=== PATIENT | female | born 1945 | race Caucasian/White ===

== ENCOUNTER 2020-06-17 12:46 | Outpatient (REF) | payer MEDICARE, SELFPAY ==
[2020-06-17 14:19] LABS: MANUAL DIFF FLAG NO
[2020-06-17 14:28] LABS: Basophils Absolute Auto 0.1 X10*3/uL (0.0-0.2); Basophils Percent Auto 0.8 % (0-2); Eosinophils Absolute Auto 0.3 X10*3/uL (0.0-0.4); Eosinophils Percent Auto 4.2 % (0-4); Hematocrit 43.7 % (37-47); Hemoglobin 13.4 g/dl (12.0-16.0); Imm Gran Abs Auto 0.02 X10*3/uL (0.00-0.03); Imm Gran Pct Auto 0.3 % (0.0-0.4); Lymphocytes Percent Auto 27.9 % (20-40); Mean Corpuscular HGB Conc 30.7 g/dl (31.0-35.0); Mean Corpuscular Hemoglobin 26.3 pg (27.0-33.0); Mean Corpuscular Volume 85.7 fL (80-98); Mean Platelet Volume 10.8 fL (9.4-12.3); Monocytes Absolute Auto 0.6 X10*3/uL (0.1-1.2); Monocytes Percent Auto 8.5 % (2-11); Neutrophils Absolute Auto 4.3 X10*3/uL (2.0-8.3); Neutrophils Percent Auto 58.3 % (45-73); Platelet Count 299 X10*3/uL (160-400); Red Cell Distribution Width 14.4 % (11.0-16.0); White Blood Count 7.3 X10*3/uL (4.8-10.8)
[2020-06-17 15:27] LABS: Anion Gap 13 (12-20); Blood Urea Nitrogen 19 mg/dL (9-16); Calcium 9.1 mg/dL (8.4-10.2); Carbon Dioxide 27 mmol/L (22-29); Chloride 103 mmol/L (96-108); Cholesterol 250 mg/dL; Estimated Glomerular Filt Rate > 60; Glucose Fasting 83 mg/dL (60-99); HDL Cholesterol 47 mg/dL; LDL Cholesterol Calculated 179 mg/dl; Potassium 4.5 mmol/l (3.3-5.1); Sodium 138 mmol/L (135-145); Triglycerides 124 mg/dL
== END 2020-06-17 12:47 | disposition home or self-care (01) ==
LOC: HO.LAB 12:46
PROVIDERS: PCP Nurse Practitioner Family; Visit Provider Nurse Practitioner Family
DX: R10.84 Generalized abdominal pain (principal); E78.00 Pure hypercholesterolemia, unspecified
CPT/HCPCS: 36415; 80048; 80061; 85025

== ENCOUNTER 2020-06-22 13:33 | Outpatient (REF) | payer MEDICARE, SELFPAY | END 2020-06-22 13:34 | disposition home or self-care (01) | LOC: HO.LAB 13:33 | PROVIDERS: Visit Provider Nurse Practitioner Family | DX: K92.1 Melena (principal) | CPT/HCPCS: 87045; 87046 ==

== ENCOUNTER 2022-06-03 14:21 | Inpatient (IN) | payer MEDICARE, OTHER, SELFPAY ==
--- NOTE | 2022-06-03 | ECG_ITS ---
Test Reason : SYNCOPE Blood Pressure : / mmHG Vent. Rate : 072 BPM Atrial Rate : 072 BPM P-R Int : 150 ms QRS Dur : 072 ms QT Int : 392 ms P-R-T Axes : 079 047 089 degrees QTc Int : 429 ms Normal sinus rhythm Normal ECG When compared with ECG of 12-DEC-2018 09:46, No significant change was found Referred By: Generic ED Physician Electronically Signed By:PARTHA BRAVO
--- NOTE | ~2022-06-03 | CT_ITS ---
PROCEDURE: CT-GUIDED LUNG BIOPSY CLINICAL INFORMATION: Rectal cancer. Multiple lung nodules. COMPARISON: Previous chest CT 06/04/2022. TECHNIQUE: Procedure and risks and benefits including bleeding, infection and pneumothorax were discussed with the patient and informed consent was obtained. The patient was positioned in the right decubitus position. Limited axial images through the lower lobes were performed. The right posterior lateral chest was prepped and draped in the usual sterile fashion. The skin and soft tissues were anesthetized with 1% lidocaine plain. Using CT guidance and a coaxial system, access to the right lower lobe nodule was obtained. Three 20-gauge core biopsies were obtained. Blood in the coaxial 19-gauge needle was also sent for cytology. Postprocedure imaging demonstrated no pneumothorax. The patient received Versed 1 mg and fentanyl 50 mcg intravenously during the procedure. Sedation time was 25 minutes. Conscious sedation was provided by a registered nurse under my direct supervision. TOTAL SEDATION TIME: 25 minutes PATIENT DOSE: 151 mGy-cm FINDINGS: There is evidence of emphysema. There are bilateral pulmonary nodules. Largest spiculated 1.5 cm right lower lobe nodule was targeted for biopsy. Postprocedure images demonstrate no pneumothorax. CT/CT guided FNA IMPRESSION: CT-guided right lung biopsy.
--- NOTE | ~2022-06-03 | US_ITS ---
EXAMINATION: US ABDOMEN LIMITED CLINICAL INFORMATION: Rectal cancer. Question metastatic disease to the liver.. COMPARISON: Previous CT of the abdomen and pelvis from yesterday TECHNIQUE: Real-time imaging of the liver. FINDINGS: The liver is normal in echotexture. There are multiple liver cysts. The largest measures 2.4 x 1 1.8 x 2.3 cm high in the dome of the right lobe of the liver. There is a 1.3 x 1.2 x 0.9 cm solid echogenic lesion high in the right lobe under the diaphragm. There is question of a second echogenic lesion in the central right lobe liver near the hepatic venous confluence measuring 7 mm. No other solid liver lesion is seen. There is no intrahepatic biliary duct dilatation. US/US abdomen limited IMPRESSION: Multiple liver cysts. 1.3 x 1.2 x 0.9 cm solid echogenic lesion high in the dome of the right lobe of the liver is under the right hemidiaphragm and question second smaller 7 mm echogenic lesion in the central right lobe of the liver near the hepatic venous confluence. These would be difficult locations for ultrasound-guided liver biopsy.
--- NOTE | ~2022-06-03 | XR_ITS ---
EXAMINATION: XR CHEST CLINICAL INFORMATION: Post right lung biopsy COMPARISON: Previous chest x-ray December [address] from earlier this month TECHNIQUE: Frontal view of the chest was obtained. FINDINGS: The cardiac and mediastinal contours are normal. Pulmonary nodules seen by CT are not well-visualized by chest x-ray. Small 7 mm left upper lobe nodule projecting over the left posterior fourth rib is seen. Other pulmonary nodules not appreciated. There is no pleural effusion. There is no pneumothorax post right lung biopsy. There are degenerative changes of the spine. XR/XR chest 1V IMPRESSION: No pneumothorax post right lung biopsy.
--- NOTE | ~2022-06-03 | CT_ITS ---
PROCEDURE: CT-GUIDED LUNG BIOPSY CLINICAL INFORMATION: Rectal cancer. Multiple lung nodules. COMPARISON: Previous chest CT 06/04/2022. TECHNIQUE: Procedure and risks and benefits including bleeding, infection and pneumothorax were discussed with the patient and informed consent was obtained. The patient was positioned in the right decubitus position. Limited axial images through the lower lobes were performed. The right posterior lateral chest was prepped and draped in the usual sterile fashion. The skin and soft tissues were anesthetized with 1% lidocaine plain. Using CT guidance and a coaxial system, access to the right lower lobe nodule was obtained. Three 20-gauge core biopsies were obtained. Blood in the coaxial 19-gauge needle was also sent for cytology. Postprocedure imaging demonstrated no pneumothorax. The patient received Versed 1 mg and fentanyl 50 mcg intravenously during the procedure. Sedation time was 25 minutes. Conscious sedation was provided by a registered nurse under my direct supervision. TOTAL SEDATION TIME: 25 minutes PATIENT DOSE: 151 mGy-cm FINDINGS: There is evidence of emphysema. There are bilateral pulmonary nodules. Largest spiculated 1.5 cm right lower lobe nodule was targeted for biopsy. Postprocedure images demonstrate no pneumothorax. CT/CT biopsy lung RT IMPRESSION: CT-guided right lung biopsy.
--- NOTE | ~2022-06-03 | CT_ITS ---
EXAMINATION: CT CHEST WITH CONTRAST CLINICAL INFORMATION: Pain. COMPARISON: Abdominal CT from today. Chest radiograph 12/12/2018. TECHNIQUE: Multidetector volumetric CT imaging of the chest was obtained after the administration of 50 mL of Omnipaque 350 intravenous contrast without immediate adverse reactions. Axial MIP volume rendering provided. Sagittal and coronal reformatted images were obtained. This CT examination was performed using dose optimization techniques as appropriate, variously including the following: *Automated exposure control *Adjustment of mA and/or kV according to patient size (this includes techniques or standardized protocols for targeted exams where dose is matched to indication/reason for exam; i.e. extremities or head) *Use of iterative reconstruction technique DLP: 227 mGy-cm FINDINGS: LUNGS: The central airways are patent. There is moderate centrilobular emphysema. No dense consolidation. No pneumothorax. There are multiple pulmonary nodules identified. Select nodules are characterized below: 1. Spiculated nodule of the right lower lobe measuring 1.7 cm on series 5 image 237. 2. Left upper lobe 0.7 cm nodule on series 5 image 84. 3. Subpleural anterior left upper lobe 0.7 cm nodule on series 5 image 194. 4. Left lower lobe 0.7 cm nodule on series 5 image 323. 5. Anterior right upper lobe 1 x 0.5 cm nodule on series 5 image 156. Additional smaller nodules are present. MEDIASTINUM: Normal heart size. No pericardial effusion. No mediastinal lymphadenopathy. CORONARY ARTERY CALCIFICATION: None visualized on this study. PLEURA: There is no pleural effusion. No pleural mass or thickening. AXILLA: No lymphadenopathy. UPPER ABDOMEN: Multiple hypoattenuating liver lesions again noted. OSSEOUS STRUCTURES: No acute or suspicious osseous abnormality. Mild degenerative changes of the spine. CT/CT chest w IV con IMPRESSION: Numerous bilateral pulmonary nodules are identified. No nonspecific, this could represent metastatic disease. There is moderate emphysema. Continued workup as clinically indicated in this setting. Fleischner guidelines were followed.
--- NOTE | ~2022-06-03 | CT_ITS ---
EXAMINATION: CT ABDOMEN AND PELVIS WITH CONTRAST CLINICAL INFORMATION: Abdominal pain. Weight loss. Rectal mass. COMPARISON: None TECHNIQUE: Multidetector volumetric images were obtained from the superior aspect of the liver through the pubic symphysis following administration 85 mL of Omnipaque 350 intravenous contrast. Sagittal and coronal reformatted images were obtained on the technologist's workstation. Oral contrast: No This CT examination was performed using dose optimization techniques as appropriate, variously including the following: *Automated exposure control *Adjustment of mA and/or kV according to patient size (this includes techniques or standardized protocols for targeted exams where dose is matched to indication/reason for exam; i.e. extremities or head) *Use of iterative reconstruction technique DLP: 351 mGy-cm FINDINGS: LUNG BASES: Moderate emphysema. Partially visualized right lower lobe 1.6 cm nodule. There is a calcification associated. There is a left lower lobe 0.7 cm nodule on series 4 image 71. Right middle lobe 0.4 cm nodule on image 75. There is also a right middle lobe 0.6 cm nodule on image 6. Normal heart size. LIVER, GALLBLADDER, AND BILIARY TREE: The liver is normal in size, shape, and attenuation. There is no biliary ductal dilatation. There are multiple hypoattenuating lesions in the liver. Some of these are too small to characterize. The larger lesions are cysts. There is a somewhat more heterogeneous structure which is ill-defined measuring 1.4 cm in segment 7 of the liver as seen on series 4 image 112.. The gallbladder is likely absent. PANCREAS: Unremarkable. SPLEEN: Unremarkable. ADRENAL GLANDS: Unremarkable. KIDNEYS AND URETERS: The kidneys are normal in size, shape, and attenuation. No hydronephrosis, hydroureter, or calculi seen. No perinephric stranding. Left lower pole simple renal cyst. No follow-up imaging recommended. BLADDER: Unremarkable. GASTROINTESTINAL TRACT: The stomach is unremarkable. Normal caliber small bowel. No obstruction. There is colonic diverticulosis without diverticulitis. As described in the clinical history, there is irregular wall thickening of the rectum with asymmetric prominence on the right. There are lymph nodes in the perirectal fat which are somewhat prominent. For instance there is a left perirectal node which measures 0.7 x 0.6 cm on series 3 image 78. ABDOMINAL WALL: No significant hernia is appreciated. LYMPH NODES: Mildly prominent lymph nodes in the perirectal fat as mentioned above. No additional lymphadenopathy. VASCULAR: Normal caliber aorta with mild atherosclerotic calcifications. PELVIC VISCERA: The uterus and adnexa are unremarkable. OSSEOUS STRUCTURES: No acute or suspicious osseous abnormality. Mild degenerative changes throughout the spine. Degenerative changes at both hips. CT/CT abdomen pelvis w IV con IMPRESSION: 1. Irregular rectal wall thickening. Neoplasm must be considered. Mildly prominent perirectal lymph nodes are present, concerning for neoplasm. 2. Moderate emphysema. Pulmonary nodules are seen at the lung bases. Given the clinical situation, metastatic disease is a concern. 3. Multiple hypoattenuating liver lesions are present. Many of these are too small to characterize, with the largest of these consistent with simple cysts. There is a more indeterminate lesion in the right lobe measuring 1.4 cm. MRI can be obtained to further evaluate. Fleischner guidelines were followed.
[2022-06-03 16:51] VITALS: BP 132/80; PULSE 102; RESP 18; TEMP 36.6; O2SAT 98; BMI 21.2
[2022-06-03 17:18] LABS: MANUAL DIFF FLAG NO
[2022-06-03 17:23] LABS: Basophils Absolute Auto 0.1 X10*3/uL (0.0-0.2); Basophils Percent Auto 0.6 % (0-2); Eosinophils Absolute Auto 0.2 X10*3/uL (0.0-0.4); Eosinophils Percent Auto 1.6 % (0-4); Hematocrit 40.6 % (37.0-47.0); Hemoglobin 12.5 g/dl (12.0-16.0); Imm Gran Abs Auto 0.03 X10*3/uL (0.00-0.03); Imm Gran Pct Auto 0.3 % (0.0-0.4); Lymphocytes Absolute Auto 1.4 X10*3/uL (1.2-4.9); Lymphocytes Percent Auto 14.3 % (20-40); Mean Corpuscular HGB Conc 30.8 g/dl (31.0-35.0); Mean Corpuscular Hemoglobin 26.3 pg (27.0-33.0); Mean Corpuscular Volume 85.5 fL (80.0-98.0); Mean Platelet Volume 9.8 fL (9.4-12.3); Monocytes Absolute Auto 0.9 X10*3/uL (0.1-1.2); Monocytes Percent Auto 8.6 % (2-11); Neutrophils Absolute Auto 7.5 x10*3/uL (2.0-8.3); Neutrophils Percent Auto 74.6 % (45-73); Platelet Count 510 X10*3/uL (160-400); Red Blood Count 4.75 X10*6/uL (4.20-5.50); Red Cell Distribution Width 15.1 % (11.0-16.0)
[2022-06-03 17:49] LABS: Alanine Aminotransferase 16 U/L (0-31); Albumin Level 4.4 g/dL (3.5-5.0); Alkaline Phosphatase 71 U/L (39-117); Anion Gap 17 (12-20); Aspartate Amino Transferase 23 U/L (5-31); Bilirubin Total < 0.2 mg/dL (0.0-1.0); Blood Urea Nitrogen 23 mg/dL (9-16); Calcium 9.8 mg/dL (8.4-10.2); Carbon Dioxide 19 mmol/L (22-29); Chloride 106 mmol/L (96-108); Creatinine Clr Calc Pharmacy 41.7; Estimated Glomerular Filt Rate 60; Glucose Random 96 mg/dL (60-115); Potassium 4.4 mmol/L (3.3-5.1); Sodium 138 mmol/L (135-145); Total Protein 7.3 g/dL (6.5-8.0)
[2022-06-03 17:51] LABS: Troponin-I High Sensitivity < 3.5 ng/L (<3.5-17.0)
[2022-06-03 18:50] LABS: B Type Natriuretic Peptide 81 pg/mL (<100)
[2022-06-03 22:29] LABS: Appearance Urine Cloudy; Color Urine Yellow; Glucose Urine UA Negative (Negative); Leukocyte Esterase Urine Moderate (2+) (Negative); Nitrite Urine Negative (Negative); Specific Gravity - Urine >= 1.030 (1.005-1.025); UMIC TRIGGER UACC YES; Urine Blood Negative (Negative); Urine Ketones Trace mg/dL (Negative); Urine Protein 30 (1+) mg/dL (Neg-Trace)
[2022-06-03 23:11] LABS: Bacteria Urine 4+ (None Seen); Calcium Oxalate Crystals Urine Present; UACC Culture Trigger YES; WBC Urine >50 /HPF (0-5)
--- NOTE | 2022-06-04 02:42 | ED_ITS ---
HPI - General Adult General Chief complaint: General Medical Stated complaint: Dizziness/Abd pain Time Seen by Provider: 06/03/22 18:06 Source: patient Mode of arrival: ambulatory History of Present Illness HPI narrative: 77-year-old female who states that she is had 7 months of abdominal discomfort with bleeding from her bottom when she lived in [place] but she did not have medical insurance so was unable to follow-up with a physician. patient states that she is having significant pain in her abdomen as well as stating that her butt hurts . She has never had a colonoscopy before and reports a 40-50 lb weight loss that is unintentional. She denies any fever chills. Related Data Previous Rx's Medication Instructions Recorded pantoprazole 20 mg tablet,delayed 20 mg PO DAILY #90 tabs 07/08/20 release Allergies Allergy/AdvReac Type Severity Reaction Status Date / Time codeine [CODEINE] Allergy Unknown UNKNOWN Verified 06/03/22 16:51 Review of Systems Review of Systems: Pertinent positives and negatives as stated HPI 10 point review of systems is otherwise negative. PMF Past Medical History Source: nursing notes reviewed Medical History Bloody stools Heart murmur Surgical History Gallbladder calculus Family History Family History Father No problems noted. Mother No problems noted. Social History Social History Advance Directives: No Advance Directives Information Provided: Yes Physical Exam ED Vital Signs: Vital Signs - 24 hr 06/03/22 16:51 06/04/22 03:38 Temperature 97.8 F Pulse Rate 102 H 69 Respiratory Rate 18 18 Blood Pressure 132/80 151/61 H Pulse Oximetry 98 98 Oxygen Delivery Method Room Air Room Air BMI result Body Mass Index 21.2 VITAL SIGNS: Reviewed. GENERAL: Cachectic, frail, in moderate distress. HEAD: Normocephalic/atraumatic EYES: PERRLA, EOMI EARS: Ext canals without abnormality NOSE: Nares patent bilateral OROPHARYNX: no oral lesions noted, posterior pharynx clear NECK: Supple, no adenopathy LUNGS: Normal breath sounds. No adventitious sounds or accessory muscle use. SpO2<98> CARDIOVASCULAR: Regular rate and rhythm without noted murmurs ABDOMEN: Soft, non-tender, non-distended with bowel sounds. ARPIT: Obvious mass at the 3 o'clock position on inserting 1 finger there are masses along the entire a no rectal path with palpated masses up to an approximate 4 cm, mucous see blood-tinged finger tip and patient in significant discomfort MUSCULOSKELETAL: No tenderness, deformities, or effusions noted on gross inspection. EXTREMITIES: No cyanosis, clubbing or edema. SKIN: Inspection of the skin reveals no rashes NEUROLOGIC: Alert and oriented x 4. Strength and sensation to light touch were grossly intact x 4. Course Course Course Narrative: 0315: 77-year-old female with history and clinical presentation suspicious for cancer although on review of all investigations findings consistent with a UTI. Signed out to Dr Johnson. Medical Decision Making Lab Data Result diagrams: 06/03/22 17:13 06/03/22 17:13 Labs: Lab Results 06/03/22 06/03/22 06/03/22 Range/Units 17:13 17:13 17:13 WBC 10.0 (4.8-10.8) X10*3/uL RBC 4.75 (4.20-5.50) X10*6/uL Hgb 12.5 (12.0-16.0) g/dl Hct 40.6 (37.0-47.0) % MCV 85.5 (80.0-98.0) fL MCH 26.3 L (27.0-33.0) pg MCHC 30.8 L (31.0-35.0) g/dl RDW 15.1 (11.0-16.0) % Plt Count 510 H (160-400) X10*3/uL MPV 9.8 (9.4-12.3) fL Immature Gran % (Auto) 0.3 (0.0-0.4) % Neut % (Auto) 74.6 H (45-73) % Lymph % (Auto) 14.3 L (20-40) % [place] % (Auto) 8.6 (2-11) % Eos % (Auto) 1.6 (0-4) % Baso % (Auto) 0.6 (0-2) % Lymph # (Auto) 1.4 (1.2-4.9) X10*3/uL [place] # (Auto) 0.9 (0.1-1.2) X10*3/uL Eos # (Auto) 0.2 (0.0-0.4) X10*3/uL Baso # (Auto) 0.1 (0.0-0.2) X10*3/uL Abs Immat Gran (auto) 0.03 (0.00-0.03) X10*3/uL Absolute Neuts (auto) 7.5 (2.0-8.3) x10*3/uL Absolute Nucleated RBC 0.000 (0.0-0.012) X10*3/uL Nucleated RBC % (auto) 0.0 (0.0-0.2) /100WBC Sodium 138 (135-145) mmol/L Potassium 4.4 (3.3-5.1) mmol/L Chloride 106 (96-108) mmol/L Carbon Dioxide 19 L (22-29) mmol/L Anion Gap 17 (12-20) BUN 23 H (9-16) mg/dL Creatinine 0.92 (0.5-1.4) mg/dL Estim Creat Clear Calc 41.7 Estimated GFR 60 Random Glucose 96 (60-115) mg/dL Lactic Acid (0.5-2.0) mmol/L Calcium 9.8 D (8.4-10.2) mg/dL Total Bilirubin < 0.2 (0.0-1.0) mg/dL AST 23 (5-31) U/L ALT 16 (0-31) U/L Alkaline Phosphatase 71 (39-117) U/L Troponin I High Sens < 3.5 (<3.5-17.0) ng/L B-Natriuretic Peptide (<100) pg/mL Total Protein 7.3 (6.5-8.0) g/dL Albumin 4.4 (3.5-5.0) g/dL Urine Color Urine Appearance Urine pH (5.0-9.0) Ur Specific [place] (1.005-1.025) Urine Protein (Neg-Trace) mg/dL Urine Glucose (UA) (Negative) mg/dL Urine Ketones (Negative) mg/dL Urine Blood (Negative) Urine Nitrite (Negative) Ur Leukocyte Esterase (Negative) Urine RBC (0-2) /HPF Urine WBC (0-5) /HPF Ur Squamous Epith Cells (0-2) /HPF Calcium Oxalate Crystal Urine Bacteria (None Seen) Hyaline Casts (0-2) /LPF Stool Occult Blood (NEGATIVE) 06/03/22 06/03/22 06/04/22 Range/Units 17:13 22:23 03:00 WBC (4.8-10.8) X10*3/uL RBC (4.20-5.50) X10*6/uL Hgb (12.0-16.0) g/dl Hct (37.0-47.0) % MCV (80.0-98.0) fL MCH (27.0-33.0) pg MCHC (31.0-35.0) g/dl RDW (11.0-16.0) % Plt Count (160-400) X10*3/uL MPV (9.4-12.3) fL Immature Gran % (Auto) (0.0-0.4) % Neut % (Auto) (45-73) % Lymph % (Auto) (20-40) % [place] % (Auto) (2-11) % Eos % (Auto) (0-4) % Baso % (Auto) (0-2) % Lymph # (Auto) (1.2-4.9) X10*3/uL [place] # (Auto) (0.1-1.2) X10*3/uL Eos # (Auto) (0.0-0.4) X10*3/uL Baso # (Auto) (0.0-0.2) X10*3/uL Abs Immat Gran (auto) (0.00-0.03) X10*3/uL Absolute Neuts (auto) (2.0-8.3) x10*3/uL Absolute Nucleated RBC (0.0-0.012) X10*3/uL Nucleated RBC % (auto) (0.0-0.2) /100WBC Sodium (135-145) mmol/L Potassium (3.3-5.1) mmol/L Chloride (96-108) mmol/L Carbon Dioxide (22-29) mmol/L Anion Gap (12-20) BUN (9-16) mg/dL Creatinine (0.5-1.4) mg/dL Estim Creat Clear Calc Estimated GFR Random Glucose (60-115) mg/dL Lactic Acid (0.5-2.0) mmol/L Calcium (8.4-10.2) mg/dL Total Bilirubin (0.0-1.0) mg/dL AST (5-31) U/L ALT (0-31) U/L Alkaline Phosphatase (39-117) U/L Troponin I High Sens (<3.5-17.0) ng/L B-Natriuretic Peptide 81 (<100) pg/mL Total Protein (6.5-8.0) g/dL Albumin (3.5-5.0) g/dL Urine Color Yellow Urine Appearance Cloudy Urine pH 5.0 (5.0-9.0) Ur Specific [place] >= 1.030 H (1.005-1.025) Urine Protein 30 (1+) H (Neg-Trace) mg/dL Urine Glucose (UA) Negative (Negative) mg/dL Urine Ketones Trace (Negative) mg/dL Urine Blood Negative (Negative) Urine Nitrite Negative (Negative) Ur Leukocyte Esterase Moderate (2+) H (Negative) Urine RBC 3-5 H (0-2) /HPF Urine WBC >50 H (0-5) /HPF Ur Squamous Epith Cells 11-20 (0-2) /HPF Calcium Oxalate Crystal Present Urine Bacteria 4+ (None Seen) Hyaline Casts 3-5 (0-2) /LPF Stool Occult Blood POSITIVE (NEGATIVE) 06/04/22 Range/Units 03:56 WBC (4.8-10.8) X10*3/uL RBC (4.20-5.50) X10*6/uL Hgb (12.0-16.0) g/dl Hct (37.0-47.0) % MCV (80.0-98.0) fL MCH (27.0-33.0) pg MCHC (31.0-35.0) g/dl RDW (11.0-16.0) % Plt Count (160-400) X10*3/uL MPV (9.4-12.3) fL Immature Gran % (Auto) (0.0-0.4) % Neut % (Auto) (45-73) % Lymph % (Auto) (20-40) % [place] % (Auto) (2-11) % Eos % (Auto) (0-4) % Baso % (Auto) (0-2) % Lymph # (Auto) (1.2-4.9) X10*3/uL [place] # (Auto) (0.1-1.2) X10*3/uL Eos # (Auto) (0.0-0.4) X10*3/uL Baso # (Auto) (0.0-0.2) X10*3/uL Abs Immat Gran (auto) (0.00-0.03) X10*3/uL Absolute Neuts (auto) (2.0-8.3) x10*3/uL Absolute Nucleated RBC (0.0-0.012) X10*3/uL Nucleated RBC % (auto) (0.0-0.2) /100WBC Sodium (135-145) mmol/L Potassium (3.3-5.1) mmol/L Chloride (96-108) mmol/L Carbon Dioxide (22-29) mmol/L Anion Gap (12-20) BUN (9-16) mg/dL Creatinine (0.5-1.4) mg/dL Estim Creat Clear Calc Estimated GFR Random Glucose (60-115) mg/dL Lactic Acid 0.7 (0.5-2.0) mmol/L Calcium (8.4-10.2) mg/dL Total Bilirubin (0.0-1.0) mg/dL AST (5-31) U/L ALT (0-31) U/L Alkaline Phosphatase (39-117) U/L Troponin I High Sens (<3.5-17.0) ng/L B-Natriuretic Peptide (<100) pg/mL Total Protein (6.5-8.0) g/dL Albumin (3.5-5.0) g/dL Urine Color Urine Appearance Urine pH (5.0-9.0) Ur Specific [place] (1.005-1.025) Urine Protein (Neg-Trace) mg/dL Urine Glucose (UA) (Negative) mg/dL Urine Ketones (Negative) mg/dL Urine Blood (Negative) Urine Nitrite (Negative) Ur Leukocyte Esterase (Negative) Urine RBC (0-2) /HPF Urine WBC (0-5) /HPF Ur Squamous Epith Cells (0-2) /HPF Calcium Oxalate Crystal Urine Bacteria (None Seen) Hyaline Casts (0-2) /LPF Stool Occult Blood (NEGATIVE) Discharge Plan Discharge Clinical Impression: Abdominal pain, Bloody stools, Rectal pain, Rectal mass Patient Disposition: Still a Patient Prescriptions: No Action pantoprazole 20 mg tablet,delayed release (DR/EC) 20 mg PO DAILY Qty: 90 0RF
[2022-06-04 03:04] LABS: OBS Int Ctl Valid YES; OBS1 POSITIVE (NEGATIVE)
[2022-06-04] MEDS: 0.9 % Sodium Chloride 1,000 ML 999 ML IV (03:19)
--- NOTE | 2022-06-04 03:20 | PC.NURSE ---
pt a&o, no sob or chest pain. pt medicated per Mar.
[2022-06-04 03:38] VITALS: BP 151/61; PULSE 69; RESP 18; O2SAT 98
[2022-06-04] MEDS: fentaNYL citrate/PF 100 MCG/2 ML VIAL 25 MCG IVPUSH (03:42)
[2022-06-04 04:13] LABS: Lactic Acid 0.7 mmol/L (0.5-2.0)
[2022-06-04] MEDS: iohexoL 350 MG/ML 100 ML INFUS..BTL 85 ML IV (04:22)
[2022-06-04] MEDS: cefTRIAXone sodium 1 GM in 0.9 % Sodium Chloride 50 ML IV (04:24)
[2022-06-04] MEDS: iohexoL 350 MG/ML 100 ML INFUS..BTL 50 ML IV (05:14)
[2022-06-04 05:59] LABS: COVID-19 Test Negative (Negative); IDNOW Serial# 16C4AD1C
[2022-06-04 06:17] VITALS: BP 164/76; PULSE 68; RESP 18; TEMP 36.7; O2SAT 97
[2022-06-04 08:48] VITALS: BP 138/66; PULSE 65; RESP 16; O2SAT 99
[2022-06-04] MEDS: Morphine Sulfate 4 MG/ML CARTRIDGE IVPUSH (08:51)
--- NOTE | 2022-06-04 09:07 | PHA.MEDREC ---
Pharmacy Consult ? Medication Reconciliation Pharmacy has completed the medication reconciliation. Patient stated she takes nothing at home except tylenol. She admits taking up to 24 tablets a day.
--- NOTE | 2022-06-04 10:56 | P.HPHOSP_ITS ---
History of Present Illness Date of Service: 06/04/22 Chief Complaint: Rectal bleeding, weakness A 77 years old lady with no significant PMH who presents to the hospital complaining of weakness, weight loss and rectal bleeding for the last 6 months or so. She reported that he did not have insurance while she was living at [place] as she could not see any physicians. She went for colonoscopy but she was unable to go ahead with the procedure as she fills so much pain upon rectal exam. She denies having any pain, fever, chills, nausea or vomiting but reports change in bowel habit with more diarrhea recently. Reports losing 40-50 lb over the last 6 months. In the emergency urine was thought to be infected. CT scan of the abdomen with was concerning for rectal mass with surrounding lymph nodes. CT chest showed pulmonary nodules concerning for metastasis. Liver lesions were also noted. Admitted for further evaluation and treatment. Review of Systems 2 Review of Systems: No fever, chills but has generalized weakness and weight loss No chest pain, palpitation No shortness of breath or coughing Reporting abdominal pain after morphine, no nausea or vomiting No urinary symptoms No any rash or wounds Rectal bleeding PMFSH Medical History Bloody stools Heart murmur Family History Father No problems noted. Mother No problems noted. Surgical History Gallbladder calculus Social History Alcohol intake: never Patient Tobacco Use Status: Current everyday Tobacco user Use of substances other than those prescribed or required for medical reasons: No Advance Directives: No Advance Directives Information Provided: Yes Meds Allergies Allergy/AdvReac Type Severity Reaction Status Date / Time codeine [CODEINE] Allergy Unknown UNKNOWN Verified 06/03/22 16:51 Active Medications: Current Medications Pharmacy Consult (Consult Rx Perform Med Rec) 1 each MISCELLANE ONCE PRN PRN Reason: Consult order Home Medications Medication Instructions Recorded Confirmed Last Taken Type acetaminophen 325 mg tablet 650 mg PO QID PRN Pain 06/04/22 06/04/22 Unknown History (Tylenol) Physical Exam Vital Signs and Narrative: Vital Signs: Last Vital Signs Temp 98.1 F 06/04/22 06:17 Pulse 65 06/04/22 08:48 Resp 16 06/04/22 08:48 BP 138/66 06/04/22 08:48 Pulse Ox 99 06/04/22 08:48 O2 Del Method 06/04/22 08:48 BMI result Body Mass Index 21.2 Const: Other: Constitutional : Alert, interactive, not in distress Neck : Normal inspection, Supple Cardiovascular : RRR, no JVP, no lower extremity edema Respiratory : fair bilateral air entry, no crackles, wheezes or rhonchi Gastrointestinal: soft, lax, Normal bowel sounds, mild epigastric pain Skin : Warm, Dry Neurological : Alert & oriented x3, No focal deficit , CN 2-12 within normal Results Labs CBC and Chem 7: 06/03/22 17:13 06/03/22 17:13 Labs: Laboratory Results - last 24 hr 06/03/22 06/03/22 06/03/22 17:13 17:13 17:13 MCV 85.5 MCH 26.3 L MCHC 30.8 L RDW 15.1 Plt Count 510 H MPV 9.8 Immature Gran % (Auto) 0.3 Neut % (Auto) 74.6 H Lymph % (Auto) 14.3 L [place] % (Auto) 8.6 Eos % (Auto) 1.6 Baso % (Auto) 0.6 Lymph # (Auto) 1.4 [place] # (Auto) 0.9 Eos # (Auto) 0.2 Baso # (Auto) 0.1 Abs Immat Gran (auto) 0.03 Absolute Neuts (auto) 7.5 Absolute Nucleated RBC 0.000 Nucleated RBC % (auto) 0.0 Anion Gap 17 Estim Creat Clear Calc 41.7 Estimated GFR 60 Random Glucose 96 Lactic Acid Calcium 9.8 D Total Bilirubin < 0.2 AST 23 ALT 16 Alkaline Phosphatase 71 B-Natriuretic Peptide 81 Total Protein 7.3 Albumin 4.4 Urine Color Urine Appearance Urine pH Ur Specific [place] Urine Protein Urine Glucose (UA) Urine Ketones Urine Blood Urine Nitrite Ur Leukocyte Esterase Urine RBC Urine WBC Ur Squamous Epith Cells Calcium Oxalate Crystal Urine Bacteria Hyaline Casts Stool Occult Blood COVID-19 (YASMINE) COVID-19 Clin Com 06/03/22 06/04/22 06/04/22 22:23 03:00 03:56 MCV MCH MCHC RDW Plt Count MPV Immature Gran % (Auto) Neut % (Auto) Lymph % (Auto) [place] % (Auto) Eos % (Auto) Baso % (Auto) Lymph # (Auto) [place] # (Auto) Eos # (Auto) Baso # (Auto) Abs Immat Gran (auto) Absolute Neuts (auto) Absolute Nucleated RBC Nucleated RBC % (auto) Anion Gap Estim Creat Clear Calc Estimated GFR Random Glucose Lactic Acid 0.7 Calcium Total Bilirubin AST ALT Alkaline Phosphatase B-Natriuretic Peptide Total Protein Albumin Urine Color Yellow Urine Appearance Cloudy Urine pH 5.0 Ur Specific [place] >= 1.030 H Urine Protein 30 (1+) H Urine Glucose (UA) Negative Urine Ketones Trace Urine Blood Negative Urine Nitrite Negative Ur Leukocyte Esterase Moderate (2+) H Urine RBC 3-5 H Urine WBC >50 H Ur Squamous Epith Cells 11-20 Calcium Oxalate Crystal Present Urine Bacteria 4+ Hyaline Casts 3-5 Stool Occult Blood POSITIVE COVID-19 (YASMINE) COVID-Lanyrd 06/04/22 05:37 MCV MCH MCHC RDW Plt Count MPV Immature Gran % (Auto) Neut % (Auto) Lymph % (Auto) [place] % (Auto) Eos % (Auto) Baso % (Auto) Lymph # (Auto) [place] # (Auto) Eos # (Auto) Baso # (Auto) Abs Immat Gran (auto) Absolute Neuts (auto) Absolute Nucleated RBC Nucleated RBC % (auto) Anion Gap Estim Creat Clear Calc Estimated GFR Random Glucose Lactic Acid Calcium Total Bilirubin AST ALT Alkaline Phosphatase B-Natriuretic Peptide Total Protein Albumin Urine Color Urine Appearance Urine pH Ur Specific [place] Urine Protein Urine Glucose (UA) Urine Ketones Urine Blood Urine Nitrite Ur Leukocyte Esterase Urine RBC Urine WBC Ur Squamous Epith Cells Calcium Oxalate Crystal Urine Bacteria Hyaline Casts Stool Occult Blood COVID-19 (YASMINE) Negative COVID-Lanyrd See Note Imaging Radiologist's Impressions: Impressions Abdomen/Pelvis CT 06/04/22 04:20 IMPRESSION: 1. Irregular rectal wall thickening. Neoplasm must be considered. Mildly prominent perirectal lymph nodes are present, concerning for neoplasm. 2. Moderate emphysema. Pulmonary nodules are seen at the lung bases. Given the clinical situation, metastatic disease is a concern. 3. Multiple hypoattenuating liver lesions are present. Many of these are too small to characterize, with the largest of these consistent with simple cysts. There is a more indeterminate lesion in the right lobe measuring 1.4 cm. MRI can be obtained to further evaluate. Fleischner guidelines were followed. Chest CT 06/04/22 05:15 IMPRESSION: Numerous bilateral pulmonary nodules are identified. No nonspecific, this could represent metastatic disease. There is moderate emphysema. Continued workup as clinically indicated in this setting. Fleischner guidelines were followed. Assessment and Plan (1) Bloody stools: Status: Acute (2) Lung nodule, multiple: Status: Acute (3) Rectal mass: Status: Acute (4) UTI (urinary tract infection): Status: Acute Plan A 77 years old lady with no significant PMH who presents to the hospital complaining of weakness, weight loss and rectal bleeding for the last 6 months or so. Rectal bleeding secondary to rectal mass CT scan concerning for possible rectal cancer No drop in blood level, hemoglobin stable around 12 Get GI evaluation for possible biopsies Get Oncology evaluation Weight loss Likely secondary to underlying malignancy To give supplement UTI Treat with IV ceftriaxone pending final urine cultures Pulmonary nodules Likely related to underlying metastatic malignancy 1.7 spiculated nodule in right lower lobe the largest among others DVT PPX SCDs The patient will need 2. Overnight hospital stay for evaluation of acute rectal bleeding and rectal mass, treatment of UTI with IV antibiotics to prevent possible decompensation to sepsis. Quality Stroke Does the patient have a stroke diagnosis?: No VTE Prior VTE?: No VTE Risk Level:: Medical - moderate - high VTE Device Contraindication: N/A - Device Ordered VTE Drug Contraindication: Treatment Not Indicated
--- NOTE | 2022-06-04 10:58 | PM.HEMONCCN ---
Subjective - Subjective Chief complaint: Consult for: Rectal mass. Patient: new to practice Consult date: 06/04/22 Requesting Physician: Jermaine Coe. Primary Care Provider: None Physician Medical Summary: DIAGNOSIS: RECTAL MASS. HPI - Consult Narrative Reason for consult: Consult for: Rectal mass. Narrative: Iveth Mora is a pleasant 77 year old lady, who presented to the ED. This is a pleasant 77 year old lady who presents with a 7 months of abdominal discomfort with bleeding from her rectum. This started when she lived in [place] but she did not have medical insurance so was unable to follow-up with a physician. She states that she is having significant pain in her abdomen as well as stating that she has pain in the rectal area. She has never had a colonoscopy before and reports a 40-50 lb weight loss that is unintentional. She denies any fever chills. CT scan of the abdomen revealed: 1. Irregular rectal wall thickening. Neoplasm must be considered. Mildly prominent perirectal lymph nodes are present, concerning for neoplasm. 2. Moderate emphysema. Pulmonary nodules are seen at the lung bases. Given the clinical situation, metastatic disease is a concern. 3. Multiple hypoattenuating liver lesions are present. Many of these are too small to characterize, with the largest of these consistent with simple cysts. There is a more indeterminate lesion in the right lobe measuring 1.4 cm. MRI can be obtained to further evaluate.? CT chest revealed: Numerous bilateral pulmonary nodules are identified. No nonspecific, this could represent metastatic disease. There is moderate emphysema. Continued workup as clinically indicated in this setting. ? Review of Systems Review of Systems: No fever, chills but has generalized weakness and weight loss No chest pain, palpitation No shortness of breath or coughing Reporting abdominal pain after morphine, no nausea or vomiting No urinary symptoms No any rash or wounds Rectal bleeding PMFSH Medical History: Bloody stools Heart murmur Family History: No known history of cancer. Father No problems noted. Mother No problems noted. 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 She had 7 children, 6 living. She smoked a pack a day since the age of 15. Alcohol intake: never Patient Tobacco Use Status: Current everyday Tobacco user Use of substances other than those prescribed or required for medical reasons: No Advance Directives: No Advance Directives Information Provided: Yes Review of Systems - Constitutional Reports system reviewed and no additional complaints, except as documented, Reports fatigue, Reports lack of energy, Reports malaise, Reports poor appetite, Reports weakness, Reports weight loss - Eyes Reports system reviewed and no additional complaints, except as documented - ENT Reports system reviewed and no additional complaints, except as documented - Cardiovascular Reports system reviewed and no additional complaints, except as documented - Respiratory Reports no additional respiratory complaints - Gastrointestinal Reports system reviewed and no additional complaints, except as documented - Genitourinary Reports no additional female genitourinary complaints - Musculoskeletal Reports system reviewed and no additional complaints, except as documented - Integumentary/Breasts Skin/Breast: Reports no additional skin complaints - Neurologic Reports system reviewed and no additional complaints, except as documented - Psychiatric Reports system reviewed and no additional complaints, except as documented - Endocrine Reports no additional endocrine complaints - Hematologic/Lymphatic Reports system reviewed and no additional complaints, except as documented - Allergic/Immunologic Reports system reviewed and no additional complaints, except as documented Oncology Screenings - ECOG Performance Status ECOG Performance Status: 1 [facility] Medical History: Medical History (Last Reviewed 06/15/22 @ 02:33 by Mehrdad Wild MD) Bloody stools Heart murmur Family History: Family History (Last Reviewed 06/15/22 @ 02:33 by Mehrdad Wild MD) Father No problems noted. Mother No problems noted. Surgical History: Surgical History (Last Reviewed 06/15/22 @ 02:33 by Mehrdad Wild MD) Gallbladder calculus Social History: Social History (Last Reviewed 06/15/22 @ 02:33 by Mehrdad Wild MD) Living Situation History: Household Members: None Housing: House Do you presently have visiting nurse or other home services: No Tobacco History: Patient Tobacco Use Status: Former Tobacco user Tobacco use type: Cigarette Smoke Quit Date: Advance Directives: Advance Directives: No Advance Directives Information Provided: Advance Directives Information Provided comment: declined Occupation Assessmet: service: No Current occupational status: retired Home Medications and Allergies Current Medications: Current Medications Acetaminophen (Acetaminophen 325 Mg Tablet) 650 mg PO Q6H PRN PRN Reason: Pain, Mild (Pain Scale 1-3) Famotidine (Famotidine/Pf 20 Mg/2 Ml Vial) 20 mg IVPUSH ONCE ONE Stop: 06/04/22 10:39 Ceftriaxone Sodium 1 gm/ (Sodium Chloride) 50 mls @ 100 mls/hr IV Q24H [facility] Ondansetron HCl (Ondansetron Hcl 4 Mg/2 Ml Vial) 4 mg IVPUSH Q8H PRN PRN Reason: Nausea and Vomiting Pharmacy Consult (Consult Rx Perform Med Rec) 1 each MISCELLANE ONCE PRN PRN Reason: Consult order Sodium Chloride (0.9 % Sodium Chloride Flush 3 Ml Syringe) 3 ml IVFLUSH QSHIFT [facility] Home Medications Medication Instructions Recorded Confirmed Type acetaminophen 325 mg tablet 650 mg PO QID PRN Pain 06/04/22 06/04/22 History (Tylenol) Allergies Allergy/AdvReac Type Severity Reaction Status Date / Time codeine [CODEINE] Allergy Unknown UNKNOWN Verified 06/07/22 10:16 morphine AdvReac Abdominal Verified 06/07/22 10:16 Pain Physical Exam Vital signs: Vital Signs Temp 98.1 F 06/04/22 06:17 Pulse 65 06/04/22 08:48 Resp 16 06/04/22 08:48 BP 138/66 06/04/22 08:48 Pulse Ox 99 06/04/22 08:48 O2 Del Method 06/04/22 08:48 Intake & Output 06/03/22 06/04/22 06/04/22 18:59 06:59 18:59 Intake Total 1050 / 1050 Balance 1050 / 1050 Intake: Intake, IV Amount 1050 / 1050 0.9 % Sodium Chloride 1,000 ml 1000 / 1000 @ 999 mls/hr IV .Q1H1M [facility] Rx#: [id number] cefTRIAXone sodium 1 gm In 0.9 50 / 50 % Sodium Chloride 50 ml @ 100 mls/hr IV ONCE ONE Rx#: [id number] Other: Weight 52.6 kg Weight 52.6 kg - Routine HEENT Exam Head: Present: normal inspection, normocephalic Eye: Present: normal appearance ENT: Present: mucous membranes moist - Routine Neck Exam Present: supple - Routine Respiratory Exam Present: CTAB - Routine Cardiovascular Exam Cardiovascular: Present: RRR, S1, S2 - Routine Abdominal Exam Present: soft, nontender - Routine Extremities Exam Present: nontender - Routine Skin Exam Present: intact, normal turgor - Routine Neurological Exam Present: alert, oriented X3, vision grossly intact Hem/Onc Consult Result - Labs CBC & Chem 7: 06/09/22 05:24 06/09/22 05:24 Labs: Short CBC 06/03/22 Range/Units 17:13 WBC 10.0 (4.8-10.8) X10*3/uL Hgb 12.5 (12.0-16.0) g/dl Hct 40.6 (37.0-47.0) % Plt Count 510 H (160-400) X10*3/uL BMP 06/03/22 17:13 Sodium 138 Potassium 4.4 Chloride 106 Carbon Dioxide 19 L BUN 23 H Creatinine 0.92 Calcium 9.8 D Liver Function 06/03/22 Range/Units 17:13 Total Bilirubin < 0.2 (0.0-1.0) mg/dL AST 23 (5-31) U/L ALT 16 (0-31) U/L Alkaline Phosphatase 71 (39-117) U/L Albumin 4.4 (3.5-5.0) g/dL Urine 06/03/22 Range/Units 22:23 Urine Color Yellow Urine Appearance Cloudy Urine pH 5.0 (5.0-9.0) Ur Specific [place] >= 1.030 H (1.005-1.025) Urine Protein 30 (1+) H (Neg-Trace) mg/dL Urine Glucose (UA) Negative (Negative) mg/dL Assessment and Plan Patient Active problem list reviewed?: Yes (1) Rectal mass Status: Acute Assessment and plan: This is a pleasant 77 year old lady who presents with a 7 months of abdominal discomfort with bleeding from her rectum. This started when she lived in [place] but she did not have medical insurance so was unable to follow-up with a physician. She states that she is having significant pain in her abdomen as well as stating that she has pain in the rectal area. She has never had a colonoscopy before and reports a 40-50 lb weight loss that is unintentional. CT scan of the abdomen revealed: 1. Irregular rectal wall thickening. Neoplasm must be considered. Mildly prominent perirectal lymph nodes are present, concerning for neoplasm. 2. Moderate emphysema. Pulmonary nodules are seen at the lung bases. Given the clinical situation, metastatic disease is a concern. 3. Multiple hypoattenuating liver lesions are present. Many of these are too small to characterize, with the largest of these consistent with simple cysts. There is a more indeterminate lesion in the right lobe measuring 1.4 cm. MRI can be obtained to further evaluate.? CT chest revealed: Numerous bilateral pulmonary nodules are identified. No nonspecific, this could represent metastatic disease. There is moderate emphysema. Continued workup as clinically indicated in this setting. PLAN: I discussed with IR to see if 1 of the liver lesions are accessible for a biopsy. The liver lesion is high up. I was advised to proceed with ultrasound of the abdomen, to see if something would be feasible for biopsy. If not then, the right lower lobe lung lesion can be targeted. She will also have a GI evaluation. Will make further plans based upon the exact histology. Will get baseline CEA level.: 14 Thank you, Addendum: Rectal biopsy: High-grade dysplasia worrisome for adenocarcinoma. 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 PLAN: Will proceed with a PET scan as an outpatient. She will likely be a candidate for combined modality therapy with radiation plus chemotherapy, with capecitabine. - Time Spent With Patient Time Spent with Patient (in minutes): 30
[2022-06-04] MEDS: Famotidine/PF 20 MG/2 ML VIAL IVPUSH (11:22)
[2022-06-04 15:07] VITALS: BP 143/61; PULSE 73; RESP 18; O2SAT 98
[2022-06-04] MEDS: HYDROmorphone HCl 0.5 MG/0.5 ML SYRINGE 0.25 MG IVPUSH ×2 (15:08→21:17)
[2022-06-04] MEDS: 0.9 % Sodium Chloride Flush 3 ML SYRINGE IVFLUSH ×2 (15:09→21:17)
[2022-06-04] MEDS: ondansetron HCL 4 MG/2 ML VIAL IVPUSH (15:13)
--- NOTE | 2022-06-04 17:38 | P.EN_ITS ---
Event Note Date of Service: 06/04/22 Event Note: GI Consult-Full note dictated Imp: 77 yo female with progressive symptoms of diarrhea, rectal bleeding, rectal pain, urgency, and weight loss. She has never had a colonoscopy. Her w/u here has included a CT scan c/w a possible rectal neoplasm with possible metastatic disease to her liver and lungs. Her labs reveal anemia and an elevated CEA level. She has been seen by Dr. Balderas. Diff dx: Possible primary rectal neoplasm with possible associated metastatic d isease; Inflammatory bowel disease Rec: Colonoscopy for further evaluation. She has eaten today so I will order the prep for Saturday and schedule the colonoscopy for Saturday, 06/06, with me or Dr. Vazquez. Full consent has been obtained for this, including risks of bleeding and perforation. Continue to follow Hgb and other labs as needed. D/W patient in detail and she is comfortable with this plan. Thanks
[2022-06-04 21:11] VITALS: BP 146/75; PULSE 74; RESP 18; TEMP 36.8; O2SAT 94
--- NOTE | 2022-06-04 21:56 | MHC.SHP ---
Pre-Procedural Eval Section A Date of Service: 06/06/22 The patient is an INPATIENT: Yes The History & Physical has been completed within 30 days and I have reviewed it.: Yes Section B Chief Complaint: Weakness Rectal Bleeding Allergies: Allergies Allergy/AdvReac Type Severity Reaction Status Date / Time codeine [CODEINE] Allergy Unknown UNKNOWN Verified 06/03/22 16:51 Plan I have reviewed the history and physical and performed a pertinent physical examination on my patient. No changes have occurred unless specified.
--- NOTE | 2022-06-04 22:18 | MHC.CM.PN ---
CM met with admitted patient with bed assignment pending. Pt does not have insurance. Pt is unsure if she has Medicare A, but knows she doesn't have part B. Has not had health insurance in quite a while. Registration checked the Medicare site. Pt does not have Medicare. Pt tells CM that she applied on line for a special [employer] insurance, but doesn't know if she has it. Registration did not verify [employer] pending either. Referral sent to Financial services with request for them to investigate possible pending MH and to meet with patient with regards to finances. Pt has possible diagnosis of rectal CA with mets to lung and liver. Will have colonoscopy on Saturday and will have biopsy to confirm diagnosis. Pt lives alone. Has 5 children, but does not think they can help her. Pt has No DME/services. Pt is NOT vaccinated against Covid 19. Pt tells CM she has not had Covid. Pt does not have a PCP, because she has been unable to secure health insurance. When CM asked pt why she didn't at least have Medicare part A, pt did not have an answer. States she cannot afford Part B. Pt declines to complete HCP at this time. Pt given financial services contact information and aware that a referral has been placed with Financial services. D/C plan is home with outpatient services, pending health insurance. Daughter will transport home. CM to follow for d/c needs.
[2022-06-05] VITALS: BP 124/62; PULSE 73; RESP 18; TEMP 36.1; O2SAT 96
[2022-06-05] MEDS: HYDROmorphone HCl 0.5 MG/0.5 ML SYRINGE 0.25 MG IVPUSH ×5 (01:04→20:59)
--- NOTE | 2022-06-05 03:38 | CONS_ITS ---
DATE OF SERVICE: 06/04/2022 REASON FOR CONSULTATION: Rectal bleeding, diarrhea, weight loss, and abnormal CT scan of rectum. HISTORY OF PRESENT ILLNESS: This has been obtained from the patient and the medical record. The patient is a 77-year-old female, who describes progressive problems over the past 6-12 months of issues with diarrhea, rectal bleeding, anorexia, and weight loss. She has never had a colonoscopy. She was unable to seek medical attention earlier due to an apparent lapse in her insurance. In any event, due to these persistent symptoms, she came to the ER for evaluation. 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 The patient describes frequent episodes of loose stools at home, which are sometimes brown but many times mixed with blood. She does have nausea, but denies vomiting. She has been anorectic and describes having lost about 50 pounds. She denies any specific abdominal pain. She denies any fevers. She denies any known family history of GI malignancy nor inflammatory bowel disease. She does take occasional NSAIDs, but not on a regular basis. However, she has been using some increased amounts recently due to rectal pain in association with her other symptoms. She denies any vomiting. She denies any dysphagia. She denies any melena, although does report that the stools and rectal bleeding are somewhat dark at times. However, she does take iron a few times a week. She denies any recent antibiotic use, nor ill contacts. MEDICATIONS: At home, acetaminophen, occasional NSAID. PAST MEDICAL HISTORY: Cholecystectomy, tubal ligation, broken left leg. She describes being told of early COPD. She denies history of DC, diabetes, nor stroke. She describes a distant history of pneumonia. 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 She is single. She lives by herself. She does smoke. She does not use any significant amounts of alcohol. FAMILY HISTORY: Noncontributory. REVIEW OF SYSTEMS: CONSTITUTIONAL: She does have multiple symptoms including anorexia, nausea, and weight loss. CARDIAC: No chest pain. PULMONARY: No cough. No hemoptysis. GI: As above. PHYSICAL EXAMINATION: GENERAL: The patient is a pleasant, alert, comfortable-appearing female. SKIN: Warm and dry. Anicteric sclerae. Moist mucous membranes. NECK: Supple. CHEST: Clear. CARDIAC: Normal S1, S2. ABDOMEN: Soft, nondistended, nontender without palpable mass. EXTREMITIES: Without edema. LABORATORY DATA: She did have a CT scan of the abdomen describing some suspicious irregular rectal wall thickening consistent with possible neoplasm. There are some associated perirectal lymph nodes concerning for neoplastic changes as well. She was found to have some pulmonary nodules and multiple liver lesions, both of which are suspicious for possible metastatic disease. White blood cell count 10.0, hemoglobin 12.5, MCV 86, platelets 510,000. Normal electrolytes. BUN 22, creatinine 0.9. Normal liver profile. Albumin 4.4. CEA 14.0. Stool is heme positive. 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 A less, likely possibility would be that of inflammatory bowel disease. At this point, she appears stable, but I would recommend a colonoscopy while she is here in the hospital for further evaluation. Since she has been eating today, the procedure will be done on Saturday such that she can do the bowel prep tomorrow. She may be having a biopsy of 1 of the liver lesions tomorrow as well. The procedure will be done by either me or Dr. Vazquez with monitored anesthesia care. Full consent obtained from her for this, including risks of bleeding and perforation. She will continue to have monitoring of her hemoglobin. This has all been discussed in detail with the patient and she is comfortable with the plan. MD JACINDA Baker/ARTHUR / [id number] MTDD
[2022-06-05 04:00] VITALS: BP 108/56; PULSE 66; RESP 18; TEMP 36.1; O2SAT 95
[2022-06-05] MEDS: cefTRIAXone sodium 1 GM in 0.9 % Sodium Chloride 50 ML IV (04:36)
[2022-06-05] MEDS: ondansetron HCL 4 MG/2 ML VIAL IVPUSH (05:59)
[2022-06-05 06:21] LABS: Hematocrit 32.2 % (37.0-47.0); Mean Corpuscular HGB Conc 31.1 g/dl (31.0-35.0); Mean Corpuscular Hemoglobin 26.7 pg (27.0-33.0); Mean Corpuscular Volume 85.9 fL (80.0-98.0); Mean Platelet Volume 10.1 fL (9.4-12.3); Platelet Count 396 X10*3/uL (160-400); Red Blood Count 3.75 X10*6/uL (4.20-5.50); Red Cell Distribution Width 15.2 % (11.0-16.0); White Blood Count 6.6 X10*3/uL (4.8-10.8)
[2022-06-05 06:23] LABS: INTERNATIONAL NORM RATIO 1.1 (0.9-1.1); Prothrombin Time 12.6 SEC (10.0-13.1)
[2022-06-05 06:39] LABS: Anion Gap 13 (12-20); Blood Urea Nitrogen 15 mg/dL (9-16); Calcium 8.9 mg/dL (8.4-10.2); Carbon Dioxide 26 mmol/L (22-29); Chloride 105 mmol/L (96-108); Creatinine Clr Calc Pharmacy 69.9; Estimated Glomerular Filt Rate > 60; Glucose Random 96 mg/dL (60-115); Potassium 4.3 mmol/L (3.3-5.1); Sodium 140 mmol/L (135-145)
[2022-06-05 08:00] VITALS: BP 130/68; PULSE 56; RESP 14; TEMP 36.7; O2SAT 96
[2022-06-05] MEDS: 0.9 % Sodium Chloride Flush 3 ML SYRINGE IVFLUSH ×3 (09:13→21:01)
[2022-06-05 11:35] VITALS: BP 142/67; PULSE 69; RESP 16; TEMP 36.4; O2SAT 98
[2022-06-05 11:52] VITALS: BMI 21.2
--- NOTE | 2022-06-05 11:57 | MHC.CLN ---
RE: CONSULT PT IS MODERATELY MALNOURISHED PT WITH MILDLY DEPLETED SUBCUTANEOUS FAT AND MUSCLE MASS, 20% NONSIGNIFCANT WT LOSS X 2 YEARS FROM PREVIOUS WT HX AND PT REPORTS 40-50# WT LOSS X 6 MONTHS WITH CHRONIC POOR PO INTAKE. DIET RX: C/L-APPROPRIATE RECOMMEND ADDING ENSURE CLEAR TID TO INCREASE KCALS AND ADVANCE TO ENSURE PLUS HIGH PROTEIN WHEN DIET ADVANCES ENSURE CLEAR TID TO PROVIDE 720KCALS, 24G PROTEIN MONITOR PO INTAKE CLOSELY SEE ALSO FULL CLINICAL NUTRITION ASSESSMENT
[2022-06-05] MEDS: HYDROmorphone HCl 0.5 MG/0.5 ML SYRINGE IVPUSH (12:07)
--- NOTE | 2022-06-05 12:07 | HO.PM.IMPN ---
Subjective Subjective Date of Service: 06/05/22 Interval History: Seen and evaluated this morning Concerned and distressed about the findings suggestive of cancer Denies any bleeding overnight but reports rectal pain No other overnight events Review of Systems No fever, chills but has generalized weakness and weight loss No chest pain, palpitation No shortness of breath or coughing Reporting abdominal pain after morphine, no nausea or vomiting No urinary symptoms No any rash or wounds Rectal bleeding Physical Exam Vital Signs: Vital Signs: Last Vital Signs Temp 97.6 F 06/05/22 11:35 Pulse 69 06/05/22 11:35 Resp 16 06/05/22 11:35 BP 142/67 H 06/05/22 11:35 Pulse Ox 98 06/05/22 11:35 O2 Del Method 06/05/22 11:35 BMI result Body Mass Index 21.2 Const: Other: Constitutional : Alert, interactive, mildly anxious Neck : Normal inspection, Supple Cardiovascular : RRR, no JVP, no lower extremity edema Respiratory : fair bilateral air entry, no crackles, wheezes or rhonchi Gastrointestinal: soft, lax, Normal bowel sounds, mild epigastric pain Skin : Warm, Dry Neurological : Alert & oriented x3, No focal deficit Objective Data Active Medications Acetaminophen (Acetaminophen 325 Mg Tablet) 650 mg PO Q6H PRN PRN Reason: Pain, Mild (Pain Scale 1-3) Hydromorphone HCl (Hydromorphone Hcl 0.5 Mg/0.5 Ml Syringe) 0.25 mg IVPUSH Q4H PRN; Protocol PRN Reason: Pain, Severe (Pain Scale 7-10) Last Admin: 06/05/22 10:28 Dose: 0.25 mg Documented By: AILYN Ceftriaxone Sodium 1 gm/ (Sodium Chloride) 50 mls @ 100 mls/hr IV Q24H SHAHRZAD Last Infusion: 06/05/22 05:08 Dose: 0 mls/hr Documented By: HOWARD Ondansetron HCl (Ondansetron Hcl 4 Mg/2 Ml Vial) 4 mg IVPUSH Q8H PRN PRN Reason: Nausea and Vomiting Last Admin: 06/05/22 05:59 Dose: 4 mg Documented By: HOWARD Pharmacy Consult (Consult Rx Perform Med Rec) 1 each MISCELLANE ONCE PRN PRN Reason: Consult order Polyethylene Glycol/Electrolytes (Peg 3350/Na Sulf,Bicarb,Cl/Kcl 4,000 Ml Soln.Recon) 4,000 ml PO ONCE@1600 ONE Stop: 06/05/22 16:01 Sodium Chloride (0.9 % Sodium Chloride Flush 3 Ml Syringe) 3 ml IVFLUSH QSHIFT SHAHRZAD Last Admin: 06/05/22 09:13 Dose: 3 ml Documented By: AILYN Labs CBC & Chem 7: 06/05/22 05:26 06/05/22 05:26 Labs: Laboratory Results - last 24 hr 06/03/22 06/05/22 06/05/22 17:13 05:26 05:26 MCV 85.9 MCH 26.7 L MCHC 31.1 RDW 15.2 Plt Count 396 MPV 10.1 Absolute Nucleated RBC 0.000 Nucleated RBC % (auto) 0.0 PT INR Anion Gap 13 Estim Creat Clear Calc 69.9 Estimated GFR > 60 Random Glucose 96 Calcium 8.9 D Carcinoembryonic Ag 14.00 06/05/22 05:26 MCV MCH MCHC RDW Plt Count MPV Absolute Nucleated RBC Nucleated RBC % (auto) PT 12.6 INR 1.1 Anion Gap Estim Creat Clear Calc Estimated GFR Random Glucose Calcium Carcinoembryonic Ag Microbiology Microbiology Results: Microbiology 06/03/22 00:00 Urine Culture - Preliminary Urine clean catch - Urine rolle top Culture in progress. 06/04/22 03:56 Blood Culture - Preliminary Blood - Venous No growth after 24 hours. 06/04/22 03:56 Blood Culture - Preliminary Blood - Venous No growth after 24 hours. Assessment and Plan (1) UTI (urinary tract infection): Status: Acute (2) Rectal mass: Status: Acute (3) Moderate malnutrition: Status: Acute Plan A 77 years old lady with no significant PMH who presents to the hospital complaining of weakness, weight loss and rectal bleeding for the last 6 months or so. Rectal bleeding secondary to rectal mass CT scan concerning for possible rectal cancer No drop in blood level, hemoglobin stable around 12 Oncology input appreciated, to get liver or lung biopsy Discussed with IR, to do lung biopsy on morning GI input appreciated, to do colonoscopy Keep NPO post midnight Colonoscopy preparation overnight Acute blood loss anemia Hemoglobin dropped to 10 from baseline above 12 No active bleeding at this point continue to monitor, consider transfusion if drops below 8 Weight loss, moderate malnutrition Likely secondary to underlying malignancy Wire Coater following Ensure t.i.d. UTI Treat with IV ceftriaxone pending final urine cultures Pulmonary nodules Likely related to underlying metastatic malignancy Largest is 1.7 spiculated nodule in right lower lobe DVT PPX SCDs The patient will need Overnight hospital stay for evaluation of acute rectal bleeding and rectal mass, treatment of UTI with IV antibiotics to prevent possible decompensation to sepsis. Quality Stroke Does the patient have a stroke diagnosis?: No VTE Prior VTE?: No VTE Risk Level:: Medical - moderate - high VTE Device Contraindication: N/A - Device Ordered VTE Drug Contraindication: Treatment Not Indicated
--- NOTE | 2022-06-05 12:54 | HO.ANESPROP2 ---
HPI - Anesthesia Eval Consult details Narrative: 77yo F for Colonoscopy PMFSH Active Problems Active Problems: All Active Problems (Updated 06/05/22 @ 12:10 by Santi Espinosa MD) Moderate malnutrition (Acute) UTI (urinary tract infection) (Acute) Rectal pain (Acute) Rectal mass (Acute) Lung nodule, multiple (Acute) Constipation (Acute) Bloody stools (Acute) Abdominal pain (Acute) Past Medical History Medical History Bloody stools Heart murmur Family History Family History Father No problems noted. Mother No problems noted. Surgical History Surgical History Gallbladder calculus Social History Social History Household Members: None Housing: House Do you presently have visiting nurse or other home services: No Alcohol intake: never Patient Tobacco Use Status: Current everyday Tobacco user Tobacco use type: Cigarette Cigarettes Per Day: 6 service: No Current occupational status: retired [employer] Allergies Allergy/AdvReac Type Severity Reaction Status Date / Time codeine [CODEINE] Allergy Unknown UNKNOWN Verified 06/03/22 16:51 Active Medications: Current Medications Acetaminophen (Acetaminophen 325 Mg Tablet) 650 mg PO Q6H PRN PRN Reason: Pain, Mild (Pain Scale 1-3) Hydromorphone HCl (Hydromorphone Hcl 0.5 Mg/0.5 Ml Syringe) 0.25 mg IVPUSH Q4H PRN; Protocol PRN Reason: Pain, Severe (Pain Scale 7-10) Last Admin: 06/05/22 10:28 Dose: 0.25 mg Ceftriaxone Sodium 1 gm/ (Sodium Chloride) 50 mls @ 100 mls/hr IV Q24H SHAHRZAD Last Infusion: 06/05/22 05:08 Dose: Infused Ondansetron HCl (Ondansetron Hcl 4 Mg/2 Ml Vial) 4 mg IVPUSH Q8H PRN PRN Reason: Nausea and Vomiting Last Admin: 06/05/22 05:59 Dose: 4 mg Pharmacy Consult (Consult Rx Perform Med Rec) 1 each MISCELLANE ONCE PRN PRN Reason: Consult order Polyethylene Glycol/Electrolytes (Peg 3350/Na Sulf,Bicarb,Cl/Kcl 4,000 Ml Soln.Recon) 4,000 ml PO ONCE@1600 ONE Stop: 06/05/22 16:01 Sodium Chloride (0.9 % Sodium Chloride Flush 3 Ml Syringe) 3 ml IVFLUSH QSHIFT [facility] Last Admin: 06/05/22 09:13 Dose: 3 ml Home Medications Medication Instructions Recorded Confirmed Last Taken Type acetaminophen 325 mg tablet 650 mg PO QID PRN Pain 06/04/22 06/04/22 Unknown History (Tylenol) Exam Exam Date and Time: June 05, 2022 1254 Height,Weight and Vital Signs: Height 5 ft 2 in Weight 52.6 kg Last Vital Signs Temp 97.6 F 06/05/22 11:35 Pulse 69 06/05/22 11:35 Resp 16 06/05/22 11:35 BP 142/67 H 06/05/22 11:35 Pulse Ox 98 06/05/22 11:35 O2 Del Method 06/05/22 11:35 Pertinent Lab Results Pertinent Lab Results: Laboratory Tests 06/03/22 06/03/22 06/03/22 17:13 17:13 17:13 WBC 10.0 RBC 4.75 Hgb 12.5 Hct 40.6 MCV 85.5 MCH 26.3 L MCHC 30.8 L RDW 15.1 Plt Count 510 H MPV 9.8 Immature Gran % (Auto) 0.3 Neut % (Auto) 74.6 H Lymph % (Auto) 14.3 L Dickens % (Auto) 8.6 Eos % (Auto) 1.6 Baso % (Auto) 0.6 Lymph # (Auto) 1.4 Dickens # (Auto) 0.9 Eos # (Auto) 0.2 Baso # (Auto) 0.1 Abs Immat Gran (auto) 0.03 Absolute Neuts (auto) 7.5 Absolute Nucleated RBC 0.000 Nucleated RBC % (auto) 0.0 PT INR Sodium 138 Potassium 4.4 Chloride 106 Carbon Dioxide 19 L Anion Gap 17 BUN 23 H Creatinine 0.92 Estim Creat Clear Calc 41.7 Estimated GFR 60 Random Glucose 96 Lactic Acid Calcium 9.8 D Total Bilirubin < 0.2 AST 23 ALT 16 Alkaline Phosphatase 71 Troponin I High Sens < 3.5 B-Natriuretic Peptide Total Protein 7.3 Albumin 4.4 Carcinoembryonic Ag 14.00 Urine Color Urine Appearance Urine pH Ur Specific [place] Urine Protein Urine Glucose (UA) Urine Ketones Urine Blood Urine Nitrite Ur Leukocyte Esterase Urine RBC Urine WBC Ur Squamous Epith Cells Calcium Oxalate Crystal Urine Bacteria Hyaline Casts Stool Occult Blood COVID-19 (YASMINE) COVID-19 Clin Com 06/03/22 06/03/22 06/04/22 17:13 22:23 03:00 WBC RBC Hgb Hct MCV MCH MCHC RDW Plt Count MPV Immature Gran % (Auto) Neut % (Auto) Lymph % (Auto) Dickens % (Auto) Eos % (Auto) Baso % (Auto) Lymph # (Auto) Dickens # (Auto) Eos # (Auto) Baso # (Auto) Abs Immat Gran (auto) Absolute Neuts (auto) Absolute Nucleated RBC Nucleated RBC % (auto) PT INR Sodium Potassium Chloride Carbon Dioxide Anion Gap BUN Creatinine Estim Creat Clear Calc Estimated GFR Random Glucose Lactic Acid Calcium Total Bilirubin AST ALT Alkaline Phosphatase Troponin I High Sens B-Natriuretic Peptide 81 Total Protein Albumin Carcinoembryonic Ag Urine Color Yellow Urine Appearance Cloudy Urine pH 5.0 Ur Specific [place] >= 1.030 H Urine Protein 30 (1+) H Urine Glucose (UA) Negative Urine Ketones Trace Urine Blood Negative Urine Nitrite Negative Ur Leukocyte Esterase Moderate (2+) H Urine RBC 3-5 H Urine WBC >50 H Ur Squamous Epith Cells 11-20 Calcium Oxalate Crystal Present Urine Bacteria 4+ Hyaline Casts 3-5 Stool Occult Blood POSITIVE COVID-19 (YASMINE) COVID-19 Clin [facility] 06/04/22 06/04/22 06/05/22 03:56 05:37 05:26 WBC 6.6 RBC 3.75 L D Hgb 10.0 L Hct 32.2 L D MCV 85.9 MCH 26.7 L MCHC 31.1 RDW 15.2 Plt Count 396 MPV 10.1 Immature Gran % (Auto) Neut % (Auto) Lymph % (Auto) Dickens % (Auto) Eos % (Auto) Baso % (Auto) Lymph # (Auto) Dickens # (Auto) Eos # (Auto) Baso # (Auto) Abs Immat Gran (auto) Absolute Neuts (auto) Absolute Nucleated RBC 0.000 Nucleated RBC % (auto) 0.0 PT INR Sodium Potassium Chloride Carbon Dioxide Anion Gap BUN Creatinine Estim Creat Clear Calc Estimated GFR Random Glucose Lactic Acid 0.7 Calcium Total Bilirubin AST ALT Alkaline Phosphatase Troponin I High Sens B-Natriuretic Peptide Total Protein Albumin Carcinoembryonic Ag Urine Color Urine Appearance Urine pH Ur Specific [place] Urine Protein Urine Glucose (UA) Urine Ketones Urine Blood Urine Nitrite Ur Leukocyte Esterase Urine RBC Urine WBC Ur Squamous Epith Cells Calcium Oxalate Crystal Urine Bacteria Hyaline Casts Stool Occult Blood COVID-19 (YASMINE) Negative COVID-19 Clin Com See Note 06/05/22 06/05/22 05:26 05:26 WBC RBC Hgb Hct MCV MCH MCHC RDW Plt Count MPV Immature Gran % (Auto) Neut % (Auto) Lymph % (Auto) Dickens % (Auto) Eos % (Auto) Baso % (Auto) Lymph # (Auto) Dickens # (Auto) Eos # (Auto) Baso # (Auto) Abs Immat Gran (auto) Absolute Neuts (auto) Absolute Nucleated RBC Nucleated RBC % (auto) PT 12.6 INR 1.1 Sodium 140 Potassium 4.3 Chloride 105 Carbon Dioxide 26 Anion Gap 13 BUN 15 Creatinine 0.55 Estim Creat Clear Calc 69.9 Estimated GFR > 60 Random Glucose 96 Lactic Acid Calcium 8.9 D Total Bilirubin AST ALT Alkaline Phosphatase Troponin I High Sens B-Natriuretic Peptide Total Protein Albumin Carcinoembryonic Ag Urine Color Urine Appearance Urine pH Ur Specific [place] Urine Protein Urine Glucose (UA) Urine Ketones Urine Blood Urine Nitrite Ur Leukocyte Esterase Urine RBC Urine WBC Ur Squamous Epith Cells Calcium Oxalate Crystal Urine Bacteria Hyaline Casts Stool Occult Blood COVID-19 (YASMINE) COVID-19 Clin Com
--- NOTE | 2022-06-05 14:53 | MHC.CM.PN ---
PLAN IS FOR COLONOSCOPY TOMORROW AND BIOPSY BY SATURDAY [facility] FINANCIAL COUNSELORS ARE INVOLVED
[2022-06-05 15:03] VITALS: BP 130/62; PULSE 57; RESP 16; TEMP 36.6; O2SAT 100
[2022-06-05] MEDS: PEG 3350/Na Sulf,Bicarb,Cl/KCL 4,000 ML SOLN.RECON 4000 ML PO (15:21)
[2022-06-05 19:04] VITALS: BP 152/67; PULSE 64; RESP 17; TEMP 36.3; O2SAT 98
[2022-06-06] VITALS (13 sets, daily range): BP systolic 99–164; BP diastolic 40–86; PULSE 59–82; RESP 15–18; TEMP 35.8–36.9; O2SAT 94–98; BMI 21.9
[2022-06-06] MEDS: HYDROmorphone HCl 0.5 MG/0.5 ML SYRINGE 0.25 MG IVPUSH ×6 (00:55→22:34)
--- NOTE | 2022-06-06 02:42 | PC.NURSE ---
0.25mg dilaudid IV given early d/t pt complaint of 10/10 pain. MD given permission. 02:40
[2022-06-06] MEDS: cefTRIAXone sodium 1 GM in 0.9 % Sodium Chloride 50 ML IV (05:10)
[2022-06-06 07:01] LABS: MANUAL DIFF FLAG NO
[2022-06-06 07:16] LABS: Basophils Absolute Auto 0.1 X10*3/uL (0.0-0.2); Basophils Percent Auto 0.8 % (0-2); Eosinophils Absolute Auto 0.2 X10*3/uL (0.0-0.4); Eosinophils Percent Auto 3.6 % (0-4); Hemoglobin 9.7 g/dl (12.0-16.0); Imm Gran Abs Auto 0.02 X10*3/uL (0.00-0.03); Imm Gran Pct Auto 0.3 % (0.0-0.4); Lymphocytes Absolute Auto 1.6 X10*3/uL (1.2-4.9); Lymphocytes Percent Auto 24.3 % (20-40); Mean Corpuscular HGB Conc 31.3 g/dl (31.0-35.0); Mean Corpuscular Hemoglobin 26.9 pg (27.0-33.0); Mean Corpuscular Volume 86.1 fL (80.0-98.0); Mean Platelet Volume 10.2 fL (9.4-12.3); Monocytes Absolute Auto 0.6 X10*3/uL (0.1-1.2); Monocytes Percent Auto 8.8 % (2-11); Neutrophils Absolute Auto 4.1 x10*3/uL (2.0-8.3); Neutrophils Percent Auto 62.2 % (45-73); Platelet Count 373 X10*3/uL (160-400); White Blood Count 6.6 X10*3/uL (4.8-10.8)
[2022-06-06] MEDS: 0.9 % Sodium Chloride Flush 3 ML SYRINGE IVFLUSH ×3 (07:21→20:19)
[2022-06-06 08:04] LABS: Anion Gap 15 (12-20); Blood Urea Nitrogen 9 mg/dL (9-16); Calcium 8.7 mg/dL (8.4-10.2); Carbon Dioxide 28 mmol/L (22-29); Chloride 100 mmol/L (96-108); Creatinine Clr Calc Pharmacy 71.1; Estimated Glomerular Filt Rate > 60; Glucose Random 92 mg/dL (60-115); Potassium 4.2 mmol/L (3.3-5.1); Sodium 139 mmol/L (135-145)
--- NOTE | 2022-06-06 10:47 | MHC.CLN ---
F/U NPO FOR COLONOSCOPY PREP. HAD TAKEN CL 100% X 2. IF CL DIET RESUMES ADD ENSURE CLEAR TID TO INCREASE KCALS. ADVANCE TO ENSURE PLUS HIGH PROTEIN WHEN DIET ADVANCES. ENSURE CLEAR TID TO PROVIDE 720 KCALS, 24 G PROTEIN. ENSURE PLUS HIGH PROTEIN TID PROVIDES 1050 KCALS, 60 G PROTEIN. MONITOR DIET ADVANCEMENT AND PO INTAKE.
--- NOTE | 2022-06-06 11:29 | P.CONAN_ITS ---
[facility] Active Problems Active Problems: All Active Problems (Updated 06/05/22 @ 12:10 by Santi Espinosa MD) Moderate malnutrition (Acute) UTI (urinary tract infection) (Acute) Rectal pain (Acute) Rectal mass (Acute) Lung nodule, multiple (Acute) Constipation (Acute) Bloody stools (Acute) Abdominal pain (Acute) Past Medical History Medical History Bloody stools Heart murmur Family History Family History Father No problems noted. Mother No problems noted. 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 Plei Allergies Allergy/AdvReac Type Severity Reaction Status Date / Time codeine [CODEINE] Allergy Unknown UNKNOWN Verified 06/03/22 16:51 morphine Allergy Unknown Verified 06/06/22 11:56 Active Medications: Current Medications Acetaminophen (Acetaminophen 325 Mg Tablet) 650 mg PO Q6H PRN PRN Reason: Pain, Mild (Pain Scale 1-3) Hydromorphone HCl (Hydromorphone Hcl 0.5 Mg/0.5 Ml Syringe) 0.25 mg IVPUSH Q4H PRN; Protocol PRN Reason: Pain, Severe (Pain Scale 7-10) Last Admin: 06/06/22 07:47 Dose: 0.25 mg Ceftriaxone Sodium 1 gm/ (Sodium Chloride) 50 mls @ 100 mls/hr IV Q24H [id number] Last Infusion: 06/06/22 06:17 Dose: Infused Ondansetron HCl (Ondansetron Hcl 4 Mg/2 Ml Vial) 4 mg IVPUSH Q8H PRN PRN Reason: Nausea and Vomiting Last Admin: 06/05/22 05:59 Dose: 4 mg Pharmacy Consult (Consult Rx Perform Med Rec) 1 each MISCELLANE ONCE PRN PRN Reason: Consult order Sodium Chloride (0.9 % Sodium Chloride Flush 3 Ml Syringe) 3 ml IVFLUSH QSHIFT [facility] Last Admin: 06/06/22 07:21 Dose: 3 ml Home Medications Medication Instructions Recorded Confirmed Last Taken Type acetaminophen 325 mg tablet 650 mg PO QID PRN Pain 06/04/22 06/04/22 Unknown History (Tylenol) Exam Exam Date and Time: June 06, 2022 1129 Height,Weight and Vital Signs: Height 5 ft 2 in Weight 54.431 kg Last Vital Signs Temp 97.0 F 06/06/22 10:54 Pulse 64 06/06/22 10:54 Resp 16 06/06/22 10:54 BP 136/48 L 06/06/22 10:54 Pulse Ox 96 06/06/22 10:54 O2 Del Method 06/06/22 10:54 Pertinent Lab Results Pertinent Lab Results: Laboratory Tests 06/03/22 06/03/22 06/03/22 17:13 17:13 17:13 WBC 10.0 RBC 4.75 Hgb 12.5 Hct 40.6 MCV 85.5 MCH 26.3 L MCHC 30.8 L RDW 15.1 Plt Count 510 H MPV 9.8 Immature Gran % (Auto) 0.3 Neut % (Auto) 74.6 H Lymph % (Auto) 14.3 L [place] % (Auto) 8.6 Eos % (Auto) 1.6 Baso % (Auto) 0.6 Lymph # (Auto) 1.4 [place] # (Auto) 0.9 Eos # (Auto) 0.2 Baso # (Auto) 0.1 Abs Immat Gran (auto) 0.03 Absolute Neuts (auto) 7.5 Absolute Nucleated RBC 0.000 Nucleated RBC % (auto) 0.0 PT INR Sodium 138 Potassium 4.4 Chloride 106 Carbon Dioxide 19 L Anion Gap 17 BUN 23 H Creatinine 0.92 Estim Creat Clear Calc 41.7 Estimated GFR 60 Random Glucose 96 Fasting Glucose Lactic Acid Calcium 9.8 D Total Bilirubin < 0.2 AST 23 ALT 16 Alkaline Phosphatase 71 Troponin I High Sens < 3.5 B-Natriuretic Peptide Total Protein 7.3 Albumin 4.4 Carcinoembryonic Ag 14.00 Urine Color Urine Appearance Urine pH Ur Specific [place] Urine Protein Urine Glucose (UA) Urine Ketones Urine Blood Urine Nitrite Ur Leukocyte Esterase Urine RBC Urine WBC Ur Squamous Epith Cells Calcium Oxalate Crystal Urine Bacteria Hyaline Casts Stool Occult Blood COVID-19 (YASMINE) COVID-19 Clin Com 06/03/22 06/03/22 06/04/22 17:13 22:23 03:00 WBC RBC Hgb Hct MCV MCH MCHC RDW Plt Count MPV Immature Gran % (Auto) Neut % (Auto) Lymph % (Auto) [place] % (Auto) Eos % (Auto) Baso % (Auto) Lymph # (Auto) [place] # (Auto) Eos # (Auto) Baso # (Auto) Abs Immat Gran (auto) Absolute Neuts (auto) Absolute Nucleated RBC Nucleated RBC % (auto) PT INR Sodium Potassium Chloride Carbon Dioxide Anion Gap BUN Creatinine Estim Creat Clear Calc Estimated GFR Random Glucose Fasting Glucose Lactic Acid Calcium Total Bilirubin AST ALT Alkaline Phosphatase Troponin I High Sens B-Natriuretic Peptide 81 Total Protein Albumin Carcinoembryonic Ag Urine Color Yellow Urine Appearance Cloudy Urine pH 5.0 Ur Specific [place] >= 1.030 H Urine Protein 30 (1+) H Urine Glucose (UA) Negative Urine Ketones Trace Urine Blood Negative Urine Nitrite Negative Ur Leukocyte Esterase Moderate (2+) H Urine RBC 3-5 H Urine WBC >50 H Ur Squamous Epith Cells 11-20 Calcium Oxalate Crystal Present Urine Bacteria 4+ Hyaline Casts 3-5 Stool Occult Blood POSITIVE COVID-19 (AYSMINE) COVID-19 Clin Com 06/04/22 06/04/22 06/05/22 03:56 05:37 05:26 WBC 6.6 RBC 3.75 L D Hgb 10.0 L Hct 32.2 L D MCV 85.9 MCH 26.7 L MCHC 31.1 RDW 15.2 Plt Count 396 MPV 10.1 Immature Gran % (Auto) Neut % (Auto) Lymph % (Auto) [place] % (Auto) Eos % (Auto) Baso % (Auto) Lymph # (Auto) [place] # (Auto) Eos # (Auto) Baso # (Auto) Abs Immat Gran (auto) Absolute Neuts (auto) Absolute Nucleated RBC 0.000 Nucleated RBC % (auto) 0.0 PT INR Sodium Potassium Chloride Carbon Dioxide Anion Gap BUN Creatinine Estim Creat Clear Calc Estimated GFR Random Glucose Fasting Glucose Lactic Acid 0.7 Calcium Total Bilirubin AST ALT Alkaline Phosphatase Troponin I High Sens B-Natriuretic Peptide Total Protein Albumin Carcinoembryonic Ag Urine Color Urine Appearance Urine pH Ur Specific [place] Urine Protein Urine Glucose (UA) Urine Ketones Urine Blood Urine Nitrite Ur Leukocyte Esterase Urine RBC Urine WBC Ur Squamous Epith Cells Calcium Oxalate Crystal Urine Bacteria Hyaline Casts Stool Occult Blood COVID-19 (YASMINE) Negative COVID-19 Clin Com See Note 06/05/22 06/05/22 06/06/22 05:26 05:26 06:08 WBC 6.6 RBC 3.60 L Hgb 9.7 L Hct 31.0 L MCV 86.1 MCH 26.9 L MCHC 31.3 RDW 15.0 Plt Count 373 MPV 10.2 Immature Gran % (Auto) 0.3 Neut % (Auto) 62.2 Lymph % (Auto) 24.3 [place] % (Auto) 8.8 Eos % (Auto) 3.6 Baso % (Auto) 0.8 Lymph # (Auto) 1.6 [place] # (Auto) 0.6 Eos # (Auto) 0.2 Baso # (Auto) 0.1 Abs Immat Gran (auto) 0.02 Absolute Neuts (auto) 4.1 Absolute Nucleated RBC 0.000 Nucleated RBC % (auto) 0.0 PT 12.6 INR 1.1 Sodium 140 Potassium 4.3 Chloride 105 Carbon Dioxide 26 Anion Gap 13 BUN 15 Creatinine 0.55 Estim Creat Clear Calc 69.9 Estimated GFR > 60 Random Glucose 96 Fasting Glucose Lactic Acid Calcium 8.9 D Total Bilirubin AST ALT Alkaline Phosphatase Troponin I High Sens B-Natriuretic Peptide Total Protein Albumin Carcinoembryonic Ag Urine Color Urine Appearance Urine pH Ur Specific [place] Urine Protein Urine Glucose (UA) Urine Ketones Urine Blood Urine Nitrite Ur Leukocyte Esterase Urine RBC Urine WBC Ur Squamous Epith Cells Calcium Oxalate Crystal Urine Bacteria Hyaline Casts Stool Occult Blood COVID-19 (YASMINE) COVID-19 Clin Com 06/06/22 06/06/22 06/06/22 06:08 06:08 06:08 WBC Cancelled RBC Cancelled Hgb Cancelled Hct Cancelled MCV Cancelled MCH Cancelled MCHC Cancelled RDW Cancelled Plt Count Cancelled MPV Cancelled Immature Gran % (Auto) Neut % (Auto) Lymph % (Auto) [place] % (Auto) Eos % (Auto) Baso % (Auto) Lymph # (Auto) [place] # (Auto) Eos # (Auto) Baso # (Auto) Abs Immat Gran (auto) Absolute Neuts (auto) Absolute Nucleated RBC Cancelled Nucleated RBC % (auto) Cancelled PT INR Sodium Cancelled 139 Potassium Cancelled 4.2 Chloride Cancelled 100 Carbon Dioxide Cancelled 28 Anion Gap Cancelled 15 BUN Cancelled 9 Creatinine Cancelled 0.54 Estim Creat Clear Calc Cancelled 71.1 Estimated GFR Cancelled > 60 Random Glucose 92 Fasting Glucose Cancelled Lactic Acid Calcium Cancelled 8.7 Total Bilirubin AST ALT Alkaline Phosphatase Troponin I High Sens B-Natriuretic Peptide Total Protein Albumin Carcinoembryonic Ag Urine Color Urine Appearance Urine pH Ur Specific [place] Urine Protein Urine Glucose (UA) Urine Ketones Urine Blood Urine Nitrite Ur Leukocyte Esterase Urine RBC Urine WBC Ur Squamous Epith Cells Calcium Oxalate Crystal Urine Bacteria Hyaline Casts Stool Occult Blood COVID-19 (YASMINE) COVID-19 Clin Com Airway Mallampati Class: II Loose/Missing/Broken Teeth: Yes, Upper and Lower Heart: RRR Lungs: CTA Assessment and Plan Assessment Anesthesia Assessment: Anesthesia Plan Discussed and Chart Reviewed Final Anesthetic Review History of Problems with Anesthesia: No NPO: Yes ASA Class: III Final Preanesthetic Review: Meds/Allgs Chart Reviewed, Consent Obtained/Reviewed and Anes Risks/Benef Reviewed Patient Risk: Intermediate Procedure Risk: Low Anesthetic Plan Anesthetic Plan: MAC: Disposition: Standard PACU
--- NOTE | 2022-06-06 12:08 | P.PNIM_ITS ---
Subjective Subjective Date of Service: 06/06/22 Interval History: cc: rectal bleeding interval history: brbpr after prep Cardiovascular Cardiovascular: Reports no additional cardiovascular complaints Respiratory Respiratory: Reports no additional respiratory complaints Physical Exam Vital Signs: Vital Signs: Last Vital Signs Temp 97.0 F 06/06/22 10:54 Pulse 64 06/06/22 10:54 Resp 16 06/06/22 10:54 BP 136/48 L 06/06/22 10:54 Pulse Ox 96 06/06/22 10:54 O2 Del Method 06/06/22 10:54 BMI result Body Mass Index 21.9 General: AO X 3, no acute distress Resp: CTA bilateral, no accessory muscles used CVS: S1,S2,RRR GI: soft, non tender, non distended Neuro: motor grossly intact, alert Psych: appropriate affect, appropriate insight Objective Data Active Medications Acetaminophen (Acetaminophen 325 Mg Tablet) 650 mg PO Q6H PRN PRN Reason: Pain, Mild (Pain Scale 1-3) Hydromorphone HCl (Hydromorphone Hcl 0.5 Mg/0.5 Ml Syringe) 0.25 mg IVPUSH Q4H PRN; Protocol PRN Reason: Pain, Severe (Pain Scale 7-10) Last Admin: 06/06/22 07:47 Dose: 0.25 mg Documented By: JULY Ceftriaxone Sodium 1 gm/ (Sodium Chloride) 50 mls @ 100 mls/hr IV Q24H [facility] Last Infusion: 06/06/22 06:17 Dose: 0 mls/hr Documented By: CAROLINA Ondansetron HCl (Ondansetron Hcl 4 Mg/2 Ml Vial) 4 mg IVPUSH Q8H PRN PRN Reason: Nausea and Vomiting Last Admin: 06/05/22 05:59 Dose: 4 mg Documented By: HOWARD Pharmacy Consult (Consult Rx Perform Med Rec) 1 each MISCELLANE ONCE PRN PRN Reason: Consult order Sodium Chloride (0.9 % Sodium Chloride Flush 3 Ml Syringe) 3 ml IVFLUSH QSHIFT [facility] Last Admin: 06/06/22 07:21 Dose: 3 ml Documented By: TANGELA Labs CBC & Chem 7: 06/06/22 06:08 06/06/22 06:08 Labs: Laboratory Results - last 24 hr 06/06/22 06/06/22 06/06/22 06:08 06:08 06:08 MCV 86.1 Cancelled MCH 26.9 L Cancelled MCHC 31.3 Cancelled RDW 15.0 Cancelled Plt Count 373 Cancelled MPV 10.2 Cancelled Immature Gran % (Auto) 0.3 Neut % (Auto) 62.2 Lymph % (Auto) 24.3 [place] % (Auto) 8.8 Eos % (Auto) 3.6 Baso % (Auto) 0.8 Lymph # (Auto) 1.6 [place] # (Auto) 0.6 Eos # (Auto) 0.2 Baso # (Auto) 0.1 Abs Immat Gran (auto) 0.02 Absolute Neuts (auto) 4.1 Absolute Nucleated RBC 0.000 Cancelled Nucleated RBC % (auto) 0.0 Cancelled Anion Gap Cancelled Estim Creat Clear Calc Cancelled Estimated GFR Cancelled Random Glucose Fasting Glucose Cancelled Calcium Cancelled 06/06/22 06:08 MCV MCH MCHC RDW Plt Count MPV Immature Gran % (Auto) Neut % (Auto) Lymph % (Auto) [place] % (Auto) Eos % (Auto) Baso % (Auto) Lymph # (Auto) [place] # (Auto) Eos # (Auto) Baso # (Auto) Abs Immat Gran (auto) Absolute Neuts (auto) Absolute Nucleated RBC Nucleated RBC % (auto) Anion Gap 15 Estim Creat Clear Calc 71.1 Estimated GFR > 60 Random Glucose 92 Fasting Glucose Calcium 8.7 Microbiology Microbiology Results: Microbiology 06/03/22 00:00 Urine Culture - Final Urine clean catch - Urine rolle top 06/04/22 03:56 Blood Culture - Preliminary Blood - Venous No growth after 48 hours. 06/04/22 03:56 Blood Culture - Preliminary Blood - Venous No growth after 48 hours. Assessment and Plan (1) UTI (urinary tract infection): Status: Acute (2) Rectal mass: Status: Acute (3) Moderate malnutrition: Status: Acute Plan A 77 years old lady with no significant PMH who presents to the hospital complaining of weakness, weight loss and rectal bleeding for the last 6 months or so. Rectal bleeding secondary to rectal mass complicated by acute blood loss anemia CT scan concerning for possible rectal cancer hgb dropped from 12.5 to 9.7 Oncology input appreciated, to get lung biopsy on morning GI input appreciated, to do colonoscopy today Weight loss, moderate malnutrition Likely secondary to underlying malignancy Printing Shop Supervisor following Ensure t.i.d. UTI Treat with IV ceftriaxone pending final urine cultures Pulmonary nodules Likely related to underlying metastatic malignancy Largest is 1.7 spiculated nodule in right lower lobe DVT PPX SCDs reason for continued hospitalization: plan for colonoscopy and lung biopsy prior to dc Quality Stroke Does the patient have a stroke diagnosis?: No VTE Prior VTE?: No VTE Risk Level:: Medical - moderate - high VTE Device Contraindication: N/A - Device Ordered VTE Drug Contraindication: Treatment Not Indicated
--- NOTE | 2022-06-06 12:46 | PM.EVENT ---
Event Note Date of Service: 06/06/22 Event Note: Colonoscopy to the cecum with biopsies-Full note dictated Findings: 1. Palpable lesion at anorectal junction 2. Ulcerated friable lesion at anorectal junction-biopsies taken 3. < 10mm polyp in cecum and 60cm, not removed 4. Nonbleeding cecal AVM's 5. Sigmoid diverticulosis Imp: Probable anal cancer, s/p biopsies Rec: Check path, further w/u and treatment as per Oncology, advance diet as tolerated. Thanks
--- NOTE | 2022-06-06 12:50 | P.BOP_ITS ---
Brief Operative Note Date of Service: 06/06/22 Pre-op diagnosis: Rectal cancer Post-op diagnosis: other (Anorectal lesion c/w neoplasm) Procedure: Colonoscopy to the cecum with biopsies Surgeon: Daniel Montoya Anesthesia: MAC Was an Primary Special Educator used for this Procedure?: No Estimated blood loss (mL): 3.0 Pathology: other (A. Anorectal lesion) Condition: stable Disposition: PACU
[2022-06-06] MEDS: fentaNYL citrate/PF 100 MCG/2 ML VIAL 25 MCG IVPUSH ×2 (12:55→13:00)
[2022-06-06] MEDS: ondansetron HCL 4 MG/2 ML VIAL IVPUSH (13:23)
[2022-06-06] MEDS: Acetaminophen 325 MG TABLET 650 MG PO ×2 (16:59→21:42)
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
--- NOTE | 2022-06-06 22:37 | PM.EVENT ---
Event Note Date of Service: 06/06/22 Event Note: GI Follow up--Patient seen at 7:30PM Still having the rectal/Perianal pain. Having some full liquids. Scheduled for a biopsy of the liver tomorrow to rule out metastatic disease. I had a detailed discussion with her regarding the colonoscopy findings and my strong suspicion that this represents an anal neoplasm, or a very low rectal cancer. I advised her that at this point we will need to wait for the pathology results and then Dr. Balderas would review the possible treatment options with her. She understood. Her diet can be advance as tolerated. Thanks
[2022-06-06] MEDS: diphenhydrAMINE HCL 25 MG TABLET PO (23:46)
[2022-06-07] VITALS (9 sets, daily range): BP systolic 126–180; BP diastolic 59–82; PULSE 57–80; RESP 14–20; TEMP 36.3–37.1; O2SAT 93–98
[2022-06-07] MEDS: HYDROmorphone HCl 0.5 MG/0.5 ML SYRINGE 0.25 MG IVPUSH ×5 (02:28→21:33)
--- NOTE | 2022-06-07 02:43 | OP_ITS ---
SURGEON: Daniel Montoya MD INDICATIONS: The patient presents for evaluation of rectal bleeding and suspicion for rectal mass. Full consent has been obtained from her for this, including risks of bleeding and perforation. PREOPERATIVE DIAGNOSIS: POSTOPERATIVE DIAGNOSIS: Probable carcinoma involving the anal canal and very distal rectum. PROCEDURE PERFORMED: Colonoscopy to the cecum with biopsies. ESTIMATED BLOOD LOSS: COMPLICATIONS: ANESTHESIA: Monitored anesthesia care. ASSISTANTS: SPECIMENS: PREOPERATIVE DIAGNOSES: Rectal bleeding and suspicion of rectal mass. DESCRIPTION OF PROCEDURE: The patient was placed in the left lateral decubitus position. The digital rectal exam revealed a very firm nodular palpable lesion in the very distal most portion of the rectum. There also appeared to be some palpable submucosal nodularity in the anal area as well. The Olympus video pediatric colonoscope was entered into the rectum and advanced easily to the cecum. Once in the cecum, I did identify cecal pouch with appendiceal orifice. There appeared to be an approximately 10 mm polyp in the region of the appendiceal orifice, but this was not biopsied nor removed given the findings in the anorectal area. The scope was then slowly withdrawn assessing all mucosal surfaces carefully. For the most part, preparation was good, although there was some fair amount of liquid stool, which had to be suctioned and irrigated away as best as possible. I did visualize another approximately 10 mm polyp at approximately 60, cm but this also was not biopsied nor removed. There was a mild amount of sigmoid diverticulosis. I did not visualize any sign of colitis or angiodysplasia. In the rectum, the scope was retroflexed visualizing the distal rectum carefully. At the region of the dentate line was ulcerated polypoid tissue. The rectum above this area appeared normal. The abnormal tissue was really seen best in the forward viewing position with the scope in the anal canal. There was an area of discrete ulceration as well right in the anal canal. Everything in this area was quite friable. I did obtain biopsies from the abnormal appearing tissue. The scope was then withdrawn from the patient. She tolerated the procedure well and was returned to the recovery area in stable condition. IMPRESSION: Highly suspicious lesion in the anal canal raising the possibility of a primary anal carcinoma. The other possibility would be that of a very distal rectal carcinoma invading the anal canal. PLAN: The results of the biopsies will be checked. She has already been seen by Dr. Balderas and is scheduled for a biopsy of a possible liver metastasis tomorrow. Further treatment options will be made once the biopsy results are available. MD JACINDA Baker/ARTHUR / [id number] MTDD
[2022-06-07] MEDS: cefTRIAXone sodium 1 GM in 0.9 % Sodium Chloride 50 ML IV (04:34)
[2022-06-07] MEDS: Acetaminophen 325 MG TABLET 650 MG PO ×2 (04:34→19:54)
[2022-06-07 06:17] LABS: Hematocrit 28.2 % (37.0-47.0); Hemoglobin 8.9 g/dl (12.0-16.0); Mean Corpuscular HGB Conc 31.6 g/dl (31.0-35.0); Mean Corpuscular Hemoglobin 27.1 pg (27.0-33.0); Mean Corpuscular Volume 85.7 fL (80.0-98.0); Mean Platelet Volume 9.8 fL (9.4-12.3); Platelet Count 309 X10*3/uL (160-400); Red Blood Count 3.29 X10*6/uL (4.20-5.50); White Blood Count 6.2 X10*3/uL (4.8-10.8)
[2022-06-07 06:33] LABS: Anion Gap 13 (12-20); Blood Urea Nitrogen 7 mg/dL (9-16); Calcium 8.4 mg/dL (8.4-10.2); Carbon Dioxide 29 mmol/L (22-29); Chloride 101 mmol/L (96-108); Creatinine Clr Calc Pharmacy 66.2; Estimated Glomerular Filt Rate > 60; Glucose Fasting 115 mg/dL (60-99); Potassium 3.5 mmol/L (3.3-5.1); Sodium 139 mmol/L (135-145)
[2022-06-07] MEDS: 0.9 % Sodium Chloride Flush 3 ML SYRINGE IVFLUSH ×2 (07:15→16:26)
--- NOTE | 2022-06-07 10:25 | PC.NURSE ---
filter press tender, Juliet, assessed lung sounds. see her notation on paperwork
--- NOTE | 2022-06-07 10:42 | P.PNIM_ITS ---
Subjective Subjective Date of Service: 06/07/22 Interval History: cc: rectal bleeding interval history: rectal pain Cardiovascular Cardiovascular: Reports no additional cardiovascular complaints Respiratory Respiratory: Reports no additional respiratory complaints Physical Exam Vital Signs: Vital Signs: Last Vital Signs Temp 97.9 F 06/07/22 10:24 Pulse 57 06/07/22 10:24 Resp 18 06/07/22 10:24 BP 146/74 H 06/07/22 10:24 Pulse Ox 95 06/07/22 10:24 O2 Del Method 06/07/22 10:24 BMI result Body Mass Index 21.9 General: AO X 3, no acute distress Resp: CTA bilateral, no accessory muscles used CVS: S1,S2,RRR GI: soft, non tender, non distended Neuro: motor grossly intact, alert Psych: appropriate affect, appropriate insight Objective Data Active Medications Acetaminophen (Acetaminophen 325 Mg Tablet) 650 mg PO Q6H PRN PRN Reason: Pain, Mild (Pain Scale 1-3) Last Admin: 06/07/22 04:34 Dose: 650 mg Documented By: NICOLASA Hydromorphone HCl (Hydromorphone Hcl 0.5 Mg/0.5 Ml Syringe) 0.25 mg IVPUSH Q4H PRN; Protocol PRN Reason: Pain, Severe (Pain Scale 7-10) Last Admin: 06/07/22 06:21 Dose: 0.25 mg Documented By: NICOLASA Ceftriaxone Sodium 1 gm/ (Sodium Chloride) 50 mls @ 100 mls/hr IV Q24H [facility] Last Infusion: 06/07/22 05:11 Dose: 0 mls/hr Documented By: NICOLASA Ondansetron HCl (Ondansetron Hcl 4 Mg/2 Ml Vial) 4 mg IVPUSH Q8H PRN PRN Reason: Nausea and Vomiting Last Admin: 06/05/22 05:59 Dose: 4 mg Documented By: HOWARD Oxycodone HCl (Oxycodone Hcl Immed Release 5 Mg Tablet) 5 mg PO Q4H PRN PRN Reason: moderate pain Pharmacy Consult (Consult Rx Perform Med Rec) 1 each MISCELLANE ONCE PRN PRN Reason: Consult order Sodium Chloride (0.9 % Sodium Chloride Flush 3 Ml Syringe) [facility] Last Admin: 06/07/22 07:15 Dose: 3 ml Documented By: TANGELA Labs CBC & Chem 7: 06/07/22 06:03 06/07/22 06:03 Labs: Laboratory Results - last 24 hr 06/07/22 06/07/22 06:03 06:03 MCV 85.7 MCH 27.1 MCHC 31.6 RDW 15.0 Plt Count 309 MPV 9.8 Absolute Nucleated RBC 0.000 Nucleated RBC % (auto) 0.0 Anion Gap 13 Estim Creat Clear Calc 66.2 Estimated GFR > 60 Fasting Glucose 115 H Calcium 8.4 Microbiology Microbiology Results: Microbiology 06/03/22 00:00 Urine Culture - Final Urine clean catch - Urine rolle top Assessment and Plan (1) UTI (urinary tract infection): Status: Acute (2) Rectal mass: Status: Acute (3) Moderate malnutrition: Status: Acute Plan A 77 years old lady with no significant PMH who presents to the hospital complaining of weakness, weight loss and rectal bleeding for the last 6 months or so. Rectal bleeding secondary to anal/ distal rectal mass complicated by acute blood loss anemia CT scan concerning for possible rectal cancer hgb dropped from 12.5 to 8.9 Oncology input appreciated, to get lung biopsy today s/p colonscopy 06/06/22 with biopsy of anal lesion, path pending Weight loss, moderate malnutrition Likely secondary to underlying malignancy Environmental Services Worker following Ensure t.i.d. UTI Treat with IV ceftriaxone pending final urine cultures Pulmonary nodules Likely related to underlying metastatic malignancy Largest is 1.7 spiculated nodule in right lower lobe DVT PPX SCDs reason for continued hospitalization: plan for lung biopsy prior to dc Quality Stroke Does the patient have a stroke diagnosis?: No VTE Prior VTE?: No VTE Risk Level:: Medical - moderate - high VTE Device Contraindication: N/A - Device Ordered VTE Drug Contraindication: Treatment Not Indicated
--- NOTE | 2022-06-07 12:14 | HO.RADPN ---
RADIOLOGY Narrative Narrative: RLL lung biopsy using coaxial system. 3 20 core biopsies obtained. No pneumothorax.
[2022-06-08] MEDS: HYDROmorphone HCl 0.5 MG/0.5 ML SYRINGE 0.25 MG IVPUSH ×6 (01:39→22:17)
[2022-06-08 02:08] VITALS: BP 153/69; PULSE 69
[2022-06-08] MEDS: cefTRIAXone sodium 1 GM in 0.9 % Sodium Chloride 50 ML IV (05:20)
[2022-06-08 07:18] VITALS: BP 162/67; PULSE 55; RESP 16; TEMP 36.3; O2SAT 96
[2022-06-08] MEDS: Acetaminophen 325 MG TABLET 650 MG PO ×2 (07:26→20:40)
[2022-06-08] MEDS: 0.9 % Sodium Chloride Flush 3 ML SYRINGE IVFLUSH ×2 (07:29→22:18)
[2022-06-08 08:22] LABS: Hemoglobin 9.6 g/dl (12.0-16.0); Mean Corpuscular Volume 87.3 fL (80.0-98.0); Mean Platelet Volume 10.3 fL (9.4-12.3); Platelet Count 351 X10*3/uL (160-400); Red Blood Count 3.55 X10*6/uL (4.20-5.50); Red Cell Distribution Width 14.9 % (11.0-16.0)
[2022-06-08 08:44] LABS: Anion Gap 14 (12-20); Blood Urea Nitrogen 11 mg/dL (9-16); Calcium 8.9 mg/dL (8.4-10.2); Carbon Dioxide 31 mmol/L (22-29); Chloride 98 mmol/L (96-108); Creatinine Clr Calc Pharmacy 67.4; Estimated Glomerular Filt Rate > 60; Glucose Fasting 89 mg/dL (60-99); Sodium 139 mmol/L (135-145)
--- NOTE | 2022-06-08 09:54 | MHC.CLN ---
F/U DIET ADVANCED TO REGULAR 06/07. INTAKE ABOUT 50%. ADDING ENSURE TID TO PROVIDE ADDITIONAL 1050 KCALS, 60 G PROTEIN. FOLLOW FOR INTAKE, DIET TOLERANCE, BIOPSY RESULTS.
[2022-06-08 11:08] VITALS: BP 134/62; PULSE 60; RESP 16; TEMP 36.9; O2SAT 93
--- NOTE | 2022-06-08 12:14 | PM.HEMONCPN ---
Medical Summary - Medical Summary Date of Service: 06/08/22 Chief complaint: Follow-up for lower GI neoplasm. Medical Summary: DIAGNOSIS: RECTAL MASS. Interval History Interval history: Iveth Mora is a pleasant 77 year old lady, for follow-up today. She is holding her own. No chest pain, palpitation No shortness of breath or coughing Reporting abdominal pain after morphine, no nausea or vomiting No urinary symptoms No any rash or wounds No Rectal bleeding PRESENTING HISTORY: She had presented to the ED. This is a pleasant 77 year old lady who presents with a 7 months of abdominal discomfort with bleeding from her rectum. This started when she lived in [place] but she did not have medical insurance so was unable to follow-up with a physician. She states that she is having significant pain in her abdomen as well as stating that she has pain in the rectal area. She has never had a colonoscopy before and reports a 40-50 lb weight loss that is unintentional. She denies any fever chills. CT scan of the abdomen revealed: 1. Irregular rectal wall thickening. Neoplasm must be considered. Mildly prominent perirectal lymph nodes are present, concerning for neoplasm. 2. Moderate emphysema. Pulmonary nodules are seen at the lung bases. Given the clinical situation, metastatic disease is a concern. 3. Multiple hypoattenuating liver lesions are present. Many of these are too small to characterize, with the largest of these consistent with simple cysts. There is a more indeterminate lesion in the right lobe measuring 1.4 cm. MRI can be obtained to further evaluate.? CT chest revealed: Numerous bilateral pulmonary nodules are identified. No nonspecific, this could represent metastatic disease. There is moderate emphysema. Continued workup as clinically indicated in this setting. ? Review of Systems Review of Systems: No fever, chills but has generalized weakness and weight loss No chest pain, palpitation No shortness of breath or coughing Reporting abdominal pain after morphine, no nausea or vomiting No urinary symptoms No any rash or wounds Rectal bleeding PMFSH Medical History: Bloody stools Heart murmur Family History: No known history of cancer. Father No problems noted. Mother No problems noted. 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 She had 7 children, 6 living. She smoked a pack a day since the age of 15. Alcohol intake: never Patient Tobacco Use Status: Current everyday Tobacco user Use of substances other than those prescribed or required for medical reasons: No Advance Directives: No Advance Directives Information Provided: Yes Review of Systems - Constitutional Reports system reviewed and no additional complaints, except as documented, Reports anorexia, Reports fatigue, Reports lack of energy, Reports malaise, Reports poor appetite, Reports weakness, Reports weight loss - Eyes Reports system reviewed and no additional complaints, except as documented - ENT Reports system reviewed and no additional complaints, except as documented - Cardiovascular Reports system reviewed and no additional complaints, except as documented - Respiratory Reports no additional respiratory complaints - Gastrointestinal Reports system reviewed and no additional complaints, except as documented - Genitourinary Reports no additional female genitourinary complaints - Musculoskeletal Reports system reviewed and no additional complaints, except as documented - Integumentary/Breasts Skin/Breast: Reports no additional skin complaints - Neurologic Reports system reviewed and no additional complaints, except as documented, Reports weakness - Psychiatric Reports system reviewed and no additional complaints, except as documented - Endocrine Reports no additional endocrine complaints - Hematologic/Lymphatic Reports system reviewed and no additional complaints, except as documented - Allergic/Immunologic Reports system reviewed and no additional complaints, except as documented PMFSH Medical History: Medical History (Last Reviewed 06/07/22 @ 10:15 by Erika Gonzalez RN) Bloody stools Heart murmur Functional capacity: uses cane/walker Family History: Family History (Last Reviewed 06/06/22 @ 12:17 by Sylvie Marley MD) Father No problems noted. Mother No problems noted. Surgical History: Surgical History (Last Reviewed 06/07/22 @ 10:15 by Erika Gonzalez RN) Gallbladder calculus Social History: Social History (Last Reviewed 06/06/22 @ 12:17 by Sylvie Marley MD) Living Situation History: Household Members: None Housing: House Do you presently have visiting nurse or other home services: No Tobacco History: Patient Tobacco Use Status: Former Tobacco user Tobacco use type: Cigarette Smoke Quit Date: Occupation Assessmet: service: No Current occupational status: retired Oncology Screenings - ECOG Performance Status ECOG Performance Status: 1 Home Medications and Allergies Current Medications: Current Medications Acetaminophen (Acetaminophen 325 Mg Tablet) 650 mg PO Q6H PRN PRN Reason: Pain, Mild (Pain Scale 1-3) Last Admin: 06/08/22 07:26 Dose: 650 mg Hydromorphone HCl (Hydromorphone Hcl 0.5 Mg/0.5 Ml Syringe) 0.25 mg IVPUSH Q4H PRN; Protocol PRN Reason: Pain, Severe (Pain Scale 7-10) Last Admin: 06/08/22 10:08 Dose: 0.25 mg Ceftriaxone Sodium 1 gm/ (Sodium Chloride) 50 mls @ 100 mls/hr IV Q24H [facility] Last Infusion: 06/08/22 06:25 Dose: Infused Ondansetron HCl (Ondansetron Hcl 4 Mg/2 Ml Vial) 4 mg IVPUSH Q8H PRN PRN Reason: Nausea and Vomiting Last Admin: 06/05/22 05:59 Dose: 4 mg Oxycodone HCl (Oxycodone Hcl Immed Release 5 Mg Tablet) 5 mg PO Q4H PRN PRN Reason: moderate pain Pharmacy Consult (Consult Rx Perform Med Rec) 1 each MISCELLANE ONCE PRN PRN Reason: Consult order Sodium Chloride (0.9 % Sodium Chloride Flush 3 Ml Syringe) [facility] Last Admin: 06/08/22 07:29 Dose: 3 ml Home Medications Medication Instructions Recorded Confirmed Type acetaminophen 325 mg tablet 650 mg PO QID PRN Pain 06/04/22 06/04/22 History (Tylenol) Allergies Allergy/AdvReac Type Severity Reaction Status Date / Time codeine [CODEINE] Allergy Unknown UNKNOWN Verified 06/07/22 10:16 morphine AdvReac Abdominal Verified 06/07/22 10:16 Pain Exam Vital signs: Vital Signs Temp 98.4 F 06/08/22 11:08 Pulse 60 06/08/22 11:08 Resp 16 06/08/22 11:08 BP 134/62 06/08/22 11:08 Pulse Ox 93 06/08/22 11:08 O2 Del Method 06/08/22 11:08 Intake & Output 06/07/22 06/08/22 06/08/22 18:59 06:59 18:59 Intake Total 580 / 870 290 / 870 Balance 580 / 870 290 / 870 Intake: Intake, Oral Amount 580 / 820 240 / 820 Intake, IV Amount 50 / 50 cefTRIAXone sodium 1 gm In 0.9 50 / 50 % Sodium Chloride 50 ml @ 100 mls/hr IV Q24H [facility] Rx#: [id number] Other: IV Intake, Intraoperative 100 Amount Meal Refused No NPO No Breakfast % Eaten 50% Lunch % Eaten 50% Number of Unmeasured Voids 2 3 Urine Bedpan Bathroom Urine Color Yellow Yellow Weight 54.431 kg BMI result Body Mass Index 21.9 - Constitutional Present: no acute distress - Routine HEENT Exam Head: Present: normal inspection, normocephalic Eye: Present: normal appearance ENT: Present: mucous membranes moist - Routine Neck Exam Present: full ROM - Routine Respiratory Exam Present: CTAB - Routine Cardiovascular Exam Cardiovascular: Present: RRR, S1, S2 - Routine Abdominal Exam Present: soft, nontender - Routine Rectal Exam Patient deferred: digital exam - Routine Extremities Exam Present: nontender - Routine Back/Spine/Pelvis Exam Back/Spine: Present: full ROM - Routine Skin Exam Present: intact, normal turgor - Routine Neurological Exam Present: alert, oriented X3, vision grossly intact - Routine Psychiatric Exam Present: normal affect Data - Labs CBC & Chem 7: 06/09/22 05:24 06/09/22 05:24 Labs: 06/03/22 ECG 12 lead EKG Stat BMP [Basic Metabolic Panel Fasting] Routine Complete Blood Count no Diff AM 06/03/22 00:00 Urine Culture Routine 06/03/22 16:58 EKG Documentation DIRECTED 06/03/22 17:13 Add Laboratory Test Stat B Type Natriuretic Peptide Stat Carcinoembryonic Antigen Stat Complete Blood Count Auto Diff Stat Comprehensive Met. Panel Stat Troponin-I High Sensitivity Stat 06/03/22 22:23 UA ClnCatch+Micro w/rflx Cult Stat 06/04/22 02:40 CT abdomen pelvis w IV con Stat 06/04/22 02:45 0.9 % Sodium Chloride [Ns] 1,000 ml IV 999 mls/hr 06/04/22 03:00 Occult Blood, Stool x1 [OBSX1] Stat 06/04/22 03:21 fentaNYL citrate/PF [Sublimaze] 25 mcg IVPUSH ONCE ONE 06/04/22 03:29 cefTRIAXone sodium [Rocephin] 1 gm 0.9 % Sodium Chloride [Ns] 50 ml IV ONCE 06/04/22 03:36 cefTRIAXone sodium [Rocephin] 1 gm .ROUTE .STK-MED ONE 06/04/22 03:56 Lactic Acid Stat 06/04/22 04:21 iohexoL 350 MG/ML [Omnipaque 350 MG/ML] 85 ml IV ONCE ONE 06/04/22 04:43 CT chest w IV con Stat 06/04/22 05:14 iohexoL 350 MG/ML [Omnipaque 350 MG/ML] 50 ml IV ONCE ONE 06/04/22 05:37 COVID-19 ID NOW (Wick) Stat 06/04/22 07:36 Morphine Sulfate 4 mg IVPUSH ONCE ONE 06/04/22 10:38 Famotidine/PF [Pepcid/PF] 20 mg IVPUSH ONCE ONE 06/04/22 10:54 Regular Diet 06/04/22 14:59 Add Laboratory Test Routine 06/05/22 US abdomen limited Routine 06/05/22 00:01 Clear Liquid Diet 06/05/22 04:34 cefTRIAXone sodium [Rocephin] 1 gm .ROUTE .STK-MED ONE 06/05/22 05:26 Basic Metabolic Panel DAILY@0600 Complete Blood Count no Diff DAILY@0600 Prothrombin Time INR Routine 06/05/22 10:50 Clear Liquid Diet 06/05/22 11:38 HYDROmorphone HCl [Dilaudid] 0.5 mg IVPUSH ONCE ONE 06/05/22 16:00 PEG 3350/Na Sulf,Bicarb,Cl/KCL [Gavilyte-C Solution] 4,000 ml PO ONCE@1600 ONE 06/06/22 05:07 cefTRIAXone sodium [Rocephin] 1 gm .ROUTE .STK-MED ONE 06/06/22 06:08 Basic Metabolic Panel AM CBC W/AUTO DIFF [Complete Blood Count Auto Diff] Routine 06/06/22 11:47 propofoL [Diprivan] 200 mg IVPUSH .STK-MED ONE 06/06/22 12:43 Transfer Order Routine 06/06/22 12:52 fentaNYL citrate/PF [Sublimaze] 100 mcg .ROUTE .STK-MED ONE ondansetron HCL [Zofran] 4 mg .ROUTE .STK-MED ONE 06/06/22 13:00 fentaNYL citrate/PF [Sublimaze] 25 mcg IVPUSH Q5M ondansetron HCL [Zofran] 4 mg IVPUSH ONCE ONE 06/06/22 13:20 Full Liquid Diet 06/06/22 23:34 diphenhydrAMINE HCL [Benadryl] 25 mg PO ONCE ONE 06/07/22 CT biopsy lung RT Routine CT guided FNA Routine XR chest 1V Stat 06/07/22 00:01 NPO Diet 06/07/22 04:25 cefTRIAXone sodium [Rocephin] 1 gm .ROUTE .STK-MED ONE 06/07/22 10:22 Midazolam HCl/PF [Versed] 2 mg .ROUTE .STK-MED ONE Naloxone HCl [Narcan] 0.4 mg .ROUTE .STK-MED ONE fentaNYL citrate/PF [Sublimaze] 100 mcg .ROUTE .STK-MED ONE flumazeniL [Romazicon] 0.05 mg .ROUTE .STK-MED ONE 06/07/22 10:23 Lidocaine HCl 1 % MPF [Xylocaine 1 % MPF] 30 ml .ROUTE .STK-MED ONE 06/08/22 05:15 cefTRIAXone sodium [Rocephin] 1 gm .ROUTE .STK-MED ONE 06/08/22 07:30 BMP [Basic Metabolic Panel Fasting] Routine Complete Blood Count no Diff AM Laboratory Last Values WBC 7.0 X10*3/uL (4.8-10.8) 06/08/22 07:30 RBC 3.55 X10*6/uL (4.20-5.50) L 06/08/22 07:30 Hgb 9.6 g/dl (12.0-16.0) L 06/08/22 07:30 Hct 31.0 % (37.0-47.0) L 06/08/22 07:30 MCV 87.3 fL (80.0-98.0) 06/08/22 07:30 MCH 27.0 pg (27.0-33.0) 06/08/22 07:30 MCHC 31.0 g/dl (31.0-35.0) 06/08/22 07:30 RDW 14.9 % (11.0-16.0) 06/08/22 07:30 Plt Count 351 X10*3/uL (160-400) 06/08/22 07:30 MPV 10.3 fL (9.4-12.3) 06/08/22 07:30 Immature Gran % (Auto) 0.3 % (0.0-0.4) 06/06/22 06:08 Neut % (Auto) 62.2 % (45-73) 06/06/22 06:08 Lymph % (Auto) 24.3 % (20-40) 06/06/22 06:08 Alfalfa % (Auto) 8.8 % (2-11) 06/06/22 06:08 Eos % (Auto) 3.6 % (0-4) 06/06/22 06:08 Baso % (Auto) 0.8 % (0-2) 06/06/22 06:08 Lymph # (Auto) 1.6 X10*3/uL (1.2-4.9) 06/06/22 06:08 Alfalfa # (Auto) 0.6 X10*3/uL (0.1-1.2) 06/06/22 06:08 Eos # (Auto) 0.2 X10*3/uL (0.0-0.4) 06/06/22 06:08 Baso # (Auto) 0.1 X10*3/uL (0.0-0.2) 06/06/22 06:08 Abs Immat Gran (auto) 0.02 X10*3/uL (0.00-0.03) 06/06/22 06:08 Absolute Neuts (auto) 4.1 x10*3/uL (2.0-8.3) 06/06/22 06:08 Absolute Nucleated RBC 0.000 X10*3/uL (0.0-0.012) 06/08/22 07:30 Nucleated RBC % (auto) 0.0 /100WBC (0.0-0.2) 06/08/22 07:30 PT 12.6 SEC (10.0-13.1) 06/05/22 05:26 INR 1.1 (0.9-1.1) 06/05/22 05:26 Sodium 139 mmol/L (135-145) 06/08/22 07:30 Potassium 4.0 mmol/L (3.3-5.1) 06/08/22 07:30 Chloride 98 mmol/L (96-108) 06/08/22 07:30 Carbon Dioxide 31 mmol/L (22-29) H 06/08/22 07:30 Anion Gap 14 (12-20) 06/08/22 07:30 BUN 11 mg/dL (9-16) D 06/08/22 07:30 Creatinine 0.57 mg/dL (0.5-1.4) 06/08/22 07:30 Estim Creat Clear Calc 67.4 06/08/22 07:30 Estimated GFR > 60 06/08/22 07:30 Random Glucose 92 mg/dL (60-115) 06/06/22 06:08 Fasting Glucose 89 mg/dL (60-99) 06/08/22 07:30 Lactic Acid 0.7 mmol/L (0.5-2.0) 06/04/22 03:56 Calcium 8.9 mg/dL (8.4-10.2) 06/08/22 07:30 Total Bilirubin < 0.2 mg/dL (0.0-1.0) 06/03/22 17:13 AST 23 U/L (5-31) 06/03/22 17:13 ALT 16 U/L (0-31) 06/03/22 17:13 Alkaline Phosphatase 71 U/L (39-117) 06/03/22 17:13 Troponin I High Sens < 3.5 ng/L (<3.5-17.0) 06/03/22 17:13 B-Natriuretic Peptide 81 pg/mL (<100) 06/03/22 17:13 Total Protein 7.3 g/dL (6.5-8.0) 06/03/22 17:13 Albumin 4.4 g/dL (3.5-5.0) 06/03/22 17:13 Carcinoembryonic Ag 14.00 ng/mL 06/03/22 17:13 Urine Color Yellow 06/03/22 22:23 Urine Appearance Cloudy 06/03/22 22:23 Urine pH 5.0 (5.0-9.0) 06/03/22 22:23 Ur Specific [place] >= 1.030 (1.005-1.025) H 06/03/22 22:23 Urine Protein 30 (1+) mg/dL (Neg-Trace) H 06/03/22 22:23 Urine Glucose (UA) Negative mg/dL (Negative) 06/03/22 22:23 Urine Ketones Trace mg/dL (Negative) 06/03/22 22: Urine Blood Negative (Negative) 06/03/22 22:23 Urine Nitrite Negative (Negative) 06/03/22 22:23 Ur Leukocyte Esterase Moderate (2+) (Negative) H 06/03/22 22:23 Urine RBC 3-5 /HPF (0-2) H 06/03/22 22:23 Urine WBC >50 /HPF (0-5) H 06/03/22 22:23 Ur Squamous Epith Cells 11-20 /HPF (0-2) 06/03/22 22:23 Calcium Oxalate Crystal Present 06/03/22 22:23 Urine Bacteria 4+ (None Seen) 06/03/22 22:23 Hyaline Casts 3-5 /LPF (0-2) 06/03/22 22:23 Stool Occult Blood POSITIVE (NEGATIVE) 06/04/22 03:00 COVID-19 (YASMINE) Negative (Negative) 06/04/22 05:37 COVID-19 Clin Com See Note 06/04/22 05:37 - Imaging Radiologist's impression: ITS Impressions Abdomen/Pelvis CT 06/04/22 04:20 IMPRESSION: 1. Irregular rectal wall thickening. Neoplasm must be considered. Mildly prominent perirectal lymph nodes are present, concerning for neoplasm. 2. Moderate emphysema. Pulmonary nodules are seen at the lung bases. Given the clinical situation, metastatic disease is a concern. 3. Multiple hypoattenuating liver lesions are present. Many of these are too small to characterize, with the largest of these consistent with simple cysts. There is a more indeterminate lesion in the right lobe measuring 1.4 cm. MRI can be obtained to further evaluate. Fleischner guidelines were followed. Chest CT 06/04/22 05:15 IMPRESSION: Numerous bilateral pulmonary nodules are identified. No nonspecific, this could represent metastatic disease. There is moderate emphysema. Continued workup as clinically indicated in this setting. Fleischner guidelines were followed. Abdomen Ultrasound 06/05/22 09:35 IMPRESSION: Multiple liver cysts. 1.3 x 1.2 x 0.9 cm solid echogenic lesion high in the dome of the right lobe of the liver is under the right hemidiaphragm and question second smaller 7 mm echogenic lesion in the central right lobe of the liver near the hepatic venous confluence. These would be difficult locations for ultrasound-guided liver biopsy. Lung Biopsy CT 06/07/22 11:54 IMPRESSION: CT-guided right lung biopsy. Needle Aspiration CT 06/07/22 11:54 IMPRESSION: CT-guided right lung biopsy. Chest X-Ray 06/07/22 13:35 IMPRESSION: No pneumothorax post right lung biopsy. Assessment and Plan Patient Active problem list reviewed?: Yes (1) Rectal mass Status: Acute Assessment and plan: This is a pleasant 77 year old lady who presents with a 7 months of abdominal discomfort with bleeding from her rectum. This started when she lived in [place] but she did not have medical insurance so was unable to follow-up with a physician. She states that she is having significant pain in her abdomen as well as stating that she has pain in the rectal area. She has never had a colonoscopy before and reports a 40-50 lb weight loss that is unintentional. CT scan of the abdomen revealed: 1. Irregular rectal wall thickening. Neoplasm must be considered. Mildly prominent perirectal lymph nodes are present, concerning for neoplasm. 2. Moderate emphysema. Pulmonary nodules are seen at the lung bases. Given the clinical situation, metastatic disease is a concern. 3. Multiple hypoattenuating liver lesions are present. Many of these are too small to characterize, with the largest of these consistent with simple cysts. There is a more indeterminate lesion in the right lobe measuring 1.4 cm. MRI can be obtained to further evaluate.? CT chest revealed: Numerous bilateral pulmonary nodules are identified. No nonspecific, this could represent metastatic disease. There is moderate emphysema. Continued workup as clinically indicated in this setting. I discussed with IR to see if one of the liver lesions are accessible for a biopsy. The liver lesion was deemed in accessible. I was advised to proceed with ultrasound of the abdomen, to see if something would be feasible for biopsy. Baseline CEA level: 14. PLAN: She underwent biopsy of the right lower lobe lung lesion, yesterday. C/W adeno carcinoma favor rectal primary. She had a colonoscopy with biopsy of the mass on 06/06. At least high-grade dysplasia, favor adenocarcinoma of rectal origin Final pathology is still pending. Will make further plans based upon the exact histology. Most likely she will be a candidate for combined modality therapy with radiation plus chemotherapy. She is planning on going home today. Will schedule for outpatient PET scan for staging purposes. She will be referred for radiation therapy consultation. Thank you, - Time Spent With Patient Time Spent with Patient (in minutes): 30
--- NOTE | 2022-06-08 13:33 | P.PNIM_ITS ---
Subjective Subjective Date of Service: 06/08/22 Interval History: cc: rectal bleeding interval history: rectal pain Cardiovascular Cardiovascular: Reports no additional cardiovascular complaints Respiratory Respiratory: Reports no additional respiratory complaints Physical Exam Vital Signs: Vital Signs: Last Vital Signs Temp 98.4 F 06/08/22 11:08 Pulse 60 06/08/22 11:08 Resp 16 06/08/22 11:08 BP 134/62 06/08/22 11:08 Pulse Ox 93 06/08/22 11:08 O2 Del Method 06/08/22 11:08 BMI result Body Mass Index 21.9 General: AO X 3, no acute distress Resp: CTA bilateral, no accessory muscles used CVS: S1,S2,RRR GI: soft, non tender, non distended Neuro: motor grossly intact, alert Psych: appropriate affect, appropriate insight Objective Data Active Medications Acetaminophen (Acetaminophen 325 Mg Tablet) 650 mg PO Q6H PRN PRN Reason: Pain, Mild (Pain Scale 1-3) Last Admin: 06/08/22 07:26 Dose: 650 mg Documented By: KRISTAL Hydromorphone HCl (Hydromorphone Hcl 0.5 Mg/0.5 Ml Syringe) 0.25 mg IVPUSH Q4H PRN; Protocol PRN Reason: Pain, Severe (Pain Scale 7-10) Last Admin: 06/08/22 10:08 Dose: 0.25 mg Documented By: KRISTAL Ceftriaxone Sodium 1 gm/ (Sodium Chloride) 50 mls @ 100 mls/hr IV Q24H [facility] Last Infusion: 06/08/22 06:25 Dose: 0 mls/hr Documented By: TIKI Ondansetron HCl (Ondansetron Hcl 4 Mg/2 Ml Vial) 4 mg IVPUSH Q8H PRN PRN Reason: Nausea and Vomiting Last Admin: 06/05/22 05:59 Dose: 4 mg Documented By: HOWARD Oxycodone HCl (Oxycodone Hcl Immed Release 5 Mg Tablet) 5 mg PO Q4H PRN PRN Reason: moderate pain Pharmacy Consult (Consult Rx Perform Med Rec) 1 each MISCELLANE ONCE PRN PRN Reason: Consult order Sodium Chloride (0.9 % Sodium Chloride Flush 3 Ml Syringe) [facility] Last Admin: 06/08/22 07:29 Dose: 3 ml Documented By: KRISTAL Labs CBC & Chem 7: 06/08/22 07:30 06/08/22 07:30 Labs: Laboratory Results - last 24 hr 06/08/22 06/08/22 07:30 07:30 MCV 87.3 MCH 27.0 MCHC 31.0 RDW 14.9 Plt Count 351 MPV 10.3 Absolute Nucleated RBC 0.000 Nucleated RBC % (auto) 0.0 Anion Gap 14 Estim Creat Clear Calc 67.4 Estimated GFR > 60 Fasting Glucose 89 Calcium 8.9 Assessment and Plan (1) UTI (urinary tract infection): Status: Acute (2) Rectal mass: Status: Acute (3) Moderate malnutrition: Status: Acute Plan A 77 years old lady with no significant PMH who presents to the hospital complaining of weakness, weight loss and rectal bleeding for the last 6 months or so. Rectal bleeding secondary to anal/ distal rectal mass complicated by acute blood loss anemia CT scan concerning for possible rectal cancer hgb dropped from 12.5 to 8.9, now 9.6 Oncology input appreciated s/p colonscopy 06/06/22 with biopsy of anal/distal rectal lesion and lung biopsy 06/07/22, path pending Weight loss, moderate malnutrition Likely secondary to underlying malignancy Process Improvement Engineer following Ensure t.i.d. UTI Treat with IV ceftriaxone day 4/5 cultures negative Pulmonary nodules Likely related to underlying metastatic malignancy Largest is 1.7 spiculated nodule in right lower lobe DVT PPX SCDs reason for continued hospitalization: awaiting hgb stability, pain control Quality Stroke Does the patient have a stroke diagnosis?: No VTE Prior VTE?: No VTE Risk Level:: Medical - moderate - high VTE Device Contraindication: N/A - Device Ordered VTE Drug Contraindication: Treatment Not Indicated
--- NOTE | 2022-06-08 13:40 | MHC.CM.PN ---
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 SHE REPORTS SHE IS ALSO CONCERNED ABOUT CARING FOR HERSELF AT HOME SHE DID NOT HAVE A PCP ON ADMISSION AND ONLY HAD MEDICARE A. A Diligent Board Member Services APPLICATION HAS BEEN COMPLETED AND SHE IS AWARE SHE CAN HAVE [employer] SERVICES SET UP ONCE THAT IS ACTIVE PTS ONCOLOGIST ALSO CAME TO SEE PT AND INDICATED SHE DID NOT HAVE THE BIOPSY RESULTS YET BUT COULD SEE PT NEXT WEEK IN THE OFFICE. SHE ALSO REPORTED SHE WOULD WRITE THE ORDERS FOR VNA SERVICES UNTIL PT CAN BE ESTABLISHED WITH A PCP PT REPORTS SHE HOPES SHE CAN BE SET UP WITH [facility]
[2022-06-08 15:42] VITALS: BP 143/64; PULSE 71; RESP 18; TEMP 36.6; O2SAT 96
[2022-06-08 19:39] VITALS: BP 150/66; PULSE 69; RESP 17; TEMP 36.4; O2SAT 96
[2022-06-08] MEDS: oxyCODONE HCl Immed Release 5 MG TABLET PO (20:29)
[2022-06-08 23:49] VITALS: BP 135/60; PULSE 68; RESP 18; TEMP 36.3; O2SAT 96
[2022-06-09] MEDS: HYDROmorphone HCl 0.5 MG/0.5 ML SYRINGE 0.25 MG IVPUSH ×5 (02:18→20:05)
[2022-06-09 03:38] VITALS: BP 156/71; PULSE 68; RESP 18; TEMP 36.6; O2SAT 96
[2022-06-09] MEDS: cefTRIAXone sodium 1 GM in 0.9 % Sodium Chloride 50 ML IV (04:51)
[2022-06-09] MEDS: oxyCODONE HCl Immed Release 5 MG TABLET PO ×2 (04:59→18:32)
[2022-06-09 05:52] LABS: Hematocrit 29.2 % (37.0-47.0); Mean Corpuscular HGB Conc 30.8 g/dl (31.0-35.0); Mean Corpuscular Hemoglobin 26.7 pg (27.0-33.0); Mean Corpuscular Volume 86.6 fL (80.0-98.0); Mean Platelet Volume 10.2 fL (9.4-12.3); Platelet Count 322 X10*3/uL (160-400); Red Blood Count 3.37 X10*6/uL (4.20-5.50); Red Cell Distribution Width 14.8 % (11.0-16.0); White Blood Count 7.9 X10*3/uL (4.8-10.8)
[2022-06-09 06:09] LABS: Anion Gap 13 (12-20); Blood Urea Nitrogen 13 mg/dL (9-16); Calcium 8.6 mg/dL (8.4-10.2); Carbon Dioxide 32 mmol/L (22-29); Chloride 98 mmol/L (96-108); Creatinine Clr Calc Pharmacy 66.2; Estimated Glomerular Filt Rate > 60; Glucose Fasting 86 mg/dL (60-99); Potassium 4.1 mmol/L (3.3-5.1); Sodium 139 mmol/L (135-145)
[2022-06-09 07:49] VITALS: BP 147/77; PULSE 61; RESP 18; TEMP 36.2; O2SAT 96
--- NOTE | 2022-06-09 10:23 | P.DS_ITS ---
DS: Providers Provider Date of Service: 06/09/22 Date of admission: 06/04/22 10:52 Primary care physician: None Physician Consults: 06/04/22 10:38 Consult to Gastroenterology Routine Consulting Provider: Daniel Montoya Reason for consultation: rectal mass and bleeding Consult to Hematology / Oncology Routine Consulting Provider: Bunny Balderas Reason for consultation: rectal mass and bleeding DS: Diagnosis Discharge Diagnosis (1) UTI (urinary tract infection): Status: Acute (2) Rectal mass: Status: Acute (3) Moderate malnutrition: Status: Acute DS: Summary Hospital Course Hospital Course: from initial hpi: A 77 years old lady with no significant PMH who presents to the hospital complaining of weakness, weight loss and rectal bleeding for the last 6 months or so.? She reported that he did not have insurance while she was living at [place] as she could not see any physicians.? She went for colonoscopy but she was unable to go ahead with the procedure as she fills so much pain upon rectal exam.? She denies having any pain, fever, chills, nausea or vomiting but reports change in bowel habit with more diarrhea recently.? Reports losing 40-50 lb over the last 6 months. In the emergency urine was thought to be infected.? CT scan of the abdomen with was concerning for rectal mass with surrounding lymph nodes.? CT chest showed pulmonary nodules concerning for metastasis.? Liver lesions were also noted. Admitted for further evaluation and treatment. hospital course: Patient was admitted for rectal bleeding secondary to anal/distal rectal mass complicated by acute blood loss anemia. She had CT scan that was concerning for possible rectal cancer, hemoglobin dropped from 12.5 to a jefferson of 8.9, it is 9 at discharge. Patient did not require transfusion. She underwent colonoscopy which revealed a mass either anal or distal rectal in origin, biopsies were taken. She was also noted to have liver and lung nodules, the lung nodule was biopsied and came back as adenocarcinoma. Patient is seen by Oncology recommended outpatient follow-up for PET scan. Patient has no further active bleeding will be discharged home. Time Spent with Patient Time attestation: Total time spent providing and/or coordinating discharge services: Discharge coordination time: Greater than 30 minutes Quality: Safe Use of Opioids Does Pt have an Active Cancer Diagnosis on the Problem List?: Yes Opioid Measure Date for [facility] Report: 05/10/22 Opioid Measure Time for CMS Report: 10:23 Quality: Stroke Does the patient have a stroke diagnosis?: No Physical Exam Vital Signs: Vital Signs: Last Vital Signs Temp 97.2 F 06/09/22 07:49 Pulse 61 06/09/22 07:49 Resp 18 06/09/22 07:49 BP 147/77 H 06/09/22 07:49 Pulse Ox 96 06/09/22 07:49 O2 Del Method 06/09/22 07:49 BMI result Body Mass Index 21.9 General: AO X 3, no acute distress Resp: CTA bilateral, no accessory muscles used CVS: S1,S2,RRR GI: soft, non tender, non distended Neuro: motor grossly intact, alert Psych: appropriate affect, appropriate insight DS: Data Data Completed and Pending Completed studies during hospitalization [Text1]: Pending at discharge 06/07/22 11:26 Surgical Path [Surgical] [PTH] Routine Pending studies at discharge: Pending at discharge 06/06/22 12:36 Surgical [PTH] Routine 06/07/22 11:26 Cytology [PTH] Routine Labs on day of discharge: Laboratory Results - last 24 hr 06/09/22 06/09/22 05:24 05:24 WBC 7.9 RBC 3.37 L Hgb 9.0 L Hct 29.2 L MCV 86.6 MCH 26.7 L MCHC 30.8 L RDW 14.8 Plt Count 322 MPV 10.2 Absolute Nucleated RBC 0.000 Nucleated RBC % (auto) 0.0 Sodium 139 Potassium 4.1 Chloride 98 Carbon Dioxide 32 H Anion Gap 13 BUN 13 Creatinine 0.58 Estim Creat Clear Calc 66.2 Estimated GFR > 60 Fasting Glucose 86 Calcium 8.6 Discharge Plan Discharge Anticipated Discharge Date/Time: 06/09/22 10:19 Patient Disposition: Home Health Service Discharge Diagnosis: adenocarcinoma Referrals: [facility] [Outside] - 1 Week Bunny Balderas MD [Physician] - 1 Week Physician,None [Primary Care Provider] - 1 Week Discharge Medications: New oxycodone 5 mg Tablet 5 mg PO Q4H PRN (Reason: moderate pain) Qty: 20 0RF Rx Instructions: Partial Fill upon patient request. Continued acetaminophen [Tylenol] 325 mg Tablet 650 mg PO QID PRN (Reason: Pain) Discharge Orders: Discharge Order (Routine); Ordered 06/09/22 Ordered By: Rolando Coe Diet: Advance to usual diet Activity on Discharge: As tolerated Stand Alone Forms: Patient Portal Discharge page Care Plan Goals: work up cancer Health Concerns: cancer Plan of Treatment: follow up with oncology for PET scan Assessment: see above
--- NOTE | 2022-06-09 10:26 | P.F2F_ITS ---
Service Date Service Date: 06/09/22 Encounter Date of encounter: 06/09/22 Reasons for Services Signs and symptoms assessed: weakness Reason for custodial: medication management, medication treatment and teach disease management Homebound: Leaving the home is medically contraindicated at this time without the asist of a device and/or another person due th the listed conditions above and below. Reason homebound: unsteady gait / fall risk Certification: Based on the above findings, I certify that this patient is confined to the home and needs intermittent custodial care, physical therapy and/or speech therapy, or continues to need occupational therapy. The patient is under my care, and I have initiated the establishment of the plan of care. The patient will be followed by a physician who will periodically review the plan of care.
[2022-06-09 11:24] VITALS: BP 160/80; PULSE 55; RESP 17; TEMP 36.4; O2SAT 96
[2022-06-09] MEDS: 0.9 % Sodium Chloride Flush 3 ML SYRINGE IVFLUSH ×2 (11:50→20:06)
--- NOTE | 2022-06-09 12:37 | MHC.CM.PN ---
Addendum entered by Farrah Brown 06/09/22 16:12: PT HAS APPEALED HER DC REQUEST FOR DOCUMENTS RECEIVED FROM [employer] REFERENCE # [id number] DOCUMENTS UPLOADED VIA WEBSITE [email or web address] Original Note: CM MET WITH PT THIS MORNING TO DISCUSS DC PLAN PT REPORTS SHE DOES NOT FEEL READY TO DC WHEN ASKED WHY, SHE PROVIDES MULTIPLE REASONS INCLUDING: STILL BEING IN PAIN FEELING LIKE SHE HAS NOT HAD TIME TO PROCESS THE DIAGNOSIS FEELING LIKE SHE NEEDS TO FIND SOMEONE TO STAY WITH HER, ALTHOUGH SHE REPORTS SHE HAS NO ONE THAT COULD. AND NEEDING TO CALL SOMEONE TO TURN THE HEAT ON IN HER HOME. IMM AGAIN REVIEWED WITH PT WHO REPORTS SHE WILL APPEAL HER DISCHARGE CM HIGHLIGHTED THE [facility] NUMBER AND INVITED PT TO REACH OUT TO CM WITH QUESTIONS
[2022-06-09 15:40] VITALS: BP 162/72; PULSE 63; RESP 19; TEMP 36.2; O2SAT 95
--- NOTE | 2022-06-09 16:03 | MHC.CM.PN ---
CALL FROM IRA GONZALEZ OF [facility] [phone] LISA AWARE THAT PATIENT IS NOT YET DC AND WE WILL SEND UPDATES WHEN DC OCCURS
[2022-06-09 19:45] VITALS: BP 159/76; PULSE 70; RESP 18; TEMP 37.4; O2SAT 96
[2022-06-10] VITALS: BP 162/67; PULSE 67; RESP 18; TEMP 36.6; O2SAT 96
[2022-06-10] MEDS: HYDROmorphone HCl 0.5 MG/0.5 ML SYRINGE 0.25 MG IVPUSH ×4 (00:16→14:16)
[2022-06-10] MEDS: ondansetron HCL 4 MG/2 ML VIAL IVPUSH ×2 (00:21→11:46)
[2022-06-10 04:00] VITALS: BP 135/63; PULSE 70; RESP 18; TEMP 36.1; O2SAT 94
[2022-06-10] MEDS: cefTRIAXone sodium 1 GM in 0.9 % Sodium Chloride 50 ML IV (04:38)
--- NOTE | 2022-06-10 05:23 | PC.NURSE ---
pt complain for pain and crying, Dr. Liriano notify ordered extra dose 0.5mg of dilaudid given at05:20.
[2022-06-10] MEDS: HYDROmorphone HCl 0.5 MG/0.5 ML SYRINGE IVPUSH (05:30)
[2022-06-10 07:54] VITALS: BP 134/63; PULSE 65; RESP 18; TEMP 36.5; O2SAT 95
--- NOTE | 2022-06-10 08:37 | HO.PM.IMPN ---
Subjective Subjective Date of Service: 06/10/22 Interval History: cc: rectal bleeding interval history: rectal pain Cardiovascular Cardiovascular: Reports no additional cardiovascular complaints Respiratory Respiratory: Reports no additional respiratory complaints Physical Exam Vital Signs: Vital Signs: Last Vital Signs Temp 97.7 F 06/10/22 07:54 Pulse 65 06/10/22 07:54 Resp 18 06/10/22 07:54 BP 134/63 06/10/22 07:54 Pulse Ox 95 06/10/22 07:54 O2 Del Method 06/10/22 07:54 BMI result Body Mass Index 21.9 General: AO X 3, no acute distress Resp: CTA bilateral, no accessory muscles used CVS: S1,S2,RRR GI: soft, non tender, non distended Neuro: motor grossly intact, alert Psych: appropriate affect, appropriate insight Objective Data Active Medications Acetaminophen (Acetaminophen 325 Mg Tablet) 650 mg PO Q6H PRN PRN Reason: Pain, Mild (Pain Scale 1-3) Last Admin: 06/08/22 20:40 Dose: 650 mg Documented By: LUCIANO Hydromorphone HCl (Hydromorphone Hcl 0.5 Mg/0.5 Ml Syringe) 0.25 mg IVPUSH Q4H PRN; Protocol PRN Reason: Pain, Severe (Pain Scale 7-10) Last Admin: 06/10/22 08:33 Dose: 0.25 mg Documented By: SONALI Ceftriaxone Sodium 1 gm/ (Sodium Chloride) 50 mls @ 100 mls/hr IV Q24H SHAHRZAD Last Infusion: 06/10/22 05:14 Dose: 0 mls/hr Documented By: LUCIANO Ondansetron HCl (Ondansetron Hcl 4 Mg/2 Ml Vial) 4 mg IVPUSH Q8H PRN PRN Reason: Nausea and Vomiting Last Admin: 06/10/22 00:21 Dose: 4 mg Documented By: LUCIANO Oxycodone HCl (Oxycodone Hcl Immed Release 5 Mg Tablet) 5 mg PO Q4H PRN PRN Reason: moderate pain Last Admin: 06/09/22 18:32 Dose: 5 mg Documented By: VERONICA Pharmacy Consult (Consult Rx Perform Med Rec) 1 each MISCELLANE ONCE PRN PRN Reason: Consult order Sodium Chloride (0.9 % Sodium Chloride Flush 3 Ml Syringe) 3 ml IVFLUSH QSHIFT [facility] Last Admin: 06/10/22 08:27 Dose: Not Given Documented By: SONALI Non-Admin Reason: Patient Refused Labs CBC & Chem 7: 06/09/22 05:24 06/09/22 05:24 Microbiology Microbiology Results: Microbiology 06/04/22 03:56 Blood Culture - Final Blood - Venous No growth after 5 days. 06/04/22 03:56 Blood Culture - Final Blood - Venous No growth after 5 days. Assessment and Plan (1) UTI (urinary tract infection): Status: Acute (2) Rectal mass: Status: Acute (3) Moderate malnutrition: Status: Acute Plan A 77 years old lady with no significant PMH who presents to the hospital complaining of weakness, weight loss and rectal bleeding for the last 6 months or so. Rectal bleeding secondary to anal/ distal rectal mass complicated by acute blood loss anemia CT scan concerning for possible rectal cancer hgb now stable Oncology input appreciated s/p colonscopy 06/06/22 with biopsy of anal/distal rectal lesion and lung biopsy 06/07/22, prelim path - adenocarcinoma Weight loss, moderate malnutrition Likely secondary to underlying malignancy Resident Care Provider following Ensure t.i.d. UTI Treat with IV ceftriaxone day 5 cultures negative Pulmonary nodules Likely related to underlying metastatic malignancy Largest is 1.7 spiculated nodule in right lower lobe DVT PPX SCDs reason for continued hospitalization: appealing discharge Quality Stroke Does the patient have a stroke diagnosis?: No VTE Prior VTE?: No VTE Risk Level:: Medical - moderate - high VTE Device Contraindication: N/A - Device Ordered VTE Drug Contraindication: Treatment Not Indicated
[2022-06-10 11:25] VITALS: BP 170/83; PULSE 65; RESP 18; TEMP 36.4; O2SAT 97
[2022-06-10] MEDS: oxyCODONE HCl Immed Release 5 MG TABLET PO (11:52)
[2022-06-10] MEDS: 0.9 % Sodium Chloride Flush 3 ML SYRINGE IVFLUSH ×2 (14:18→22:06)
[2022-06-10 16:00] VITALS: BP 135/62; PULSE 58; RESP 16; TEMP 36.6; O2SAT 96
[2022-06-10] MEDS: oxyCODONE HCl Immed Release 5 MG TABLET 10 MG PO ×2 (18:07→22:05)
[2022-06-10 19:57] VITALS: BP 171/76; PULSE 67; RESP 16; TEMP 36.2; O2SAT 95
[2022-06-11] VITALS: BP 152/72; PULSE 60; RESP 16; TEMP 36.6; O2SAT 95
[2022-06-11] MEDS: oxyCODONE HCl Immed Release 5 MG TABLET 10 MG PO ×3 (02:14→10:15)
[2022-06-11 07:47] VITALS: BP 129/62; PULSE 56; RESP 15; TEMP 36.6; O2SAT 93
--- NOTE | 2022-06-11 08:43 | MHC.CM.PN ---
Patient has been medically cleared for dc to home today with services. A referral was made to [facility], who has been informed of today's dc. IMM addressed this morning at bedside with Patient and original has been given to her and a copy has been placed on the chart.
== END 2022-06-11 10:32 | disposition home health service (06) | DRG 374 ==
LOC: HO.ED 06-04 10:37 → HO.EDOVER 06-04 11:01 → HO.S3 06-04 21:34
PROVIDERS: Internal Medicine; Internal Medicine Medical Oncology; Radiology Diagnostic Radiology; Student in an Organized Health Care Education/Training Program; Admitting Provider Student in an Organized Health Care Education/Training Program; Emergency Provider Emergency Medicine; Visit Provider Internal Medicine
PROC: 0DJD8ZZ Inspection of Lower Intestinal Tract, Via Natural or Artificial Opening Endoscopic (ICD-10-PCS; CPT 45378; principal; 2022-06-06 11:30)
PROC: 0BBF3ZX Excision of Right Lower Lung Lobe, Percutaneous Approach, Diagnostic (ICD-10-PCS; principal; 2022-06-07 10:30)
DX: C20 Malignant neoplasm of rectum (principal); K55.21 Angiodysplasia of colon with hemorrhage; K57.31 Diverticulosis of large intestine without perforation or abscess with bleeding; C78.01 Secondary malignant neoplasm of right lung; C78.02 Secondary malignant neoplasm of left lung; N39.0 Urinary tract infection, site not specified; D62 Acute posthemorrhagic anemia; E44.0 Moderate protein-calorie malnutrition; C77.5 Secondary and unspecified malignant neoplasm of intrapelvic lymph nodes; R64 Cachexia; D12.0 Benign neoplasm of cecum; J43.9 Emphysema, unspecified; Z20.822 Contact with and (suspected) exposure to COVID-19; Z88.5 Allergy status to narcotic agent; I25.2 Old myocardial infarction; Z68.21 Body mass index [BMI] 21.0-21.9, adult
CPT/HCPCS: 10009; 32408; 36415; 71045; 71260; 74177; 76705; 80048; 80053; 81001; 81210; 81275; 81276; 81311; 81403; 82272; 82378; 83605; 83880; 84484; 85025; 85027; 85610; 87040; 87086; 87635; 88173; 88305; 88341; 88342; 93005; 96361; 96374; 96375; 99152; 99153; 99213; 99285; J0696; J1170; J2270; J2405; J3010; Q0163; Q9967

== ENCOUNTER 2022-06-14 11:40 | Emergency (ER) | payer MEDICARE, OTHER, SELFPAY ==
[2022-06-14 11:54] VITALS: BP 118/81; PULSE 79; RESP 20; TEMP 37.2; O2SAT 100; BMI 21.0
[2022-06-14 12:11] LABS: MANUAL DIFF FLAG NO
[2022-06-14 12:13] LABS: Basophils Absolute Auto 0.1 X10*3/uL (0.0-0.2); Basophils Percent Auto 0.6 % (0-2); Eosinophils Absolute Auto 0.4 X10*3/uL (0.0-0.4); Eosinophils Percent Auto 3.9 % (0-4); Hematocrit 35.5 % (37.0-47.0); Hemoglobin 11.1 g/dl (12.0-16.0); Imm Gran Abs Auto 0.02 X10*3/uL (0.00-0.03); Imm Gran Pct Auto 0.2 % (0.0-0.4); Lymphocytes Absolute Auto 1.6 X10*3/uL (1.2-4.9); Lymphocytes Percent Auto 15.7 % (20-40); Mean Corpuscular HGB Conc 31.3 g/dl (31.0-35.0); Mean Corpuscular Hemoglobin 26.6 pg (27.0-33.0); Mean Corpuscular Volume 85.1 fL (80.0-98.0); Mean Platelet Volume 9.7 fL (9.4-12.3); Monocytes Percent Auto 10.4 % (2-11); Neutrophils Absolute Auto 6.9 x10*3/uL (2.0-8.3); Neutrophils Percent Auto 69.2 % (45-73); Platelet Count 418 X10*3/uL (160-400); Red Blood Count 4.17 X10*6/uL (4.20-5.50); White Blood Count 9.9 X10*3/uL (4.8-10.8)
[2022-06-14 12:30] LABS: Alanine Aminotransferase 15 U/L (0-31); Albumin Level 4.2 g/dL (3.5-5.0); Alkaline Phosphatase 69 U/L (39-117); Anion Gap 17 (12-20); Aspartate Amino Transferase 18 U/L (5-31); Bilirubin Direct 0.2 mg/dL (0.0-0.5); Bilirubin Total 0.5 mg/dL (0.0-1.0); Blood Urea Nitrogen 21 mg/dL (9-16); Calcium 9.2 mg/dL (8.4-10.2); Carbon Dioxide 24 mmol/L (22-29); Chloride 101 mmol/L (96-108); Creatinine Clr Calc Pharmacy 51.9; Estimated Glomerular Filt Rate > 60; Glucose Random 104 mg/dL (60-115); Lipase 16 U/L (8-78); Potassium 4.2 mmol/L (3.3-5.1); Sodium 138 mmol/L (135-145); Total Protein 6.9 g/dL (6.5-8.0)
[2022-06-14 12:32] LABS: COVID-19 Test Negative (Negative); IDNOW Serial# 16C4AD1C
[2022-06-14 12:33] LABS: Troponin-I High Sensitivity < 3.5 ng/L (<3.5-17.0)
[2022-06-14 21:34] VITALS: BP 151/78; PULSE 67; RESP 17; TEMP 36.3; O2SAT 96
[2022-06-14] MEDS: Acetaminophen 325 MG TABLET 975 MG PO (23:06)
--- NOTE | 2022-06-15 01:41 | ED.ABDPAIN ---
HPI - Abdominal Pain General Chief Complaint: Abdominal Pain Stated Complaint: Stomach Breast Pain Sent By Dr Balderas Time Seen by Provider: 06/15/22 01:36 Source: patient Mode of arrival: ambulatory Limitations: no limitations History of Present Illness HPI narrative: Patient since 5 years or with history of 7 months of abdominal discomfort bleeding from rectum with about 40 lb weight loss just diagnosed with metastatic adenocarcinoma of rectal has not started yet on chemo/radiation treatment seen by oncologist on 06/08 comes in with increased weakness patient had UTI on 06/03 but not been treated no fever , has some nausea and some diarrhea with blood mixed which is going on for last 6 months Related Data Home Medications Medication Instructions Recorded Confirmed acetaminophen 325 mg tablet 650 mg PO QID PRN Pain 06/04/22 06/04/22 (Tylenol) Previous Rx's Medication Instructions Recorded oxycodone 10 mg tablet 10 mg PO Q4H PRN pain (scale score 06/10/22 4-6) #30 tabs hydromorphone 2 mg tablet 1 mg PO Q6H PRN pain #20 tabs 06/15/22 (Dilaudid) Allergies Allergy/AdvReac Type Severity Reaction Status Date / Time codeine [CODEINE] Allergy Unknown UNKNOWN Verified 06/07/22 10:16 morphine AdvReac Abdominal Verified 06/07/22 10:16 Pain Review of Systems Review of Systems Yes all other systems are reviewed and are negative [facility] Past Medical History Medical History Bloody stools Heart murmur Surgical History Gallbladder calculus Family History Family History Father No problems noted. Mother No problems noted. Social History Social History Household Members: None Housing: House Do you presently have visiting nurse or other home services: No Alcohol intake: never Patient Tobacco Use Status: Former Tobacco user Quit Date: Tobacco use type: Cigarette Advance Directives: No service: No Current occupational status: retired Physical Exam ED Vital Signs: Vital Signs - 24 hr 06/14/22 11:54 06/14/22 21:34 06/15/22 02:44 Temperature 98.9 F 97.3 F 97.5 F Pulse Rate 79 67 62 Respiratory Rate 20 17 18 Blood Pressure 118/81 151/78 H 142/54 H Pulse Oximetry 100 96 96 Oxygen Delivery Method Room Air Room Air Room Air BMI result Body Mass Index 21.0 Appearance: Alert. Oriented X3. No acute distress. Eyes: No pallor ENT: Pharynx normal. Oral Mucosa moist Neck: Normal inspection. Neck supple. CVS: Normal heart rate and rhythm. Pulses normal. Respiratory: No respiratory distress. Equal air entry bilateral, no wheezing/rales/rhonchi Abdomen: Soft and with tenderness lower abdomen no rebound or guarding. Bowel sounds are present, no mass palpable, no CVA tenderness Skin: Skin warm and dry. Normal skin color. Normal skin turgor. Slight erythematous rash on the chest Extremities: No lower extremity edema. No calf tenderness Neuro: Oriented X 3. No motor deficit. MDM - Abdominal Pain Lab Data Result diagrams: 06/14/22 12:04 06/14/22 12:04 Labs: Lab Results 06/14/22 06/14/22 06/14/22 Range/Units 12:04 12:04 12:04 WBC 9.9 (4.8-10.8) X10*3/uL RBC 4.17 L D (4.20-5.50) X10*6/uL Hgb 11.1 L D (12.0-16.0) g/dl Hct 35.5 L D (37.0-47.0) % MCV 85.1 (80.0-98.0) fL MCH 26.6 L (27.0-33.0) pg MCHC 31.3 (31.0-35.0) g/dl RDW 15.0 (11.0-16.0) % Plt Count 418 H D (160-400) X10*3/uL MPV 9.7 (9.4-12.3) fL Immature Gran % (Auto) 0.2 (0.0-0.4) % Neut % (Auto) 69.2 (45-73) % Lymph % (Auto) 15.7 L (20-40) % Duchesne % (Auto) 10.4 (2-11) % Eos % (Auto) 3.9 (0-4) % Baso % (Auto) 0.6 (0-2) % Lymph # (Auto) 1.6 (1.2-4.9) X10*3/uL Duchesne # (Auto) 1.0 (0.1-1.2) X10*3/uL Eos # (Auto) 0.4 (0.0-0.4) X10*3/uL Baso # (Auto) 0.1 (0.0-0.2) X10*3/uL Abs Immat Gran (auto) 0.02 (0.00-0.03) X10*3/uL Absolute Neuts (auto) 6.9 (2.0-8.3) x10*3/uL Absolute Nucleated RBC 0.000 (0.0-0.012) X10*3/uL Nucleated RBC % (auto) 0.0 (0.0-0.2) /100WBC Sodium 138 (135-145) mmol/L Potassium 4.2 (3.3-5.1) mmol/L Chloride 101 (96-108) mmol/L Carbon Dioxide 24 (22-29) mmol/L Anion Gap 17 (12-20) BUN 21 H D (9-16) mg/dL Creatinine 0.74 (0.5-1.4) mg/dL Estim Creat Clear Calc 51.9 Estimated GFR > 60 Random Glucose 104 (60-115) mg/dL Calcium 9.2 D (8.4-10.2) mg/dL Total Bilirubin 0.5 (0.0-1.0) mg/dL Direct Bilirubin 0.2 (0.0-0.5) mg/dL AST 18 (5-31) U/L ALT 15 (0-31) U/L Alkaline Phosphatase 69 (39-117) U/L Troponin I High Sens (<3.5-17.0) ng/L Total Protein 6.9 (6.5-8.0) g/dL Albumin 4.2 (3.5-5.0) g/dL Lipase 16 (8-78) U/L COVID-19 (YASMINE) Negative (Negative) COVID-19 Clin Com See Note Blood Type Antibody Screen 06/14/22 06/14/22 Range/Units 12:04 12:04 WBC (4.8-10.8) X10*3/uL RBC (4.20-5.50) X10*6/uL Hgb (12.0-16.0) g/dl Hct (37.0-47.0) % MCV (80.0-98.0) fL MCH (27.0-33.0) pg MCHC (31.0-35.0) g/dl RDW (11.0-16.0) % Plt Count (160-400) X10*3/uL MPV (9.4-12.3) fL Immature Gran % (Auto) (0.0-0.4) % Neut % (Auto) (45-73) % Lymph % (Auto) (20-40) % Duchesne % (Auto) (2-11) % Eos % (Auto) (0-4) % Baso % (Auto) (0-2) % Lymph # (Auto) (1.2-4.9) X10*3/uL Duchesne # (Auto) (0.1-1.2) X10*3/uL Eos # (Auto) (0.0-0.4) X10*3/uL Baso # (Auto) (0.0-0.2) X10*3/uL Abs Immat Gran (auto) (0.00-0.03) X10*3/uL Absolute Neuts (auto) (2.0-8.3) x10*3/uL Absolute Nucleated RBC (0.0-0.012) X10*3/uL Nucleated RBC % (auto) (0.0-0.2) /100WBC Sodium (135-145) mmol/L Potassium (3.3-5.1) mmol/L Chloride (96-108) mmol/L Carbon Dioxide (22-29) mmol/L Anion Gap (12-20) BUN (9-16) mg/dL Creatinine (0.5-1.4) mg/dL Estim Creat Clear Calc Estimated GFR Random Glucose (60-115) mg/dL Calcium (8.4-10.2) mg/dL Total Bilirubin (0.0-1.0) mg/dL Direct Bilirubin (0.0-0.5) mg/dL AST (5-31) U/L ALT (0-31) U/L Alkaline Phosphatase (39-117) U/L Troponin I High Sens < 3.5 (<3.5-17.0) ng/L Total Protein (6.5-8.0) g/dL Albumin (3.5-5.0) g/dL Lipase (8-78) U/L COVID-19 (YASMINE) (Negative) COVID-19 Clin Com Blood Type AB Positive Antibody Screen NEGATIVE Discharge Plan Discharge Clinical Impression: Rectal cancer Patient Disposition: Home, Self-Care Instructions: Colorectal Cancer (DC) Additional Instructions: Follow-up Dr. Balderas as planned Pain medication as prescribed you may stop oxycodone if rash continues Prescriptions: New hydromorphone [Dilaudid] 2 mg tablet 1 mg PO Q6H PRN (Reason: pain) Qty: 20 0RF Rx Instructions: Partial Fill upon patient request. No Action acetaminophen [Tylenol] 325 mg Tablet 650 mg PO QID PRN (Reason: Pain) oxycodone 10 mg tablet 10 mg PO Q4H PRN (Reason: pain (scale score 4-6)) Qty: 30 0RF Rx Instructions: Partial Fill upon patient request. Interventions: ED Discharge Assessment Last Done: 06/15/22 03:31 Discharge Date/Time: 06/15/22 06:29
[2022-06-15 02:44] VITALS: BP 142/54; PULSE 62; RESP 18; TEMP 36.4; O2SAT 96
[2022-06-15] MEDS: hydrOXYzine HCL 25 MG TABLET PO (02:50)
== END 2022-06-15 06:29 | disposition home or self-care (01) ==
PROVIDERS: Emergency Provider Internal Medicine
DX: C20 Malignant neoplasm of rectum (principal); R53.1 Weakness; Z87.891 Personal history of nicotine dependence; Z20.822 Contact with and (suspected) exposure to COVID-19
CPT/HCPCS: 36415; 80048; 80076; 83690; 84484; 85025; 86850; 86900; 86901; 87635; 99283

== ENCOUNTER → 2022-07-06 13:20 | Outpatient (BNV) | payer MEDICARE, MEDICAID, SELFPAY | PROVIDERS: Visit Provider Internal Medicine Medical Oncology | DX: C20 Malignant neoplasm of rectum (principal); C78.7 Secondary malignant neoplasm of liver and intrahepatic bile duct; C78.00 Secondary malignant neoplasm of unspecified lung | CPT/HCPCS: 99213; 99214 ==

== ENCOUNTER 2022-07-10 07:04 | Day surgery (SDC) | payer MEDICARE, OTHER, SELFPAY ==
--- NOTE | ~2022-07-10 | IR_ITS ---
PROCEDURE: IR INSERTION OF TUNNEL CATHETER CLINICAL INFORMATION: Rectal cancer. Chemotherapy. COMPARISON: None TECHNIQUE: Procedure and risks and benefits including bleeding, infection and pneumothorax were discussed with the patient and informed consent was obtained. All elements of maximal sterile barrier technique followed including use of cap, mask, sterile gown, sterile gloves, a sterile full body drape and hand hygiene. Also followed skin preparation with 2% chlorhexidine for cutaneous antisepsis, and sterile ultrasound preparation with sterile gel and probe cover when applicable. The right upper chest was prepped and draped in the usual sterile fashion. The skin and soft tissues were anesthetized with 1% lidocaine plain. A small incision was made. Using ultrasound guidance and a 5-English micropuncture system, right internal jugular vein access was obtained. Over an 018 wire, a 5-English dilator was positioned in the SVC. The skin and soft tissues of the right upper anterior chest were anesthetized with 1% lidocaine plain. Using blunt dissection, a subcutaneous pocket was created. A subcutaneous tunnel from the chest to the neck incision was anesthetized with 1% lidocaine plain. Using a tunneler, a single lumen 5.8 English catheter was tunneled from the chest to the neck incision. The catheter was attached to the port. The port and catheter were flushed. The port was positioned in the subcutaneous pocket and secured using two 2-0 nonabsorbable sutures. An 035 guidewire was advanced through the 5-English dilator into the IVC. The 5-English dilator was exchanged for a English peel-away sheath. Using bent wire technique, catheter length was estimated and the catheter was cut. Catheter length is 22 cm. The catheter was fed through the peel-away sheath. The neck incision was closed using a 4 oh absorbable subcuticular suture. The chest incision was closed using four 3-0 absorbable interrupted sutures followed by a running 4-0 absorbable subcuticular suture. The patient received Versed 1 mg and fentanyl 50 mcg intravenously during the procedure. Conscious sedation was provided by a registered nurse under my direct supervision. Total sedation time was 43 minutes. Fluoroscopy time 1.5 minutes. DAP 897 cGy per centimeter squared. Real-time ultrasound guidance was used to document vein patency and for needle entry. A formal ultrasound picture was recorded. FINDINGS: There is a right internal jugular port with tip projecting over the cavoatrial junction. IR/IR cvc insert tunnel w prt/site reliability engineer IMPRESSION: Right internal jugular 5.8-English single-lumen Deltec PAS port T2 powerpac Port-A-Cath placement.
[2022-07-10 07:17] VITALS: BMI 21.2
[2022-07-10 07:28] LABS: MANUAL DIFF FLAG NO
[2022-07-10 07:30] LABS: Basophils Absolute Auto 0.1 X10*3/uL (0.0-0.2); Basophils Percent Auto 0.5 % (0-2); Eosinophils Absolute Auto 0.6 X10*3/uL (0.0-0.4); Eosinophils Percent Auto 6.1 % (0-4); Hematocrit 37.1 % (37.0-47.0); Hemoglobin 11.3 g/dl (12.0-16.0); Imm Gran Abs Auto 0.04 X10*3/uL (0.00-0.03); Imm Gran Pct Auto 0.4 % (0.0-0.4); Lymphocytes Absolute Auto 2.1 X10*3/uL (1.2-4.9); Lymphocytes Percent Auto 22.4 % (20-40); Mean Corpuscular HGB Conc 30.5 g/dl (31.0-35.0); Mean Corpuscular Hemoglobin 25.9 pg (27.0-33.0); Mean Corpuscular Volume 84.9 fL (80.0-98.0); Mean Platelet Volume 9.6 fL (9.4-12.3); Monocytes Absolute Auto 0.8 X10*3/uL (0.1-1.2); Monocytes Percent Auto 8.7 % (2-11); Neutrophils Absolute Auto 5.9 x10*3/uL (2.0-8.3); Neutrophils Percent Auto 61.9 % (45-73); Platelet Count 398 X10*3/uL (160-400); Red Blood Count 4.37 X10*6/uL (4.20-5.50); Red Cell Distribution Width 14.1 % (11.0-16.0); White Blood Count 9.5 X10*3/uL (4.8-10.8)
[2022-07-10 07:39] LABS: INTERNATIONAL NORM RATIO 1.1 (0.9-1.1); Prothrombin Time 12.5 SEC (10.0-13.1)
[2022-07-10] MEDS: Lidocaine HCl 1 % 20 ML VIAL 8 ML SUBCUT (09:57)
--- NOTE | 2022-07-10 10:12 | HO.RADPN ---
RADIOLOGY Narrative Narrative: RIJ single lumen 5.8 fr Power PAC PASPort 2 portacath placed. Tip at cavoatrial junction.
[2022-07-10 10:20] VITALS: BP 128/72; PULSE 86; RESP 16; TEMP 36.5; O2SAT 99
[2022-07-10 10:36] VITALS: BP 148/66; PULSE 68; RESP 17; O2SAT 96
[2022-07-10 10:51] VITALS: BP 131/54; PULSE 74; RESP 14; O2SAT 96
[2022-07-10] MEDS: oxyCODONE HCl Immed Release 5 MG TABLET 10 MG PO (11:00)
[2022-07-10 11:06] VITALS: BP 106/54; PULSE 79; RESP 14; O2SAT 97
[2022-07-10 11:21] VITALS: BP 130/63; PULSE 86; RESP 16; TEMP 36.4; O2SAT 100
== END 2022-07-10 11:38 | disposition home or self-care (01) ==
PROVIDERS: Visit Provider Radiology Diagnostic Radiology
DX: C20 Malignant neoplasm of rectum (principal); Z88.0 Allergy status to penicillin; Z88.8 Allergy status to other drugs, medicaments and biological substances; Z87.891 Personal history of nicotine dependence
CPT/HCPCS: 36415; 36561; 85025; 85610; 85730; 99152; 99153; C1769; C1788; J0690; J1642; J2250; J3010

== ENCOUNTER 2022-07-17 08:06 | Outpatient (REF) | payer MEDICARE, OTHER, SELFPAY ==
--- NOTE | ~2022-07-17 | PE_ITS ---
EXAMINATION: Fluorine-18 FDG PET/CT Scan CLINICAL INDICATION: Initial treatment management. Rectal carcinoma, staging. PROCEDURE: 61 minutes following the intravenous administration of 16.2 mCi of fluorine 18 FDG, images from the base of the skull to the mid thighs were obtained using a combined PET/CT scanner with CT scan based attenuation correction. No oral contrast was administered. No intravenous contrast was administered. Transverse, coronal, sagittal, and volume reconstruction projections were obtained. The patient's blood glucose as determined by a finger stick, was 101 mg/dl immediately prior to injection. Total CT exam dose-length product 255.73 mGy-cm * These CT images were obtained using dose optimization techniques as appropriate, variously including the following: Automated exposure control * Adjustment of mA and/or kV according to patient size (this includes techniques or standardized protocols for targeted exams where dose is matched to indication/reason for exam; i.e. extremities or head) * Use of iterative reconstruction technique COMPARISON: No previous PET/CT scan is available for comparison. The diagnostic CT scan of the chest, abdomen, and pelvis, dated 06/04/2022, is available for comparison. FINDINGS: (Slice numbers described in this report are numbered superiorly to inferiorly with slice #1 in the head) NECK AND VISUALIZED HEAD: Described mixed PET neck normal THORAX: There is a spiculated FDG avid posterior right lower lobe pulmonary nodule showing SUVmax 5.9, slice 86/267. This measures 2.1 x 1.3 cm in largest transverse dimensions, and approximately 1.8 cm cephalocaudad. Spiculations from this extend to the posterior pleura. An additional mildly FDG avid medial right upper lobe pulmonary nodule shows SUVmax 2.8, slice 72/267 and measures 1.1 x 0.7 cm in largest transverse dimensions an approximately 1.1 cm cephalocaudad. There is an additional subcentimeter FDG avid anterior pleural-based nodule in the left upper lobe, SUVmax 1.8, slice 79/267 measuring 0.7 x 0.5 cm in largest transverse dimensions. Several additional small subcentimeter pulmonary nodules are present bilaterally, but all these are too small to be characterized on the FDG PET images. There are no additional foci of abnormal FDG activity in the chest. There is no mediastinal, supraclavicular, or axillary lymphadenopathy. A right-sided chest port with internal jugular catheter terminating in the superior vena cava is noted. There is no pleural or pericardial fluid, or pneumothorax. ABDOMEN AND PELVIS: There are 2 FDG avid foci in the liver. The most intense of these shows SUVmax 5.5, slice 108/267 in liver Couinaud segment 7. Although no abnormalities present on these nondiagnostic CT images at this site, a hypodense 1.0 cm lesion is present there on the 06/04/[address] scan performed with intravenous contrast. An additional subcentimeter FDG avid focus is present anteriorly in liver Couinaud segment 5, SUVmax 3.6, slice 131/267. No abnormalities present on these CT images or the 06/04/[address] No additional foci of abnormal FDG activity are present in the liver. Several hypodense cysts are present in the liver, the largest of these measuring 2.3 cm in largest dimension and showing fluid density. These fluid density foci are unchanged from the 06/04/[address] scan and are photopenic on the FDG PET images and likely represent simple cysts. The gallbladder is not visualized. The spleen, kidneys, adrenal glands and pancreas are unremarkable. There is intense abnormal FDG activity associated with circumferential wall thickening in the rectum, SUVmax 9.5, slice 204/267. Superior to this in the midline rectosigmoid colon there is a small focus of mild FDG activity that appears to be associated with some wall thickening showing SUVmax 3.3, slice 190/267. Bilateral FDG avid inguinal lymph nodes are present, the most intense showing SUVmax 7.2 and a right-sided node measuring 1.8 x 1.3 cm in largest transverse dimensions. There are no additional foci of abnormal FDG activity in the abdomen or pelvis. There is no additional retroperitoneal, mesenteric, pelvic or inguinal lymphadenopathy. The pelvic organs are otherwise unremarkable. MUSCULOSKELETAL: There is a small focus of mildly increased FDG activity in the coccyx, SUVmax 3.6, slice 198/267. No definite CT abnormality is present at this site. No additional FDG avid osseous foci are present. There are degenerative changes in the spine but no suspicious sclerotic or lytic lesions are visualized. VASCULAR: Vascular calcifications including some coronary calcifications are noted. PET/PET CT fusion skull to thigh IMPRESSION: 1. Intense abnormal FDG activity associated with rectal wall thickening is noted and is most consistent with a primary malignancy at this site. 2. Superior to the latter a second mildly FDG avid focus in the rectosigmoid sigmoid colon is probably associated with some wall thickening and may represent an additional malignant lesion at this site. 3. Multiple pulmonary nodules are visualized as described above and the largest of these are FDG avid, but many of the smaller nodules are too small to be characterized on the FDG PET images. All of these likely represent metastatic disease. 4. Two FDG avid liver metastases are visualized. 5. Mild FDG activity in the coccyx is nonspecific. While this may represent an osseous metastasis, a healing fracture could also be responsible for this. If clinically indicated, this may be better characterized with MRI, performed without and with intravenous contrast. 6. No additional abnormalities suspicious for other metastatic or malignant lesions are noted. 7. Vascular calcifications including coronary.
== END 2022-07-17 08:07 | disposition home or self-care (01) ==
LOC: HO.PET 08:06
PROVIDERS: Visit Provider Internal Medicine Medical Oncology
DX: Z13.89 Encounter for screening for other disorder (principal)

== ENCOUNTER 2022-08-12 11:33 | Inpatient (IN) | payer MEDICARE, OTHER, SELFPAY ==
[2022-08-12] VITALS (9 sets, daily range): BP systolic 127–168; BP diastolic 67–91; PULSE 62–85; RESP 13–20; TEMP 36.1–36.9; O2SAT 97–100; BMI 23.2
--- NOTE | ~2022-08-12 | XR_ITS ---
EXAMINATION: XR chest 1V CLINICAL INFORMATION: Reason for Exam port COMPARISON: Chest radiograph 06/07/2022 TECHNIQUE: One view of the chest FINDINGS: Clear lungs. No pneumothorax or pleural effusion. Normal cardiomediastinal silhouette. Right sided chest port catheter tip terminates in the distal superior vena cava. XR/XR chest 1V IMPRESSION: Right sided chest port catheter tip terminates in the distal superior vena cava. No pneumothorax.
--- NOTE | ~2022-08-12 | CT_ITS ---
EXAMINATION: CT ABDOMEN AND PELVIS WITH CONTRAST CLINICAL INFORMATION: Rectal cancer, worsening abdominal pain and constipation, question bowel obstruction COMPARISON: CT abdomen pelvis 06/04/2022 PET/CT 07/17/2022 TECHNIQUE: Multidetector volumetric images were obtained from the superior aspect of the liver through the pubic symphysis following administration 85 mL of Omnipaque 350 intravenous contrast. Sagittal and coronal reformatted images were obtained on the technologist's workstation. Oral contrast: No This CT examination was performed using dose optimization techniques as appropriate, variously including the following: *Automated exposure control *Adjustment of mA and/or kV according to patient size (this includes techniques or standardized protocols for targeted exams where dose is matched to indication/reason for exam; i.e. extremities or head) *Use of iterative reconstruction technique DLP: 602 mGy-cm FINDINGS: LUNG BASES: Centrilobular emphysema in the lung bases. Stable perifissural nodule along the minor fissure in the right middle lobe measuring 4 mm. Calcified granuloma in the right lung base. Mild bronchial wall thickening suggesting airways inflammation. A 6 mm solid left lower lobe pulmonary nodule unchanged from recent prior. ABDOMINAL AND PELVIC WALL: Small fat-containing umbilical hernia. LIVER AND BILIARY TREE: Scattered hepatic cysts and hepatic hypodensities too small to characterize similar to prior. In the region of previously seen focal uptake in hepatic segment 5 of the liver is a 2.6 cm hypoattenuating liver lesion, new from prior CT. A hypoattenuating liver lesion in hepatic segment 7, measuring 1.2 cm not convincingly changed from 06/04/2022. An additional subtle ill-defined hypoattenuating liver lesion in hepatic segment 8 measuring 1.1 cm without definite correlate on prior PET/CT appears slightly increased from prior CT abdomen pelvis 06/04/2022 where it measured 0.9 cm. GALLBLADDER: Status post cholecystectomy. PANCREAS: Unremarkable. SPLEEN: Unremarkable. ADRENAL GLANDS: Unremarkable. KIDNEYS AND URETERS: Bosniak 1 and Bosniak 2 left renal cysts, no imaging follow-up recommended. Trace right hydroureteronephrosis is new from prior. No obstructive ureterolithiasis visualized. Mild left urothelial enhancement. GASTROINTESTINAL TRACT: Small hiatal hernia. Rectal wall thickening appears slightly decreased in conspicuity from prior, and the extent of any local residual disease would be better assessed with MRI. Increased descending and sigmoid colonic wall thickening with a background of advanced diverticulosis and new peridiverticular inflammatory changes surrounding the descending colon, 3:47 suspicious for acute diverticulitis. No extraluminal air or organized fluid collections suggest abscess or perforation. No findings to suggest appendicitis. VASCULAR: Unremarkable. LYMPH NODES/PERITONEUM: Stable borderline enlarged bilateral inguinal nodes indeterminate in the setting of a background primary malignancy measuring up to 1 cm short axis in the left inguinal canal, previously 1 cm. Few small mesorectal nodes appear decreased from prior for example a 0.4 cm mesorectal node at 5:00 previously measured 0.6 cm 06/04/2022. FREE FLUID: New trace free fluid in the pelvis. BLADDER: Unremarkable. PELVIC VISCERA: Unremarkable. OSSEOUS STRUCTURES: Unremarkable. CT/CT abdomen pelvis w IV con IMPRESSION: Increased descending and sigmoid colonic wall thickening with a background of advanced diverticulosis and new peridiverticular inflammatory changes surrounding the descending colon suspicious for acute diverticulitis, however given prior PET/CT findings recommend correlation with colonoscopy when clinically appropriate to ensure any underlying neoplasm. New trace fluid in the pelvis. No extraluminal air or organized fluid collections suggest abscess or perforation. New trace right hydroureteronephrosis with mild left urothelial enhancement, recommend correlation with urinalysis and any symptoms of urinary tract infection. No obstructive ureterolithiasis. In the region of previously seen focal uptake in hepatic segment 5 of the liver on prior PET/CT is a 2.6 cm hypoattenuating liver lesion, new from prior CT abdomen pelvis. A hypoattenuating liver lesion in hepatic segment 7, measuring 1.2 cm not convincingly changed and a additional subtle ill-defined hypoattenuating liver lesion in hepatic segment 8 measuring 1.1 cm without definite correlate on prior PET/CT appears slightly increased from prior CT abdomen pelvis 06/04/2022. Stable borderline enlarged bilateral inguinal nodes, indeterminate in the setting of a background primary malignancy measuring up to 1 cm short axis. Few small mesorectal nodes appear decreased from prior, therefore may reflect metastases with posttreatment effect. Rectal wall thickening appears slightly decreased in conspicuity from prior, and the extent of any local residual disease would be better assessed with MRI. Solid pulmonary nodules measuring up to 6 mm are unchanged from 06/04/2022.
[2022-08-12 12:36] LABS: MANUAL DIFF FLAG NO
[2022-08-12 12:37] LABS: Basophils Percent Auto 0.2 % (0-2); Eosinophils Absolute Auto 0.2 X10*3/uL (0.0-0.4); Eosinophils Percent Auto 4.1 % (0-4); Hematocrit 30.5 % (37.0-47.0); Hemoglobin 9.8 g/dl (12.0-16.0); Imm Gran Abs Auto 0.03 X10*3/uL (0.00-0.03); Imm Gran Pct Auto 0.6 % (0.0-0.4); Lymphocytes Absolute Auto 0.9 X10*3/uL (1.2-4.9); Lymphocytes Percent Auto 16.6 % (20-40); Mean Corpuscular HGB Conc 32.1 g/dl (31.0-35.0); Mean Corpuscular Hemoglobin 26.1 pg (27.0-33.0); Mean Corpuscular Volume 81.3 fL (80.0-98.0); Mean Platelet Volume 10.2 fL (9.4-12.3); Monocytes Absolute Auto 0.2 X10*3/uL (0.1-1.2); Monocytes Percent Auto 3.2 % (2-11); Neutrophils Percent Auto 75.3 % (45-73); Platelet Count 283 X10*3/uL (160-400); Red Blood Count 3.75 X10*6/uL (4.20-5.50); Red Cell Distribution Width 13.8 % (11.0-16.0); White Blood Count 5.4 X10*3/uL (4.8-10.8)
[2022-08-12 12:42] LABS: INTERNATIONAL NORM RATIO 1.4 (0.9-1.1); Prothrombin Time 16.2 SEC (10.0-13.1)
[2022-08-12 12:54] LABS: Alanine Aminotransferase 10 U/L (0-31); Albumin Level 3.3 g/dL (3.5-5.0); Alkaline Phosphatase 51 U/L (39-117); Anion Gap 4 (12-20); Aspartate Amino Transferase 12 U/L (5-31); Bilirubin Total 0.2 mg/dL (0.0-1.0); Blood Urea Nitrogen 14 mg/dL (9-16); Calcium 7.8 mg/dL (8.4-10.2); Carbon Dioxide 28 mmol/L (22-29); Chloride 100 mmol/L (96-108); Estimated Glomerular Filt Rate > 60; Glucose Random 92 mg/dL (60-115); Lipase 12 U/L (8-78); Magnesium 1.9 mg/dL (1.6-2.6); Potassium 3.9 mmol/L (3.3-5.1); Sodium 128 mmol/L (135-145); Total Protein 5.3 g/dL (6.5-8.0)
[2022-08-12] MEDS: HYDROmorphone HCl 0.5 MG/0.5 ML SYRINGE IVPUSH ×3 (13:18→22:08)
[2022-08-12] MEDS: 0.9 % Sodium Chloride 1,000 ML 999 ML IVCONT (14:13)
--- NOTE | 2022-08-12 14:17 | ED_ITS ---
HPI - Abdominal Pain General Chief Complaint: Abdominal Pain Stated Complaint: Abd pain Time Seen by Provider: 08/12/22 11:57 Source: patient and family (Mother at bedside) Mode of arrival: ambulatory Limitations: no limitations History of Present Illness HPI narrative: 77yoF c PMHx of heart murmur and Stage IV Rectal Cancer currently being followed by Dr. Balderas the oncologist who is s/p 3rd cycle chemotherapy FOLFOX PLUS BEVACIZUMAB that was Started on 07/23/22 who is presenting to the ER with her daughter at bedside with complaints of worsening rectal pain with associated left lower quadrant abdominal pain. She reports that she has been having chronic diarrhea although she has small ronnie of bowels intermittently. She is currently on oxycodone 10 mg p.o. q.6 hours and OxyContin 20 mg p.o. q.12 hours and she is taking as prescribed and no symptomatic relief. Therefore she came here for further evaluation treatment. She denies any fevers, chills, dizziness, headaches, neck pain/stiffness, trou ble swallowing or breathing, cough, sore throat, nasal congestion/rhinorrhea, chest pain or shortness of breath, palpitations, paresthesias, dyspnea on exertion, orthopnea, back pain, flank pain, dysuria, hematuria, abnormal vaginal discharge, black or bloody stools, rashes, lower extremity edema or calf tenderness, recent travel or sick contacts or any other symptoms complaints or concerns at this time. MD elicited complaint: abdominal pain Pertinent past history: other (Stage IV Rectal Cancer on Chemo therapy since 07/23/22) Onset (ago): day(s) (For the past few days worse today) Pain Consistency: constant Location: LLQ Severity: moderate Quality: aching Radiation: none Migration to: no migration Exacerbating factors: nothing Relieving factors: nothing Associated symptoms: diarrhea Treatments prior to arrival: other (Prescribed medications see above) Related Data Home Medications Medication Instructions Recorded Confirmed acetaminophen 325 mg tablet 650 mg PO QID PRN Pain 06/04/22 08/06/22 (Tylenol) Previous Rx's Medication Instructions Recorded oxycodone 20 mg tablet,crush 20 mg PO Q12H #60 tabs 07/16/22 resistant,extended release 12 hr (OxyContin) dexamethasone 4 mg tablet 4 mg PO BID #60 tabs 07/23/22 ondansetron HCl 8 mg tablet 8 mg PO Q8H PRN Nausea And 07/26/22 Vomiting #60 tabs oxycodone 10 mg tablet 10 mg PO Q6H PRN Breakthrough 07/30/22 Pain, Moderate #50 tabs Magic Mouthwash 10 ml PO QID #240 mL 08/06/22 Diphen/Lido/Antacid 1:1:1 240 mL suspension omeprazole magnesium 20 mg 20 mg PO DAILY #30 tabs 08/06/22 tablet,delayed release (Prilosec OTC) Allergies Allergy/AdvReac Type Severity Reaction Status Date / Time codeine [CODEINE] Allergy Unknown UNKNOWN Verified 07/23/22 09:15 morphine AdvReac Abdominal Verified 07/23/22 09:15 Pain Review of Systems Review of Systems Constitutional : No Fever, No Chills, No Night Sweats, + Fatigue, + Malaise Cardiovascular : No Chest Pain, No SOB Respiratory : No Cough, No Sputum, No Wheezing, No Dyspnea Gastrointestinal : No Nausea, No Vomiting, + constipation, + Diarrhea, + abdominal Pain, No Hematochezia, No Melena Genitourinary : No irregular bleeding, No Dysuria, No Urinary Frequency, No Hematuria,No Urinary Incontinence, No Urgency, No Flank Pain Musculoskeletal : No joint pain, No Myalgias, No Joint Swelling Skin : No Skin Lesions, No rash Neuro : + General Weakness, No Focal Weakness, No Numbness, No Paresthesias, No Loss of Consciousness, No Dizziness, No Headache Heme/Lymph: No Lymphadenopathy Endocrine : No Temperature Intolerance Yes all other systems are reviewed and are negative PMFSH Past Medical History Attestation statement: The following information was validated with the patient. Source: old records reviewed, obtained from family and nursing notes reviewed Medical History Bloody stools Heart murmur Surgical History Gallbladder calculus Family History Family History Father No problems noted. Mother No problems noted. Other No family history of cancer Social History Social History Household Members: None Housing: House Are you a primary neonatal intensive care nurse to a significant other at home: No Do you presently have visiting nurse or other home services: Yes Alcohol intake: never Patient Tobacco Use Status: Former Tobacco user Quit Date: Tobacco use type: Cigarette Advance Directives: No Advance Directives Information Provided: No service: No Current occupational status: retired Physical Exam ED Vital Signs: Vital Signs - 24 hr 08/12/22 11:42 08/12/22 13:16 08/12/22 13:18 Temperature 97.8 F Pulse Rate 85 74 Respiratory Rate 20 15 15 Blood Pressure 141/67 H 149/73 H Pulse Oximetry 98 100 Oxygen Delivery Method Room Air Room Air Oxygen Flow Rate 08/12/22 15:12 08/12/22 15:18 Temperature Pulse Rate 74 Respiratory Rate 16 14 Blood Pressure 168/91 H Pulse Oximetry 100 Oxygen Delivery Method Nasal Cannula Oxygen Flow Rate 2 BMI result Body Mass Index 23.2 Vital signs have been reviewed blood pressure 141/67. Pulse normal. Respiration normal. Temperature normal. Oxygen saturation normal on room air. Appearance: Alert. Oriented X3. No acute distress. Head: Normal external exam. Normocephalic. Eyes: PERRLA. EOMI. Conjunctiva and sclera normal. Eyelids normal. ENT: Pharynx normal. Uvula midline. Moist mucous membranes. No trismus noted. No drooling noted. No muffled voice noted. Neck: Normal inspection. Neck supple. FROM. No adenopathy. No meningeal signs. CVS: Normal heart rate and rhythm. Heart sound normal. No murmurs noted. Pulses normal throughout. Respiratory: No respiratory distress. Painless inspiration. Breath sounds normal. No wheezes/rales/rhonchi noted. Chest nontender. No accessory muscle usage noted or decreased air movement noted. Abdomen: Soft and moderate tenderness palpation to suprapubic/left lower quadrant abdomen with guarding. Nondistended. No rigidity. Bowel sounds normal in all 4 quadrants. No distention noted. No organomegaly noted. No visible injury noted. No rebound tenderness. Negative Rovsing sign. Negative obturator's sign. Negative psoas sign. Negative Arizmendi sign. Rectal: I did not perform your exam although when I just visualize the patient's rectum she is noted to have normal brown colored watery diarrhea. Back: No CVA tenderness. Full range of motion noted. Skin: Skin warm and dry. Normal skin color. Normal skin turgor. No rashes/lesions/lacerations noted. Extremities: Extremities exhibit normal range of motion. Extremities nontender. Neuro: Oriented X 3. No motor deficit. No sensory deficit. Reflexes normal. Normal steady gait. CN's II-XII intact bilaterally? Course Course Course Narrative: 12:20pm - 77yoF c PMHx Stage IV Rectal Cancer currently being followed by Dr. Balderas the oncologist who is s/p 3rd cycle chemotherapy FOLFOX PLUS BEVACIZUMAB that was Started on 07/23/22 who is presenting to the ER with her daughter at bedside with complaints of worsening rectal pain with associated left lower quadrant abdominal pain. She reports that she has been having chronic diarrhea although she has small ronnie of bowels intermittently. She is currently on oxycodone 10 mg p.o. q.6 hours and OxyContin 20 mg p.o. q.12 hours and she is taking as prescribed and no symptomatic relief. Therefore she came here for further evaluation treatment. Patient is very tender in the left lower quadrant with guarding. She is also noted to have watery brown color diarrhea common from her rectum. In pain otherwise no other acute distress noted. Plan: I also discussed this case with her oncologist Dr. Balderas she is agreeable with this plan. - Will obtain labs, chest x-ray, CT scan abdomen pelvis with IV contrast. Provide a L of IV fluids with 4 mg of Zofran and Dilaudid along with case management consult and re-evaluate. Reevaluation(s) Reevaluation #1: Labs obtained reviewed - patient mild anemia with an H&H of 9.8/30.5 which is slightly lower when compared to prior. - sodium 128 patient with hyponatremia this is new. - anion gap 4. - calcium 7.8. - total protein 5.3. - albumin 3.3. Otherwise all other labs are within normal limits. Chest x-ray revealed right-sided chest port catheter tip terminates in the distal superior vena cava no pneumothorax or any other acute processes. Plan: - At this time case management is speaking to the daughter and patient at bedside. - Patient reported that she is still having too much pain therefore ordered more Dilaudid and patient will be brought to CT scan after her pain is more controlled. - will also provide 2 g of calcium gluconate due to patient's low calcium and Will re-evaluate. Time: 14:29 Reevaluation #2: - CT scan abdomen pelvis with IV contrast revealed possible diverticulitis therefore at this time she will be admitted for pain cont rol/diverticulitis/hyponatremia and low calcium. Sepsis is not suspected. - patient will be started on IV antibiotics. Patient with daughter at bedside understand agree this plan. Case management also involved. Time: 17:17 Medications Administered Discontinued Medications Generic Name Dose Route Start Last Admin Trade Name Freq PRN Reason Stop Dose Admin Hydromorphone HCl 0.5 mg 08/12/22 12:13 08/12/22 13:18 Hydromorphone Hcl 0.5 Mg/0.5 Ml Syringe IVPUSH 08/12/22 12:14 0.5 mg ONCE ONE Administration Protocol Hydromorphone HCl 0.5 mg 08/12/22 14:26 08/12/22 15:14 Hydromorphone Hcl 0.5 Mg/0.5 Ml Syringe IVPUSH 08/12/22 14:27 Not Given ONCE ONE Protocol Hydromorphone HCl 1.5 mg 08/12/22 14:55 08/12/22 15:12 Hydromorphone Hcl 2 Mg/Ml Vial IVPUSH 08/12/22 14:56 1.5 mg ONCE ONE Administration Protocol Sodium Chloride 1,000 mls @ 999 mls/hr 08/12/22 14:15 08/12/22 14:13 Ns IVCONT 08/12/22 15:15 999 mls/hr .Q1H1M SHAHRZAD Administration Calcium Gluconate 2 gm in 100 mls @ 50 mls/hr 08/12/22 14:32 08/12/22 15:19 Calcium Gluconate IV 08/12/22 16:31 50 mls/hr ONCE ONE Administration Iohexol 85 ml 08/12/22 15:37 08/12/22 15:37 Iohexol 350 Mg/Ml 100 Ml Infus..Btl IV 08/12/22 15:38 85 ml ONCE ONE Administration Ondansetron HCl 4 mg 08/12/22 14:26 08/12/22 15:12 Ondansetron Hcl 4 Mg/2 Ml Vial IVPUSH 08/12/22 14:27 4 mg ONCE ONE Administration MDM - Abdominal Pain Medical Records Attestation: I reviewed the patient's medical records. Lab Data Attestation: I reviewed the patient's lab results. Result diagrams: 08/12/22 12:00 08/12/22 12:00 Labs: Lab Results 08/12/22 08/12/22 08/12/22 Range/Units 12:00 12:00 12:00 WBC 5.4 (4.8-10.8) X10*3/uL RBC 3.75 L (4.20-5.50) X10*6/uL Hgb 9.8 L (12.0-16.0) g/dl Hct 30.5 L (37.0-47.0) % MCV 81.3 (80.0-98.0) fL MCH 26.1 L (27.0-33.0) pg MCHC 32.1 (31.0-35.0) g/dl RDW 13.8 (11.0-16.0) % Plt Count 283 (160-400) X10*3/uL MPV 10.2 (9.4-12.3) fL Immature Gran % (Auto) 0.6 H (0.0-0.4) % Neut % (Auto) 75.3 H (45-73) % Lymph % (Auto) 16.6 L (20-40) % [place] % (Auto) 3.2 (2-11) % Eos % (Auto) 4.1 H (0-4) % Baso % (Auto) 0.2 (0-2) % Lymph # (Auto) 0.9 L (1.2-4.9) X10*3/uL [place] # (Auto) 0.2 (0.1-1.2) X10*3/uL Eos # (Auto) 0.2 (0.0-0.4) X10*3/uL Baso # (Auto) 0.0 (0.0-0.2) X10*3/uL Abs Immat Gran (auto) 0.03 (0.00-0.03) X10*3/uL Absolute Neuts (auto) 4.0 (2.0-8.3) x10*3/uL Absolute Nucleated RBC 0.000 (0.0-0.012) X10*3/uL Nucleated RBC % (auto) 0.0 (0.0-0.2) /100WBC PT 16.2 H (10.0-13.1) SEC INR 1.4 H (0.9-1.1) Sodium 128 L (135-145) mmol/L Potassium 3.9 (3.3-5.1) mmol/L Chloride 100 (96-108) mmol/L Carbon Dioxide 28 (22-29) mmol/L Anion Gap 4 L (12-20) BUN 14 (9-16) mg/dL Creatinine 0.64 (0.5-1.4) mg/dL Estim Creat Clear Calc 60.0 Estimated GFR > 60 Random Glucose 92 (60-115) mg/dL Calcium 7.8 L D (8.4-10.2) mg/dL Magnesium 1.9 (1.6-2.6) mg/dL Total Bilirubin 0.2 (0.0-1.0) mg/dL AST 12 (5-31) U/L ALT 10 (0-31) U/L Alkaline Phosphatase 51 (39-117) U/L Total Protein 5.3 L (6.5-8.0) g/dL Albumin 3.3 L (3.5-5.0) g/dL Lipase 12 (8-78) U/L Imaging Data Chest x-ray: Attestation: I personally reviewed and interpreted this imaging study as follows: Radiologist's impression: FINDINGS: Clear lungs. No pneumothorax or pleural effusion. Normal cardiomediastinal silhouette. Right sided chest port catheter tip terminates in the distal superior vena cava. XR/XR chest 1V IMPRESSION: Right sided chest port catheter tip terminates in the distal superior vena cava. No pneumothorax. CT scan abdomen pelvis with IV contrast: Attestation: I personally reviewed and interpreted this imaging study as follows: Radiologist's impression: FINDINGS: LUNG BASES: Centrilobular emphysema in the lung bases. Stable perifissural nodule along the minor fissure in the right middle lobe measuring 4 mm. Calcified granuloma in the right lung base. Mild bronchial wall thickening suggesting airways inflammation. A 6 mm solid left lower lobe pulmonary nodule unchanged from recent prior.? ABDOMINAL AND PELVIC WALL:? Small fat-containing umbilical hernia.? LIVER AND BILIARY TREE: Scattered hepatic cysts and hepatic hypodensities too small to characterize similar to prior. In the region of previously seen focal uptake in hepatic segment 5 of the liver is a 2.6 cm? hypoattenuating liver lesion, new from prior CT. A hypoattenuating liver lesion in hepatic segment 7, measuring 1.2 cm not convincingly changed from 06/04/2022. An additional subtle ill-defined hypoattenuating liver lesion in hepatic segment 8 measuring 1.1 cm without definite correlate on prior PET/CT appears slightly increased from prior CT abdomen pelvis 06/04/2022 where it measured 0.9 cm.? GALLBLADDER: Status post cholecystectomy.? PANCREAS: Unremarkable.? SPLEEN: Unremarkable.? ADRENAL GLANDS: Unremarkable.? KIDNEYS AND URETERS: Bosniak 1 and Bosniak 2 left renal cysts, no imaging follow-up recommended. Trace right hydroureteronephrosis is new from prior. No obstructive ureterolithiasis visualized.? Mild left urothelial enhancement. GASTROINTESTINAL TRACT: Small hiatal hernia. Rectal wall thickening appears slightly decreased in conspicuity from prior, and the extent of any local residual disease would be better assessed with MRI. Increased descending and sigmoid colonic wall thickening with a background of advanced diverticulosis and new peridiverticular inflammatory changes surrounding the descending colon, 3:47 suspicious for acute diverticulitis. No extraluminal air or organized fluid collections suggest abscess or perforation.? No findings to suggest appendicitis. VASCULAR: Unremarkable. LYMPH NODES/PERITONEUM: Stable borderline enlarged bilateral inguinal nodes indeterminate in the setting of a background primary malignancy measuring up to 1 cm short axis in the left inguinal canal, previously 1 cm. Few small mesorectal nodes appear decreased from prior for example a 0.4 cm mesorectal node at 5:00 previously measured 0.6 cm 06/04/2022. FREE FLUID: New trace free fluid in the pelvis. BLADDER: Unremarkable.? PELVIC VISCERA: Unremarkable. OSSEOUS STRUCTURES: Unremarkable.? CT/CT abdomen pelvis w IV con IMPRESSION: ? Increased descending and sigmoid colonic wall thickening with a background of advanced diverticulosis and new peridiverticular inflammatory changes surrounding the descending colon suspicious for acute diverticulitis, however given prior PET/CT findings recommend correlation with colonoscopy when clinically appropriate to ensure any underlying neoplasm. New trace fluid in the pelvis. No extraluminal air or organized fluid collections suggest abscess or perforation. ? New trace right hydroureteronephrosis with mild left urothelial enhancement, recommend correlation with urinalysis and any symptoms of urinary tract infection. No obstructive ureterolithiasis. ? In the region of previously seen focal uptake in hepatic segment 5 of the liver on prior PET/CT is a 2.6 cm? hypoattenuating liver lesion, new from prior CT abdomen pelvis. A hypoattenuating liver lesion in hepatic segment 7, measuring 1.2 cm not convincingly changed and a additional subtle ill-defined hypoattenuating liver lesion in hepatic segment 8 measuring 1.1 cm without definite correlate on prior PET/CT appears slightly increased from prior CT abdomen pelvis 06/04/2022. ? Stable borderline enlarged bilateral inguinal nodes, indeterminate in the setting of a background primary malignancy measuring up to 1 cm short axis. Few small mesorectal nodes appear decreased from prior, therefore may reflect metastases with posttreatment effect. ? Rectal wall thickening appears slightly decreased in conspicuity from prior, and the extent of any local residual disease would be better assessed with MRI. ? Solid pulmonary nodules measuring up to 6 mm are unchanged from 06/04/2022. ECG Data Attestation: I personally reviewed and interpreted this ECG as follows: ECG interpretation date: 08/12/22 ECG interpretation time: 14:57 Interpretation: Normal sinus rhythm with sinus arrhythmia with ventricular rate of 66 with a normal AL interval normal QRS duration normal QT/QTC interval. No acute ischemic change are noted. Similar compared to prior EKG 06/03/2022. Critical Care Time Critical Care Time Critical Care Time: Yes Total Critical Care Time: 60 Attestation: I personally attest to this time spent taking care of the patient Discharge Plan Discharge Clinical Impression: Diverticulitis, Anemia, Acute hyponatremia, Pain, Hypocalcemia Patient Disposition: Admitted As Inpatient Prescriptions: No Action acetaminophen [Tylenol] 325 mg Tablet 650 mg PO QID PRN (Reason: Pain) oxycodone [OxyContin] 20 mg Tablet,Oral Only,Ext.Rel.12 Hr 20 mg PO Q12H Qty: 60 0RF Rx Instructions: Partial Fill upon patient request. dexamethasone 4 mg Tablet 4 mg PO BID Qty: 60 4RF Rx Instructions: Take 4 mg p.o. b.i.d. for 2 days start day 1 of chemotherapy, Q 2 weekly. ondansetron HCl 8 mg Tablet 8 mg PO Q8H PRN (Reason: Nausea And Vomiting) Qty: 60 4RF oxycodone 10 mg Tablet 10 mg PO Q6H PRN (Reason: Breakthrough Pain, Moderate) Qty: 50 0RF Rx Instructions: Partial Fill upon patient request. omeprazole magnesium [Prilosec OTC] 20 mg Tablet,Delayed Release (Dr/Ec) 20 mg PO DAILY Qty: 30 5RF Magic Mouthwash Diphen/Lido/Antacid 1:1:1 240 mL Suspension 10 ml PO QID Qty: 240 6RF Rx Instructions: Lidocaine Viscous 2 % 80mL; diphenhydramine 12.5 mg/5 mL 80mL; aluminum-mag hydrox-simeth [id number] 80mL
--- NOTE | 2022-08-12 14:34 | ECG_ITS ---
Test Reason : SOB Blood Pressure : / mmHG Vent. Rate : 066 BPM Atrial Rate : 066 BPM P-R Int : 158 ms QRS Dur : 078 ms QT Int : 422 ms P-R-T Axes : 047 015 032 degrees QTc Int : 442 ms Normal sinus rhythm with sinus arrhythmia Normal ECG When compared with ECG of 03-JUN-2022 17:03, No significant change was found Referred By: Palmira Noriega Electronically Signed By:PRASANNA GROVE MD
--- NOTE | 2022-08-12 14:55 | MHC.CM.ED ---
Received case management consult from Palmira JACOBSON. Patient came to the ER due to weakness and abd pain. Work up is pending. Patient's daughter feels patient needs more help at home. Patient was discharged from [facility] on 06/11/22 with Jasmina HICKEY. Per [facility], patient refused their services in the past. Met with patient and daughter, Cathi in regards to discharge planning. Patient lives alone, ambulates independently and receives chemo from [facility] oncology every 2 weeks. Patient states [facility] only came a couple of times and checked my blood pressure. Patient denies refusing [facility] services. Patient's main concern is sometimes not being able to get food because she is weak. She feels she needs more help at home. Patient has spoken to [facility]. Apparently they were supposed to call her on Tuesday 08/07 but patient was at chemo and never received a telephone call from them. Patient also states her pain is awful at times. She will take the medication but then gets constipated and has acid reflux. Patient states she has brought this up to Dr Balderas and Dr Balderas hasn't done anything. Patient has also asked Dr Balderas's office to help obtain a [employer]. Patient states she has asked the office to help her and they haven't done anything. Patient doesn't have a PCP. Dr Balderas has signed [facility] orders in the past. Patient denies having a HCP. Information provided. Patient not interested in completing one at this time. Patient has not received any Covid vaccines. Cathi is upset because she feels like her mother is falling through the healthcare cracks and isn't safe to go home. Family is local to patient but they all work. Patient agreeable to sign a release of information for so her daughter can speak with Dr Balderas. ALYSSA signed and registration has been asked to scan this into patient's medical record. Cathi feels patient can't safely be home by herself due to weakness and pain. Short term rehab was offered so medical complications can be monitored, pain can be monitored, oral intake could be monitored and physical therapy can help increase patient's strength. Cathi feels this is a great idea for a self discharge. Patient does not feel this will help her. Patient is c/o increased pain at this time and states I can't deal with all of this right now. I'm having pain. Abd cat scan ordered for patient. INDIRA Chavis aware and will order pain meds. Contact information for Dr Balderas's office and a list of short term rehab facilities in the area provided from [facility]. T/W also explained placement may be limited due to not being vaccinated against Covid. If work up is negative and patient is agreeable to [facility], physical therapy eval and Covid swab will need to be ordered. Continue to monitor for d/c needs.
[2022-08-12] MEDS: ondansetron HCL 4 MG/2 ML VIAL IVPUSH (15:12)
[2022-08-12] MEDS: HYDROmorphone HCl 2 MG/ML VIAL 1.5 MG IVPUSH (15:12)
[2022-08-12] MEDS: Calcium Gluconate/NaCl,Iso-Osm 2 GM/100 ML PLAST..BAG IV (15:19)
[2022-08-12] MEDS: iohexoL 350 MG/ML 100 ML INFUS..BTL 85 ML IV (15:37)
[2022-08-12 17:22] LABS: COVID-19 Test Negative (Negative); IDNOW Serial# 9DB6401D
--- NOTE | 2022-08-12 17:40 | PHA.MEDREC ---
Pharmacy Consult ? Medication Reconciliation Pharmacy has completed the medication reconciliation.
--- NOTE | 2022-08-12 17:47 | P.HPHOSP_ITS ---
History of Present Illness Date of Service: 08/12/22 Attending physician on admission: Emily Bell Chief Complaint: left lower quadrant abdominal pain 77-year-old female patient recently diagnosed to have metastatic stage IV rectal cancer received 2 cycles of chemotherapy with FOLFOX plus Bevacizumab started on 07/23, receive 2nd dose of chemotherapy on 08/06/2022 according to patient she has been having severe rectal and left lower quadrant abdominal pain, associated with alternating constipation, with diarrhea, moving small stools at time red color, at times soft brown , she described pain as constant, feels her rectum and lower bones are going to split open, she denies associated nausea, has been tolerating diet, lives alone current pain medication OxyContin and oxycodone is not controlling pain, also complaining of mouth sores using Magic mouthwash, requesting oxygen therapy since it is relaxer but denies shortness of breath, no cough, no fevers, no chills, complaining of headache, and dizziness, worse with activity workup in the emergency room reveal normal WBC, low sodium of 128, stable hemoglobin and hematocrit chest x-ray showed no acute infiltrate, CT abdomen and pelvis showed increased descending and sigmoid colonic wall thickening and new Pat[place] diverticular inflammatory changes surrounding descending colon suspicious for acute diverticulitis, although this abnormality was seen on PET scan and was concerning for additional malignant lesion at this site, new trace fluid in the pelvis, no abscess, no perforation, trace right hydroureteronephrosis with mild left urothelial enhancement, patient denies urinary frequency, no urgency, in the ER patient treated with IV fluids, IV Dilaudid and IV antibiotics 2 set of blood cultures ordered patient is now being admitted to [facility] with a diagnosis of intractable pain due to newly diagnosed metastatic stage IV rectal cancer. Review of Systems Review of Systems: General headache and dizziness, no fever chills. CVS no chest pain, no palpitation. Respiratory no cough no sob no urgency, no frequency Skin no itching Yes all other systems are reviewed and are negative PMFSH Medical History Bloody stools Heart murmur Family History Father No problems noted. Mother No problems noted. Other No family history of cancer Surgical History Gallbladder calculus Social History Household Members: None Housing: House Are you a primary care consultant to a significant other at home: No Do you presently have visiting nurse or other home services: Yes Alcohol intake: never Patient Tobacco Use Status: Former Tobacco user Quit Date: t Tobacco use type: Cigarette Advance Directives: No Advance Directives Information Provided: No service: No Current occupational status: retired Meds Allergies Allergy/AdvReac Type Severity Reaction Status Date / Time codeine [CODEINE] Allergy Unknown UNKNOWN Verified 07/23/22 09:15 morphine AdvReac Abdominal Verified 07/23/22 09:15 Pain Active Medications: Current Medications Acetaminophen (Acetaminophen 325 Mg Tablet) 650 mg PO Q6H PRN PRN Reason: Pain, Mild (Pain Scale 1-3) Levofloxacin (Levaquin) 750 mg in 150 mls @ 100 mls/hr IV ONCE ONE Stop: 08/12/22 18:44 Melatonin (Melatonin 3 Mg Tablet) 3 mg PO BEDTIME PRN PRN Reason: Insomnia Non-Formulary Medication (Magic Mouthwash Diphen/Lido/Antacid 1:1:1) 10 ml PO QID [facility] Omeprazole (Omeprazole 20 Mg Capsule.Dr) 20 mg PO DAILY [facility] Ondansetron HCl (Ondansetron Hcl 4 Mg/2 Ml Vial) 4 mg IVPUSH Q8H PRN PRN Reason: Nausea and Vomiting Oxycodone HCl (Oxycodone Hcl Er 10 Mg Tab.Er.12h) 20 mg PO Q12H [facility] Pharmacy Consult (Consult Rx Perform Med Rec) 1 each MISCELLANE ONCE PRN PRN Reason: Consult order Sodium Chloride (0.9 % Sodium Chloride Flush 3 Ml Syringe) 3 ml IVFLUSH QSHIFT [facility] Home Medications Medication Instructions Recorded Confirmed Last Taken Type acetaminophen 325 mg tablet 650 mg PO QID PRN Pain 06/04/22 08/12/22 Unknown History (Tylenol) dexamethasone 4 mg tablet 4 mg PO Q14D 08/12/22 08/12/22 Unknown History Physical Exam Vital Signs and Narrative: Vital Signs: Last Vital Signs Temp 97.8 F 08/12/22 11:42 Pulse 74 08/12/22 15:18 Resp 14 08/12/22 15:18 BP 168/91 H 08/12/22 15:18 Pulse Ox 100 08/12/22 15:18 O2 Del Method 08/12/22 15:18 O2 Flow Rate 2 08/12/22 15:18 BMI result Body Mass Index 23.2 Const: Other: General awake alert x3, no acute distress. HEENT pupils equal round reactive to light and accommodation extraocular movements intact oral mucosa moist oral lesions not seen patient wearing upper dentures Neck supple no JVD. CVS regular rate rhythm, Respiratory lungs clear to auscultation, no respiratory distress, no wheeze, no rhonchi. Gastrointestinal abdomen soft, left lower quadrant tenderness to palpation, no rebound no rigidity, bowel sounds audible Extremities no edema. Neuro nonfocal ,moving all 4 extremity speech clear. Skin no rash psych appropriate affect Results Labs CBC and Chem 7: 08/12/22 12:00 08/12/22 12:00 Labs: Laboratory Results - last 24 hr 08/12/22 08/12/22 08/12/22 12:00 12:00 12:00 MCV 81.3 MCH 26.1 L MCHC 32.1 RDW 13.8 Plt Count 283 MPV 10.2 Immature Gran % (Auto) 0.6 H Neut % (Auto) 75.3 H Lymph % (Auto) 16.6 L Motley % (Auto) 3.2 Eos % (Auto) 4.1 H Baso % (Auto) 0.2 Lymph # (Auto) 0.9 L Motley # (Auto) 0.2 Eos # (Auto) 0.2 Baso # (Auto) 0.0 Abs Immat Gran (auto) 0.03 Absolute Neuts (auto) 4.0 Absolute Nucleated RBC 0.000 Nucleated RBC % (auto) 0.0 PT 16.2 H INR 1.4 H Anion Gap 4 L Estim Creat Clear Calc 60.0 Estimated GFR > 60 Random Glucose 92 Calcium 7.8 L D Magnesium 1.9 Total Bilirubin 0.2 AST 12 ALT 10 Alkaline Phosphatase 51 Total Protein 5.3 L Albumin 3.3 L Lipase 12 COVID-19 (YASMINE) COVID-19 Clin Com 08/12/22 17:05 MCV MCH MCHC RDW Plt Count MPV Immature Gran % (Auto) Neut % (Auto) Lymph % (Auto) Motley % (Auto) Eos % (Auto) Baso % (Auto) Lymph # (Auto) Motley # (Auto) Eos # (Auto) Baso # (Auto) Abs Immat Gran (auto) Absolute Neuts (auto) Absolute Nucleated RBC Nucleated RBC % (auto) PT INR Anion Gap Estim Creat Clear Calc Estimated GFR Random Glucose Calcium Magnesium Total Bilirubin AST ALT Alkaline Phosphatase Total Protein Albumin Lipase COVID-19 (YASMINE) Negative COVID-19 Clin Com See Note Imaging Radiologist's Impressions: Impressions Chest X-Ray 08/12/22 12:47 IMPRESSION: Right sided chest port catheter tip terminates in the distal superior vena cava. No pneumothorax. Abdomen/Pelvis CT 08/12/22 15:44 IMPRESSION: Increased descending and sigmoid colonic wall thickening with a background of advanced diverticulosis and new peridiverticular inflammatory changes surrounding the descending colon suspicious for acute diverticulitis, however given prior PET/CT findings recommend correlation with colonoscopy when clinically appropriate to ensure any underlying neoplasm. New trace fluid in the pelvis. No extraluminal air or organized fluid collections suggest abscess or perforation. New trace right hydroureteronephrosis with mild left urothelial enhancement, recommend correlation with urinalysis and any symptoms of urinary tract infection. No obstructive ureterolithiasis. In the region of previously seen focal uptake in hepatic segment 5 of the liver on prior PET/CT is a 2.6 cm hypoattenuating liver lesion, new from prior CT abdomen pelvis. A hypoattenuating liver lesion in hepatic segment 7, measuring 1.2 cm not convincingly changed and a additional subtle ill-defined hypoattenuating liver lesion in hepatic segment 8 measuring 1.1 cm without definite correlate on prior PET/CT appears slightly increased from prior CT abdomen pelvis 06/04/2022. Stable borderline enlarged bilateral inguinal nodes, indeterminate in the setting of a background primary malignancy measuring up to 1 cm short axis. Few small mesorectal nodes appear decreased from prior, therefore may reflect metastases with posttreatment effect. Rectal wall thickening appears slightly decreased in conspicuity from prior, and the extent of any local residual disease would be better assessed with MRI. Solid pulmonary nodules measuring up to 6 mm are unchanged from 06/04/2022. Assessment and Plan (1) Rectal carcinoma: Status: Acute (2) Acute hyponatremia: Status: Acute (3) Moderate malnutrition: Status: Acute (4) Rectal pain: Status: Acute Plan 77-year-old female patient recently diagnosed to have metastatic stage IV rectal cancer undergoing chemotherapy presented to [facility] due to intractable rectal pain associated with intermittent bloody stools, mouth sores headache and dizziness now being admitted for pain control. intractable rectal and left lower quadrant abdominal pain due to rectal cancer findings on CT abdomen and pelvis suggestive of diverticulitis was seen on PET scan likely representing cancer patient afebrile, normal WBC count, will hold off on antibiotics, received 1 dose of IV Levaquin in ED, follow blood cultures acute hyponatremia likely due to pain. obtain urine and serum osmolality, urinary sodium and uric acid. received 1 L of normal saline in the ED follow BMP, appears euvolemic mouth sores continue Magic mouthwash as per patient has sores on hard palate but currently has upper dentures normocytic acute on chronic anemia due to acute blood loss from rectal mass hematocrit above transfusion threshold follow CBC moderate malnutrition likely due to poor by mouth intake, underlying malignancy, will place on Ensure t.i.d. Rectal ca with pulmonary and liver mets f/u with Dr Balderas Code status full code DVT prophylaxis with compression boots hold heparin due to bloody stool in my clinical opinion patient needs 2 night inpatient stay due to intractable rectal pain not relieved with home pain medications need IV analgesics and further workup and treatment for hyponatremia Quality Stroke Does the patient have a stroke diagnosis?: No VTE Prior VTE?: No VTE Risk Level:: Medical - moderate - high VTE Device Contraindication: N/A - Device Ordered VTE Drug Contraindication: Treatment Not Indicated
--- NOTE | 2022-08-12 17:53 | PC.NURSE ---
Antibiotic started late due to blood cultures needing to be drawn
--- NOTE | 2022-08-12 18:06 | PC.NURSE ---
Addendum entered by Phoenix Chaudhary 08/12/22 18:16: Dr. Bell instructed to give the 0.5 mg dilaudid that is ordered. Original Note: Patient states she does not want her home oxycodone because it does not work . Dr. Bell notified.
[2022-08-12 18:20] LABS: Lactic Acid 0.5 mmol/L (0.5-2.0)
[2022-08-12] MEDS: levoFLOXacin/D5W 750 MG/150 ML PIGGYBACK 100 MG IV (18:22)
[2022-08-12 18:39] LABS: Osmolality, Serum 277 mosm/kg (281-305); Uric Acid 2.2 mg/dL (2.4-5.7)
--- NOTE | 2022-08-12 19:40 | PC.NURSE ---
patient alert, oriented x4. able to make needs known. reports having 8/10 pain., provider made aware.
--- NOTE | 2022-08-12 19:51 | PC.NURSE ---
nurse to nurse report called to S3
--- NOTE | 2022-08-12 21:18 | PC.NURSE ---
Addendum entered by Madie Song RN 08/12/22 22:17: message sent to to increase Dilaudid dose. Original Note: Patient requesting Dilaudid to be increased to q 3 hrs,Dr. Aldana notified
[2022-08-12] MEDS: HYDROmorphone HCl 1 MG/ML SYRINGE IVPUSH (23:05)
[2022-08-12] MEDS: 0.9 % Sodium Chloride Flush 3 ML SYRINGE IVFLUSH (23:49)
[2022-08-13] VITALS (9 sets, daily range): BP systolic 127–144; BP diastolic 62–72; PULSE 64–81; RESP 14–18; TEMP 36.3–37.4; O2SAT 82–98; BMI 23.2
[2022-08-13] MEDS: HYDROmorphone HCl 1 MG/ML SYRINGE IVPUSH ×6 (02:02→22:08)
[2022-08-13] MEDS: Omeprazole 20 MG CAPSULE.DR PO (06:05)
[2022-08-13 06:43] LABS: Hematocrit 30.9 % (37.0-47.0); Hemoglobin 9.7 g/dl (12.0-16.0); Mean Corpuscular HGB Conc 31.4 g/dl (31.0-35.0); Mean Corpuscular Hemoglobin 25.5 pg (27.0-33.0); Mean Corpuscular Volume 81.3 fL (80.0-98.0); Mean Platelet Volume 10.1 fL (9.4-12.3); Platelet Count 261 X10*3/uL (160-400); Red Cell Distribution Width 13.6 % (11.0-16.0); White Blood Count 6.1 X10*3/uL (4.8-10.8)
[2022-08-13 07:27] LABS: Anion Gap 12 (12-20); Blood Urea Nitrogen 11 mg/dL (9-16); Calcium 7.8 mg/dL (8.4-10.2); Carbon Dioxide 22 mmol/L (22-29); Chloride 101 mmol/L (96-108); Creatinine Clr Calc Pharmacy 78.5; Estimated Glomerular Filt Rate > 60; Glucose Random 75 mg/dL (60-115); Potassium 4.3 mmol/L (3.3-5.1); Sodium 131 mmol/L (135-145)
[2022-08-13] MEDS: 0.9 % Sodium Chloride Flush 3 ML SYRINGE IVFLUSH ×2 (08:07→16:35)
[2022-08-13] MEDS: Acetaminophen 325 MG TABLET 650 MG PO (08:14)
--- NOTE | 2022-08-13 10:38 | P.CNHO_ITS ---
Subjective - Subjective Chief complaint: Consult for: Rectal carcinoma. Admitted for abdominal pain. Patient: known to practice within the last 3 years Consult date: 08/13/22 Requesting Physician: Ray. Primary Care Provider: Unknown Physician Medical Summary: DIAGNOSIS: RECTAL CARCINOMA. ON CHEMOTHERAPY. HPI - Consult Narrative Reason for consult: Consult for: Increasing pain. Rectal carcinoma. Narrative: Iveth Mora is a pleasant 77 year old lady, who presented to the ED yesterday , with the complaints of left lower quadrant abdominal pain. She was recently diagnosed to have metastatic stage IV rectal cancer. She has received 2 cycles of chemotherapy with FOLFOX plus Bevacizumab, started on 07/23. Second dose of chemotherapy on 08/06/2022 She has been having severe rectal and left lower quadrant abdominal pain, associated with alternating constipation, with diarrhea. She described pain as constant, feels her rectum and lower bones are going to split open. She denies associated nausea, has been tolerating diet. Current pain medication OxyContin and oxycodone is not controlling pain, also complaining of mouth sores using Magic mouthwash, requesting oxygen therapy since it is relaxer but denies shortness of breath, no cough, no fevers, no chills, complaining of headache, and dizziness, worse with activity She is passing small stools, which is, at time red in color, at times soft brown. She denies urinary frequency, no urgency, Workup in the emergency room: Reveal normal WBC, low sodium of 128, stable hemoglobin and hematocrit chest x-ray showed no acute infiltrate. CT abdomen and pelvis showed increased descending and sigmoid colonic wall thickening and new [place] diverticular inflammatory changes surrounding descending colon suspicious for acute diverticulitis, although this abnormality was seen on PET scan and was concerning for additional malignant lesion at this site, new trace fluid in the pelvis, no abscess, no perforation, trace right hydroureteronephrosis with mild left urothelial enhancement. In the ER patient treated with IV fluids, IV Dilaudid and IV antibiotics 2 set of blood cultures ordered. Admitted with a diagnosis of intractable pain due to newly diagnosed metastatic stage IV rectal cancer. Review of Systems Review of Systems: General headache and dizziness, no fever chills. CVS no chest pain, no palpitation. Respiratory no cough no sob no urgency, no frequency Skin no itching Yes all other systems are reviewed and are negative PMFSH Medical History: Bloody stools Heart murmur Family History: Father No problems noted. Mother No problems noted. Other No family history of cancer Surgical History: Gallbladder calculus Social History: Household Members: None Housing: House [facility] Medical History: Medical History (Last Reviewed 08/12/22 @ 18:07 by Emily Bell MD) Bloody stools Heart murmur Family History: Family History (Last Reviewed 08/12/22 @ 18:07 by Emily Bell MD) Father No problems noted. Mother No problems noted. Other No family history of cancer Surgical History: Surgical History (Last Reviewed 08/12/22 @ 18:07 by Emily Bell MD) Gallbladder calculus Social History: Social History (Last Reviewed 08/12/22 @ 18:07 by Emily Bell MD) Living Situation History: Household Members: None Housing: House Are you a primary vision care associate to a significant other at home: No Do you presently have visiting nurse or other home services: No Tobacco History: Patient Tobacco Use Status: Former Tobacco user Tobacco use type: Cigarette Smoke Quit Date: 2 months ago Second Hand Smoke Exposure: No Occupation Assessmet: service: No Current occupational status: retired Home Medications and Allergies Current Medications: Current Medications Acetaminophen (Acetaminophen 325 Mg Tablet) 650 mg PO Q6H PRN PRN Reason: Pain, Mild (Pain Scale 1-3) Last Admin: 08/13/22 08:14 Dose: 650 mg Hydromorphone HCl (Hydromorphone Hcl 1 Mg/Ml Syringe) 1 mg IVPUSH Q4H PRN; Protocol PRN Reason: Pain, Severe (Pain Scale 7-10) Last Admin: 08/13/22 10:23 Dose: 1 mg Lidocaine/Diphenhydr/Alum/Mg/Simeth (Mag&Al/Sim/Diphenhyd/Lidocaine 10 Ml Oral.Susp) 10 ml PO QID PRN PRN Reason: MOUTH IRRITATION Melatonin (Melatonin 3 Mg Tablet) 3 mg PO BEDTIME PRN PRN Reason: Insomnia Omeprazole (Omeprazole 20 Mg Capsule.Dr) 20 mg PO DAILY@0630 [facility] Last Admin: 08/13/22 06:05 Dose: 20 mg Ondansetron HCl (Ondansetron Hcl 4 Mg/2 Ml Vial) 4 mg IVPUSH Q8H PRN PRN Reason: Nausea and Vomiting Oxycodone HCl (Oxycodone Hcl Er 10 Mg Tab.Er.12h) 20 mg PO Q12H [facility] Last Admin: 08/13/22 06:05 Dose: Not Given Pharmacy Consult (Consult Rx Perform Med Rec) 1 each MISCELLANE ONCE PRN PRN Reason: Consult order Sodium Chloride (0.9 % Sodium Chloride Flush 3 Ml Syringe) 3 ml IVFLUSH QSHIFT [facility] Last Admin: 08/13/22 08:07 Dose: 3 ml Home Medications Medication Instructions Recorded Confirmed Type acetaminophen 325 mg tablet 650 mg PO QID PRN Pain 06/04/22 08/12/22 History (Tylenol) dexamethasone 4 mg tablet 4 mg PO Q14D 08/12/22 08/12/22 History Allergies Allergy/AdvReac Type Severity Reaction Status Date / Time codeine [CODEINE] Allergy Unknown UNKNOWN Verified 07/23/22 09:15 morphine AdvReac Abdominal Verified 07/23/22 09:15 Pain Physical Exam Vital signs: Vital Signs Temp 99.4 F 08/13/22 08:00 Pulse 67 08/13/22 10:30 Resp 15 08/13/22 08:00 BP 131/64 08/13/22 10:30 Pulse Ox 96 08/13/22 08:00 O2 Del Method 08/13/22 08:00 O2 Flow Rate 2 08/12/22 20:56 Intake & Output 08/12/22 08/13/22 08/13/22 18:59 06:59 18:59 Intake Total 1100 / 1250 150 / 1250 Output Total 0 / 0 Balance 1100 / 1250 150 / 1250 Urine Output (Average ml/kg/hr) 0.00 Intake: Intake, IV Amount 1100 / 1250 150 / 1250 Calcium Gluconate/NaCl,Iso-Osm 100 / 100 2 gm In 100 ml @ 50 mls/hr IV ONCE ONE Rx#:[id number] levoFLOXacin/D5W 750 mg In 150 150 / 150 ml @ 100 mls/hr IV ONCE ONE Rx# :[id number] 0.9 % Sodium Chloride 1,000 ml 1000 / 1000 @ 999 mls/hr IVCONT .Q1H1M [facility] Rx#:[id number] Output: Output, Urine Amount 0 / 0 Other: Number of Incontinent Voids 1 Number of Unmeasured Voids 1 Number of Bowel Movements 1 Urine Bedside Commode Last Bowel Movement 08/12/22 Stool Incontinent Stool Amount Moderate Stool Color Brown Stool Consistency Semi Formed Weight 57.7 kg Weight 57.7 kg Hem/Onc Consult Result - Labs CBC & Chem 7: 08/13/22 06:30 08/14/22 06:08 Labs: Short CBC 08/12/22 08/13/22 Range/Units 12:00 06:30 WBC 5.4 6.1 (4.8-10.8) X10*3/uL Hgb 9.8 L 9.7 L (12.0-16.0) g/dl Hct 30.5 L 30.9 L (37.0-47.0) % Plt Count 283 261 (160-400) X10*3/uL BMP 08/12/22 08/13/22 12:00 06:30 Sodium 128 L 131 L Potassium 3.9 4.3 Chloride 100 101 Carbon Dioxide 28 22 BUN 14 11 Creatinine 0.64 0.49 L Calcium 7.8 L D 7.8 L Liver Function 08/12/22 Range/Units 12:00 Total Bilirubin 0.2 (0.0-1.0) mg/dL AST 12 (5-31) U/L ALT 10 (0-31) U/L Alkaline Phosphatase 51 (39-117) U/L Albumin 3.3 L (3.5-5.0) g/dL Assessment and Plan Patient Active problem list reviewed?: Yes (1) Rectal carcinoma Status: Acute Assessment and plan: This is a pleasant 77 year old lady who presents with a 7 months of abdominal discomfort with bleeding from her rectum. This started when she lived in [place] but she did not have medical insurance so was unable to follow-up with a physician. She states that she is having significant pain in her abdomen as well as stating that she has pain in the rectal area. She has never had a colonoscopy before and reports a 40-50 lb weight loss that is unintentional. CT scan of the abdomen revealed: 1. Irregular rectal wall thickening. Neoplasm must be considered. Mildly prominent perirectal lymph nodes are present, concerning for neoplasm. 2. Moderate emphysema. Pulmonary nodules are seen at the lung bases. Given the clinical situation, metastatic disease is a concern. 3. Multiple hypoattenuating liver lesions are present. Many of these are too small to characterize, with the largest of these consistent with simple cysts. There is a more indeterminate lesion in the right lobe measuring 1.4 cm. MRI can be obtained to further evaluate.? CT chest revealed: Numerous bilateral pulmonary nodules are identified. No nonspecific, this could represent metastatic disease. There is moderate emphysema. Continued workup as clinically indicated in this setting. I discussed with IR to see if one of the liver lesions are accessible for a biopsy. The liver lesion was deemed in accessible. I was advised to proceed with ultrasound of the abdomen, to see if something would be feasible for biopsy. Baseline CEA level: 14. She underwent biopsy of the right lower lobe lung lesion. C/W adeno carcinoma favor rectal primary. PET scan from 07/17: 1. Intense abnormal FDG activity associated with rectal wall thickening is noted and is most consistent with a primary malignancy at this site. 2. Superior to the latter a second mildly FDG avid focus in the rectosigmoid sigmoid colon is probably associated with some wall thickening and may represent an additional malignant lesion at this site. 3. Multiple pulmonary nodules are visualized as described above and the largest of these are FDG avid, but many of the smaller nodules are too small to be characterized on the FDG PET images. All of these likely represent metastatic disease. 4. Two FDG avid liver metastases are visualized. 5. Mild FDG activity in the coccyx is nonspecific. While this may represent an osseous metastasis, a healing fracture could also be responsible for this. If clinically indicated, this may be better characterized with MRI, performed without and with intravenous contrast. 6. No additional abnormalities suspicious for other metastatic or malignant lesions are noted. 7. Vascular calcifications including coronary. She had a colonoscopy with biopsy of the mass on 06/06. At least high-grade dysplasia, favor adenocarcinoma of rectal origin. Final molecular testing on the pathology: Could not be performed due to lack of enough tissue. Unfortunately there was not enough tumor in the lung biopsy nor rectal biopsy. We scheduled her for repeat rectal biopsy by Dr. Montoya however the patient declined. She did not want to proceed with MRI or other investigations. She just did not want to wait. She wanted to get started on definitive treatment right away. a Port-A-Cath was placed to facilitated the chemo on 07/10. Patient was started on treatment with modified FOLFOX 6 plus bevacizumab on 07/23. She had mouth sores. Magic mouthwash was prescribed. PLAN: She now presents with increasing abdominal pain related to the rectal cancer. Will increase the dose of OxyContin and oxycodone to help control the pain. She was recently started on systemic chemotherapy. She has had 2 cycles. Treatment will be continued. Hopefully she will exhibit a response in the near future. Thanks for the consult, CC: - Time Spent With Patient Time Spent with Patient (in minutes): 30
[2022-08-13 12:36] LABS: Appearance Urine Cloudy; Color Urine Yellow; Glucose Urine UA Negative (Negative); Leukocyte Esterase Urine Moderate (2+) (Negative); Nitrite Urine Negative (Negative); Specific Gravity - Urine 1.025 (1.005-1.025); UMIC TRIGGER UACC YES; Urine Blood Moderate (2+) (Negative); Urine Ketones 40 mg/dL (Negative); Urine Protein Trace mg/dL (Neg-Trace)
[2022-08-13 12:51] LABS: Bacteria Urine 3+ (None Seen); Hyaline Casts Urine 0-2 /LPF (0-2); UACC Culture Trigger YES; WBC Urine 21-50 /HPF (0-5)
--- NOTE | 2022-08-13 14:07 | PC.NURSE ---
patient is having multiple bouts of diarrhea, zinc ointment given for sore rectal area.
--- NOTE | 2022-08-13 14:29 | P.PNIM_ITS ---
Subjective Subjective Date of Service: 08/13/22 Interval History: Complaining of rectal pain refusing to take OxyContin and oxycodone since meds were not helping at home prefer to use Dilaudid IV, has used morphine in the past that hospice abdominal pain, denies nausea vomiting, no fevers no chills no other acute issues overnight. Review of Systems General headache and dizziness, no fever chills.? CVS no chest pain, no palpitation.? Respiratory no cough no sob urinary burning Skin no itching Physical Exam Vital Signs: Vital Signs: Last Vital Signs Temp 99.4 F 08/13/22 08:00 Pulse 74 08/13/22 14:06 Resp 15 08/13/22 08:00 BP 144/68 H 08/13/22 14:06 Pulse Ox 96 08/13/22 08:00 O2 Del Method 08/13/22 08:00 O2 Flow Rate 2 08/12/22 20:56 BMI result Body Mass Index 23.2 Const: Other: General? awake alert x3, no acute distress.? oral mucosa moist, oral lesions not?seen , upper dentures Neck? supple no JVD. CVS? regular rate rhythm, Respiratory lungs clear to auscultation, no respiratory distress, no wheeze, no rhonchi. Gastrointestinal abdomen soft,? left lower quadrant tenderness to palpation, no rebound, no rigidity, bowel sounds audible Extremities no edema. Neuro nonfocal , speech clear. Skin no rash psych appropriate affect Objective Data Active Medications Acetaminophen (Acetaminophen 325 Mg Tablet) 650 mg PO Q6H PRN PRN Reason: Pain, Mild (Pain Scale 1-3) Last Admin: 08/13/22 08:14 Dose: 650 mg Documented By: PORFIRIO Hydromorphone HCl (Hydromorphone Hcl 1 Mg/Ml Syringe) 1 mg IVPUSH Q4H PRN; Protocol PRN Reason: Pain, Severe (Pain Scale 7-10) Last Admin: 08/13/22 14:03 Dose: 1 mg Documented By: PORFIRIO Lidocaine/Diphenhydr/Alum/Mg/Simeth (Mag&Al/Sim/Diphenhyd/Lidocaine 10 Ml Oral.Susp) 10 ml PO QID PRN PRN Reason: MOUTH IRRITATION Melatonin (Melatonin 3 Mg Tablet) 3 mg PO BEDTIME PRN PRN Reason: Insomnia Omeprazole (Omeprazole 20 Mg Capsule.Dr) 20 mg PO DAILY@0630 [facility] Last Admin: 08/13/22 06:05 Dose: 20 mg Documented By: VIKASH Ondansetron HCl (Ondansetron Hcl 4 Mg/2 Ml Vial) 4 mg IVPUSH Q8H PRN PRN Reason: Nausea and Vomiting Pharmacy Consult (Consult Rx Perform Med Rec) 1 each MISCELLANE ONCE PRN PRN Reason: Consult order Sodium Chloride (0.9 % Sodium Chloride Flush 3 Ml Syringe) 3 ml IVFLUSH QSHIFT [facility] Last Admin: 08/13/22 08:07 Dose: 3 ml Documented By: PORFIRIO Labs CBC & Chem 7: 08/13/22 06:30 08/13/22 06:30 Labs: Laboratory Results - last 24 hr 08/12/22 08/12/22 08/12/22 12:00 12:00 17:05 MCV MCH MCHC RDW Plt Count MPV Absolute Nucleated RBC Nucleated RBC % (auto) Anion Gap Estim Creat Clear Calc Estimated GFR Random Glucose Osmolality 277 L Lactic Acid Uric Acid 2.2 L Calcium Urine Color Urine Appearance Urine pH Ur Specific [place] Urine Protein Urine Glucose (UA) Urine Ketones Urine Blood Urine Nitrite Ur Leukocyte Esterase Urine RBC Urine WBC Ur Squamous Epith Cells Urine Bacteria Hyaline Casts COVID-19 (YASMINE) Negative COVID-19 Clin Com See Note 08/12/22 08/13/22 08/13/22 18:01 06:30 06:30 MCV 81.3 MCH 25.5 L MCHC 31.4 RDW 13.6 Plt Count 261 MPV 10.1 Absolute Nucleated RBC 0.000 Nucleated RBC % (auto) 0.0 Anion Gap 12 Estim Creat Clear Calc 78.5 Estimated GFR > 60 Random Glucose 75 Osmolality Lactic Acid 0.5 Uric Acid Calcium 7.8 L Urine Color Urine Appearance Urine pH Ur Specific [place] Urine Protein Urine Glucose (UA) Urine Ketones Urine Blood Urine Nitrite Ur Leukocyte Esterase Urine RBC Urine WBC Ur Squamous Epith Cells Urine Bacteria Hyaline Casts COVID-19 (YASMINE) COVID-19 Clin Com 08/13/22 12:16 MCV MCH MCHC RDW Plt Count MPV Absolute Nucleated RBC Nucleated RBC % (auto) Anion Gap Estim Creat Clear Calc Estimated GFR Random Glucose Osmolality Lactic Acid Uric Acid Calcium Urine Color Yellow Urine Appearance Cloudy Urine pH 6.0 Ur Specific [place] 1.025 Urine Protein Trace Urine Glucose (UA) Negative Urine Ketones 40 Urine Blood Moderate (2+) H Urine Nitrite Negative Ur Leukocyte Esterase Moderate (2+) H Urine RBC 11-20 H Urine WBC 21-50 H Ur Squamous Epith Cells 6-10 Urine Bacteria 3+ Hyaline Casts 0-2 COVID-19 (YASMINE) COVID-19 Clin Com Microbiology Microbiology Results: Microbiology 08/12/22 18:01 Blood Culture - Preliminary Blood - Venous Prelim: GNR Gram Stain only Assessment and Plan (1) Rectal carcinoma: Status: Acute (2) Anemia: Status: Acute (3) Acute hyponatremia: Status: Acute (4) UTI (urinary tract infection): Status: Acute Plan 77-year-old female patient recently diagnosed to have metastatic stage IV rectal cancer? undergoing chemotherapy presented to [facility] due to intractable rectal pain associated with intermittent bloody stools, mouth sores headache and dizziness now being admitted for pain control. ?intractable rectal and left lower quadrant abdominal pain ?due to rectal cancer ?findings on CT abdomen and pelvis suggestive of diverticulitis similar lesion was seen on PET scan likely representing cancer, patient on IV ceftriaxone for UTI that will cover bowel infection. ?patient afebrile, normal WBC count, will hold off on antibiotics, received 1 dose of IV Levaquin in ED, follow blood cultures will DC oxycodone, OxyContin, place patient on by mouth Dilaudid and as needed IV Dilaudid question UTI patient has urinary burning UA positive for bacteria and pyuria , CT abdomen showed new right hydro uretero nephrosis will place on IV ceftriaxone day 1/5 follow final urine cultures ?acute hyponatremia likely due to pain. ?serum osmolality to 77 low, uric acid 2.2, urinary sodium and urine osmolality not checked ?received 1 L of normal saline in the ED repeat sodium improved to 131 from 128 ?mouth sores continue Magic mouthwash ?normocytic acute on chronic anemia due to acute blood loss from rectal mass ?hematocrit above transfusion threshold , repeat hematocrit stable 30.9 ?moderate malnutrition likely due to poor by mouth intake, underlying malignancy, on Ensure t.i.d. Rectal ca with pulmonary and liver mets f/u with Dr Balderas ?Code status full code ?DVT prophylaxis with compression boots hold heparin due to bloody stool disposition will follow pain is stable on oral Dilaudid and urine culture back will discharge patient home on by mouth antibiotics and Dilaudid ?in my clinical opinion patient needs continued inpatient stay due to intractable rectal pain not relieved with home pain medications need IV analgesics and uti Quality Stroke Does the patient have a stroke diagnosis?: No VTE Prior VTE?: No VTE Risk Level:: Medical - moderate - high VTE Device Contraindication: N/A - Device Ordered VTE Drug Contraindication: Treatment Not Indicated
[2022-08-13] MEDS: cefTRIAXone sodium 1 GM in 0.9 % Sodium Chloride 50 ML IV (15:30)
[2022-08-13] MEDS: ondansetron HCL 4 MG/2 ML VIAL IVPUSH (18:15)
[2022-08-14] MEDS: Acetaminophen 325 MG TABLET 650 MG PO ×2 (00:49→14:11)
[2022-08-14] MEDS: HYDROmorphone HCl 1 MG/ML SYRINGE IVPUSH ×5 (02:08→23:06)
[2022-08-14 03:51] VITALS: BP 100/56; PULSE 75; RESP 17; TEMP 36.3; O2SAT 97
[2022-08-14] MEDS: Omeprazole 20 MG CAPSULE.DR PO (06:06)
[2022-08-14 07:16] LABS: Anion Gap 11 (12-20); Blood Urea Nitrogen 14 mg/dL (9-16); Calcium 8.1 mg/dL (8.4-10.2); Carbon Dioxide 28 mmol/L (22-29); Chloride 101 mmol/L (96-108); Creatinine Clr Calc Pharmacy 55.7; Estimated Glomerular Filt Rate > 60; Glucose Random 92 mg/dL (60-115); Potassium 4.1 mmol/L (3.3-5.1); Sodium 136 mmol/L (135-145)
[2022-08-14 07:47] VITALS: BP 137/68; PULSE 61; RESP 16; TEMP 36.3; O2SAT 97
--- NOTE | 2022-08-14 09:27 | MHC.CM.PN ---
PATIENT ASKS TO COMPLETE A HCP. HCP UPLOADED INTO [facility] AND COPY PLACED IN CHART. PATIENT HAS ORIGINAL SHE GIVES PERMISSION FOR STAFF TO SPEAK WITH DAUGHTER; HOWEVER, HER REQUESTS FOR WHAT CAN BE SAID AND WHAT CANNOT BE SAID ARE NOT CLEAR TO THIS SINGING TEACHER; THEREFORE, THIS SINGING TEACHER WILL ASK THAT DAUGHTER SPEAK WITH PATIENT FOR ANY QUESTIONS.
[2022-08-14] MEDS: ondansetron HCL 4 MG/2 ML VIAL IVPUSH ×2 (10:17→20:57)
--- NOTE | 2022-08-14 11:23 | HO.PM.IMPN ---
Subjective Subjective Date of Service: 08/14/22 Interval History: still Complaining of rectal pain and doesn't feel redy to leave hospital Review of Systems General headache and dizziness, no fever chills.? CVS no chest pain, no palpitation.? Respiratory no cough no sob urinary burning Skin no itching Physical Exam Vital Signs: Vital Signs: Last Vital Signs Temp 97.3 F 08/14/22 07:47 Pulse 61 08/14/22 07:47 Resp 16 08/14/22 07:47 BP 137/68 08/14/22 07:47 Pulse Ox 97 08/14/22 07:47 O2 Del Method 08/14/22 07:47 O2 Flow Rate 2 08/12/22 20:56 BMI result Body Mass Index 23.2 Const: Other: General? awake alert x3, no acute distress.? oral mucosa moist, oral lesions not?seen , upper dentures Neck? supple no JVD. CVS? regular rate rhythm, Respiratory lungs clear to auscultation, no respiratory distress, no wheeze, no rhonchi. Gastrointestinal abdomen soft,? left lower quadrant tenderness to palpation, no rebound, no rigidity, bowel sounds audible Extremities no edema. Neuro nonfocal , speech clear. Skin no rash psych appropriate affect Objective Data Active Medications Acetaminophen (Acetaminophen 325 Mg Tablet) 650 mg PO Q6H PRN PRN Reason: Pain, Mild (Pain Scale 1-3) Last Admin: 08/14/22 00:49 Dose: 650 mg Documented By: NIKHIL Hydromorphone HCl (Hydromorphone Hcl 1 Mg/Ml Syringe) 1 mg IVPUSH Q4H PRN; Protocol PRN Reason: Pain, Severe (Pain Scale 7-10) Last Admin: 08/14/22 10:09 Dose: 1 mg Documented By: KRISTAL Hydromorphone HCl (Hydromorphone Hcl 2 Mg Tablet) 2 mg PO Q4H PRN PRN Reason: Pain, Severe (Pain Scale 7-10) Ceftriaxone Sodium 1 gm/ (Sodium Chloride) 50 mls @ 100 mls/hr IV Q24H [facility] Last Infusion: 08/13/22 17:57 Dose: 0 mls/hr Documented By: JEFF Lidocaine/Diphenhydr/Alum/Mg/Simeth (Mag&Al/Sim/Diphenhyd/Lidocaine 10 Ml Oral.Susp) 10 ml PO QID PRN PRN Reason: MOUTH IRRITATION Melatonin (Melatonin 3 Mg Tablet) 3 mg PO BEDTIME PRN PRN Reason: Insomnia Omeprazole (Omeprazole 20 Mg Capsule.Dr) 20 mg PO DAILY@0630 [facility] Last Admin: 08/14/22 06:06 Dose: 20 mg Documented By: NIKHIL Ondansetron HCl (Ondansetron Hcl 4 Mg/2 Ml Vial) 4 mg IVPUSH Q8H PRN PRN Reason: Nausea and Vomiting Last Admin: 08/14/22 10:17 Dose: 4 mg Documented By: KRISTAL Pharmacy Consult (Consult Rx Perform Med Rec) 1 each MISCELLANE ONCE PRN PRN Reason: Consult order Sodium Chloride (0.9 % Sodium Chloride Flush 3 Ml Syringe) 3 ml IVFLUSH QSHIFT [facility] Last Admin: 08/14/22 10:13 Dose: Not Given Documented By: KRISTAL Non-Admin Reason: Previously Administered Labs CBC & Chem 7: 08/13/22 06:30 08/14/22 06:08 Labs: Laboratory Results - last 24 hr 08/13/22 08/14/22 12:16 06:08 Anion Gap 11 L Estim Creat Clear Calc 55.7 Estimated GFR > 60 Random Glucose 92 Calcium 8.1 L Urine Color Yellow Urine Appearance Cloudy Urine pH 6.0 Ur Specific [place] 1.025 Urine Protein Trace Urine Glucose (UA) Negative Urine Ketones 40 Urine Blood Moderate (2+) H Urine Nitrite Negative Ur Leukocyte Esterase Moderate (2+) H Urine RBC 11-20 H Urine WBC 21-50 H Ur Squamous Epith Cells 6-10 Urine Bacteria 3+ Hyaline Casts 0-2 Microbiology Microbiology Results: Microbiology 08/13/22 00:00 Urine Culture - Preliminary Urine clean catch - Urine rolle top Culture too young to evaluate. 08/12/22 18:01 Blood Culture - Preliminary Blood - Venous No growth after 24 hours. 08/12/22 18:01 Blood Culture - Preliminary Blood - Venous Prelim: GNR Gram Stain only Assessment and Plan (1) Rectal carcinoma: Status: Acute (2) Anemia: Status: Acute (3) Acute hyponatremia: Status: Acute (4) UTI (urinary tract infection): Status: Acute Plan 77-year-old female patient recently diagnosed to have metastatic stage IV rectal cancer? undergoing chemotherapy presented to [facility] due to intractable rectal pain associated with intermittent bloody stools, mouth sores headache and dizziness now being admitted for pain control. ?intractable rectal and left lower quadrant abdominal pain ?due to rectal cancer ?findings on CT abdomen and pelvis suggestive of diverticulitis similar lesion was seen on PET scan likely representing cancer, patient on IV ceftriaxone for UTI that will cover bowel infection. ?patient afebrile, normal WBC count, will hold off on antibiotics, received 1 dose of IV Levaquin in ED, follow blood cultures will DC oxycodone, OxyContin, place patient on by mouth Dilaudid and as needed IV Dilaudid question UTI patient has urinary burning UA positive for bacteria and pyuria , CT abdomen showed new right hydro uretero nephrosis will place on IV ceftriaxone day 09/13 follow final urine cultures ?acute hyponatremia likely due to pain. ?serum osmolality to 77 low, uric acid 2.2, urinary sodium and urine osmolality not checked ?received 1 L of normal saline in the ED repeat sodium improved to 131 from 128 ?mouth sores continue Magic mouthwash ?normocytic acute on chronic anemia due to acute blood loss from rectal mass ?hematocrit above transfusion threshold , repeat hematocrit stable 30.9 ?moderate malnutrition likely due to poor by mouth intake, underlying malignancy, on Ensure t.i.d. Rectal ca with pulmonary and liver mets f/u with Dr Balderas ?Code status full code ?DVT prophylaxis with compression boots hold heparin due to bloody stool disposition will follow pain is stable on oral Dilaudid and urine culture back will discharge patient home on by mouth antibiotics and Dilaudid ?in my clinical opinion patient needs continued inpatient stay due to intractable rectal pain not relieved with home pain medications need IV analgesics and uti Quality Stroke Does the patient have a stroke diagnosis?: No VTE Prior VTE?: No VTE Risk Level:: Medical - moderate - high VTE Device Contraindication: N/A - Device Ordered VTE Drug Contraindication: Treatment Not Indicated
--- NOTE | 2022-08-14 11:43 | P.DS_ITS ---
DS: Providers Provider Date of Service: 08/16/22 Date of admission: 08/12/22 17:40 Primary care physician: Unknown Physician Consults: 08/13/22 09:53 Consult to Hematology / Oncology Routine Consulting Provider: Bunny Balderas Reason for consultation: rectal ca Has provider been notified: Yes DS: Diagnosis Discharge Diagnosis (1) Rectal carcinoma: Status: Acute (2) Anemia: Status: Acute (3) Acute hyponatremia: Status: Acute (4) UTI (urinary tract infection): Status: Acute DS: Summary Hospital Course Hospital Course: Chief Complaint: ? left lower quadrant abdominal pain ?77-year-old female patient recently diagnosed to have metastatic stage IV rectal cancer? received 2 cycles of chemotherapy with FOLFOX plus Bevacizumab started on 07/23, receive 2nd dose of chemotherapy on 08/06/2022 ?according to patient she has been having severe? rectal and left lower quadrant abdominal pain, associated with alternating constipation, with diarrhea, moving small stools at time red color, at times soft brown , she described? pain as constant, feels her rectum and lower bones are going to split open, she denies associated nausea, has been tolerating diet, lives alone? current pain medication OxyContin and oxycodone is not controlling pain, also complaining of mouth sores using Magic mouthwash, requesting oxygen therapy since it is relaxer but denies shortness of breath, no cough, no fevers, no chills, complaining of headache, and dizziness, worse with activity ?workup in the emergency room reveal normal WBC, low sodium of 128, stable hemoglobin and hematocrit chest x-ray showed no acute infiltrate, CT? abdomen and pelvis showed? increased descending and sigmoid colonic wall thickening and new [place] diverticular inflammatory changes surrounding descending colon suspicious for acute diverticulitis, although this abnormality was seen on PET scan and was concerning for additional malignant lesion at this site, new trace fluid in the pelvis, no abscess, no perforation, trace right hydroureteronephrosis with mild left urothelial enhancement, patient denies urinary frequency, no urgency, in the ER patient treated with IV fluids, IV Dilaudid and IV antibiotics 2 set of blood cultures ordered patient is now being admitted to [facility] [place] with a diagnosis of intractable pain due to newly diagnosed metastatic stage IV rectal cancer. Hospital course: intractable rectal and left lower quadrant abdominal pain due to rectal cancer ?findings on CT abdomen and pelvis suggestive of diverticulitis? similar lesion was seen on PET scan likely representing cancer, patient was on IV ceftriaxone for UTI that will cover bowel infection if that was the case. She was afebrile, normal WBC count, and cultures have been negative. She required IV dilaudid for pain and has been transition to oral oxycontin 20 bid (unchaged from homd dose) and oxycodone increase to 20 from 10. She has intermittent blood at rectum when constipated but seem self limitted. E. coli UTI, treated with Ceftriaxone and will change to Ceftin, she is was not septic Acute hyponatremia likely due to pain, resolved with hydration, fluid restrion, last sodium on 08/14 was 136 ?serum osmolality to 77 low, uric acid 2.2, urinary sodium? and urine osmolality not checked ?received 1 L of normal saline in the ED? repeat sodium improved to 131 from 128 ?mouth sores continue Magic mouthwash ?normocytic acute on chronic anemia due to acute blood loss from rectal mass ?hematocrit above transfusion threshold ?moderate protein calory malnutrition likely due to poor by mouth intake, underlying malignancy,? on Ensure t.i.d. Rectal cancer with pulmonary and liver mets f/u with Dr Balderas Constipation, bowel regimen (colace, mom, miralax) should avoid constiaption as much as possible Time Spent with Patient Time attestation: Total time spent providing and/or coordinating discharge services: Discharge coordination time: Greater than 30 minutes Quality: Safe Use of Opioids Does Pt have an Active Cancer Diagnosis on the Problem List?: Yes Opioid Measure Date for [facility] Report: 07/17/22 Opioid Measure Time for [facility] Report: 09:46 Quality: Stroke Does the patient have a stroke diagnosis?: No Physical Exam Vital Signs: Vital Signs: Last Vital Signs Temp 97.3 F 08/14/22 07:47 Pulse 61 08/14/22 07:47 Resp 16 08/14/22 07:47 BP 137/68 08/14/22 07:47 Pulse Ox 97 08/14/22 07:47 O2 Del Method 08/14/22 07:47 O2 Flow Rate 2 08/12/22 20:56 BMI result Body Mass Index 23.2 DS: Data Data Completed and Pending Completed studies during hospitalization [Text1]: Procedures Drainage of Right Lower Lung Lobe, Percutaneous Approach, Diagnostic (06/04/22) Excision of Anus, Via Natural or Artificial Opening Endoscopic, Diagnostic (06/04/22) Excision of Rectum, Via Natural or Artificial Opening Endoscopic, Diagnostic (06/04/22) Excision of Right Lower Lung Lobe, Percutaneous Approach, Diagnostic (06/04/22) Labs on day of discharge: Laboratory Results - last 24 hr 08/13/22 08/14/22 12:16 06:08 Sodium 136 Potassium 4.1 Chloride 101 Carbon Dioxide 28 Anion Gap 11 L BUN 14 Creatinine 0.69 Estim Creat Clear Calc 55.7 Estimated GFR > 60 Random Glucose 92 Calcium 8.1 L Urine Color Yellow Urine Appearance Cloudy Urine pH 6.0 Ur Specific [place] 1.025 Urine Protein Trace Urine Glucose (UA) Negative Urine Ketones 40 Urine Blood Moderate (2+) H Urine Nitrite Negative Ur Leukocyte Esterase Moderate (2+) H Urine RBC 11-20 H Urine WBC 21-50 H Ur Squamous Epith Cells 6-10 Urine Bacteria 3+ Hyaline Casts 0-2 Preliminary micro results at discharge 08/13/22 00:00 Urine Culture - Preliminary Urine clean catch - Urine rolle top Culture too young to evaluate. 08/12/22 18:01 Blood Culture - Preliminary Blood - Venous No growth after 24 hours. 08/12/22 18:01 Blood Culture - Preliminary Blood - Venous Prelim: GNR Gram Stain only Discharge Plan Discharge Anticipated Discharge Date/Time: 08/16/22 09:29 Patient Disposition: Home, Self-Care Discharge Diagnosis: Cancer pain syndrome, UTI Referrals: Physician,Unknown J [Primary Care Provider] - 1 Week Discharge Medications: New docusate sodium [Colace] 100 mg capsule 100 mg PO BID Qty: 60 0RF magnesium hydroxide [Milk of Magnesia] 400 mg/5 mL suspension 5 ml PO BEDTIME PRN (Reason: constipation) Qty: 355 0RF cefuroxime axetil 500 mg tablet 500 mg PO BID 5 Days Qty: 10 0RF polyethylene glycol 3350 [Miralax] 17 gram/dose powder 17 g PO DAILY Qty: 510 0RF Continued acetaminophen [Tylenol] 325 mg Tablet 650 mg PO QID PRN (Reason: Pain) oxycodone [OxyContin] 20 mg Tablet,Oral Only,Ext.Rel.12 Hr 20 mg PO Q12H Qty: 60 0RF Rx Instructions: Partial Fill upon patient request. ondansetron HCl 8 mg Tablet 8 mg PO Q8H PRN (Reason: Nausea And Vomiting) Qty: 60 4RF omeprazole magnesium [Prilosec OTC] 20 mg Tablet,Delayed Release (Dr/Ec) 20 mg PO DAILY Qty: 30 5RF Magic Mouthwash Diphen/Lido/Antacid 1:1:1 240 mL Suspension 10 ml PO QID Qty: 240 6RF Rx Instructions: Lidocaine Viscous 2 % 80mL; diphenhydramine 12.5 mg/5 mL 80mL; aluminum-mag hydrox-simeth [id number]-257wl-28dz/5mL 80mL dexamethasone 4 mg tablet 4 mg PO Q14D Rx Instructions: Take 4 mg p.o. b.i.d. for 2 days start day 1 of chemotherapy, Q 2 weekly. Changed oxycodone 10 mg Tablet 20 mg PO Q6H PRN (Reason: Breakthrough Pain, Moderate) Qty: 60 0RF Rx Instructions: Partial Fill upon patient request. Discharge Orders: Discharge Order (Routine); Ordered 08/16/22 Ordered By: Myles Jordan Diet: Advance to usual diet Activity on Discharge: As tolerated Stand Alone Forms: Patient Portal Discharge page Care Plan Goals: Pain control Health Concerns: rectal cancer associated cancer pain and occasional bleeding Plan of Treatment: Take oxycodone and oxycontine only as directed, and only to change dose if directed by your doctor or oncologist Follow up with Dr. Balderas for further treatment Assessment: as above
[2022-08-14] MEDS: HYDROmorphone HCl 2 MG TABLET PO (14:11)
[2022-08-14] MEDS: cefTRIAXone sodium 1 GM in 0.9 % Sodium Chloride 50 ML IV (14:13)
[2022-08-14 15:45] VITALS: BP 109/54; PULSE 70; RESP 18; TEMP 36.1; O2SAT 97
[2022-08-14] MEDS: 0.9 % Sodium Chloride Flush 3 ML SYRINGE IVFLUSH ×2 (17:10→21:13)
[2022-08-14 19:24] VITALS: BP 137/61; PULSE 66; RESP 16; TEMP 36.9; O2SAT 98
[2022-08-14] MEDS: fentaNYL 12 MCG PATCH.TD72 TRANSDERMA (20:39)
[2022-08-15] VITALS (7 sets, daily range): BP systolic 125–173; BP diastolic 57–82; PULSE 68–94; RESP 16–18; TEMP 36.1–36.8; O2SAT 96–99
[2022-08-15] MEDS: HYDROmorphone HCl 2 MG TABLET PO (02:39)
[2022-08-15] MEDS: Acetaminophen 325 MG TABLET 650 MG PO (03:46)
--- NOTE | 2022-08-15 05:51 | PC.NURSE ---
Pt self removed fentanyl patch at 2230, MD Aldana notified
[2022-08-15] MEDS: Omeprazole 20 MG CAPSULE.DR PO (05:53)
[2022-08-15] MEDS: HYDROmorphone HCl 1 MG/ML SYRINGE IVPUSH (05:54)
[2022-08-15] MEDS: oxyCODONE HCl Immed Release 15 MG TABLET PO (10:08)
[2022-08-15] MEDS: oxyCODONE HCl ER 10 MG TAB.ER.12H 20 MG PO ×2 (10:10→21:23)
[2022-08-15] MEDS: 0.9 % Sodium Chloride Flush 3 ML SYRINGE IVFLUSH ×3 (10:13→21:27)
[2022-08-15] MEDS: HYDROmorphone HCl 0.5 MG/0.5 ML SYRINGE IVPUSH (12:07)
--- NOTE | 2022-08-15 13:22 | MHC.CLN ---
F/U DIET=REGULAR. ENSURE TID PROVIDES ADDITIONAL 1050 KCALS, 60 G PROTEIN. INTAKE AT MEALS 50-100%. CONTINUE CURRENT DIET AND SUPPLEMENT.
[2022-08-15] MEDS: cefTRIAXone sodium 1 GM in 0.9 % Sodium Chloride 50 ML IV (14:08)
[2022-08-15] MEDS: oxyCODONE HCl Immed Release 5 MG TABLET 20 MG PO (16:15)
[2022-08-15] MEDS: ondansetron HCL 4 MG/2 ML VIAL IVPUSH (16:26)
[2022-08-16] MEDS: Acetaminophen 325 MG TABLET 650 MG PO ×2 (00:48→17:03)
[2022-08-16] MEDS: oxyCODONE HCl Immed Release 5 MG TABLET 20 MG PO ×6 (00:48→20:27)
[2022-08-16 00:52] VITALS: BP 140/69; PULSE 68
[2022-08-16] MEDS: ondansetron HCL 4 MG/2 ML VIAL IVPUSH ×3 (01:00→22:28)
[2022-08-16 04:00] VITALS: BP 120/56; PULSE 67; RESP 14; TEMP 36.3; O2SAT 96
--- NOTE | 2022-08-16 04:42 | PC.NURSE ---
small amount of bleeding from nose while crying and blowing into tissue. Patient is requesting stool softener as she is concerned that her rectal mass will bleed wtih hard stools. states she is constipated.
[2022-08-16] MEDS: HYDROmorphone HCl 2 MG TABLET PO ×2 (06:39→14:32)
[2022-08-16] MEDS: Omeprazole 20 MG CAPSULE.DR PO (06:39)
[2022-08-16 06:40] VITALS: BP 112/71; PULSE 69
--- NOTE | 2022-08-16 07:07 | PC.NURSE ---
patient still requesting stool softener. no order given.
[2022-08-16 07:23] VITALS: BP 116/55; PULSE 71; RESP 19; TEMP 36.1; O2SAT 96
[2022-08-16] MEDS: oxyCODONE HCl ER 10 MG TAB.ER.12H 20 MG PO ×2 (08:54→20:29)
[2022-08-16] MEDS: 0.9 % Sodium Chloride Flush 3 ML SYRINGE IVFLUSH ×2 (08:56→14:33)
--- NOTE | 2022-08-16 10:19 | MHC.CM.PN ---
Addendum entered by Elizabeth Larkin RN 08/16/22 11:15: PATIENT HAS [facility] PHONE NUMBER AND IS PLANNING TO APPEAL HER DC Original Note: THIS MANAGER MEDIA RELATIONS MET WITH PATIENT WHO DOES NOT WANT ANY VNA SERVICES STILL SHE ALSO STATES THAT SHE IS NOT READY TO DC HOME TODAY AND WANTS TO RETURN HOME TOMORROW. SHE STATES THAT SHE IS CONCERNED ABOUT HER NOSE BLEEDS AND IS FEELING CONSTIPATED AND WEAK. IMM 08/16 SIGNED AND COPY NOW IN CHART.
[2022-08-16] MEDS: polyethylene glycoL 3350 17 GM POWD.PACK PO (10:31)
--- NOTE | 2022-08-16 11:42 | HO.PM.IMPN ---
Subjective Subjective Date of Service: 08/17/22 Interval History: pain is better, c/o lynda blood per rectum that she usually gets when constiapated and small amount of blood from her nose when she blew her nose Review of Systems pain is better, blood per rectum not unsual Physical Exam Vital Signs: Vital Signs: Last Vital Signs Temp 97 F 08/16/22 07:23 Pulse 71 08/16/22 07:23 Resp 19 08/16/22 07:23 BP 116/55 L 08/16/22 07:23 Pulse Ox 96 08/16/22 07:23 O2 Del Method 08/16/22 07:23 O2 Flow Rate 2 08/12/22 20:56 BMI result Body Mass Index 23.2 Objective Data Active Medications Acetaminophen (Acetaminophen 325 Mg Tablet) 650 mg PO Q6H PRN PRN Reason: Pain, Mild (Pain Scale 1-3) Last Admin: 08/16/22 00:48 Dose: 650 mg Documented By: PORFIRIO Hydromorphone HCl (Hydromorphone Hcl 2 Mg Tablet) 2 mg PO Q4H PRN PRN Reason: Pain, Severe (Pain Scale 7-10) Last Admin: 08/16/22 06:39 Dose: 2 mg Documented By: PORFIRIO Ceftriaxone Sodium 1 gm/ (Sodium Chloride) 50 mls @ 100 mls/hr IV Q24H [facility] Last Infusion: 08/15/22 14:41 Dose: 100 mls/hr Documented By: JESSENIA Lidocaine/Diphenhydr/Alum/Mg/Simeth (Mag&Al/Sim/Diphenhyd/Lidocaine 10 Ml Oral.Susp) 10 ml PO QID PRN PRN Reason: MOUTH IRRITATION Melatonin (Melatonin 3 Mg Tablet) 3 mg PO BEDTIME PRN PRN Reason: Insomnia Omeprazole (Omeprazole 20 Mg Capsule.Dr) 20 mg PO DAILY@0630 [facility] Last Admin: 08/16/22 06:39 Dose: 20 mg Documented By: PORFIRIO Ondansetron HCl (Ondansetron Hcl 4 Mg/2 Ml Vial) 4 mg IVPUSH Q8H PRN PRN Reason: Nausea and Vomiting Last Admin: 08/16/22 10:31 Dose: 4 mg Documented By: MARCE Oxycodone HCl (Oxycodone Hcl Er 10 Mg Tab.Er.12h) 20 mg PO BID [facility] Last Admin: 08/16/22 08:54 Dose: 20 mg Documented By: MARCE Oxycodone HCl (Oxycodone Hcl Immed Release 5 Mg Tablet) 20 mg PO Q4H PRN PRN Reason: Pain, Severe (Pain Scale 7-10) Last Admin: 08/16/22 08:55 Dose: 20 mg Documented By: MARCE Pharmacy Consult (Consult Rx Perform Med Rec) 1 each MISCELLANE ONCE PRN PRN Reason: Consult order Polyethylene Glycol (Polyethylene Glycol 3350 17 Gm Powd.Pack) 17 gm PO DAILY PRN PRN Reason: Constipation Last Admin: 08/16/22 10:31 Dose: 17 gm Documented By: MARCE Sodium Chloride (0.9 % Sodium Chloride Flush 3 Ml Syringe) 3 ml IVFLUSH QSHIFT [facility] Last Admin: 08/16/22 08:56 Dose: 3 ml Documented By: MARCE Labs CBC & Chem 7: 08/16/22 11:58 08/14/22 06:08 Microbiology Microbiology Results: Microbiology 08/13/22 00:00 Urine Culture - Final Urine clean catch - Urine rolle top 08/12/22 18:01 Blood Culture - Final Blood - Venous Escherichia coli Assessment and Plan (1) Rectal carcinoma: Status: Acute (2) Anemia: Status: Acute (3) Acute hyponatremia: Status: Acute (4) UTI (urinary tract infection): Status: Acute Plan 77-year-old female patient recently diagnosed to have metastatic stage IV rectal cancer? undergoing chemotherapy presented to [facility] due to intractable rectal pain associated with intermittent bloody stools, mouth sores headache and dizziness now being admitted for pain control. intractable rectal and left lower quadrant abdominal pain due to rectal cancer ?findings on CT abdomen and pelvis suggestive of diverticulitis? similar lesion was seen on PET scan likely representing cancer, patient was on IV ceftriaxone for UTI that will cover bowel infection if that was the case. She was afebrile, normal WBC count, and cultures have been negative. She required IV dilaudid for pain and has been transition to oral oxycontin 20 bid (unchaged from homd dose) and oxycodone increase to 20 from 10. She has intermittent blood at rectum when constipated but seem self limitted. E. coli UTI, treated? with Ceftriaxone and will change to Ceftin, she is was not septic Acute hyponatremia likely due to pain, resolved with hydration, fluid restrion, last sodium on 08/14 was 136 ?serum osmolality to 77 low, uric acid 2.2, urinary sodium? and urine osmolality not checked ?received 1 L of normal saline in the ED? repeat sodium improved to 131 from 128 ?mouth sores continue Magic mouthwash ?normocytic acute on chronic anemia due to acute blood loss from rectal mass ?hematocrit above transfusion threshold ?moderate protein calory malnutrition likely due to poor by mouth intake, underlying malignancy,? on Ensure t.i.d. Rectal cancer with pulmonary and liver mets f/u with Dr Balderas she is apealing the discharge ?in my clinical opinion patient needs continued inpatient stay due to intractable rectal pain not relieved with home pain medications need IV analgesics and uti Quality Stroke Does the patient have a stroke diagnosis?: No VTE Prior VTE?: No VTE Risk Level:: Medical - moderate - high VTE Device Contraindication: N/A - Device Ordered VTE Drug Contraindication: Treatment Not Indicated
[2022-08-16 12:22] LABS: Hematocrit 28.9 % (37.0-47.0); Mean Corpuscular HGB Conc 31.1 g/dl (31.0-35.0); Mean Corpuscular Hemoglobin 25.8 pg (27.0-33.0); Mean Corpuscular Volume 82.8 fL (80.0-98.0); Mean Platelet Volume 9.2 fL (9.4-12.3); Platelet Count 244 X10*3/uL (160-400); Red Blood Count 3.49 X10*6/uL (4.20-5.50)
[2022-08-16] MEDS: cefTRIAXone sodium 1 GM in 0.9 % Sodium Chloride 50 ML IV (14:26)
[2022-08-16 15:47] VITALS: BP 153/67; PULSE 69; RESP 18; TEMP 36.6; O2SAT 97
[2022-08-16 19:43] VITALS: BP 142/65; PULSE 75; RESP 18; TEMP 36.6; O2SAT 94
[2022-08-17] MEDS: oxyCODONE HCl Immed Release 5 MG TABLET 20 MG PO ×4 (00:01→13:23)
[2022-08-17] MEDS: HYDROmorphone HCl 2 MG TABLET PO (03:03)
[2022-08-17 03:14] VITALS: BP 152/69; PULSE 67; RESP 14; TEMP 36.4; O2SAT 97
[2022-08-17] MEDS: Omeprazole 20 MG CAPSULE.DR PO (04:52)
[2022-08-17 07:04] VITALS: BP 150/81; PULSE 75; RESP 75; TEMP 36.1; O2SAT 93
[2022-08-17] MEDS: ondansetron HCL 4 MG/2 ML VIAL IVPUSH (08:38)
[2022-08-17] MEDS: 0.9 % Sodium Chloride Flush 3 ML SYRINGE IVFLUSH (08:38)
[2022-08-17] MEDS: oxyCODONE HCl ER 10 MG TAB.ER.12H 20 MG PO (08:38)
--- NOTE | 2022-08-17 11:41 | MHC.CM.PN ---
JOSE LEONG OF [facility] [employer] DEPT INTERVIEWED PATIENT TODAY JOSE FEELS PATIENT UNDERSTANDS THE RISKS AND BENEFITS ASSOCIATED WITH RETURNING HOME HE ASKS THAT HOSPITALIST PLACE A PSYCHIATRIC EVAL FOR COMPETENCY. IT WAS EXPLAINED THAT PATIENT'S COMPETENCY IS NOT IN QUESTION; THEREFORE NO EVAL IS PLACED. CASE DISCUSS WITH HOSPITALIST WHO AGREES THAT PATIENT DOES NOT LACK CAPACITY TO MAKE HER OWN MEDICAL DECISIONS. PATIENT ASKS THAT DAUGHTER NOT BE ABLE TO VISIT OR OBTAIN ANY INFORMATION SHE DOES NOT WANT DAUGHTER TO PROVIDE TRANSPORT HOME. SHE HAS ARRANGED TRANSPORT FOR HERSELF SHE DENIES NEED FOR ANY VNA SERVICES
--- NOTE | 2022-08-17 12:11 | MHC.CLN ---
F/U DIET=REGULAR. SUPPLEMENT DISCONTINUED PER PATIENT REQUEST. INTAKE AT MEALS 50-100%. CONTINUE CURRENT DIET AND SUPPLEMENT.
--- NOTE | 2022-08-17 14:01 | P.EN_ITS ---
Event Note Date of Service: 08/17/22 Event Note: pt seen and examined today, she is comfortable with pain level, she alert and oriented to self, place and time, and understanding circumstances of her being in the [facility], there is no question that she is capable of making medical or other decision for herself, there has discussion that protective services wanted her asssess for capacity and psych consult was entered earlier.. Patient has no shown any misjugement, she is not altered event with high amount of narcotics that she's taking. She's at this point not interested being evaluated by [facility], she has no homicial and suiciadal thought at this point
== END 2022-08-17 14:23 | disposition home or self-care (01) | DRG 690 ==
LOC: HO.ED 17:20 → HO.EDOVER 17:47 → HO.S3 19:26
PROVIDERS: Physician Assistant Medical; Admitting Provider Hospitalist; Emergency Provider Emergency Medicine; Visit Provider Internal Medicine
DX: N39.0 Urinary tract infection, site not specified (principal); C20 Malignant neoplasm of rectum; D62 Acute posthemorrhagic anemia; E87.1 Hypo-osmolality and hyponatremia; E44.0 Moderate protein-calorie malnutrition; C78.02 Secondary malignant neoplasm of left lung; C78.01 Secondary malignant neoplasm of right lung; C78.7 Secondary malignant neoplasm of liver and intrahepatic bile duct; C79.51 Secondary malignant neoplasm of bone; G89.3 Neoplasm related pain (acute) (chronic); J43.9 Emphysema, unspecified; B96.20 Unspecified Escherichia coli [E. coli] as the cause of diseases classified elsewhere; D63.0 Anemia in neoplastic disease; Z68.23 Body mass index [BMI] 23.0-23.9, adult; E83.51 Hypocalcemia; Z20.822 Contact with and (suspected) exposure to COVID-19; Z87.891 Personal history of nicotine dependence; Z88.5 Allergy status to narcotic agent; Z79.899 Other long term (current) drug therapy
CPT/HCPCS: 36415; 71045; 74177; 80048; 80053; 81001; 83605; 83690; 83735; 83930; 84550; 85025; 85027; 85610; 87040; 87077; 87086; 87186; 87205; 87635; 93005; 99285; J0610; J0696; J1170; J1642; J1956; J2405; Q9967

== ENCOUNTER → 2022-08-29 13:39 | Outpatient (BNVA) | payer MEDICARE, MEDICAID, SELFPAY | PROVIDERS: Visit Provider Surgery | DX: C20 Malignant neoplasm of rectum (principal); C78.7 Secondary malignant neoplasm of liver and intrahepatic bile duct; C78.01 Secondary malignant neoplasm of right lung; C78.02 Secondary malignant neoplasm of left lung; K62.89 Other specified diseases of anus and rectum; K64.9 Unspecified hemorrhoids | CPT/HCPCS: 99202 ==

== ENCOUNTER 2022-09-05 13:04 | Outpatient (REF) | payer MEDICARE, SELFPAY | END 2022-09-05 13:05 | disposition home or self-care (01) | LOC: HO.MRI 13:04 | PROVIDERS: Visit Provider Internal Medicine Medical Oncology | DX: Z13.89 Encounter for screening for other disorder (principal) ==

== ENCOUNTER 2022-11-26 09:32 | Outpatient (REF) | payer MEDICARE, OTHER, SELFPAY ==
--- NOTE | ~2022-11-26 | CT_ITS ---
EXAMINATION: CT CHEST WITH IV CONTRAST CT AND CT ABDOMEN AND PELVIS WITH IV CONTRAST CLINICAL INDICATION: Follow-up rectal cancer. COMPARISON: CT abdomen and pelvis 08/12/2022. PET/CT 07/17/2022. TECHNIQUE: 5 mm thin axial and reformatted 3 mm thin sagittal coronal images of chest, abdomen and pelvis were obtained with IV 85 mL Omnipaque 350. This CT examination was performed using dose optimization technique as appropriate, variously including the following: Automated exposure control Adjustment of MA and/or KV according to patient size(this includes techniques or standardized protocols for targeted exams where dose is matched to indication/reason for exam; extremities or head. Use of iterative reconstruction techniques. DLP: 282 mGy-cm FINDINGS: CHEST: LUNGS: There is centrilobular emphysema without acute pneumonic process. There is a round 1.3 x 1.2 cm nodule right lower lobe posterior segment image 31/4. There is a 2 mm calcified nodule right lower lobe axial image 42/4. No additional nodules seen. No focal atelectasis or ground-glass density. MEDIASTINUM: The thyroid lobes are symmetrical and normal. Central trachea and the bronchi are widely patent. Heart size and the great vessels are normal caliber. No abnormal size mediastinal or hilar lymph nodes seen. There is no pericardial effusion. No coronary artery calcifications. PLEURA: Unremarkable. AXILLA: There are small shotty lymph nodes. There is a right anterior chest wall port with its tip in the SVC. OSSEOUS STRUCTURES: No aggressive lytic or sclerotic process seen. There is mild ventral spondylosis. ABDOMEN AND PELVIS: LIVER, DUCTS AND GALLBLADDER: The liver is normal size with multiple hypodense lesions in the left hepatic lobe and centrally in the right upper lobe. They measure fluid density and are consistent with cysts. The largest cyst centrally in the right hepatic lobe measures 2 cm. There are smaller lesion in the left hepatic lobe. No intrahepatic ductal dilatation. There is diffuse attenuation of liver likely from fatty infiltration. SPLEEN: Unremarkable. PANCREAS: Unremarkable. ADRENAL GLANDS: Unremarkable. KIDNEYS AND URETERS: Both kidney nephrograms are normal size, shape and position. There is a 2.3 cm hypodensity left hepatic lobe consistent with a cyst. No radiopaque calculi or hydroureteronephrosis seen. LYMPHOVASCULAR STRUCTURES: The abdominal aorta is of normal caliber. There is mild atherosclerosis. No aneurysmal dilatation seen. No abnormal-sized retroperitoneal lymph nodes seen. GASTROINTESTINAL TRACT: There is scattered stool and gas seen throughout the colon without distention. There is mild thickening in the rectal region likely old surgical changes. It is unchanged since 08/12/2022. The small bowel loops are normal caliber. The stomach is distended with recently ingested food. Appendix is not seen. Abdominal wall is unremarkable. PELVIS: The urinary bladder is nondistended. No bladder wall thickening seen. The uterus is anteverted and appears unremarkable. There is no adnexal mass or free fluid. OSSEOUS STRUCTURES: There is mild L4-L5 and L5-S1 bilateral facet joint arthropathy. No aggressive lytic or sclerotic process seen. CT/CT abdomen pelvis w IV con IMPRESSION: 1. Right lower lobe 1.3 x 1.0 x 0.7 cm nodule is stable. No additional nodules seen. On recent PET study was FDG positive and measured 2.1 x 1.3 cm. 2. No abnormal mediastinal or axillary lymphadenopathy. 3. Hepatic cysts and left renal cyst are stable. 4. There is mild thickening in the rectal region likely old surgical changes. There is mild constipation. No obstruction seen. 5. No abnormal retroperitoneal or pelvic lymph nodes seen.
[2022-11-26] MEDS: iohexoL 350 MG/ML 100 ML INFUS..BTL IV (10:42)
== END 2022-11-26 09:33 | disposition home or self-care (01) ==
LOC: HO.CT 09:32
PROVIDERS: PCP Internal Medicine Medical Oncology; Visit Provider Internal Medicine Medical Oncology
DX: C20 Malignant neoplasm of rectum (principal)
CPT/HCPCS: 71260; 74177; Q9967

== ENCOUNTER 2023-03-04 14:54 | Outpatient (REF) | payer MEDICARE, SELFPAY | END 2023-03-04 14:55 | disposition home or self-care (01) | LOC: HO.CT 14:54 | PROVIDERS: Visit Provider Internal Medicine Medical Oncology | DX: Z13.89 Encounter for screening for other disorder (principal) ==

== ENCOUNTER 2023-04-02 16:20 | Outpatient (REF) | payer MEDICARE, MEDICAID, SELFPAY ==
--- NOTE | ~2023-04-02 | CT_ITS ---
EXAMINATION: CT CHEST, ABDOMEN AND PELVIS WITH CONTRAST CLINICAL INFORMATION: Restaging rectal cancer; follow-up right lower lobe nodule. COMPARISON: Prior CT examinations, most recently 11/26/2022; abdominal ultrasound dated 06/05/2022; PET/CT dated 07/17/2022. TECHNIQUE: Multidetector volumetric imaging was performed from the thoracic inlet through the pubic symphysis following administration of 85 mL Omnipaque 350 intravenous contrast. Sagittal and coronal reformatted images were obtained on the technologist workstation. This CT examination was performed using dose optimization techniques as appropriate, variously including the following: *Automated exposure control. *Adjustment of mA and/or kV according to patient size (this includes techniques or standardized protocols for targeted exams where dose is matched to indication/reason for exam, i.e., extremities or head). *Use of iterative reconstruction technique. DLP: 277 mGy FINDINGS: CHEST: LUNGS: Within the anterior segment of the right upper lobe (5:134), a stable 2 mm noncalcified nodule is seen. Centrally within the right middle lobe (5:235), a stable 5 mm noncalcified nodule is seen. Within the posterior basal segment of the right lower lobe (5:233), a 1.0 x 0.7 cm spiculated nodule is seen. This is diminished from dimensions of 1.3 x 1.2 cm on 11/26/2022. This contains a small eccentric calcification. At the medial right base (5:326), a small benign, calcified granuloma is seen. At the lateral left costophrenic angle (5:426), a small benign, calcified granuloma is seen. There are marked centrilobular prominent emphysematous changes. There is biapical pleural and parenchymal scarring. A minimal focus of atelectasis is seen within the superior segment of the right upper lobe medially. There is mild bibasilar atelectasis. No associated focal airway obstruction is seen. There is mild generalized small airway thickening. The central airways appear patent. MEDIASTINUM: The mediastinum is normal. Central vascular structures are unremarkable. No hilar or mediastinal lymphadenopathy. PERICARDIUM/PLEURA: There is no significant effusion. No pleural mass or thickening. CHEST WALL/AXILLA: No lymphadenopathy. A right internal jugular Port-A-Cath device is noted. ABDOMEN/PELVIS: LIVER, GALLBLADDER, BILIARY TREE: The liver is normal in size, shape, and attenuation. Multiple low-attenuation hepatic cysts are redemonstrated. These appear stable in sizes and number from prior. No new focal hepatic lesion or biliary ductal dilatation is present. The gallbladder is unremarkable with no evidence of radiopaque gallstones, gallbladder wall thickening, or pericholecystic inflammatory changes. PANCREAS: Unremarkable. SPLEEN: Unremarkable. ADRENAL GLANDS: Unremarkable. KIDNEYS AND URETERS: The kidneys are normal in size, shape, and attenuation. No hydronephrosis or hydroureter or calculi seen. Low-density bilateral renal cysts are redemonstrated, some too small for full characterization with CT. No perinephric stranding. BLADDER: Unremarkable. GASTROINTESTINAL TRACT: There is moderate diverticulosis, without acute diverticulitis. There is a large stool burden. No ivelisse bowel obstruction, free intraperitoneal air or abscess is seen. There is no focal bowel wall thickening. The vermiform appendix is not identified with certainty; however, there is no finding to suggest appendicitis. ABDOMINAL WALL: There is mild generalized anasarca. LYMPH NODES: Normal. VASCULAR: There is mild aortoiliac atherosclerotic calcification. No abdominal aortic aneurysm or dissection is seen. PELVIC VISCERA: The uterus and adnexa are unremarkable. OSSEOUS STRUCTURES: There is multi-level thoracolumbar degenerative disc disease and spondylosis. No acute or aggressive osseous abnormality is seen. CT/CT abdomen pelvis w IV con IMPRESSION: 1. Multiple bilateral pulmonary nodules are redemonstrated, including a dominant approximately 1.1 cm in maximal diameter right lower lobe nodule. This latter dominant nodule is mildly diminished in the interim, and remaining pulmonary nodules are relatively stable from prior. Recommend continued follow-up per Oncology protocol. 2. There are marked centrilobular emphysematous changes. 3. No thoracic lymphadenopathy or pleural effusion is seen. 4. Multiple low-attenuation hepatic and bilateral renal cysts remain stable. Again, some are too small for full characterization with CT. 5. There is moderate diverticulosis, without acute diverticulitis. There is a large stool burden, suggesting possible constipation. 6. No abdominopelvic lymphadenopathy or ascites is seen. 7. There is mild generalized anasarca. 8. There are multi-level degenerative changes of the spine. No aggressive osseous lesion is seen.
[2023-04-02] MEDS: iohexoL 350 MG/ML 100 ML INFUS..BTL IV (17:34)
== END 2023-04-02 16:21 | disposition home or self-care (01) ==
LOC: HO.CT 16:20
PROVIDERS: PCP Internal Medicine; Visit Provider Internal Medicine Medical Oncology
DX: C20 Malignant neoplasm of rectum (principal); R91.8 Other nonspecific abnormal finding of lung field
CPT/HCPCS: 71260; 74177; Q9967

== ENCOUNTER 2023-05-08 09:07 | Outpatient (AMB) | payer MEDICARE, MEDICAID, SELFPAY ==
[2023-05-08 09:14] VITALS: BP 136/84; BMI 19.3
--- NOTE | 2023-05-08 09:14 | MHC.PC.OV ---
Vital Signs 05/08/23 09:14 Height 5 ft 2 in Weight 105 lb 8 oz BMI 19.3 BP 136/84 Blood Pressure Location Lt brachial Position Sitting Intake Visit Reasons: New patient-Stage 4 cancer Intake Note: New patient, establishing care, stage 4 cancer Assessment Coordinator Required: No Accompanied by: Self / Same As Patient Allergies codeine [CODEINE] Allergy (Unknown, Verified 05/08/23 09:24) UNKNOWN cefuroxime Adverse Reaction (Intermediate, Verified 05/08/23 09:24) Abdominal Pain morphine Adverse Reaction (Verified 05/08/23 09:24) Abdominal Pain Medication List - Last Reconciled 05/08/23 by Marilee Garcia MD acetaminophen (Tylenol) 650 mg PO QID PRN bevacizumab 1.25 mg intravitreal Q2W lisinopril 5 mg PO DAILY menthol-zinc oxide 0.44-20.6 % (Calmoseptine) 1 appl topical QID PRN ondansetron HCl 8 mg PO Q8H oxycodone 20 mg PO Q6H PRN oxycodone ER (OxyContin) 20 mg PO Q12H polyethylene glycol 3350 (Miralax) 17 grams PO DAILY PRN Tobacco use date assessed: 05/08/23 Fall risk assessment: No Falls in past year Last assessed Fall Risk: 05/08/23 Dental Screening Dental Screen Date: 05/08/23 Did you have a dental visit in the last 12 months?: No Did you have a dental problem in the last 6 months where you did not have access to dental care?: No Was dental information given to patient?: Patient has dentist HPI HPI Comments History of Present Illness Details This is a 78-year-old female with hypertension, 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 On chemotherapy for her rectal carcinoma and tolerating it well. Constipation stable with medications. Nausea stable with an tensa drawn as needed. Blood pressure within goal with lisinopril. No chest pain or shortness of breath. Declines mammogram. Has minimal depression and declines counseling or any other treatment. [facility] Medical History (Updated 05/08/23 @ 10:21 by Marilee Garcia MD) Anal pain Bloody stools Diverticulitis Heart murmur Moderate malnutrition Rectal carcinoma Surgical History Gallbladder calculus History of surgery History of tubal ligation Family History Father No problems noted. Mother No problems noted. Other No family history of cancer Social History Household Members: None Housing: House Are you a primary pet care associate to a significant other at home: No Do you presently have visiting nurse or other home services: No Alcohol intake: never Patient Tobacco Use Status: Current everyday Tobacco user Tobacco use type: Cigarette Cigarettes Per Day: 8 e-Cigarette/Vaping Use: Never Used Second Hand Smoke Exposure: No service: No Current occupational status: retired Cognitive needs: No Hearing needs: No Vision needs: Yes Questionnaire PHQ-9 Over the last 2 weeks, how often have you been bothered by any of the following problems? 1. Little interest or pleasure in doing things: several days 2. Feeling down, depressed, or hopeless: several days 3. Trouble falling or staying asleep, or sleeping too much: several days 4. Feeling tired or having little energy: several days 5. Poor appetite or overeating: not at all 6. Feeling bad about yourself - or that you are a failure or have let yourself or your family down: not at all 7. Trouble concentrating on things, such as reading the newspaper or watching television: not at all 8. Moving or speaking so slowly that other people could have noticed. Or the opposite - being so fidgety or restless that you have been moving around a lot more than usual: not at all 9. Thoughts that you would be better off or of hurting yourself in some way: not at all Total score: 4 Depression Screening Interpretation: Positive Depression Screening Follow-up: Existing condition 13432 - PHQ-9 Billing: Yes Source: Developed by Drs. Daniel Faust, Peg Ramos, Audi Steen and colleagues, with an educational james from [email or web address]. Thrive Questionnaire Date Thrive assessed: 05/08/23 I am a: Patient What is your living situation today?: I have a steady place to live Within the past 12 months, did the food you bought not last and you didn't have the money to get more?: Never true Within the past 12 months, did you worry whether your food would run out before you got money to buy more?: Never true Do you have trouble paying for medicines?: No Do you have trouble getting transportation to medical appointments?: No Do you have trouble paying your heating and electricity bill?: No Do you have trouble taking care of your child, family member or friend?: No Do you have trouble with day-to-day activities such as bathing, preparing meals, shopping, managing finances, etc.?: No Are you currently unemployed and looking for a job?: No Are you interested in more education?: No Please select the resources that you would like help with: None Currently or been in a relationship where the following occur: no concerns reported AUDIT C Alcohol Use Questionnaire (AUDIT-C) 1. How often do you have a drink containing alcohol?: Never Total Score: 0 Score Reviewed/Action Taken: No KWAME-7 AMB Questionnaire KWAME-7 Date KWAME - 7 assessed: 05/08/23 Feeling nervous, anxious, or on edge: 0 = Not at all Not being able to stop or control worryin = Several days Worrying too much about different things: 3 = Nearly every day Trouble relaxin = Not at all Being so restless that it is hard to sit still: 0 = Not at all Becoming easily annoyed or irritable: 0 = Not at all Feeling afraid as if something awful might happen: 1 = Several days Total KWAME-7 score (0-4 normal; 5-9 mild; 10-14 moderate; 15-21 severe): 5 Source: Developed by Drs. Daniel Faust, Peg Ramos, Audi Steen and colleagues, with an educational james from [email or web address]. KWAME-7 Assessment Billing KWAME-7 Assessment Tool: KWMAE-7 Assessment 48158 Review of Systems Const All systems reviewed & are unremarkable except as noted in HPI and below Eyes Reports no additional complaints, Denies change in vision and Denies other visual disturbances Card Denies chest pain at rest, Denies chest pain with activity, Denies edema, Denies irregular heart rhythm, Denies claudication, Denies dyspnea, Denies dyspnea on exertion, Denies orthopnea, Denies paroxysmal nocturnal dyspnea and Denies slow heart rate Resp Denies cough, Denies dyspnea and Denies dyspnea on exertion GI Denies abdominal pain, Denies change in bowel habits, Denies excessive flatus, Denies nausea and Denies vomiting Denies urinary incontinence, Denies urinary hesitancy and Denies urinary urgency Musc Denies abnormal gait, Denies atrophy, Denies deformity and Denies limited range of motion Skin/Breast Denies bleeding lesions, Denies changing lesions and Denies rash Neuro Denies abnormal gait and Denies lack of coordination Physical exam (Primary Care) Vital Signs: Last Vital Signs BP 136/84 05/08/23 09:14 BMI result Body Mass Index 19.3 Tobacco/Smoking Status: Tobacco use Status Tobacco use date assessed 05/08/23 05/08/23 09:21 Patient Tobacco Use Status Current everyday Tobacco 05/08/23 09:21 Tobacco use type Cigarette 05/08/23 09:21 e-Cigarette/Vaping Use Never Used 05/08/23 09:21 PHQ-9: PHQ-9 Score PHQ-9: Total score 4 05/08/23 09:32 Depression Screening Interpretation: Positive Depression Screening Follow-up: Existing condition Thrive Assessment: Date of Thrive Assessment Date Thrive assessed 05/08/23 05/08/23 09:21 Currently or been in a relationship where the following occur: no concerns reported Const Orientation/consciousness: patient oriented x3 Eyes General: appearance normal, both eyes and all related structures Eyelids: Yes eyelids normal Conjunctivae: conjunctivae normal Neck Neck: Yes normal visual inspection and Yes supple Resp Effort & Inspection: normal respiratory effort Auscultation: clear to auscultation bilaterally Cardio Jugular venous distension: no JVD Rate: regular rate Rhythm: regular rhythm Heart sounds: S1 normal heart sound present and S2 normal heart sound present Skin General skin exam: no rashes or lesions noted Neuro General: patient oriented x3 and no focal motor deficits Extrem General: Yes full ROM Assessment and Plan Assessment & Plan (1) Rectal carcinoma: Code(s): C20 - Malignant neoplasm of rectum Plan: Continue chemotherapy. Follow-up with Hematology-Oncology. (2) Therapeutic opioid induced constipation: Code(s): K59.03 - Drug induced constipation; T40.2X5A - Adverse effect of other opioids, initial encounter Plan: Continue MiraLax as needed. (3) Essential hypertension: Code(s): I10 - Essential (primary) hypertension Plan: Continue lisinopril. Blood pressure goal is equal or less than 130/80. (4) Nausea: Code(s): R11.0 - Nausea Plan: Continue ondansetron as needed. Medications: Discontinued oxycodone ER Partial Fill upon patient request. 20 mg PO Q12H 60 tabs 0RF ondansetron HCl 8 mg PO Q8H 60 tabs 3RF oxycodone Partial Fill upon patient request. 20 mg PO Q6H PRN 60 tabs 0RF Breakthrough Pain, Moderate oxycodone ER Partial Fill upon patient request. 20 mg PO Q12H 60 tabs 0RF oxycodone Partial Fill upon patient request. 20 mg PO Q6H PRN 60 tabs 0RF Breakthrough Pain, Moderate ondansetron HCl 8 mg PO Q8H 60 tabs 3RF oxycodone ER Partial Fill upon patient request. 20 mg PO Q12H 60 tabs 0RF oxycodone ER Partial Fill upon patient request. 20 mg PO Q12H 60 tabs 0RF oxycodone ER Partial Fill upon patient request. 20 mg PO Q12H 60 tabs 0RF ondansetron HCl 8 mg PO Q8H 60 tabs 3RF oxycodone Partial Fill upon patient request. 20 mg PO Q6H PRN 60 tabs 0RF Breakthrough Pain, Moderate oxycodone Partial Fill upon patient request. 20 mg PO Q6H PRN 60 tabs 0RF Breakthrough Pain, Moderate ondansetron HCl 8 mg PO Q8H 60 tabs 3RF oxycodone Partial Fill upon patient request. 20 mg PO Q6H PRN 60 tabs 0RF Breakthrough Pain, Moderate oxycodone Partial Fill upon patient request. 20 mg PO Q6H PRN 60 tabs 0RF Breakthrough Pain, Moderate oxycodone ER Partial Fill upon patient request. 20 mg PO Q12H 60 tabs 0RF oxycodone Partial Fill upon patient request. 20 mg PO Q6H PRN 60 tabs 0RF Breakthrough Pain, Moderate ondansetron HCl 8 mg PO Q8H 60 tabs 3RF ondansetron HCl 8 mg PO Q8H 60 tabs 3RF oxycodone Partial Fill upon patient request. 20 mg PO Q6H PRN 60 tabs 0RF Breakthrough Pain, Moderate Coding Level of Care Code New Pt Level 4 (97623) Diagnoses Rectal carcinoma C20 Therapeutic opioid induced constipation K59.03; T40.2X5A Essential hypertension I10 Nausea R11.0 Additional Codes KWAME-7 Assessment Billing - KWAME-7 Assessment Tool: KWAME-7 Assessment 06926 ([id number]) Time Spent (min) 24
== END 2023-05-08 09:39 | disposition home or self-care (01) ==
PROVIDERS: PCP Internal Medicine; Visit Provider Internal Medicine
DX: C20 Malignant neoplasm of rectum (principal); K59.03 Drug induced constipation; T40.2X5A Adverse effect of other opioids, initial encounter; I10 Essential (primary) hypertension; R11.0 Nausea
CPT/HCPCS: 99204

== ENCOUNTER 2023-10-21 10:09 | Outpatient (REF) | payer MEDICARE, MEDICAID, SELFPAY ==
--- NOTE | ~2023-10-21 | CT_ITS ---
EXAMINATION: CT CHEST, ABDOMEN AND PELVIS WITH CONTRAST CLINICAL INFORMATION: History of rectal cancer with pulmonary metastases. Follow-up evaluation. COMPARISON: 04/02/2023 and 11/26/2022 TECHNIQUE: Multidetector volumetric imaging was performed from the thoracic inlet through the pubic symphysis following administration of 85 mL Omnipaque 350 intravenous contrast. Sagittal and coronal reformatted images were obtained on the technologist workstation. This CT examination was performed using dose optimization techniques as appropriate, variously including the following: *Automated exposure control. *Adjustment of mA and/or kV according to patient size (this includes techniques or standardized protocols for targeted exams where dose is matched to indication/reason for exam, i.e., extremities or head). *Use of iterative reconstruction technique. DLP: 95 mGy-cm. FINDINGS: Motion artifact technically degrades image quality. CHEST: LUNGS: Spiculated nodule posterior right lower lobe measures 1.0 x 1.7 cm on image 214 of series 6. This nodule previously measured 0.9 x 1.1 cm. New 5 mm nodule right lower lobe on image 222 series 6. Stable 4 mm right middle lobe nodule on image 32 of series 6. There is moderate centrilobular emphysema. Stable right apical scarring. Central airways are patent. MEDIASTINUM: Imaged thyroid gland is mildly heterogeneous. No bulky mediastinal or hilar lymphadenopathy. Great vessels are of normal caliber. Heart size is normal. No pericardial effusion. Scattered coronary artery calcifications. PLEURA: No pleural effusion. CHEST WALL/AXILLA: No axillary lymphadenopathy. Right chest wall Port-A-Cath with tip at the cavoatrial junction. ABDOMEN/PELVIS: LIVER, GALLBLADDER, BILIARY TREE: The liver is normal in size and contour. Multiple low-attenuation hepatic cysts are redemonstrated. These appear stable from prior. No new focal hepatic lesion or biliary ductal dilatation is present. The gallbladder is mostly contracted. PANCREAS: Unremarkable. SPLEEN: Unremarkable. ADRENAL GLANDS: Unremarkable. KIDNEYS AND URETERS: The kidneys are normal in size, shape, and attenuation. No hydronephrosis or hydroureter or calculi seen. Low-density bilateral renal cysts are redemonstrated, some too small for complete characterization with CT. No perinephric stranding. BLADDER: Underdistended. GASTROINTESTINAL TRACT: Stomach is underdistended. Small and large bowel loops are of normal caliber. There is copious stool throughout the colon. No small bowel obstruction. ABDOMINAL WALL: No significant hernia is present. LYMPH NODES: No bulky lymphadenopathy. VASCULAR: Normal caliber abdominal aorta. Atherosclerotic changes. PELVIC VISCERA: There is questionable abnormal soft tissue thickening within the perineum however the appearance is unchanged from the comparison studies. OSSEOUS STRUCTURES: No destructive bone lesion. CT/CT abdomen pelvis w IV con IMPRESSION: Interval increase in size of spiculated right lower lobe nodule measuring 1.0 x 1.7 cm with new adjacent 5 mm nodule. This most likely represents disease progression. PET/CT should be considered.
[2023-10-21] MEDS: iohexoL 350 MG/ML 100 ML INFUS..BTL 85 ML IV (10:50)
== END 2023-10-21 10:10 | disposition home or self-care (01) ==
LOC: HO.CT 10:09
PROVIDERS: Visit Provider Internal Medicine Medical Oncology
DX: C20 Malignant neoplasm of rectum (principal)
CPT/HCPCS: 71260; 74177; Q9967

== ENCOUNTER 2023-10-30 08:56 | Day surgery (SDC) | payer MEDICARE, OTHER, SELFPAY ==
[2023-10-30] VITALS (8 sets, daily range): BP systolic 129–154; BP diastolic 63–75; PULSE 59–65; RESP 16; TEMP 36.1; O2SAT 97–98
--- NOTE | ~2023-10-30 | XR_ITS ---
EXAMINATION: XR CHEST CLINICAL INFORMATION: Post right lung biopsy COMPARISON: Previous lung biopsy images from earlier the same day and chest x-ray August 2022 TECHNIQUE: Frontal view of the chest was obtained. FINDINGS: No pneumothorax post right lung biopsy. The cardiac and mediastinal contours are normal. There is a right jugular port with tip projecting over the SVC. The lungs are clear. Known right lower lobe lung nodule not well appreciated by chest x-ray. No pleural effusion. Degenerative changes of the spine. XR/XR chest 1V IMPRESSION: No pneumothorax post right lung biopsy.
--- NOTE | ~2023-10-30 | CT_ITS ---
Metastatic colorectal cancer. Enlarging right lower lobe lung nodule. PROCEDURES: 1. Limited preprocedure CT of the chest. Permanent images saved in PACS. 2. CT-guided core biopsy of right lower lobe lung nodule 3. Limited post procedure CT of the chest. Permanent images saved in PACS. CLINICIANS: Dino Gomez PA-C Preprocedural imaging reviewed with Dr. Alcantar MEDICATIONS: -Versed 1 mg, Fentanyl 50 mcg, and lidocaine 1% 10 mL SQ -Antibiotics: None -For additional details, please see nursing flowsheet. COMPLICATIONS: None ESTIMATED BLOOD LOSS: < 5 ml CONTRAST: None SPECIMENS: 20-gauge core x3 placed in formalin. MODERATE SEDATION TIME: 30 min PROCEDURE NOTE: The procedure, risks, benefits, and alternatives were carefully explained to the patient and written informed consent was obtained. The patient was placed in the left lateral decubitus position on the CT table. A timeout was performed. A limited CT of the chest was performed to localize the right lower lobe lung nodule and choose appropriate needle entry and trajectory. The patient was prepped and draped in usual sterile fashion. The skin and subcutaneous tissues were anesthetized with lidocaine. Under CT guidance, a 19-gauge biopsy trocar needle was to the lesion. A 20-gauge core biopsy device was inserted through the double wall needle, with the tip advanced into the lesion. Position was confirmed with CT evaluation. A total of 3 core biopsies were obtained. The specimens was placed in formalin. 10 mL of nonclotted blood was obtained from the patient and injected through the trocar needle, while slightly withdrawing the needle back to the parietal. The needle was then removed. A dry dressing was applied and secured with Tegaderm. A postprocedure limited CT of the chest did not demonstrate any significant hemorrhage or pneumothorax. The patient was stable after the procedure and was transferred to the post anesthesia care unit. The procedure was done under moderate sedation with a dedicated nurse for monitoring of vital signs. CT/CT biopsy lung RT Impression: CT-guided biopsy of right lower lobe lung nodule This procedure was performed by Dino Gomez PA-C and supervised by Dr. Alcantar.
--- NOTE | ~2023-10-30 | XR_ITS ---
EXAMINATION: XR CHEST CLINICAL INFORMATION: Status post right lung biopsy. COMPARISON: CT and chest x-ray of same day, October 21, 2023, as well as April 02, 2023. TECHNIQUE: AP portable view of the chest was obtained. FINDINGS: No postprocedure pneumothorax is identified. No acute parenchymal disease. No significant pleural effusion. Heart normal size. No evidence of pulmonary edema. Port catheter seen in place with tip at the cavoatrial junction. XR/XR chest 1V IMPRESSION: No acute parenchymal disease or pneumothorax appreciated.
--- NOTE | 2023-10-30 10:41 | PC.NURSE ---
Port on right upper chest accessed per MD order. No issues, patient tolerated well. Positive blood return with aspiration. Dressing applied, site clean dry and intact.
[2023-10-30] MEDS: oxyCODONE HCl Immed Release 5 MG TABLET 20 MG PO (12:08)
== END 2023-10-30 14:34 | disposition home or self-care (01) ==
LOC: HO.SSS 08:58
PROVIDERS: Radiology Vascular & Interventional Radiology; PCP Internal Medicine; Visit Provider Internal Medicine Medical Oncology
DX: C78.01 Secondary malignant neoplasm of right lung (principal); C20 Malignant neoplasm of rectum; R91.8 Other nonspecific abnormal finding of lung field; E46 Unspecified protein-calorie malnutrition; Z68.1 Body mass index [BMI] 19.9 or less, adult; Z79.899 Other long term (current) drug therapy; Z88.5 Allergy status to narcotic agent; Z88.8 Allergy status to other drugs, medicaments and biological substances; Z98.890 Other specified postprocedural states; F17.210 Nicotine dependence, cigarettes, uncomplicated
CPT/HCPCS: 32408; 71045; 88305; 99152; 99153; J1642; J2250; J2270; J2310; J3010

== ENCOUNTER → 2023-10-30 10:28 | Outpatient (BNV) | payer MEDICARE, MEDICAID, SELFPAY | PROVIDERS: PCP Internal Medicine; Visit Provider Physician Assistant Surgical | DX: R91.8 Other nonspecific abnormal finding of lung field (principal); C20 Malignant neoplasm of rectum | CPT/HCPCS: 32408 ==

== ENCOUNTER 2024-05-21 13:20 | Emergency (ER) | payer MEDICARE, OTHER, SELFPAY ==
[2024-05-21 13:41] VITALS: BP 137/64; PULSE 79; RESP 16; TEMP 36.4; O2SAT 97; BMI 17.4
--- NOTE | 2024-05-21 13:43 | ED.GENADULT ---
HPI - General Adult General Chief complaint: Abdominal Pain Stated complaint: Cancer PT needs to be admitted History of Present Illness HPI narrative: Patient left without completing of treatment by ED provider Related Data Home Medications ?Medication ?Instructions ?Recorded ?Confirmed acetaminophen 325 mg tablet 650 mg PO QID PRN Pain 06/04/22 03/10/24 (Tylenol) polyethylene glycol 3350 17 17 g PO DAILY PRN Constipation 09/17/22 03/10/24 gram/dose oral powder (Miralax) Previous Rx's ?Medication ?Instructions ?Recorded menthol 0.44 %-zinc oxide 20.6 % 1 appl topical QID PRN Itching #45 05/10/23 topical ointment (Calmoseptine) grams ondansetron 8 mg disintegrating 8 mg PO Q8H #60 tabs 06/07/23 tablet cane #1 ea 08/06/23 lisinopril 5 mg tablet 5 mg PO DAILY #30 tabs 09/30/23 dexamethasone 4 mg tablet 4 mg PO BID #60 tabs 11/21/23 minocycline 100 mg capsule 100 mg PO DAILY #30 caps 12/03/23 prochlorperazine maleate 10 mg 10 mg PO Q6H PRN Nausea And 12/17/23 tablet (Compazine) Vomiting #50 tabs sennosides 8.6 mg tablet (Senokot) 8.6 mg PO BID #60 tabs 01/15/24 polyethylene glycol 3350 17 gram 17 g PO DAILY #30 ea 04/21/24 oral powder packet (Miralax) oxycodone 20 mg tablet,crush 20 mg PO Q12H #60 tabs 04/28/24 resistant,extended release 12 hr (OxyContin) oxycodone 20 mg tablet 20 mg PO Q6H PRN Breakthrough 05/19/24 Pain, Severe #60 tabs Allergies Allergy/AdvReac Type Severity Reaction Status Date / Time codeine [CODEINE] Allergy Severe passed out Verified 05/21/24 13:46 morphine AdvReac Severe passed out Verified 05/21/24 13:46 cefuroxime AdvReac Intermediate Abdominal Verified 05/21/24 13:46 Pain PMFSH Past Medical History Medical History (Updated 05/22/24 @ 09:22 by INDIRA Post) Anal pain Diverticulitis Rectal carcinoma Moderate malnutrition Bloody stools Heart murmur Surgical History History of surgery History of tubal ligation Gallbladder calculus Family History Family History Father No problems noted. Mother No problems noted. Other No family history of cancer Social History Social History Household Members: None Housing: House Are you a primary healthcare project manager to a significant other at home: No Do you presently have visiting nurse or other home services: No Alcohol intake: never Comment: burning Patient Tobacco Use Status: Tobacco use Unknown Tobacco use type: Cigarette Cigarettes Per Day: 8 e-Cigarette/Vaping Use: Never Used Second Hand Smoke Exposure: No Advance Directives: Yes Advance Directives on File: Yes Advance Directives Date on File: 08/20/22 Do you have a plan to hurt others: No Plan service: No Current occupational status: retired Cognitive needs: No Hearing needs: No Vision needs: Yes Physical Exam ED Vital Signs: Vital Signs - 24 hr 05/21/24 13:41 Temperature 97.6 F Pulse Rate 79 Respiratory Rate 16 Blood Pressure 137/64 Pulse Oximetry 97 Oxygen Delivery Method Room Air BMI result Body Mass Index 17.4 Course Course Course Narrative: RME: Done by INDIRA Beal. 79 yold female with pmh of rectal carcinoma who has a new nodule on her kidney sent by her oncologist Dr. Balderas for admission for abdominal pain, fever and night sweats. Abdomen mild tenderness. Rest of physical exam benign. Labs SARs ordered. Medical Decision Making Lab Data 05/21/24 13:57 05/21/24 13:57 Labs: Lab Results 05/21/24 Range/Units 13:57 WBC 9.5 (4.8-10.8) X10*3/uL RBC 3.89 L (4.20-5.50) X10*6/uL Hgb 10.5 L (12.0-16.0) g/dl Hct 32.8 L (37.0-47.0) % MCV 84.3 (80.0-98.0) fL MCH 27.0 (27.0-33.0) pg MCHC 32.0 (31.0-35.0) g/dl RDW 17.2 H (11.0-16.0) % Plt Count 357 (160-400) X10*3/uL MPV 10.0 (9.4-12.3) fL Immature Gran % (Auto) 0.4 (0.0-0.4) % Neut % (Auto) 78.5 H (45-73) % Lymph % (Auto) 13.5 L (20-40) % [place] % (Auto) 6.2 (2-11) % Eos % (Auto) 1.0 (0-4) % Baso % (Auto) 0.4 (0-2) % Lymph # (Auto) 1.3 (1.2-4.9) X10*3/uL [place] # (Auto) 0.6 (0.1-1.2) X10*3/uL Eos # (Auto) 0.1 (0.0-0.4) X10*3/uL Baso # (Auto) 0.0 (0.0-0.2) X10*3/uL Abs Immat Gran (auto) 0.04 H (0.00-0.03) X10*3/uL Absolute Neuts (auto) 7.4 (2.0-8.3) x10*3/uL Absolute Nucleated RBC 0.000 (0.0-0.012) X10*3/uL Nucleated RBC % (auto) 0.0 (0.0-0.2) /100WBC PT 11.9 (11.1-13.3) SEC INR 1.0 (0.9-1.1) APTT 26.1 (26.0-36.8) SEC Sodium 140 (135-145) mmol/L Potassium 4.2 (3.3-5.1) mmol/L Chloride 107 (96-108) mmol/L Carbon Dioxide 26 (22-29) mmol/L Anion Gap 11 L (12-20) BUN 24 H (9-16) mg/dL Creatinine 0.68 (0.5-1.4) mg/dL Estim Creat Clear Calc 47.1 Estimated GFR > 60 Random Glucose 106 (60-115) mg/dL Lactic Acid 0.9 (0.5-2.0) mmol/L Calcium 9.0 (8.4-10.2) mg/dL Total Bilirubin 0.2 (0.0-1.0) mg/dL AST 20 (5-31) U/L ALT 16 (0-31) U/L Alkaline Phosphatase 66 (39-117) U/L Total Protein 6.6 (6.5-8.0) g/dL Albumin 3.9 (3.5-5.0) g/dL Influenza Type A (PCR) NEGATIVE (Negative) Influenza Type B (PCR) NEGATIVE (Negative) RSV RNA Qual (PCR) NEGATIVE (Negative) SARS-CoV-2 RNA (RT-PCR) NEGATIVE (Negative) Discharge Plan Discharge Clinical Impression: Abdominal pain Patient Disposition: Left W/O Completing Treatment Prescriptions: No Action acetaminophen [Tylenol] 325 mg Tablet 650 mg PO QID PRN (Reason: Pain) polyethylene glycol 3350 [Miralax] 17 gram/dose powder 17 g PO DAILY PRN (Reason: Constipation) menthol-zinc oxide [Calmoseptine] 0.44-20.6 % Ointment 1 appl TOPICAL QID PRN (Reason: Itching) Qty: 45 3RF ondansetron 8 mg Tablet,Disintegrating 8 mg PO Q8H Qty: 60 3RF (DME) cane Device Qty: 1 0RF Rx Instructions: As Directed lisinopril 5 mg Tablet 5 mg PO DAILY Qty: 30 2RF dexamethasone 4 mg Tablet 4 mg PO BID Qty: 60 3RF Rx Instructions: Take 4 mg p.o. b.i.d. day 2 and 3 of chemotherapy, Q 2 weeks. minocycline 100 mg Capsule 100 mg PO DAILY Qty: 30 3RF prochlorperazine maleate [Compazine] 10 mg Tablet 10 mg PO Q6H PRN (Reason: Nausea And Vomiting) Qty: 50 3RF sennosides [Senokot] 8.6 mg Tablet 8.6 mg PO BID Qty: 60 3RF polyethylene glycol 3350 [Miralax] 17 gram Powder In Packet 17 g PO DAILY Qty: 30 4RF oxycodone [OxyContin] 20 mg Tablet,Oral Only,Ext.Rel.12 Hr 20 mg PO Q12H Qty: 60 0RF Rx Instructions: Partial Fill upon patient request. oxycodone 20 mg Tablet 20 mg PO Q6H PRN (Reason: Breakthrough Pain, Severe) Qty: 60 0RF Rx Instructions: Partial Fill upon patient request. Discharge Date/Time: 05/21/24 17:12
[2024-05-21 14:03] LABS: MANUAL DIFF FLAG NO
[2024-05-21 14:05] LABS: Basophils Percent Auto 0.4 % (0-2); Eosinophils Absolute Auto 0.1 X10*3/uL (0.0-0.4); Hematocrit 32.8 % (37.0-47.0); Hemoglobin 10.5 g/dl (12.0-16.0); Imm Gran Abs Auto 0.04 X10*3/uL (0.00-0.03); Imm Gran Pct Auto 0.4 % (0.0-0.4); Lymphocytes Absolute Auto 1.3 X10*3/uL (1.2-4.9); Lymphocytes Percent Auto 13.5 % (20-40); Mean Corpuscular Volume 84.3 fL (80.0-98.0); Monocytes Absolute Auto 0.6 X10*3/uL (0.1-1.2); Monocytes Percent Auto 6.2 % (2-11); Neutrophils Absolute Auto 7.4 x10*3/uL (2.0-8.3); Neutrophils Percent Auto 78.5 % (45-73); Platelet Count 357 X10*3/uL (160-400); Red Blood Count 3.89 X10*6/uL (4.20-5.50); Red Cell Distribution Width 17.2 % (11.0-16.0); White Blood Count 9.5 X10*3/uL (4.8-10.8)
[2024-05-21 14:10] LABS: Prothrombin Time 11.9 SEC (11.1-13.3)
[2024-05-21 14:12] LABS: Partial Thromboplastin Time 26.1 SEC (26.0-36.8)
[2024-05-21 14:15] LABS: Lactic Acid 0.9 mmol/L (0.5-2.0)
[2024-05-21 14:18] LABS: Alanine Aminotransferase 16 U/L (0-31); Albumin Level 3.9 g/dL (3.5-5.0); Alkaline Phosphatase 66 U/L (39-117); Anion Gap 11 (12-20); Aspartate Amino Transferase 20 U/L (5-31); Bilirubin Total 0.2 mg/dL (0.0-1.0); Blood Urea Nitrogen 24 mg/dL (9-16); Carbon Dioxide 26 mmol/L (22-29); Chloride 107 mmol/L (96-108); Creatinine Clr Calc Pharmacy 47.1; Estimated Glomerular Filt Rate > 60; Glucose Random 106 mg/dL (60-115); Potassium 4.2 mmol/L (3.3-5.1); Sodium 140 mmol/L (135-145); Total Protein 6.6 g/dL (6.5-8.0)
[2024-05-21 14:49] LABS: Influenza A PCR NEGATIVE (Negative); Influenza B PCR NEGATIVE (Negative); Resp Syncy Virus RNA Qual PCR NEGATIVE (Negative); SARS COV2 PCR INHOUSE NEGATIVE (Negative)
== END 2024-05-21 17:12 | disposition left against medical advice (07) ==
LOC: HO.ED 16:26
PROVIDERS: Physician Assistant; Emergency Provider Emergency Medicine; PCP Internal Medicine
DX: R10.9 Unspecified abdominal pain (principal); C21.8 Malignant neoplasm of overlapping sites of rectum, anus and anal canal; Z79.899 Other long term (current) drug therapy; Z03.818 Encounter for observation for suspected exposure to other biological agents ruled out
CPT/HCPCS: 0241U; 80053; 83605; 85025; 85610; 85730; 87040; 99281; 99283

== ENCOUNTER 2024-06-11 14:24 | Outpatient (AMB) | payer MEDICARE, SELFPAY ==
--- NOTE | 2024-06-11 14:27 | MHC.OFFVIS ---
Vital Signs 06/11/24 14:38 Height 5 ft 2 in Weight 107 lb 9.369 oz BMI 19.7 Intake Visit Reasons: Tumor versus hemorrhoids Intake Note: This patient was referred by Dr. Balderas for Tumor versus hemorrhoids. Pt c/o; reports unberable pain, reports no rectal bleeding at this time but she did have some rectal bleeding in the past, reports occasional constipation, reports ? prolapse. 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 Accompanied by: Self / Same As Patient Allergies codeine [CODEINE] Allergy (Severe, Verified 06/11/24 14:38) passed out morphine Adverse Reaction (Severe, Verified 06/11/24 14:38) passed out cefuroxime Adverse Reaction (Intermediate, Verified 06/11/24 14:38) Abdominal Pain Medication List - Last Reconciled 06/11/24 by Ollie Morales MD acetaminophen (Tylenol) 650 mg PO QID PRN cane As Directed dexamethasone 4 mg PO BID lisinopril 5 mg PO DAILY menthol-zinc oxide 0.44-20.6 % (Calmoseptine) 1 appl topical QID PRN minocycline 100 mg PO DAILY ondansetron 8 mg PO Q8H oxycodone 20 mg PO Q6H PRN oxycodone ER (OxyContin) 20 mg PO Q12H polyethylene glycol 3350 (Miralax) 17 grams PO DAILY PRN polyethylene glycol 3350 (Miralax) 17 grams PO DAILY prochlorperazine maleate (Compazine) 10 mg PO Q6H PRN sennosides (Senokot) 8.6 mg PO BID HPI HPI Tumor versus hemorrhoids: Details: [age] year old female here for follow-up. I had seen her in August, because of her rectal cancer and pain. She was undergoing chemotherapy at that time as she had metastatic disease in the lungs. She was in [place] after that for a while but had returned to the area. Review of her records show that she was last seen by Dr. Balderas in April,. She was supposed to be on chemotherapy with irinotecan at that time. It does not appear that she has followed up with her since then even as she was supposed to be continue with her chemotherapy. She continues to have severe anal pain. She sees blood periodically. She seems to have some leakage of stool as well. She was thinking maybe it was her hemorrhoids that are causing all this problems. She has been losing a lot of weight and been frail already. She has had difficulty with ambulating because of weakness. FORMERLY [facility], [facility] Medical History Anal pain Diverticulitis Rectal carcinoma Moderate malnutrition Bloody stools Heart murmur Surgical History History of surgery History of tubal ligation Gallbladder calculus Family History Father No problems noted. Mother No problems noted. Other No family history of cancer Social History Household Members: None Housing: House Are you a primary health care recruiter to a significant other at home: No Do you presently have visiting nurse or other home services: No Alcohol intake: never Comment: burning Patient Tobacco Use Status: Tobacco use Unknown Tobacco use type: Cigarette Cigarettes Per Day: 8 e-Cigarette/Vaping Use: Never Used Second Hand Smoke Exposure: No Advance Directives Date on File: 08/20/22 service: No Current occupational status: retired Cognitive needs: No Hearing needs: No Vision needs: Yes Review of Systems Const Denies chills, Reports fatigue, Denies fever(s), Reports weakness and Reports weight loss Card Denies chest pain at rest Resp Denies cough GI Reports hematochezia Denies difficulty voiding Neuro Reports weakness Endo Reports fatigue Physical Exam Const Other: On wheelchair, looks very frail, appears weak, answers questions Resp Effort & Inspection: normal respiratory effort Cardio Rate: regular rate GI Other: Rectal exam shows external hemorrhoids on the right side but there was note of a fungating mass in the anus on the left, very tender to touch and extending more proximally he had this is very indurated and is consistent with a diagnosis of advanced rectal cancer Palpation (GI): Soft to palpation and nontender Assessment & Plan Assessment & Plan (1) Rectal carcinoma: Code(s): C20 - Malignant neoplasm of rectum Category: Medical Plan: She has biopsy documented metastatic disease to the lung. Her CEA level has been increasing . Physical exam shows this fungating mass that seems to extending outside of her anal canal consistent with diagnosis of rectal cancer. This suggest local advancement as well. She is supposed to be on chemotherapy with Dr. Balderas with Erbitux and area no taken. However, the last time she was seen was in April,. I have advised her to see Dr. Balderas soon. There may to be a conversation about her options moving forward with regards to chemotherapy versus palliative care or hospice in view of the advancing cancer I will send her a prescription for pain medications as she describes pain in the anus. She had been thinking that this was from her hemorrhoids. I explained to her that no surgical intervention will be beneficial to her at this time I had a long discussion with her and her son with regards to the above. Her son says that he will help her with calling the office of Dr. Balderas for a follow-up. Coding Level of Care Code Est Pt Level 4 (35704) Diagnoses Rectal carcinoma C20
[2024-06-11 14:38] VITALS: BMI 19.7
== END 2024-06-11 14:53 | disposition home or self-care (01) ==
PROVIDERS: PCP Internal Medicine; Visit Provider Surgery
DX: C20 Malignant neoplasm of rectum (principal)
CPT/HCPCS: 99214

== ENCOUNTER → 2024-06-11 14:24 | Outpatient (BNVA) | payer MEDICARE, OTHER, SELFPAY | PROVIDERS: PCP Internal Medicine; Visit Provider Surgery | DX: C20 Malignant neoplasm of rectum (principal) | CPT/HCPCS: 99212 ==

== ENCOUNTER 2025-02-11 11:00 | Inpatient (IN) | payer MEDICARE, OTHER, SELFPAY ==
[2025-02-11] VITALS (8 sets, daily range): BP systolic 114–138; BP diastolic 52–70; PULSE 70–81; RESP 15–20; TEMP 36.4–36.8; O2SAT 86–100; BMI 16.2
--- NOTE | ~2025-02-11 | CT_ITS ---
CLINICAL HISTORY: syncope CT Brain without contrast Comparison: None FINDINGS: Cortical sulci: There is diffuse prominence of the cortical sulci compatible with age-related atrophy. Ventricles: Normal for age Brain parenchyma: There is patchy lucency throughout the deep white matter indicating chronic microvascular leukomalacia. Extra axial spaces: Normal Posterior Fossa: Normal Extracranial soft tissues: Normal Additional abnormality: There is enlargement of the sella turcica with empty sella. IMPRESSION: Age-related atrophy with chronic microvascular leukomalacia. No hemorrhage, mass effect, or acute findings identified. Enlargement of the sella turcica with empty sella. Further evaluation by MRI as indicated. This document has been electronically signed by: Rachid Venegas MD on 02/11/2025 17:41:03
--- NOTE | ~2025-02-11 | CT_ITS ---
EXAMINATION: CT CHEST WITH CONTRAST CLINICAL INFORMATION: Syncope. COMPARISON: CT chest 10/21/2023. CT guided lung biopsy right side, 10/30/2023. Chest x-ray 10/30/2023. TECHNIQUE: Multidetector volumetric CT imaging of the chest was obtained after the administration of 85 mL of Omnipaque 350 intravenous contrast without immediate adverse reactions. Axial MIP volume rendering provided. Sagittal and coronal reformatted images were obtained. This CT examination was performed using dose optimization techniques as appropriate, variously including the following: *Automated exposure control *Adjustment of mA and/or kV according to patient size (this includes techniques or standardized protocols for targeted exams where dose is matched to indication/reason for exam; i.e. extremities or head) *Use of iterative reconstruction technique FINDINGS: LUNGS: There is a spiculated confluent lung mass in the superior segment of the right lower lobe abutting the posterior pleura, with possible pleural invasion, measuring 2.4 x 3.9 x 2.7 cm ( AP, TRV, CC) (series 15, image 63). Previously this measured 1.4 cm on 10/21/2023. New Irregular pulmonary nodule in the anterior left apex measuring 1.1 x 0.5 cm (series 15, image 12). New Small spiculated nodule in the subpleural left upper lobe measuring 7 mm in diameter (series 15, image 50). New lingular segment, spiculated 7 mm nodule (series 15, image 56). New left upper lobe, there is a 7 mm spiculated nodule (series 15, image 35). Slightly more laterally on the same image in the subpleural right upper lobe there is a new 3 mm nodule. There is a new 4 mm nodule in the anteroinferior left upper lobe (series 15, image 46). New Nodule abutting the minor fissure within the superior right middle lobe (series 10, image 63, measuring 9 x 4 mm. New Subpleural 6 mm irregular nodule anterior right lower lobe (series 15, image 82). New Pleural-based abnormal irregular nodule in the inferolateral right middle lobe, abutting the minor fissure, measuring 1.6 x 0.8 cm (series 15, image 91). New 6 mm nodule in the lateral right lower lobe (series 15, image 99). There is moderate centrilobular emphysema present with upper lobe predominance. There is diffuse bronchiectasis, with bronchial wall thickening most notable in the lower lobe distributions. There is no pleural effusion or pneumothorax. There is gravity dependent subpleural atelectasis in both lower lobes, as well as the lingula. MEDIASTINUM: Diffuse thickening and edema of the esophageal wall, most likely representing esophagitis. There are subcentimeter prevascular and subcarinal lymph nodes, measuring up to 9 mm. There is a 1.3 x 0.8 cm right hilar lymph node. The heart size is normal. There is no pericardial effusion. The aorta is mildly calcified but normal in caliber. There is no aneurysm. The main pulmonary artery is enlarged suggesting pulmonary arterial hypertension. Thyroid is diminutive and atrophic appearing. Right chest port in place, with tip terminating in the cavoatrial junction. PLEURA: There is no pleural effusion. No pleural mass or thickening. AXILLA: No lymphadenopathy. UPPER ABDOMEN: Refer to the dedicated CT abdomen and pelvis for details. OSSEOUS STRUCTURES: No suspicious lytic or blastic bone lesion. Healed or healing fracture of the left ninth rib. CT/CT chest w IV con IMPRESSION: 1. Enlarging dominant spiculated pulmonary nodule in the superior segment right lower lobe, with likely pleural invasion, measuring 2.4 x 3.5 x 2.7 cm currently, previously measuring 1.4 cm. 2. Numerous additional new small spiculated nodules in both lungs, consistent with metastases. 3. Subcentimeter right hilar and mediastinal lymph nodes. No pathologic lymphadenopathy noted. 4. Moderate to severe centrilobular emphysema with upper lobe predominance. 5. Lungs otherwise clear without definite pneumonia present. 6. Diffuse wall thickening and edema of the esophagus throughout its course, suggesting esophagitis. This could be treatment related, or related to other etiologies. 7. Right chest port in place with tip terminating in the distal SVC. Electronically signed by: Buzz Abdi MD 02/11/2025 03:19 PM EDT
--- NOTE | ~2025-02-11 | CT_ITS ---
CLINICAL HISTORY: abdominal pain CT abdomen and pelvis with contrast Comparison: None Findings: Emphysema. 7 mm right lower lobe pulmonary nodule. There are multiple liver cysts. Multiple hypodense lesions of the liver: 1.6 cm in the left liver lobe series 16, image 18. There is dilation of the biliary duct. The hepatic and portal veins are patent. Cholecystectomy. Pancreas, spleen and adrenals are normal in appearance. No suspicious focal lesion of the kidneys. There are renal cysts. No hydronephrosis or calculi. The abdominal aorta demonstrates no evidence of aneurysmal dilatation or dissection. Atherosclerosis calcification of the abdominal aorta. No evidence of bowel obstruction. Appendix is not visualized. There is bowel wall thickening of the descending and sigmoid colon. Additional wall thickening of the rectum and anus with contrast enhancement. The pelvic organs are within normal limits. Small pelvic free fluid. There are enlarged bilateral inguinal lymph nodes: 1.6 x 1.8 cm on the right. There are no osseous or soft tissue abnormalities. IMPRESSION: 7 mm pulmonary nodule of the right lower lobe. Multiple hypodense lesions of the liver. Liver metastasis can not be excluded. Correlation with MRI findings as indicated. There is bowel wall thickening of the rectum and anus with contrast enhancement. Neoplasm can not be excluded. Bowel wall thickening of the descending and sigmoid colon could represent colitis. Enlarged inguinal lymph node. Additional findings as above. This document has been electronically signed by: Rachid Venegas MD on 02/11/2025 17:56:00
--- NOTE | 2025-02-11 11:30 | ED.SYNCOPE ---
HPI - Syncope General Chief Complaint: Fall Stated Complaint: SYNCOPE W/FALL T-1,ABD PAIN,H/O STOMACH CA PER EMS Time Seen by Provider: 02/11/25 11:25 Source: patient and EMS Mode of arrival: EMS Limitations: no limitations History of Present Illness ED Provider: HPI narrative: This is a 80-year-old woman with history of rectal cancer, was under treatment by Oncology for chemo and radiation therapy, states no more therapy indicated for her has not had it in the past 3 months, constant loose stools going on for months, yesterday passed out, denied head injury, refused cervical collar, denies neck pain, presented with vomiting and covered in feces. Complaining of abdominal pain. Related Data Home Medications ?Medication ?Instructions ?Recorded ?Confirmed acetaminophen 325 mg tablet 650 mg PO QID PRN Pain 06/04/22 10/16/24 (Tylenol) polyethylene glycol 3350 17 17 g PO DAILY PRN Constipation 09/17/22 10/16/24 gram/dose oral powder (Miralax) Previous Rx's ?Medication ?Instructions ?Recorded cane #1 ea 08/06/23 sennosides 8.6 mg tablet (Senokot) 8.6 mg PO BID #60 tabs 07/21/24 morphine 60 mg tablet,extended 60 mg PO Q8H #45 tabs 02/04/25 release oxycodone 20 mg tablet 20 mg PO Q8H PRN Severe Pain 02/08/25 (Scale Score 7-10) #60 tabs Allergies Allergy/AdvReac Type Severity Reaction Status Date / Time codeine [CODEINE] Allergy Severe passed out Verified 02/11/25 11:49 cefuroxime AdvReac Intermediate Abdominal Verified 02/11/25 11:49 Pain Review of Systems Constitutional: Constitutional: Reports as per HPI FOR[facility]LY [facility] Past Medical History Medical History Anal pain Diverticulitis Rectal carcinoma Moderate malnutrition Bloody stools Heart murmur Surgical History History of surgery History of tubal ligation Gallbladder calculus Family History Family History Father No problems noted. Mother No problems noted. Other No family history of cancer Social History Social History Household Members: None Housing: House Are you a primary healthcare technician to a significant other at home: No Do you presently have visiting nurse or other home services: No Alcohol intake: never Comment: burning Patient Tobacco Use Status: Tobacco use Unknown Tobacco use type: Cigarette Cigarettes Per Day: 8 e-Cigarette/Vaping Use: Never Used Second Hand Smoke Exposure: No Advance Directives Date on File: 08/20/22 service: No Current occupational status: retired Cognitive needs: No Hearing needs: No Vision needs: Yes Physical Exam Vital Signs: Vital Signs: Last Vital Signs Temp 97.5 F 02/11/25 11:44 Pulse 71 02/11/25 11:44 Resp 16 02/11/25 11:44 BP 131/61 02/11/25 11:44 Pulse Ox 93 02/11/25 11:44 O2 Del Method Room Air 02/11/25 11:44 BMI result Body Mass Index 16.2 Const: Other: Gen: ?Chronically ill-appearing, disheveled, no facial trauma, no head trauma HEENT: Dry oral mucosa, no scleral icterus Neck: Supple, no LAD CV: Regular pulse, no obvious murmurs, right-sided port Resp: ?No wheezing rales rhonchi no stridor moving air well Abd: ?Tender throughout her abdomen, with voluntary guarding, rectal area with cauliflower growth, erythema MSK: FROM, strength 5/5 all extremities Skin: Warm, dry, intact, Neuro: ?Alert and oriented x3, moving upper and lower extremities symmetrically, no obvious facial asymmetry noted Medications Administered Discontinued Medications Generic Name Dose Route Start Last Admin Trade Name Tyq PRN Reason Stop Dose Admin Al Hydroxide/Mg Hydroxide 30 ml 02/11/25 11:30 02/11/25 12:53 Magnesium Hydrox/Alum Hydrox 30 Ml Oral.Susp PO 02/11/25 11:31 Not Given ONCE ONE Famotidine 20 mg 02/11/25 11:30 02/11/25 12:08 Famotidine/Pf 20 Mg/2 Ml Vial IVPUSH 02/11/25 11:31 20 mg ONCE ONE Administration Sodium Chloride 1,000 mls @ 999 mls/hr 02/11/25 11:30 02/11/25 12:03 Ns IV 02/11/25 12:30 999 mls/hr .Q1H1M SHAHRZAD Administration Midazolam HCl 1 mg 02/11/25 11:35 02/11/25 12:07 Midazolam Hcl 2 Mg/2 Ml Vial IVPUSH 02/11/25 11:36 1 mg ONCE ONE Administration Ondansetron HCl 4 mg 02/11/25 11:30 02/11/25 12:06 Ondansetron Hcl 4 Mg/2 Ml Vial IVPUSH 02/11/25 11:31 4 mg ONCE ONE Administration Medical Decision Making Medical Decision Making [facility] Narrative: 11:36 patient evaluated presenting with most likely suspicion dehydration she has had loose stools for the past few months since her last chemotherapy and radiation treatment, presented with vomiting, covered in feces,. We will check for C diff, dehydration electrolytes all the differential listed below, ultimately I feel that she will need to be admitted for dehydration, weakness, at least at the time of my initial evaluation do not suspect that this is related to infectious etiology but we will check blood cultures and we will be ready to cover with fluids and antibiotics as needed. Patient's leukocytosis is 30.9 with left shift, we will give additional fluids and cover with antibiotics, also send patient's information to Dr. Hickman from Oncology just to find out if patient has been on Neupogen the, but we will continue with septic workup. She does not have lactate elevation, has had no fevers, and thus far did not meet septic criteria accept that she is at high risk. 13:14 Dr. Hickman stated that she had not had treatment for months she is hospice appropriate, on exam the patient has obvious significant cough our growth consistent with HPV infection, but also some surrounding erythema so that may be the source of her infection, we will cover with vancomycin as well. Differential Diagnosis Differential Diagnoses: The differential diagnosis associated with the presentation includes C diff colitis, SBO, bowel perforation, dehydration, electrolyte derangements, PE, ACS, Admission/Observation Consideration of admission/observation: Escalation of care including admission/observation considered Lab Data 02/11/25 12:15 02/11/25 12:15 Labs: Lab Results 02/11/25 02/11/25 Range/Units 12:15 12:22 WBC 30.2 H* (4.8-10.8) X10*3/uL RBC 4.02 L (4.20-5.50) X10*6/uL Hgb 8.8 L (12.0-16.0) g/dl Hct 29.0 L (37.0-47.0) % MCV 72.1 L (80.0-98.0) fL MCH 21.9 L (27.0-33.0) pg MCHC 30.3 L (31.0-35.0) g/dl RDW 17.8 H (11.0-16.0) % Plt Count 505 H (160-400) X10*3/uL MPV 10.3 (9.4-12.3) fL Immature Gran % (Auto) 0.8 H (0.0-0.4) % Neut % (Auto) 92.8 H (45-73) % Lymph % (Auto) 1.6 L (20-40) % [place] % (Auto) 4.2 (2-11) % Eos % (Auto) 0.4 (0-4) % Baso % (Auto) 0.2 (0-2) % Lymph # (Auto) 0.5 L (1.2-4.9) X10*3/uL [place] # (Auto) 1.3 H (0.1-1.2) X10*3/uL Eos # (Auto) 0.1 (0.0-0.4) X10*3/uL Baso # (Auto) 0.1 (0.0-0.2) X10*3/uL Abs Immat Gran (auto) 0.24 H (0.00-0.03) X10*3/uL Absolute Neuts (auto) 28.1 H (2.0-8.3) x10*3/uL Absolute Nucleated RBC 0.000 (0.0-0.012) X10*3/uL Nucleated RBC % (auto) 0.0 (0.0-0.2) /100WBC Smear Tech's Comments VERIFIED VBG pH 7.44 H (7.32-7.43) VBG pCO2 42 mmHg VBG pO2 44 mmHg VBG HCO3 29 H (22-26) mmol/L VBG O2 Saturation 63.0 % VBG Base Excess 4.8 mmol/L Sodium 140 (135-145) mmol/L Potassium 3.8 (3.3-5.1) mmol/L Chloride 107 (96-108) mmol/L Carbon Dioxide 28 (22-29) mmol/L Anion Gap 9 L (12-20) BUN 30 H (9-16) mg/dL Creatinine 0.71 (0.5-1.4) mg/dL Estim Creat Clear Calc 41.4 Estimated GFR > 60 Random Glucose 129 H (60-115) mg/dL Lactic Acid 1.2 (0.5-2.0) mmol/L Calcium 9.2 D (8.4-10.2) mg/dL Magnesium 2.0 (1.6-2.6) mg/dL Total Bilirubin 0.2 (0.0-1.0) mg/dL AST 22 (5-31) U/L ALT < 6 (0-31) U/L Alkaline Phosphatase 87 (39-117) U/L Total Creatine Kinase 26 (26-140) U/L Troponin I High Sens < 2.7 (<3.5-17.0) ng/L Total Protein 6.1 L (6.5-8.0) g/dL Albumin 3.0 L (3.5-5.0) g/dL Lipase < 4 L (8-78) U/L Influenza Type A (PCR) NEGATIVE (Negative) Influenza Type B (PCR) NEGATIVE (Negative) RSV RNA Qual (PCR) NEGATIVE (Negative) SARS-CoV-2 RNA (RT-PCR) NEGATIVE (Negative) Discharge Plan Discharge Clinical Impression: Rectal carcinoma, Anal pain, Rectal mass, Cellulitis and abscess of buttock Prescriptions: No Action acetaminophen [Tylenol] 325 mg Tablet 650 mg PO QID PRN (Reason: Pain) polyethylene glycol 3350 [Miralax] 17 gram/dose powder 17 g PO DAILY PRN (Reason: Constipation) (DME) cane Device Qty: 1 0RF Rx Instructions: As Directed sennosides [Senokot] 8.6 mg Tablet 8.6 mg PO BID Qty: 60 3RF morphine 60 mg Tablet Extended Release 60 mg PO Q8H Qty: 45 0RF Rx Instructions: Partial Fill upon patient request. oxycodone 20 mg Tablet 20 mg PO Q8H PRN (Reason: Severe Pain (Scale Score 7-10)) Qty: 60 0RF Rx Instructions: Partial Fill upon patient request. Print Language: Luxembourgish
--- NOTE | 2025-02-11 11:59 | PC.NURSE ---
Right chest port access with 20g, 3/4 terrazas needle. Access originally gave blood return but after several attempts to draw back/obtain labs, no blood return. No edema noted to site, pt denies pain.
[2025-02-11] MEDS: 0.9 % Sodium Chloride 1,000 ML 999 ML IV (12:03)
[2025-02-11] MEDS: ondansetron HCL 4 MG/2 ML VIAL IVPUSH (12:06)
[2025-02-11] MEDS: Midazolam HCl 2 MG/2 ML VIAL 1 MG IVPUSH (12:07)
[2025-02-11] MEDS: Famotidine/PF 20 MG/2 ML VIAL IVPUSH (12:08)
[2025-02-11 12:23] LABS: Venous Blood Gas Refer to POC result
[2025-02-11 12:24] LABS: Basophils Absolute Auto 0.1 X10*3/uL (0.0-0.2); Basophils Percent Auto 0.2 % (0-2); Eosinophils Absolute Auto 0.1 X10*3/uL (0.0-0.4); Eosinophils Percent Auto 0.4 % (0-4); Hemoglobin 8.8 g/dl (12.0-16.0); Imm Gran Abs Auto 0.24 X10*3/uL (0.00-0.03); Imm Gran Pct Auto 0.8 % (0.0-0.4); Lymphocytes Absolute Auto 0.5 X10*3/uL (1.2-4.9); Lymphocytes Percent Auto 1.6 % (20-40); MANUAL DIFF FLAG SCAN; Mean Corpuscular HGB Conc 30.3 g/dl (31.0-35.0); Mean Corpuscular Hemoglobin 21.9 pg (27.0-33.0); Mean Corpuscular Volume 72.1 fL (80.0-98.0); Mean Platelet Volume 10.3 fL (9.4-12.3); Monocytes Absolute Auto 1.3 X10*3/uL (0.1-1.2); Monocytes Percent Auto 4.2 % (2-11); Neutrophils Absolute Auto 28.1 x10*3/uL (2.0-8.3); Neutrophils Percent Auto 92.8 % (45-73); Platelet Count 505 X10*3/uL (160-400); Red Blood Count 4.02 X10*6/uL (4.20-5.50); Red Cell Distribution Width 17.8 % (11.0-16.0); SCAN SMEAR FLAG 1
[2025-02-11 12:25] LABS: VBG Base Excess 4.8 mmol/L; VBG HCO3 29 mmol/L (22-26); VBG pCO2 42 mmHg; VBG pH 7.44 (7.32-7.43); VBG pO2 44 mmHg
[2025-02-11 12:34] LABS: White Blood Count 30.2 X10*3/uL (4.8-10.8)
[2025-02-11 12:42] LABS: Lactic Acid 1.2 mmol/L (0.5-2.0)
[2025-02-11 12:43] LABS: SLIDE REVIEW VERIFIED
[2025-02-11 12:45] LABS: Alanine Aminotransferase < 6 U/L (0-31); Alkaline Phosphatase 87 U/L (39-117); Anion Gap 9 (12-20); Aspartate Amino Transferase 22 U/L (5-31); Bilirubin Total 0.2 mg/dL (0.0-1.0); Blood Urea Nitrogen 30 mg/dL (9-16); Calcium 9.2 mg/dL (8.4-10.2); Carbon Dioxide 28 mmol/L (22-29); Chloride 107 mmol/L (96-108); Creatinine Clr Calc Pharmacy 41.4; Estimated Glomerular Filt Rate > 60; Glucose Random 129 mg/dL (60-115); Lipase < 4 U/L (8-78); Potassium 3.8 mmol/L (3.3-5.1); Sodium 140 mmol/L (135-145); Total Protein 6.1 g/dL (6.5-8.0); Troponin-I High Sensitivity < 2.7 ng/L (<3.5-17.0)
[2025-02-11] MEDS: Lactated Ringers 1,000 ML 1000 ML IV (13:00)
[2025-02-11] MEDS: Piperacillin Sodium/Tazobactam 3.375 GM in 0.9 % Sodium Chloride 50 ML IV (13:01)
[2025-02-11 13:04] LABS: Influenza A PCR NEGATIVE (Negative); Influenza B PCR NEGATIVE (Negative); Resp Syncy Virus RNA Qual PCR NEGATIVE (Negative); SARS COV2 PCR INHOUSE NEGATIVE (Negative)
--- NOTE | 2025-02-11 13:22 | PC.NURSE ---
Pt incontinent of a large amount of liquid jones stool. Pt's rectum noted to have cauliflower like appearnace with ulceration/bleeding, MD Glover called to bedside to view. Patria care/linens changed, stool sample obtained/sent. Pt straight cathed for urine sample. Tolerated well.
[2025-02-11 13:28] LABS: Appearance Urine Clear; Color Urine Dark Yellow; Glucose Urine UA Negative (Negative); Leukocyte Esterase Urine Trace (Negative); Nitrite Urine Negative (Negative); Specific Gravity - Urine >= 1.030 (1.005-1.025); UMIC TRIGGER UACC YES; Urine Blood Negative (Negative); Urine Ketones Trace mg/dL (Negative); Urine Protein 30 (1+) mg/dL (Neg-Trace)
[2025-02-11 13:34] LABS: Bacteria Urine None Seen (None Seen); Calcium Oxalate Crystals Urine Present; RBC Urine 0-2 /HPF (0-2); Squamous Epithelial Cell Urine 0-2 /HPF (0-2); WBC Urine 0-5 /HPF (0-5)
[2025-02-11] MEDS: vancomycin HCL 1,000 MG in 0.9 % Sodium Chloride 250 ML 270 MG IV (13:51)
[2025-02-11] MEDS: iohexoL 350 MG/ML 100 ML INFUS..BTL IV (14:52)
--- NOTE | 2025-02-11 16:01 | P.HPHOSP_ITS ---
History of Present Illness Date of Service: 02/11/25 Attending physician on admission: [facility] Chief Complaint: Fall at home Pt is a 80-year-old female with a PMH significant for?metastatic rectal cancer s/p chemo and radiation therapy, follows with Dr. Hickman in oncology who presents to the ED with generalized weakness, diarrhea, and syncopal episode with fall at home. Pt is overall a poor and vague historian. Lives with her son and grandson who is disabled. Pt reports last night she got up to use the bathroom and when she came out she felt lightheaded, dizzy, and weak, passing out and falling to the floor. Called out to her son but was unable to rouse him. Pt reports has been having mild abdominal pain, cramping, and diarrhea with the past few days. Was incontinent of stool with diarrhea while lying on the floor. Pt unsure if she has eaten any suspicious foods. Also experiencing some nausea and vomiting, but unclear for how long or how many episodes of vomiting. Complains of rectal pain that has been ongoing for some time, as well as difficulty breathing and chronic cough. Pt reports has been getting increasingly weak and unable to stand or ambulate at home. Pt is worried that neither she nor her son can take care of her at home any longer. Denies fever or chills. ? In the ED pt was afebrile and vital signs stable and WNL. Labs were significant for testing positive for norovirus, leukocytosis 30.2, and H&H 8.8/29.0. No significant electrolyte abnormalities. Renal function WNL, though worsened from 10/16/2024. Tested negative for flu, COVID, RSV. CT?of head with age-related atrophy and chronic microvascular leukomalacia, though no hemorrhage, mass effect, or acute findings. CTA of chest showing enlarging dominant spiculated pulmonary nodule in right lower lobe with likely pleural invasion. Also found numerous additional new small spiculated nodules in both lungs consistent with metastasis. CTA of abdomen/pelvis showed multiple hypodense lesions in the liver consistent with possible metastasis. Also found bowel wall thickening of rectum and anus as well as bowel wall thickening of the ascending and sigmoid call on possibly representing colitis. Pt was treated in the ED with IVF, midazolam, ondansetron, famotidine, Zosyn, and vancomycin. Pt is admitted to the hospital for treatment and further evaluation of generalized weakness, intractable diarrhea, and failure to thrive in the setting of norovirus infection and worsening metastatic rectal cancer. Review of Systems 2 Review of Systems: Negative except for that which is stated in the HPI. [facility] Medical History Anal pain Diverticulitis Rectal carcinoma Moderate malnutrition Bloody stools Heart murmur Family History Father No problems noted. Mother No problems noted. Other No family history of cancer Surgical History History of surgery History of tubal ligation Gallbladder calculus Social History Household Members: Children Housing: House Are you a primary associate director career services to a significant other at home: No Do you presently have visiting nurse or other home services: No Alcohol intake: never Comment: burning Patient Tobacco Use Status: Former Tobacco user Tobacco use type: Cigarette Cigarettes Per Day: 8 e-Cigarette/Vaping Use: Never Used Second Hand Smoke Exposure: No Currently Displaying Signs/Symptoms of Drug Intoxication Withdrawal: No Have you been hit, kicked, punched, or otherwise hurt by someone within the past year? If so, by whom?: No Advance Directives: Yes Advance Directives on File: Yes Advance Directives Date on File: 08/20/22 Recently lost weight without trying: Yes How much weight loss: Unsure Eating poorly because of decreased appetite: No Nutrition screen score: 4 Patient : No service: No Current occupational status: retired Cognitive needs: No Hearing needs: No Vision needs: Yes Meds Allergies Allergy/AdvReac Type Severity Reaction Status Date / Time codeine [CODEINE] Allergy Severe passed out Verified 02/11/25 11:49 cefuroxime AdvReac Intermediate Abdominal Verified 02/11/25 11:49 Pain Active Medications: Current Medications Lactated Ringer's (Lr) 1,000 mls @ 0 mls/hr IV .Q0M SHAHRZAD Last Admin: 02/11/25 13:00 Dose: 1,000 mls/hr Home Medications ?Medication ?Instructions ?Recorded ?Confirmed ?Last Taken ?Type acetaminophen 325 mg tablet 650 mg PO QID PRN Pain 06/04/22 02/11/25 Unknown History (Tylenol) Physical Exam 2 Vital Signs and Narrative: Vital Signs: Last Vital Signs Temp 97.5 F 02/11/25 11:44 Pulse 70 02/11/25 14:33 Resp 18 02/11/25 14:33 BP 138/61 02/11/25 14:33 Pulse Ox 100 02/11/25 14:33 O2 Del Method Room Air 02/11/25 14:33 BMI result Body Mass Index 16.2 General: AOx3, unkempt, appears chronically ill, in no acute distress Resp: CTA bilaterally CVS: S1, S2, RRR GI: +BS, no distention, diffuse abd tenderness Skin: Warm, dry Neuro: Cranial nerves II-XII grossly intact bilaterally. Motor grossly intact bilaterally Extremities: No edema Psych: Appropriate affect Results Labs 02/12/25 08:34 02/11/25 12:15 Labs: Laboratory Results - last 24 hr 02/11/25 02/11/25 02/11/25 12:15 12:22 13:19 MCV 72.1 L MCH 21.9 L MCHC 30.3 L RDW 17.8 H Plt Count 505 H MPV 10.3 Immature Gran % (Auto) 0.8 H Neut % (Auto) 92.8 H Lymph % (Auto) 1.6 L Lamar % (Auto) 4.2 Eos % (Auto) 0.4 Baso % (Auto) 0.2 Lymph # (Auto) 0.5 L Lamar # (Auto) 1.3 H Eos # (Auto) 0.1 Baso # (Auto) 0.1 Abs Immat Gran (auto) 0.24 H Absolute Neuts (auto) 28.1 H Absolute Nucleated RBC 0.000 Nucleated RBC % (auto) 0.0 Smear Tech's Comments VERIFIED VBG pH 7.44 H VBG pCO2 42 VBG pO2 44 VBG HCO3 29 H VBG O2 Saturation 63.0 VBG Base Excess 4.8 Anion Gap 9 L Estim Creat Clear Calc 41.4 Estimated GFR > 60 Random Glucose 129 H Lactic Acid 1.2 Calcium 9.2 D Magnesium 2.0 Total Bilirubin 0.2 AST 22 ALT < 6 Alkaline Phosphatase 87 Total Creatine Kinase 26 Troponin I High Sens < 2.7 Total Protein 6.1 L Albumin 3.0 L Lipase < 4 L Urine Color Dark Yellow Urine Appearance Clear Urine pH 5.0 Ur Specific [place] >= 1.030 H Urine Protein 30 (1+) H Urine Glucose (UA) Negative Urine Ketones Trace Urine Blood Negative Urine Nitrite Negative Ur Leukocyte Esterase Trace H Urine RBC 0-2 Urine WBC 0-5 Ur Squamous Epith Cells 0-2 Calcium Oxalate Crystal Present Urine Bacteria None Seen Hyaline Casts 3-5 Influenza Type A (PCR) NEGATIVE Influenza Type B (PCR) NEGATIVE RSV RNA Qual (PCR) NEGATIVE SARS-CoV-2 RNA (RT-PCR) NEGATIVE Imaging Radiologist's Impressions: Impressions Chest CT 02/11/25 12:58 IMPRESSION: 1. Enlarging dominant spiculated pulmonary nodule in the superior segment right lower lobe, with likely pleural invasion, measuring 2.4 x 3.5 x 2.7 cm currently, previously measuring 1.4 cm. 2. Numerous additional new small spiculated nodules in both lungs, consistent with metastases. 3. Subcentimeter right hilar and mediastinal lymph nodes. No pathologic lymphadenopathy noted. 4. Moderate to severe centrilobular emphysema with upper lobe predominance. 5. Lungs otherwise clear without definite pneumonia present. 6. Diffuse wall thickening and edema of the esophagus throughout its course, suggesting esophagitis. This could be treatment related, or related to other etiologies. 7. Right chest port in place with tip terminating in the distal SVC. Electronically signed by: Buzz Abdi MD 02/11/2025 03:19 PM EDT RP Assessment and Plan (1) Infection due to Norovirus species: Status: Acute Plan Pt is a 80-year-old female with a PMH significant for?metastatic rectal cancer s/p chemo and radiation therapy, follows with Dr. Hickman in oncology who presents to the ED with generalized weakness, diarrhea, and syncopal episode with fall at home. Pt is admitted to the hospital for treatment and further evaluation of generalized weakness, intractable diarrhea, and failure to thrive in the setting of norovirus infection and worsening metastatic rectal cancer. Generalized weakness in the setting of norovirus infection Pt with diarrhea and incontinence for the past few days Tested positive for norovirus Will treat with IVF and supportive care Check C diff for COVID infection Imodium p.r.n. if C diff negative PT consult Leukocytosis Pt with WBCs 30.2 at time of presentation Likely secondary to metastatic cancer, not sepsis Does not meet SIRS criteria, has acute viral infection Pt given empiric antibiotics in the ED, no need to continue Metastatic rectal cancer Follow up with Dr. Hickman, no longer on active chemo or radiation CT imaging showing likely new and worsening metastasis to lungs, liver Oncology consult for possible hospice recommendation Chronic pain Secondary to metastatic cancer Continue home morphine and oxycodone Full Code; pt wishes to remain full code for now Attending:?Dr. Jordan DVT Prophylaxis: Pneumatic compression due to worsening anemia Pt will require a hospitalization of at least two nights for treatment of?generalized weakness, intractable diarrhea, and failure to thrive in the setting of norovirus infection worsening metastatic rectal cancer. Given that neither pt nor her son is unable to take care of herself at home, will require hospital level care for treatment and monitoring generalized weakness and intractable diarrhea. Pt will require IVF and additional supportive care pending safe disposition home. Quality Stroke Does the patient have a stroke diagnosis?: No VTE Prior VTE?: No VTE Risk Level:: Medical - moderate - high VTE Device Contraindication: N/A - Device Ordered VTE Drug Contraindication: Treatment Not Indicated
--- OUTSIDE RECORDS SUMMARY | 2025-02-11 16:13 | XMS_ITS | Clinical Summary ---
Author Organization [facility] Address [address] [place] [address] Phone Care Team Providers Care Crossbar Frame Wirer Name Role Phone Charline Carlos MD Primary Care Provider [phone] Allergies Active Allergy Reactions Criticality Noted Date Comments Cefuroxime 07/29/2024 Codeine 07/29/2024 Medications polyethylene glycol (PEG) 17 gram/dose oral powder 17 g 1 (one) time each day. Active MORPHINE SULFATE ER PO Take 2 mg by mouth 1 (one) time each day. Active oxyCODONE (ROXICODONE) 10 mg immediate release tablet Take by mouth every 4 (four) hours if needed for severe pain. Active acetaminophen (TYLENOL 8 HOUR) 650 mg 8 hr tablet Take 1 tablet (650 mg total) by mouth every 8 (eight) hours if needed for mild pain. Do not crush, chew, or split. 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/HCC V24, CMS/HCC V28) Metastasis to liver (CMS/HCC V24, CMS/HCC V28) 1 10/04/2023 Malignant neoplasm of rectum (CMS/HCC V24, CMS/H CC V28) 07/29/2024 Cancer Staging:Clinical:Stage IVB(cT4a, cN2b, pM1b) - Signed by Fernando Reyna MD on 08/04/2024 History of diverticulitis 07/29/2024 History of cardiac murmur 07/29/2024 Social History Tobacco Use Types Packs/Day Years Used Date Smoking Tobacco: Never Assessed Comments Unknown Sex and Gender Information Value Date Recorded Sex Assigned at Not on file Legal Sex Female 3:44 PM EDT Gender Identity Not on file Sexual Orientation Not on file Plan of Treatment Health Maintenance Due Date Last Done Comments COVID-19 Vaccine (#1) 01/03/1950 DTaP,Tdap,and Td Vaccines (1 - Tdap) 1966 Pneumococcal Vaccine: 50+ Ye ars (1 of 2 - PCV) 1966 Zoster Vaccines (1 of 2) 1966 RSV Immunization Adult Patie nts (1 - 1-dose 75+ series) 2022 Depression Screening 07/01/2024 Falls Risk Assessment 07/01/2024 Hepatitis C Screening 07/01/2024 Medicare Annual Wellness Visit 07/01/2024 Osteoporosis Screening (Bone Density Screening) 07/01/2024 Social Influencers of Health Screening 07/01/2024 Influenza Vaccine (Season Ended) 2025 HIB Vaccines Aged Out No longer eligi ble based on patient's age to complete this topic HPV Vaccines Aged Out No longer eligi ble based on patient's age to complete this topic Hepatitis A Vaccines Aged Out No long er eligible based on patient's age to complete this topic Hepatitis B Vaccines Aged Out No long er eligible based on patient's age to complete this topic IPV Vaccines Aged Out No longer eligi ble based on patient's age to complete this topic MMR Vaccines Aged Out No longer eligi ble based on patient's age to complete this topic Meningococcal ACWY Vaccine Aged Out N o longer eligible based on patient's age to complete this topic Meningococcal B Vaccine Aged Out No l onger eligible based on patient's age to complete this topic RSV Immunization Patients Un margarita 20 months Aged Out No longer eligible b ased on patient's age to complete this topic Varicella Vaccines Aged Out No longer eligible based on patient's age to complete this topic Insurance MEDICARE MEDICAID - [place] Care Teams Crossbar Frame Wirer Relationship Specialty Start Date End Date Charline Carlos MD [address] [place] [address] PCP - General Internal Medicine 08/03/24
[2025-02-11 16:48] LABS: Adenovirus F 40/41 Not Detected (Not Detect.); Astrovirus Not Detected (Not Detect.); Campylobacter Not Detected (Not Detect.); Cryptosporidium Not Detected (Not Detect.); Cyclospora cayetanensis Not Detected (Not Detect.); E. coli EAEC Not Detected (Not Detect.); E. coli EPEC Not Detected (Not Detect.); E. coli ETEC Not Detected (Not Detect.); E. coli STEC Not Detected (Not Detect.); Entamoeba histolytica Not Detected (Not Detect.); Giardia lamblia Not Detected (Not Detect.); Plesiomonas shigelloides Not Detected (Not Detect.); Rotavirus A Not Detected (Not Detect.); Salmonella Not Detected (Not Detect.); Sapovirus Not Detected (Not Detect.); Shigella sp./EIEC Not Detected (Not Detect.); Vibrio Not Detected (Not Detect.); Vibrio Cholerae Not Detected (Not Detect.); Yersinia enterocolitica Not Detected (Not Detect.)
[2025-02-11 17:30] LABS: Norovirus GI/GII Detected (Not Detect.)
--- NOTE | 2025-02-11 17:30 | PHA.MEDREC ---
Addendum entered by Clayton Jimenez RPh 02/11/25 17:35: Reviewed by [facility] Original Note: Pharmacy Consult ? Medication Reconciliation Pharmacy has completed the medication reconciliation. Spoke with pt and she confirmed her medications. Pt not taking any constipation medications anymore due to it working too well for her.
--- NOTE | 2025-02-11 19:43 | PC.NURSE ---
Assumed care of this Pt at 1900.
[2025-02-11] MEDS: Lactated Ringers 1,000 ML 100 ML IVCONT (20:16)
[2025-02-11] MEDS: Morphine Sulfate ER 30 MG TABLET.ER 60 MG PO (23:09)
[2025-02-11] MEDS: Acetaminophen 325 MG TABLET 650 MG PO (23:17)
[2025-02-12] VITALS: BMI 19.4
[2025-02-12] MEDS: oxyCODONE HCl Immed Release 5 MG TABLET 20 MG PO ×2 (03:22→10:51)
[2025-02-12 03:25] VITALS: BP 123/62; PULSE 83; RESP 16; TEMP 36; O2SAT 94
[2025-02-12] MEDS: Morphine Sulfate ER 30 MG TABLET.ER 60 MG PO ×3 (06:17→20:31)
[2025-02-12 07:55] VITALS: BP 110/53; PULSE 82; RESP 16; TEMP 36.6; O2SAT 93
[2025-02-12] MEDS: 0.9 % Sodium Chloride Flush 3 ML SYRINGE IVFLUSH ×2 (07:56→20:35)
[2025-02-12 09:04] LABS: Hematocrit 22.9 % (37.0-47.0); Mean Corpuscular HGB Conc 30.6 g/dl (31.0-35.0); Mean Corpuscular Hemoglobin 21.9 pg (27.0-33.0); Mean Corpuscular Volume 71.6 fL (80.0-98.0); Platelet Count 390 X10*3/uL (160-400); Red Cell Distribution Width 17.7 % (11.0-16.0); White Blood Count 17.5 X10*3/uL (4.8-10.8)
--- NOTE | 2025-02-12 09:49 | P.PNIM_ITS ---
Subjective Subjective Date of Service: 02/12/25 Interval History: f/u diarrhe, norovirus less diarhea, complaint of pain Physical Exam 2 Vital Signs: Vital Signs: Last Vital Signs Temp 97.8 F 02/12/25 07:55 Pulse 82 02/12/25 07:55 Resp 16 02/12/25 07:55 BP 110/53 L 02/12/25 07:55 Pulse Ox 93 02/12/25 07:55 O2 Del Method Room Air 02/12/25 07:55 BMI result Body Mass Index 19.4 General: AOx3, unkempt, appears chronically ill, in no acute distress Resp: CTA bilaterally CVS: S1, S2, RRR GI: +BS, no distention, diffuse abd tenderness Skin: Warm, dry Neuro: Cranial nerves II-XII grossly intact bilaterally. Motor grossly intact bilaterally Extremities: No edema Psych: Appropriate affect Objective Data Active Medications Acetaminophen (Acetaminophen 325 Mg Tablet) 650 mg PO Q6H PRN PRN Reason: Pain, Mild 1-3,fever,headache Last Admin: 02/11/25 23:17 Dose: 650 mg Documented By: KAIT Calcium Carbonate (Calcium Carbonate 750 Mg Tab.Chew) 750 mg PO Q4H PRN PRN Reason: Heartburn Lactated Ringer's (Lr) 1,000 mls @ 0 mls/hr IV .Q0M [facility] Last Infusion: 02/11/25 18:56 Dose: Infused Documented By: FERNANDA Magnesium Hydroxide (Milk Of Magnesia 30 Ml Oral.Susp) 30 ml PO DAILY PRN PRN Reason: Constipation Melatonin (Melatonin 3 Mg Tablet) 6 mg PO BEDTIME PRN PRN Reason: Insomnia Morphine Sulfate (Morphine Sulfate Er 30 Mg Tablet.Er) 60 mg PO Q8H [facility] Last Admin: 02/12/25 06:17 Dose: 60 mg Documented By: KAIT Ondansetron HCl (Ondansetron Hcl 4 Mg/2 Ml Vial) 4 mg IVPUSH Q8H PRN PRN Reason: Nausea and Vomiting Oxycodone HCl (Oxycodone Hcl Immed Release 5 Mg Tablet) 20 mg PO Q8H PRN PRN Reason: Severe Pain (Scale Score 7-10) Last Admin: 02/12/25 03:22 Dose: 20 mg Documented By: HO.N-CONNO Sodium Chloride (0.9 % Sodium Chloride Flush 3 Ml Syringe) 3 ml IVFLUSH QSHIFT [facility] Last Admin: 02/12/25 07:56 Dose: 3 ml Documented By: THERESE Labs 02/12/25 08:34 02/11/25 12:15 Labs: Laboratory Results - last 24 hr 02/11/25 02/11/25 02/11/25 12:15 12:22 13:19 MCV 72.1 L MCH 21.9 L MCHC 30.3 L RDW 17.8 H Plt Count 505 H MPV 10.3 Immature Gran % (Auto) 0.8 H Neut % (Auto) 92.8 H Lymph % (Auto) 1.6 L [place] % (Auto) 4.2 Eos % (Auto) 0.4 Baso % (Auto) 0.2 Lymph # (Auto) 0.5 L [place] # (Auto) 1.3 H Eos # (Auto) 0.1 Baso # (Auto) 0.1 Abs Immat Gran (auto) 0.24 H Absolute Neuts (auto) 28.1 H Absolute Nucleated RBC 0.000 Nucleated RBC % (auto) 0.0 Smear Tech's Comments VERIFIED VBG pH 7.44 H VBG pCO2 42 VBG pO2 44 VBG HCO3 29 H VBG O2 Saturation 63.0 VBG Base Excess 4.8 Anion Gap 9 L Estim Creat Clear Calc 41.4 Estimated GFR > 60 Random Glucose 129 H Lactic Acid 1.2 Calcium 9.2 D Magnesium 2.0 Total Bilirubin 0.2 AST 22 ALT < 6 Alkaline Phosphatase 87 Total Creatine Kinase 26 Troponin I High Sens < 2.7 Total Protein 6.1 L Albumin 3.0 L Lipase < 4 L Urine Color Dark Yellow Urine Appearance Clear Urine pH 5.0 Ur Specific [place] >= 1.030 H Urine Protein 30 (1+) H Urine Glucose (UA) Negative Urine Ketones Trace Urine Blood Negative Urine Nitrite Negative Ur Leukocyte Esterase Trace H Urine RBC 0-2 Urine WBC 0-5 Ur Squamous Epith Cells 0-2 Calcium Oxalate Crystal Present Urine Bacteria None Seen Hyaline Casts 3-5 Stl C. cayetanensis PCR Not Detected Stool Rotavirus A PCR Not Detected Stl Adenov F 40/41 PCR Not Detected Stool Astrovirus (PCR) Not Detected Stool Campylobacter PCR Not Detected Stool Cryptosporidium PCR Not Detected Stl Sh Tox Pr E STEC PCR Not Detected Stool E coli O157 PCR Not applicable Stl Enterotoxigenic E PCR Not Detected Stool EPEC (PCR) Not Detected Stool EAEC (PCR) Not Detected Stl E. histolytica PCR Not Detected Stool Giardia Lamblia PCR Not Detected Stl P. shigelloides PCR Not Detected Stool Salmonella PCR Not Detected Stool Sapovirus (PCR) Not Detected Stl Shigella/EIEC PCR Not Detected St Y.enterocolitica PCR Not Detected Stool Vibrio (PCR) Not Detected Stl Vibrio cholerae PCR Not Detected Stl Norovirus GI/GII PCR Detected A Influenza Type A (PCR) NEGATIVE Influenza Type B (PCR) NEGATIVE RSV RNA Qual (PCR) NEGATIVE SARS-CoV-2 RNA (RT-PCR) NEGATIVE 02/12/25 08:34 MCV 71.6 L MCH 21.9 L MCHC 30.6 L RDW 17.7 H Plt Count 390 MPV 10.0 Immature Gran % (Auto) Neut % (Auto) Lymph % (Auto) [place] % (Auto) Eos % (Auto) Baso % (Auto) Lymph # (Auto) [place] # (Auto) Eos # (Auto) Baso # (Auto) Abs Immat Gran (auto) Absolute Neuts (auto) Absolute Nucleated RBC 0.000 Nucleated RBC % (auto) 0.0 Smear Tech's Comments VBG pH VBG pCO2 VBG pO2 VBG HCO3 VBG O2 Saturation VBG Base Excess Anion Gap Estim Creat Clear Calc Estimated GFR Random Glucose Lactic Acid Calcium Magnesium Total Bilirubin AST ALT Alkaline Phosphatase Total Creatine Kinase Troponin I High Sens Total Protein Albumin Lipase Urine Color Urine Appearance Urine pH Ur Specific [place] Urine Protein Urine Glucose (UA) Urine Ketones Urine Blood Urine Nitrite Ur Leukocyte Esterase Urine RBC Urine WBC Ur Squamous Epith Cells Calcium Oxalate Crystal Urine Bacteria Hyaline Casts Stl C. cayetanensis PCR Stool Rotavirus A PCR Stl Adenov F 40/41 PCR Stool Astrovirus (PCR) Stool Campylobacter PCR Stool Cryptosporidium PCR Stl Sh Tox Pr E STEC PCR Stool E coli O157 PCR Stl Enterotoxigenic E PCR Stool EPEC (PCR) Stool EAEC (PCR) Stl E. histolytica PCR Stool Giardia Lamblia PCR Stl P. shigelloides PCR Stool Salmonella PCR Stool Sapovirus (PCR) Stl Shigella/EIEC PCR St Y.enterocolitica PCR Stool Vibrio (PCR) Stl Vibrio cholerae PCR Stl Norovirus GI/GII PCR Influenza Type A (PCR) Influenza Type B (PCR) RSV RNA Qual (PCR) SARS-CoV-2 RNA (RT-PCR) Assessment and Plan (1) Infection due to Norovirus species: Status: Acute Plan Pt is a 80-year-old female with a PMH significant for?metastatic rectal cancer s/p chemo and radiation therapy, follows with Dr. Hickman in oncology who presents to the ED with generalized weakness, diarrhea, and syncopal episode with fall at home. Pt is admitted to the hospital for treatment and further evaluation of generalized weakness, intractable diarrhea, and failure to thrive in the setting of norovirus infection and worsening metastatic rectal cancer. Generalized weakness in the setting of norovirus infection Pt with diarrhea and incontinence for the past few days Tested positive for norovirus Will treat with IVF and supportive care Imodium p.r.n. PT consult Leukocytosis Pt with WBCs 30.2 at time of presentation, now 17 Likely secondary to metastatic cancer, not sepsis Does not meet SIRS criteria, has acute viral infection Pt given empiric antibiotics in the ED, no need to continue Metastatic rectal cancer Follow up with Dr. Hickman, no longer on active chemo or radiation CT imaging showing likely new and worsening metastasis to lungs, liver Oncology consult for possible hospice recommendation Chronic pain Secondary to metastatic cancer Continue home morphine and oxycodone Full Code; pt wishes to remain full code for now Attending:?Dr. Jordan DVT Prophylaxis: Pneumatic compression due to worsening anemia Pt will require a hospitalization of at least two nights for treatment of?generalized weakness, intractable diarrhea, and failure to thrive in the setting of norovirus infection worsening metastatic rectal cancer. Given that neither pt nor her son is unable to take care of herself at home, will require hospital level care for treatment and monitoring generalized weakness and intractable diarrhea. Pt will require IVF and additional supportive care pending safe disposition home. Quality Stroke Does the patient have a stroke diagnosis?: No VTE Prior VTE?: No VTE Risk Level:: Medical - moderate - high VTE Device Contraindication: N/A - Device Ordered VTE Drug Contraindication: Treatment Not Indicated
--- NOTE | 2025-02-12 09:51 | MHC.CM.PN ---
IMM delivered. Patient lives on the first floor of a home, son and grandson (who is disabled, dx CP) live in attic. At baseline patient is independent, assists w/ care of grandson. PCP Marilee Garcia MD HCP on file and verified. Followed by Dr. Hickman DP: Reports recent fall and weakness. Goal is STR, geographical preference to [place]. CM will continue to follow.
--- NOTE | 2025-02-12 09:59 | PM.HEMONCCN ---
Subjective - Subjective Chief complaint: Rectal pain Patient: known to practice within the last 3 years Consult date: 02/12/25 Primary Care Provider: Marilee Garcia MD Medical Summary: DIAGNOSIS: STAGE IV RECTAL CARCINOMA. THERAPY: FOLFOX PLUS BEVACIZUMAB. Started on 07/23. Had CYCLE 9, Day 1 on 04/08. Then took a month off treatment. She resume treatment on 05/20. She completed 13 cycles. Had cycle 14, day 1 on 10/09/23. Started on irinotecan on 11/20. Received a dose of Irinotecan/loading dose of Erbitux on 12/02. Subsequently refused the Erbitux. Had cycle 14 of irinotecan on 06/02 - 06/15. Declined cycle 15 on 06/16/24. Acquisition Specialist Utilized?: No - [place] Speaking HPI - Consult Narrative Reason for consult: Metastatic rectal cancer Narrative: Iveth Mora is a 80 year old female with PMH significant for?metastatic rectal cancer s/p chemo and radiation therapy, follows with Dr. Balderas who presents to the ED with generalized weakness, diarrhea, and syncopal episode with fall at home. Pt reports last night she got up to use the bathroom and when she came out she felt lightheaded, dizzy, and weak, passing out and falling to the floor. Called out to her son but was unable to rouse him. Pt reports has been having mild abdominal pain, cramping, and diarrhea with the past few days. Was incontinent of stool with diarrhea while lying on the floor. Pt unsure if she has eaten any suspicious foods. Also experiencing some nausea and vomiting, but unclear for how long or how many episodes of vomiting. Complains of rectal pain that has been ongoing for some time, as well as difficulty breathing and chronic cough. At?this time patient offers no complaints. Review of Systems - Constitutional Reports as per [facility] Medical History: Medical History (Last Reviewed 02/11/25 @ 19:48 by INDIRA Ortiz) Anal pain Bloody stools Diverticulitis Heart murmur Moderate malnutrition Rectal carcinoma Family History: Family History (Last Reviewed 02/11/25 @ 19:48 by NIDIRA Ortiz) Father No problems noted. Mother No problems noted. Other No family history of cancer Surgical History: Surgical History (Last Reviewed 02/11/25 @ 19:48 by INDIRA Ortiz) Gallbladder calculus History of surgery History of tubal ligation Social History: Social History (Last Reviewed 02/11/25 @ 19:48 by INDIRA Ortiz) Living Situation History: Household Members: Children Housing: House Are you a primary day care provider to a significant other at home: No Do you presently have visiting nurse or other home services: No Alcohol History Details: 1. How often do you have a drink containing alcohol?: a. Never AUDIT-C Alcohol total score: 0 Currently Displaying Signs/Symptoms of Alcohol Withdrawal: No Tobacco History: Patient Tobacco Use Status: Former Tobacco user Tobacco use type: Cigarette Smoking End Date: 02/07/25 e-Cigarette/Vaping Use: Never Used Second Hand Smoke Exposure: No Substance Use History: Currently Displaying Signs/Symptoms of Drug Intoxication Withdrawal: No Domestic Abuse History: Have you been hit, kicked, punched, or otherwise hurt by someone within the past year? If so, by whom?: No Advance Directives: Advance Directives: Yes Advance Directives on File: Yes Advance Directives Date on File: 08/20/22 Nutrition Assessment: Recently lost weight without trying: Yes How much weight loss: Unsure Eating poorly because of decreased appetite: No Nutrition screen score: 4 Patient : No Occupation Assessmet: service: No Current occupational status: retired Home Medications and Allergies Current Medications: Current Medications Acetaminophen (Acetaminophen 325 Mg Tablet) 650 mg PO Q6H PRN PRN Reason: Pain, Mild 1-3,fever,headache Last Admin: 02/11/25 23:17 Dose: 650 mg Calcium Carbonate (Calcium Carbonate 750 Mg Tab.Chew) 750 mg PO Q4H PRN PRN Reason: Heartburn Lactated Ringer's (Lr) 1,000 mls @ 0 mls/hr IV .Q0M [facility] Last Infusion: 02/11/25 18:56 Dose: Infused Magnesium Hydroxide (Milk Of Magnesia 30 Ml Oral.Susp) 30 ml PO DAILY PRN PRN Reason: Constipation Melatonin (Melatonin 3 Mg Tablet) 6 mg PO BEDTIME PRN PRN Reason: Insomnia Morphine Sulfate (Morphine Sulfate Er 30 Mg Tablet.Er) 60 mg PO Q8H [facility] Last Admin: 02/12/25 06:17 Dose: 60 mg Ondansetron HCl (Ondansetron Hcl 4 Mg/2 Ml Vial) 4 mg IVPUSH Q8H PRN PRN Reason: Nausea and Vomiting Oxycodone HCl (Oxycodone Hcl Immed Release 5 Mg Tablet) 20 mg PO Q8H PRN PRN Reason: Severe Pain (Scale Score 7-10) Last Admin: 02/12/25 03:22 Dose: 20 mg Sodium Chloride (0.9 % Sodium Chloride Flush 3 Ml Syringe) [address] [facility] Last Admin: 02/12/25 07:56 Dose: 3 ml Home Medications ?Medication ?Instructions ?Recorded ?Confirmed ?Type acetaminophen 325 mg tablet 650 mg PO QID PRN Pain 06/04/22 02/11/25 History (Tylenol) Allergies Allergy/AdvReac Type Severity Reaction Status Date / Time codeine [CODEINE] Allergy Severe passed out Verified 02/11/25 11:49 cefuroxime AdvReac Intermediate Abdominal Verified 02/11/25 11:49 Pain Physical Exam Vital signs: Vital Signs Temp 97.8 F 02/12/25 07:55 Pulse 82 02/12/25 07:55 Resp 16 02/12/25 07:55 BP 110/53 L 02/12/25 07:55 Pulse Ox 93 02/12/25 07:55 O2 Del Method Room Air 02/12/25 07:55 Intake & Output 02/11/25 02/12/25 02/12/25 18:59 06:59 18:59 Intake Total 2320 / 3438.333 1118.333 / 3438.333 Balance 2320 / 3438.333 1118.333 / 3438.333 Intake: Intake, Oral Amount 120 / 120 Intake, IV Amount 2320 / 3318.333 998.333 / 3318.333 0.9 % Sodium Chloride 1,000 ml 1000 / 1000 @ 999 mls/hr IV .Q1H1M [facility] Rx#: [id number] Lactated Ringers 1,000 ml @ 1000 / 1000 Wide Open IV .Q0M [facility] Rx#: [id number] Piperacillin Sodium/Tazobactam 50 / 50 3.375 gm In 0.9 % Sodium Chloride 50 ml @ 100 mls/hr IV ONCE ONE Rx#:[id number] vancomycin HCL 1,000 mg In 0.9 270 / 270 % Sodium Chloride 250 ml @ 270 mls/hr IV ONCE ONE Rx#: [id number] Lactated Ringers 1,000 ml @ 100 998.333 / 998.333 mls/hr IVCONT .Q10H [facility] Rx#: [id number] Other: Number of Incontinent Voids 1 Number of Bowel Movements 1 Urine Color Marisela Last Bowel Movement 02/11/25 02/12/25 Stool Incontinent Stool Amount Moderate Stool Color Dark Brown Stool Consistency Mushy Weight 40.2 kg 48.1 kg [place] Weight in Grams [id number] Weight 48.1 kg - Constitutional Present: no acute distress, chronically ill appearing - Routine HEENT Exam Head: Present: normal inspection Eye: Present: EOMI, PERRL - Routine Neck Exam Absent: lymphadenopathy - Routine Respiratory Exam Present: CTAB. Absent: wheezes - Routine Cardiovascular Exam Cardiovascular: Present: S1, S2 - Routine Abdominal Exam Present: soft Hem/Onc Consult Result - Labs CBC & Chem 7: 02/12/25 08:34 02/12/25 08:34 Labs: Short CBC 02/11/25 02/12/25 Range/Units 12:15 08:34 WBC 30.2 H* 17.5 H (4.8-10.8) X10*3/uL Hgb 8.8 L 7.0 L* D (12.0-16.0) g/dl Hct 29.0 L 22.9 L D (37.0-47.0) % Plt Count 505 H 390 (160-400) X10*3/uL BMP 02/11/25 12:15 Sodium 140 Potassium 3.8 Chloride 107 Carbon Dioxide 28 BUN 30 H Creatinine 0.71 Calcium 9.2 D Cardiac Enzymes 02/11/25 Range/Units 12:15 Total Creatine Kinase 26 (26-140) U/L Liver Function 02/11/25 Range/Units 12:15 Total Bilirubin 0.2 (0.0-1.0) mg/dL AST 22 (5-31) U/L ALT < 6 (0-31) U/L Alkaline Phosphatase 87 (39-117) U/L Albumin 3.0 L (3.5-5.0) g/dL Urine 02/11/25 Range/Units 13:19 Urine Color Dark Yellow Urine Appearance Clear Urine pH 5.0 (5.0-9.0) Ur Specific [place] >= 1.030 H (1.005-1.025) Urine Protein 30 (1+) H (Neg-Trace) mg/dL Urine Glucose (UA) Negative (Negative) mg/dL Assessment and Plan Patient Active problem list reviewed?: Yes (1) Rectal carcinoma Status: Chronic Assessment and plan: 1. This is a 80-year-old woman with stage IV rectal cancer who has been receiving palliative chemotherapy under the care of Dr. Balderas until 2023. She has not received any treatment since June of 2024. She has been on multiple rounds of palliative chemotherapy, last treatment was with irinotecan in May 2024. She was last seen by Dr. Balderas in October 2024. She underwent imaging in October and subsequently on this admission which shows enlarging spiculated pulmonary nodule in the right lower lobe with pleural invasion measuring 3.5 cm, previously 1.4 cm. Numerous additional nodules in both lungs consistent with metastasis. Multiple hypodense lesions of the liver, liver metastasis can not be excluded, bowel thickening of rectum and anus, neoplasm can not be excluded. During her last visit, patient was offered palliative therapy with Herceptin. But she refused it. Patient now states that she wants to keep receiving treatment for her cancer. Agree with PT evaluation for placement. She will have to follow up with her primary oncologist, Dr. Balderas after discharge to discuss resuming palliative treatment or going on hospice care. 2. Severe anemia. Probably iron-deficiency secondary to rectal bleeding. Transfuse 2 units PRBC. Thank you for the consultation. - Time Spent With Patient Time Spent with Patient (in minutes): 20
[2025-02-12 10:34] LABS: Anion Gap 8 (12-20); Blood Urea Nitrogen 15 mg/dL (9-16); Calcium 7.8 mg/dL (8.4-10.2); Carbon Dioxide 25 mmol/L (22-29); Chloride 108 mmol/L (96-108); Creatinine Clr Calc Pharmacy 66.4; Estimated Glomerular Filt Rate > 60; Glucose Random 80 mg/dL (60-115); Potassium 3.6 mmol/L (3.3-5.1); Sodium 137 mmol/L (135-145)
--- NOTE | 2025-02-12 11:58 | MHC.CLN ---
NUTRITION ROUTINE CONSULT. PATIENT CURRENTLY WITH NOROVIRUS. HAS METASTATIC RECTAL CANCER. REVIEW OF WEIGHT HX SHOWS WEIGHT ESSENTIALLY STABLE X ONE YEAR. NO NEW NUTRITION INTERVENTIONS AT THIS TIME.
[2025-02-12 13:24] LABS: Ferritin 131 ng/mL (10-250)
[2025-02-12 14:11] LABS: Iron < 7 mcg/dL (30-160); Percent Iron Saturation 6 % (15-50); Total Iron Binding Capacity 127 mcg/dL (228-428); Unsaturated Iron Binding 120 ug/dL
[2025-02-12 16:00] VITALS: BP 115/71; PULSE 89; RESP 18; TEMP 36.9; O2SAT 93
--- NOTE | 2025-02-12 18:04 | PC.NURSE ---
Daughter, Cathi and Granddaughter Preethi came and visited patient and discussed with nurse that patient has an interest in Hospice. They also discussed concern about current living situation and not being able to get the support and care she needs going forward at her current home situation and are interested in hospice care options outside of the home. Contact information if needed: Cathi [phone] and Preethi [phone].
[2025-02-12 19:27] VITALS: BP 124/62; PULSE 98; RESP 18; TEMP 36.3; O2SAT 92
[2025-02-12] MEDS: Acetaminophen 325 MG TABLET 650 MG PO (20:39)
[2025-02-13] VITALS (10 sets, daily range): BP systolic 90–154; BP diastolic 51–77; PULSE 75–91; RESP 16–18; TEMP 36.6–37.2; O2SAT 93–98
[2025-02-13] MEDS: Morphine Sulfate ER 30 MG TABLET.ER 60 MG PO ×3 (04:08→20:03)
[2025-02-13] MEDS: oxyCODONE HCl Immed Release 5 MG TABLET 20 MG PO (08:36)
[2025-02-13] MEDS: 0.9 % Sodium Chloride Flush 3 ML SYRINGE IVFLUSH ×3 (08:39→20:11)
--- NOTE | 2025-02-13 08:44 | HO.PM.IMPN ---
Subjective Subjective Date of Service: 02/13/25 Interval History: f/u diarrhe, norovirus less diarhea, complaint of pain in back not new 1/2 gram positve cocci in blood Physical Exam Vital Signs: Vital Signs: Last Vital Signs Temp 98 F 02/13/25 07:02 Pulse 87 02/13/25 07:02 Resp 16 02/13/25 07:02 BP 153/73 H 02/13/25 07:02 Pulse Ox 93 02/13/25 07:02 O2 Del Method Room Air 02/13/25 07:02 BMI result Body Mass Index 19.4 General: AOx3, unkempt, appears chronically ill, in no acute distress Resp: CTA bilaterally CVS: S1, S2, RRR GI: +BS, no distention, diffuse abd tenderness Skin: Warm, dry Neuro: Cranial nerves II-XII grossly intact bilaterally. Motor grossly intact bilaterally Extremities: No edema Psych: Appropriate affect Objective Data Active Medications Acetaminophen (Acetaminophen 325 Mg Tablet) 650 mg PO Q6H PRN PRN Reason: Pain, Mild 1-3,fever,headache Last Admin: 02/12/25 20:39 Dose: 650 mg Documented By: KAIT Calcium Carbonate (Calcium Carbonate 750 Mg Tab.Chew) 750 mg PO Q4H PRN PRN Reason: Heartburn Lactated Ringer's (Lr) 1,000 mls @ 0 mls/hr IV .Q0M [facility] Last Infusion: 02/11/25 18:56 Dose: Infused Documented By: FERNANDA Magnesium Hydroxide (Milk Of Magnesia 30 Ml Oral.Susp) 30 ml PO DAILY PRN PRN Reason: Constipation Melatonin (Melatonin 3 Mg Tablet) 6 mg PO BEDTIME PRN PRN Reason: Insomnia Morphine Sulfate (Morphine Sulfate Er 30 Mg Tablet.Er) 60 mg PO Q8H [facility] Last Admin: 02/13/25 04:08 Dose: 60 mg Documented By: KAIT Ondansetron HCl (Ondansetron Hcl 4 Mg/2 Ml Vial) 4 mg IVPUSH Q8H PRN PRN Reason: Nausea and Vomiting Oxycodone HCl (Oxycodone Hcl Immed Release 5 Mg Tablet) 20 mg PO Q8H PRN PRN Reason: Severe Pain (Scale Score 7-10) Last Admin: 02/13/25 08:36 Dose: 20 mg Documented By: BHAVANA Sodium Chloride (0.9 % Sodium Chloride Flush 3 Ml Syringe) 3 ml IVFLUSH QSHIFT [facility] Last Admin: 02/13/25 08:39 Dose: 3 ml Documented By: BHAVANA Labs 02/12/25 08:34 02/12/25 08:34 Labs: Laboratory Results - last 24 hr 02/12/25 02/12/25 08:34 21:50 MCV 71.6 L MCH 21.9 L MCHC 30.6 L RDW 17.7 H Plt Count 390 MPV 10.0 Absolute Nucleated RBC 0.000 Nucleated RBC % (auto) 0.0 Hold Purple Top SEE NOTE Anion Gap 8 L Estim Creat Clear Calc 66.4 Estimated GFR > 60 Random Glucose 80 Calcium 7.8 L D Iron < 7 L TIBC 127 L % Saturation 6 L Unsat Iron Binding 120 Ferritin 131 Hold Yellow Top See Note Blood Type AB Positive Antibody Screen NEGATIVE Crossmatch See Detail Microbiology Microbiology Results: Microbiology 02/11/25 12:15 Blood Culture - Preliminary Blood - Subclavian Prelim: GPC Gram Stain only 02/11/25 12:15 Blood Culture - Preliminary Blood - Subclavian No growth after 24 hours. Assessment and Plan (1) Infection due to Norovirus species: Status: Acute Plan Pt is a 80-year-old female with a PMH significant for?metastatic rectal cancer s/p chemo and radiation therapy, follows with Dr. Hickman in oncology who presents to the ED with generalized weakness, diarrhea, and syncopal episode with fall at home. Pt is admitted to the hospital for treatment and further evaluation of generalized weakness, intractable diarrhea, and failure to thrive in the setting of norovirus infection and worsening metastatic rectal cancer. Generalized weakness in the setting of norovirus infection Pt with diarrhea and incontinence for the past few days Tested positive for norovirus Will treat with IVF and supportive care Imodium p.r.n. PT consult Leukocytosis Pt with WBCs 30.2 at time of presentation, now 17 Likely secondary to metastatic cancer, not sepsis Does not meet SIRS criteria, has acute viral infection Pt given empiric antibiotics in the ED, no need to continue 1/2 gram positive cocci in blood, likely contaminiation antibiotics if wbc is going up Acute on chronic anemia related to chronic disease, malignancy transfused 2 units 02/12, repeat h/h today Metastatic rectal cancer Follow up with Dr. Hickman, no longer on active chemo or radiation CT imaging showing likely new and worsening metastasis to lungs, liver Oncology consult for possible hospice recommendation Chronic pain Secondary to metastatic cancer Continue home morphine and oxycodone Full Code; pt wishes to remain full code for now Attending:?Dr. Jordan DVT Prophylaxis: Pneumatic compression due to worsening anemia PT recommends STR Quality Stroke Does the patient have a stroke diagnosis?: No VTE Prior VTE?: No VTE Risk Level:: Medical - moderate - high VTE Device Contraindication: N/A - Device Ordered VTE Drug Contraindication: Treatment Not Indicated
[2025-02-13 11:30] LABS: Hematocrit 32.4 % (37.0-47.0); Hemoglobin 10.6 g/dl (12.0-16.0); Mean Corpuscular HGB Conc 32.7 g/dl (31.0-35.0); Mean Corpuscular Volume 76.4 fL (80.0-98.0); Mean Platelet Volume 9.8 fL (9.4-12.3); Platelet Count 335 X10*3/uL (160-400); Red Blood Count 4.24 X10*6/uL (4.20-5.50); Red Cell Distribution Width 19.9 % (11.0-16.0)
[2025-02-14 03:30] VITALS: BP 138/66; PULSE 79; RESP 18; TEMP 36.8; O2SAT 95
[2025-02-14] MEDS: Morphine Sulfate ER 30 MG TABLET.ER 60 MG PO ×3 (05:10→19:55)
[2025-02-14 07:09] VITALS: BP 158/78; PULSE 72; RESP 16; TEMP 36.6; O2SAT 96
[2025-02-14] MEDS: oxyCODONE HCl Immed Release 5 MG TABLET 20 MG PO ×3 (07:23→23:36)
[2025-02-14] MEDS: 0.9 % Sodium Chloride Flush 3 ML SYRINGE IVFLUSH ×3 (07:59→19:56)
--- NOTE | 2025-02-14 09:10 | HO.PM.IMPN ---
Subjective Subjective Date of Service: 02/14/25 Interval History: f/u diarrhe, norovirus less diarhea, complaint of pain in back not new 1/2 gram positve cocci in blood, reported as coag neg staph Physical Exam Vital Signs: Vital Signs: Last Vital Signs Temp 98 F 02/14/25 07:09 Pulse 72 02/14/25 07:09 Resp 16 02/14/25 07:09 BP 158/78 H 02/14/25 07:09 Pulse Ox 96 02/14/25 07:09 O2 Del Method Room Air 02/14/25 07:09 O2 Flow Rate 94 02/13/25 19:58 BMI result Body Mass Index 19.4 General: AOx3, unkempt, appears chronically ill, in no acute distress Resp: CTA bilaterally CVS: S1, S2, RRR GI: +BS, no distention, diffuse abd tenderness Skin: Warm, dry Neuro: Cranial nerves II-XII grossly intact bilaterally. Motor grossly intact bilaterally Extremities: No edema Psych: Appropriate affect Objective Data Active Medications Acetaminophen (Acetaminophen 325 Mg Tablet) 650 mg PO Q6H PRN PRN Reason: Pain, Mild 1-3,fever,headache Last Admin: 02/12/25 20:39 Dose: 650 mg Documented By: KATHLEEN-LAST Calcium Carbonate (Calcium Carbonate 750 Mg Tab.Chew) 750 mg PO Q4H PRN PRN Reason: Heartburn Magnesium Hydroxide (Milk Of Magnesia 30 Ml Oral.Susp) 30 ml PO DAILY PRN PRN Reason: Constipation Melatonin (Melatonin 3 Mg Tablet) 6 mg PO BEDTIME PRN PRN Reason: Insomnia Morphine Sulfate (Morphine Sulfate Er 30 Mg Tablet.Er) 60 mg PO Q8H [facility] Last Admin: 02/14/25 05:10 Dose: 60 mg Documented By: SHASHI Ondansetron HCl (Ondansetron Hcl 4 Mg/2 Ml Vial) 4 mg IVPUSH Q8H PRN PRN Reason: Nausea and Vomiting Oxycodone HCl (Oxycodone Hcl Immed Release 5 Mg Tablet) 20 mg PO Q8H PRN PRN Reason: Severe Pain (Scale Score 7-10) Last Admin: 02/14/25 07:23 Dose: 20 mg Documented By: GRAZIC Sodium Chloride (0.9 % Sodium Chloride Flush 3 Ml Syringe) [facility] Last Admin: 02/14/25 07:59 Dose: 3 ml Documented By: BHAVANA Labs 02/13/25 10:58 02/12/25 08:34 Labs: Laboratory Results - last 24 hr 02/13/25 10:58 MCV 76.4 L MCH 25.0 L MCHC 32.7 RDW 19.9 H Plt Count 335 MPV 9.8 Absolute Nucleated RBC 0.000 Nucleated RBC % (auto) 0.0 Microbiology Microbiology Results: Microbiology 02/11/25 12:15 Blood Culture - Final Blood - Subclavian Coag negative Staphylococcus 02/11/25 12:15 Blood Culture - Preliminary Blood - Subclavian No growth after 48 hours. Assessment and Plan (1) Infection due to Norovirus species: Status: Acute Plan Pt is a 80-year-old female with a PMH significant for?metastatic rectal cancer s/p chemo and radiation therapy, follows with Dr. Hickman in oncology who presents to the ED with generalized weakness, diarrhea, and syncopal episode with fall at home. Pt is admitted to the hospital for treatment and further evaluation of generalized weakness, intractable diarrhea, and failure to thrive in the setting of norovirus infection and worsening metastatic rectal cancer. Generalized weakness in the setting of norovirus infection Diarrhea improved Tested positive for norovirus IVF if not enough oral intake Imodium p.r.n. Leukocytosis Pt with WBCs 30.2 at time of presentation, now 11 Likely secondary to metastatic cancer, not sepsis Does not meet SIRS criteria, has acute viral infection Pt given empiric antibiotics in the ED, but not continued 1/2 gram positive cocci in blood, coag neg staph, not pathogenic at this time Acute on chronic anemia related to chronic disease, malignancy transfused 2 units /, repeat much improved Metastatic rectal cancer, seen by Dr. Falcon, interested in treatment and will need to discuss with her primary oncologist Dr. Balderas Chronic pain Secondary to metastatic cancer Continue home morphine and oxycodone Full Code; pt wishes to remain full code for now DVT Prophylaxis: Pneumatic compression due to worsening anemia PT recommends STR Quality Stroke Does the patient have a stroke diagnosis?: No VTE Prior VTE?: No VTE Risk Level:: Medical - moderate - high VTE Device Contraindication: N/A - Device Ordered VTE Drug Contraindication: Treatment Not Indicated
[2025-02-14 15:52] VITALS: BP 129/68; PULSE 73; RESP 18; TEMP 36.4; O2SAT 96
[2025-02-14 19:56] VITALS: BP 160/72; PULSE 80; RESP 18; TEMP 36.7; O2SAT 95
--- NOTE | 2025-02-14 19:58 | PC.NURSE ---
Addendum entered by Ca Price RN 02/15/25 01:11: Pt allowed to sleep at this time, RR even and non-labored, pt appears to be comfortable. Will continue to reassess Original Note: PT refused full assessment at this time, pain meds given per MAR, RR even and non-labored at this time, reporting 8/10 pain to abd and rectum, in Bed drinking some water. Will continue to reassess.
[2025-02-15 03:48] VITALS: BP 168/74; PULSE 83; RESP 14; TEMP 37; O2SAT 94
[2025-02-15] MEDS: Morphine Sulfate ER 30 MG TABLET.ER 60 MG PO ×3 (04:13→21:19)
[2025-02-15] MEDS: 0.9 % Sodium Chloride Flush 3 ML SYRINGE IVFLUSH ×3 (06:55→21:22)
[2025-02-15] MEDS: oxyCODONE HCl Immed Release 5 MG TABLET 20 MG PO ×2 (06:55→15:25)
--- NOTE | 2025-02-15 08:09 | HO.PM.IMPN ---
Subjective Subjective Date of Service: 02/15/25 Interval History: f/u diarrhe, norovirus less diarhea, complaint of pain in back not new 1/2 gram positve cocci in blood, reported as coag neg staph Physical Exam Vital Signs: Vital Signs: Last Vital Signs Temp 98.6 F 02/15/25 03:48 Pulse 83 02/15/25 03:48 Resp 14 02/15/25 03:48 BP 168/74 H 02/15/25 03:48 Pulse Ox 94 02/15/25 03:48 O2 Del Method Room Air 02/15/25 03:48 O2 Flow Rate 94 02/13/25 19:58 BMI result Body Mass Index 19.4 Objective Data Active Medications Acetaminophen (Acetaminophen 325 Mg Tablet) 650 mg PO Q6H PRN PRN Reason: Pain, Mild 1-3,fever,headache Last Admin: 02/12/25 20:39 Dose: 650 mg Documented By: KAIT Calcium Carbonate (Calcium Carbonate 750 Mg Tab.Chew) 750 mg PO Q4H PRN PRN Reason: Heartburn Magnesium Hydroxide (Milk Of Magnesia 30 Ml Oral.Susp) 30 ml PO DAILY PRN PRN Reason: Constipation Melatonin (Melatonin 3 Mg Tablet) 6 mg PO BEDTIME PRN PRN Reason: Insomnia Morphine Sulfate (Morphine Sulfate Er 30 Mg Tablet.Er) 60 mg PO Q8H [facility] Last Admin: 02/15/25 04:13 Dose: 60 mg Documented By: MICAELA Ondansetron HCl (Ondansetron Hcl 4 Mg/2 Ml Vial) 4 mg IVPUSH Q8H PRN PRN Reason: Nausea and Vomiting Oxycodone HCl (Oxycodone Hcl Immed Release 5 Mg Tablet) 20 mg PO Q8H PRN PRN Reason: Severe Pain (Scale Score 7-10) Last Admin: 02/15/25 06:55 Dose: 20 mg Documented By: EMY Sodium Chloride (0.9 % Sodium Chloride Flush 3 Ml Syringe) [facility] Last Admin: 02/15/25 06:55 Dose: 3 ml Documented By: EMY Labs 02/13/25 10:58 02/12/25 08:34 Microbiology Microbiology Results: Microbiology 02/11/25 12:15 Blood Culture - Final Blood - Subclavian Coag negative Staphylococcus Assessment and Plan (1) Infection due to Norovirus species: Status: Acute Plan Pt is a 80-year-old female with a PMH significant for?metastatic rectal cancer s/p chemo and radiation therapy, follows with Dr. Hickman in oncology who presents to the ED with generalized weakness, diarrhea, and syncopal episode with fall at home. Pt is admitted to the hospital for treatment and further evaluation of generalized weakness, intractable diarrhea, and failure to thrive in the setting of norovirus infection and worsening metastatic rectal cancer. Generalized weakness in the setting of norovirus infection Diarrhea improved IVF if not enough oral intake Imodium p.r.n. Leukocytosis Pt presented with WBCs 30.2 at time of presentation, now 11 Likely secondary to metastatic cancer, norovirus not sepsis Does not meet SIRS criteria, has acute viral infection Pt given empiric antibiotics in the ED, but not continued 1/2 gram positive cocci in blood, coag neg staph, not pathogenic at this time Acute on chronic anemia related to chronic disease, malignancy transfused 2 units 6/6, repeat much improved Metastatic rectal cancer, seen by Dr. Falcon, interested in treatment again and will need to discuss with her primary oncologist Dr. Balderas Chronic pain Secondary to metastatic cancer Continue home morphine and oxycodone Full Code; pt wishes to remain full code for now DVT Prophylaxis: Pneumatic compression due to worsening anemia PT recommends STR Quality Stroke Does the patient have a stroke diagnosis?: No VTE Prior VTE?: No VTE Risk Level:: Medical - moderate - high VTE Device Contraindication: N/A - Device Ordered VTE Drug Contraindication: Treatment Not Indicated
[2025-02-15 08:14] VITALS: BP 173/80; PULSE 75; RESP 20; TEMP 37; O2SAT 94
--- NOTE | 2025-02-15 13:02 | MHC.CM.PN ---
Patient has accepted bed at [facility] for STR, pending PT eval. PT attempted to eval again. Patient refused x2. MD aware. This CM spoke w/ patient , patient understands she cannot be accepted @ [facility] until there is a PT eval. She would like to try again tomorrow. LM for granddaughter/HCP, Yen, to discuss.
--- NOTE | 2025-02-15 14:20 | MHC.HEMONC ---
Triage call: Received call from dejah Knox requesting update on patient. Explained that patient is under inpatient status and son should call main hospital number at [phone]. Son verbalizes understanding.
--- NOTE | 2025-02-15 15:35 | MHC.CM.PN ---
CM MET WITH PT AND DAUGHTERDESHAWN TO DISCUSS DCP THEY ARE AWARE [facility] IS OFFERING A BED AND [facility] ARE FOLLOWING FOR PT NEEDS PT INITIALLY STATES SHE WANTS TO GO TO [facility], HOWEVER AGAIN REFUSES TO WORK WITH PT PT AND FAMILY ALSO UNDERSTAND IF PT GOES ANYWHERE BUT [facility], SHE WILL ONLY BE STR AND WILL HAVE TO DC IF SHE DOES NOT PARTICIPATE WITH PT AFTER PT REFUSED PT AGAIN, SHE WAS REMINDED [facility] WAS THE ONLY OPTION. PTS DAUGHTER ALSO REPORTED CONCERNS ABOUT PT RETURNING HOME IN THE FUTURE DUE TO ABILITY TO CARE FOR HERSELF AND HAVING AN AGGRESSIVE SON AT HOME DUE TO PTS REFUSAL TO PARTICIPATE WITH PT AND LTC NEEDS, [facility] IS THE ONLY SNF ABLE TO ACCEPT PT WILL DC TO [facility] TOMORROW VIA BLS
[2025-02-15 16:03] VITALS: BP 116/72; PULSE 101; RESP 18; TEMP 36.9; O2SAT 93
[2025-02-15 19:41] VITALS: BP 154/80; PULSE 106; RESP 16; TEMP 36.3; O2SAT 94
[2025-02-16] MEDS: oxyCODONE HCl Immed Release 5 MG TABLET 20 MG PO ×2 (01:10→15:35)
[2025-02-16 03:21] VITALS: BP 100/60; PULSE 115; RESP 18; TEMP 37.2; O2SAT 93
--- NOTE | 2025-02-16 04:05 | PC.NURSE ---
VS: BP: 100/60, HR: 116, Temp: 99, RR: 18, O2: 93%, have had 2 small amounts of rectal blood found on bed sheet. Also reporting a small headache, does not appear to be eating or drinking much. Dr. Aldana made aware
[2025-02-16] MEDS: Morphine Sulfate ER 30 MG TABLET.ER 60 MG PO ×3 (05:30→19:26)
[2025-02-16] MEDS: Lactated Ringers 1,000 ML 999 ML IV (05:31)
[2025-02-16 08:00] VITALS: BP 111/62; PULSE 88; RESP 12; TEMP 36.5; O2SAT 92
[2025-02-16 08:21] LABS: Hematocrit 36.5 % (37.0-47.0); Hemoglobin 11.8 g/dl (12.0-16.0); Mean Corpuscular HGB Conc 32.3 g/dl (31.0-35.0); Mean Corpuscular Hemoglobin 24.9 pg (27.0-33.0); Mean Platelet Volume 10.2 fL (9.4-12.3); Platelet Count 374 X10*3/uL (160-400); Red Blood Count 4.74 X10*6/uL (4.20-5.50); Red Cell Distribution Width 22.7 % (11.0-16.0)
[2025-02-16 08:27] LABS: White Blood Count 31.2 X10*3/uL (4.8-10.8)
[2025-02-16 08:32] LABS: Anion Gap 11 (12-20); Blood Urea Nitrogen 10 mg/dL (9-16); Calcium 7.9 mg/dL (8.4-10.2); Carbon Dioxide 25 mmol/L (22-29); Chloride 100 mmol/L (96-108); Creatinine Clr Calc Pharmacy 56.8; Estimated Glomerular Filt Rate > 60; Glucose Random 128 mg/dL (60-115); Potassium 4.1 mmol/L (3.3-5.1); Sodium 132 mmol/L (135-145)
[2025-02-16] MEDS: 0.9 % Sodium Chloride Flush 3 ML SYRINGE IVFLUSH ×3 (08:36→19:26)
--- NOTE | 2025-02-16 09:51 | HO.PM.IMPN ---
Subjective Subjective Date of Service: 02/16/25 Interval History: seen and examined this AM reports bloody BM overnight denies abd pain currently tolerating breakfast Review of Systems Negative except HPI/interval history. Physical Exam Vital Signs: Vital Signs: Last Vital Signs Temp 97.7 F 02/16/25 08:00 Pulse 88 02/16/25 08:00 Resp 12 02/16/25 08:00 BP 111/62 02/16/25 08:00 Pulse Ox 92 02/16/25 08:00 O2 Del Method Room Air 02/16/25 08:00 O2 Flow Rate 94 02/13/25 19:58 BMI result Body Mass Index 19.4 Const: Other: General - no acute distress, appears comfortable; chronically ill Cardiovascular - regular rate and rhythm, S1-S2 Lungs - normal respiratory effort, clear to auscultation bilaterally, no wheezing Abdomen - soft with mild TTP diffusely Extremities - no edema bilaterally Neuro - awake and alert, no focal deficits Objective Data Active Medications Acetaminophen (Acetaminophen 325 Mg Tablet) 650 mg PO Q6H PRN PRN Reason: Pain, Mild 1-3,fever,headache Last Admin: 02/12/25 20:39 Dose: 650 mg Documented By: KAIT Calcium Carbonate (Calcium Carbonate 750 Mg Tab.Chew) 750 mg PO Q4H PRN PRN Reason: Heartburn Magnesium Hydroxide (Milk Of Magnesia 30 Ml Oral.Susp) 30 ml PO DAILY PRN PRN Reason: Constipation Melatonin (Melatonin 3 Mg Tablet) 6 mg PO BEDTIME PRN PRN Reason: Insomnia Morphine Sulfate (Morphine Sulfate Er 30 Mg Tablet.Er) 60 mg PO Q8H [facility] Last Admin: 02/16/25 05:30 Dose: 60 mg Documented By: MICAELA Ondansetron HCl (Ondansetron Hcl 4 Mg/2 Ml Vial) 4 mg IVPUSH Q8H PRN PRN Reason: Nausea and Vomiting Oxycodone HCl (Oxycodone Hcl Immed Release 5 Mg Tablet) 20 mg PO Q8H PRN PRN Reason: Severe Pain (Scale Score 7-10) Last Admin: 02/16/25 01:10 Dose: 20 mg Documented By: MICAELA Sodium Chloride (0.9 % Sodium Chloride Flush 3 Ml Syringe) [facility] Last Admin: 02/16/25 08:36 Dose: 3 ml Documented By: JHON Labs 02/16/25 08:01 02/16/25 08:01 Labs: Laboratory Results - last 24 hr 02/16/25 08:01 MCV 77.0 L MCH 24.9 L MCHC 32.3 RDW 22.7 H Plt Count 374 MPV 10.2 Absolute Nucleated RBC 0.000 Nucleated RBC % (auto) 0.0 Anion Gap 11 L Estim Creat Clear Calc 56.8 Estimated GFR > 60 Random Glucose 128 H Calcium 7.9 L Assessment and Plan (1) Infection due to Norovirus species: Status: Acute Plan Pt is a 80-year-old female with a PMH significant for?metastatic rectal cancer s/p chemo and radiation therapy, follows with Dr. Hickman in oncology who presents to the ED with generalized weakness, diarrhea, and syncopal episode with fall at home. Pt is admitted to the hospital for treatment and further evaluation of generalized weakness, intractable diarrhea, and failure to thrive in the setting of norovirus infection and worsening metastatic rectal cancer. Metastatic rectal cancer, seen by Dr. Falcon, interested in treatment again and will need to discuss with her primary oncologist Dr. Balderas reports of 2blood BM overnight repeat H/H stable (slight improvement) but CBC increased significantly; will repeat cbc later today Generalized weakness in the setting of norovirus infection Diarrhea improved IVF if not enough oral intake Imodium p.r.n. Leukocytosis Pt presented with WBCs 30.2 at time of presentation and had resolved, now elevated again (? lab error -- will repeat) Likely secondary to metastatic cancer, norovirus not sepsis Does not meet SIRS criteria, has acute viral infection Pt given empiric antibiotics in the ED, but not continued 1/2 gram positive cocci in blood, coag neg staph, not pathogenic at this time Acute on chronic anemia related to chronic disease, malignancy transfused 2 units 02/12, repeat much improved; will repeat again Chronic pain Secondary to metastatic cancer Continue home morphine and oxycodone Full Code; pt wishes to remain full code for now DVT Prophylaxis: Pneumatic compression due to worsening anemia PT recommends STR -- plan was for d/c today, will be on hold given reports of rectal bleeding overnight; will monitor today Quality Stroke Does the patient have a stroke diagnosis?: No VTE Prior VTE?: No VTE Risk Level:: Medical - moderate - high VTE Device Contraindication: N/A - Device Ordered VTE Drug Contraindication: Treatment Not Indicated
[2025-02-16] MEDS: Acetaminophen 325 MG TABLET 650 MG PO (14:02)
[2025-02-16 15:34] LABS: Hematocrit 33.3 % (37.0-47.0); Hemoglobin 10.6 g/dl (12.0-16.0); Mean Corpuscular HGB Conc 31.8 g/dl (31.0-35.0); Mean Corpuscular Hemoglobin 24.8 pg (27.0-33.0); Mean Corpuscular Volume 77.8 fL (80.0-98.0); Mean Platelet Volume 9.7 fL (9.4-12.3); Platelet Count 301 X10*3/uL (160-400); Red Blood Count 4.28 X10*6/uL (4.20-5.50); Red Cell Distribution Width 22.5 % (11.0-16.0); White Blood Count 24.1 X10*3/uL (4.8-10.8)
[2025-02-16 16:00] VITALS: BP 98/55; PULSE 75; RESP 18; TEMP 36.7; O2SAT 95
[2025-02-16] MEDS: Lactated Ringers 1,000 ML 100 ML IVCONT (16:53)
[2025-02-16 19:22] VITALS: BP 118/71; PULSE 88; RESP 18; TEMP 36.3; O2SAT 93
[2025-02-17] MEDS: Lactated Ringers 1,000 ML 100 ML IVCONT (02:07)
[2025-02-17 03:10] VITALS: BP 140/67; PULSE 100; RESP 18; TEMP 36.7; O2SAT 98
[2025-02-17] MEDS: Morphine Sulfate ER 30 MG TABLET.ER 60 MG PO ×2 (03:18→11:02)
[2025-02-17] MEDS: Acetaminophen 325 MG TABLET 650 MG PO (03:18)
[2025-02-17 07:25] VITALS: BP 121/59; PULSE 96; RESP 14; TEMP 36.5; O2SAT 95
[2025-02-17] MEDS: 0.9 % Sodium Chloride Flush 3 ML SYRINGE IVFLUSH (08:03)
[2025-02-17 10:02] LABS: Hematocrit 32.2 % (37.0-47.0); Hemoglobin 10.2 g/dl (12.0-16.0); Mean Corpuscular HGB Conc 31.7 g/dl (31.0-35.0); Mean Corpuscular Hemoglobin 24.4 pg (27.0-33.0); Mean Platelet Volume 10.3 fL (9.4-12.3); Platelet Count 319 X10*3/uL (160-400); Red Blood Count 4.18 X10*6/uL (4.20-5.50); Red Cell Distribution Width 22.9 % (11.0-16.0)
[2025-02-17 10:24] LABS: Anion Gap 7 (12-20); Blood Urea Nitrogen 11 mg/dL (9-16); Carbon Dioxide 25 mmol/L (22-29); Chloride 102 mmol/L (96-108); Creatinine Clr Calc Pharmacy 60.7; Estimated Glomerular Filt Rate > 60; Glucose Random 81 mg/dL (60-115); Potassium 3.9 mmol/L (3.3-5.1); Sodium 130 mmol/L (135-145)
[2025-02-17] MEDS: Ferrous Sulfate 324 MG TABLET.DR PO (11:02)
--- NOTE | 2025-02-17 11:50 | MHC.CM.PN ---
Per MD rounds patient medically cleared for dc to SNF. BLS booked for 2pm to [facility]. Discussed with patient again, agrees to plan and states she will notify family. IMM delivered.
--- NOTE | 2025-02-17 12:45 | PM.DS ---
DS: Providers Provider Date of Service: 02/16/25 <Myles Jordan MD - Last Filed: 02/16/25 08:25> 02/17/25 <Santi Espinosa MD - Last Filed: 02/17/25 12:50> Date of admission: 02/11/25 16:01 <Myles Jordan MD - Last Filed: 02/16/25 08:25> Date of discharge: 02/16/25 <Myles Jordan MD - Last Filed: 02/16/25 08:25> 02/17/25 <Santi Espinosa MD - Last Filed: 02/17/25 12:50> Primary care physician: Marilee Garcia MD <Myles Jordan MD - Last Filed: 02/16/25 08:25> Consults: 02/11/25 17:22 Consult to Hematology / Oncology Routine Consulting Provider: [facility] [place] Oncology/Hematology Reason for consultation: Metastatic rectal cancer, ?hospice appropriate <Myles Jordan MD - Last Filed: 02/16/25 08:25> DS: Diagnosis Discharge Diagnosis (1) Infection due to Norovirus species: Status: Acute <Myles Jordan MD - Last Filed: 02/16/25 08:25> (2) Cellulitis and abscess of buttock: Status: Acute <Myles Jordan MD - Last Filed: 02/16/25 08:25> (3) Rectal mass: Status: Acute <Myles Jordan MD - Last Filed: 02/16/25 08:25> (4) Bloody stools: Status: Acute <Myles Jordan MD - Last Filed: 02/16/25 08:25> (5) Acute on chronic blood loss anemia: Status: Acute <Myles Jordan MD - Last Filed: 02/16/25 08:25> DS: Summary Hospital Course Hospital Course: admission hpi Chief Complaint: Fall at home Pt is a 80-year-old female with a PMH significant for?metastatic rectal cancer s/p chemo and radiation therapy, follows with Dr. Hickman in oncology who presents to the ED with generalized weakness, diarrhea, and syncopal episode with fall at home. Pt is overall a poor and vague historian. Lives with her son and grandson who is disabled. Pt reports last night she got up to use the bathroom and when she came out she felt lightheaded, dizzy, and weak, passing out and falling to the floor. Called out to her son but was unable to rouse him. Pt reports has been having mild abdominal pain, cramping, and diarrhea with the past few days. Was incontinent of stool with diarrhea while lying on the floor. Pt unsure if she has eaten any suspicious foods. Also experiencing some nausea and vomiting, but unclear for how long or how many episodes of vomiting. Complains of rectal pain that has been ongoing for some time, as well as difficulty breathing and chronic cough. Pt reports has been getting increasingly weak and unable to stand or ambulate at home. Pt is worried that neither she nor her son can take care of her at home any longer. Denies fever or chills. ? In the ED pt was afebrile and vital signs stable and WNL. Labs were significant for testing positive for norovirus, leukocytosis 30.2, and H&H 8.8/29.0. No significant electrolyte abnormalities. Renal function WNL, though worsened from 10/16/2024. Tested negative for flu, COVID, RSV. CT?of head with age-related atrophy and chronic microvascular leukomalacia, though no hemorrhage, mass effect, or acute findings. CTA of chest showing enlarging dominant spiculated pulmonary nodule in right lower lobe with likely pleural invasion. Also found numerous additional new small spiculated nodules in both lungs consistent with metastasis. CTA of abdomen/pelvis showed multiple hypodense lesions in the liver consistent with possible metastasis. Also found bowel wall thickening of rectum and anus as well as bowel wall thickening of the ascending and sigmoid call on possibly representing colitis. Pt was treated in the ED with IVF, midazolam, ondansetron, famotidine, Zosyn, and vancomycin. Pt is admitted to the hospital for treatment and further evaluation of generalized weakness, intractable diarrhea, and failure to thrive in the setting of norovirus infection and worsening metastatic rectal cancer. hospial course: Pt is a 80-year-old female with a PMH significant for metastatic rectal cancer, first diagnosed in 2021 and treated with chemotherapy. At that time, she was scheduled for an additional biopsy and further chemotherapy but declined the biopsy. In October of this year, imaging showed an enlarging spiculated pulmonary nodule in the right lower lobe with pleural invasion, measuring 3.5 cm (previously 1.4 cm), and numerous additional nodules in both lungs, liver, rectum, and anus, consistent with recurrent or worsening disease. She was offered chemotherapy again and declined. She presented on this occasion with a fall, weakness, profuse diarrhea, and leukocytosis peaking at 30. Stool studies revealed norovirus; cultures have been negative. Diarrhea and dehydration from norovirus were managed with supportive care, including hydration and antiemetics. Dehydration has significantly improved. She remains generally weak, lacks motivation, and is reluctant to participate in activities. Physical therapy has recommended rehab. # Leukocytosis. Pt presented with WBCs of 30.2 at the time of presentation, now 11. She was given a one-time dose of antibiotics in the ED, but this was not continued. This was likely related to norovirus and underlying malignancy. 1/2 gram-positive cocci in blood, coagulase-negative staph, not pathogenic at this time. # Acute on Chronic Anemia Related to Chronic Disease, Malignancy and rectal bleeding. Transfused 2 units on 02/12, with significant improvement. Hgb went from 7 to 10 and has been stable. To give iron supplement on discharge. # Metastatic Rectal Cancer. Seen by Dr. Hickman as the patient may be interested in chemotherapy. Dr. Hickman is deferring further decisions to Dr. Balderas, although her recommendation is hospice. The patient wants to follow with dr Balderas as outpatient. # Chronic Pain. Secondary to metastatic cancer. Continue home morphine and oxycodone. Discharge plan recovery from metastatic rectal Iron supplement pain medications Increase diet intake Follow with Dr Balderas as outpatient <Myles Jordan MD - Last Filed: 02/16/25 08:25> Time Attestation Discharge Coordination Time (in mins): 45 <Myles Jordan MD - Last Filed: 02/16/25 08:25> Quality: Safe Use of Opioids Does Pt have an Active Cancer Diagnosis on the Problem List?: Yes <Myles Jordan MD - Last Filed: 02/16/25 08:25> Opioid Measure Date for [facility] Report: 01/17/25 <Myles Jordan MD - Last Filed: 02/16/25 08:25> 01/18/25 <Santi Espinosa MD - Last Filed: 02/17/25 12:50> Opioid Measure Time for [facility] Report: 07:40 <Myles Jordan MD - Last Filed: 02/16/25 08:25> 12:49 <Santi Espinosa MD - Last Filed: 02/17/25 12:50> Quality: Stroke Does the patient have a stroke diagnosis?: No <Myles Jordan MD - Last Filed: 02/16/25 08:25> Physical Exam Vital Signs: Vital Signs: Last Vital Signs Temp 99 F 02/16/25 03:21 Pulse 115 H 02/16/25 03:21 Resp 18 02/16/25 03:21 BP 100/60 02/16/25 03:21 Pulse Ox 93 02/16/25 03:21 O2 Del Method Room Air 02/15/25 19:41 O2 Flow Rate 94 02/13/25 19:58 BMI result Body Mass Index 19.4 <Myles Jordan MD - Last Filed: 02/16/25 08:25> Const: Other: Constitutional : interactive, not in distress Cardiovascular : no JVP, no lower extremity edema Respiratory : bilateral chest movement, not in resp distress Gastrointestinal: soft, lax, Non tender Skin : Warm, Dry Neurological : Alert & oriented , No focal deficit <Santi Espinosa MD - Last Filed: 02/17/25 12:50> DS: Data Data Completed and Pending Completed studies during hospitalization [Text1]: Procedures Drainage of Right Lower Lung Lobe, Percutaneous Approach, Diagnostic (06/04/22) Excision of Anus, Via Natural or Artificial Opening Endoscopic, Diagnostic (06/04/22) Excision of Rectum, Via Natural or Artificial Opening Endoscopic, Diagnostic (06/04/22) Excision of Right Lower Lung Lobe, Percutaneous Approach, Diagnostic (06/04/22) <Myles Jordan MD - Last Filed: 02/16/25 08:25> Labs on day of discharge: Laboratory Results - last 24 hr 02/12/25 08:34 Smear Path Review SEE NOTE Preliminary micro results at discharge 02/11/25 12:15 Blood Culture - Preliminary Blood - Subclavian No growth after 48 hours. <Myles Jordan MD - Last Filed: 02/16/25 08:25> Imaging CT scan - abdomen: Radiologist's impression: ITS Impressions Chest CT 02/11/25 12:58 IMPRESSION: 1. Enlarging dominant spiculated pulmonary nodule in the superior segment right lower lobe, with likely pleural invasion, measuring 2.4 x 3.5 x 2.7 cm currently, previously measuring 1.4 cm. 2. Numerous additional new small spiculated nodules in both lungs, consistent with metastases. 3. Subcentimeter right hilar and mediastinal lymph nodes. No pathologic lymphadenopathy noted. 4. Moderate to severe centrilobular emphysema with upper lobe predominance. 5. Lungs otherwise clear without definite pneumonia present. 6. Diffuse wall thickening and edema of the esophagus throughout its course, suggesting esophagitis. This could be treatment related, or related to other etiologies. 7. Right chest port in place with tip terminating in the distal SVC. Electronically signed by: Buzz Abdi MD 02/11/2025 03:19 PM EDT RP <Santi Espinosa MD - Last Filed: 02/17/25 12:50> Discharge Plan Discharge Anticipated Discharge Date/Time: 02/17/25 12:19 <Myles Jordan MD - Last Filed: 02/16/25 08:25> Patient Disposition: [facility] <Myles Jordan MD - Last Filed: 02/16/25 08:25> Discharge Diagnosis: Acute on chronic anemia Norovirus infection Rectal cancer <Myles Jordan MD - Last Filed: 02/16/25 08:25> Acute on chronic anemia Norovirus infection Rectal cancer <Santi Espinosa MD - Last Filed: 02/17/25 12:50> [facility] [Outside] Marilee Trujillo MD [Primary Care Provider] - 1 Week <Myles Jordan MD - Last Filed: 02/16/25 08:25> Discharge Medications: New ferrous sulfate 324 mg (65 mg iron) Tablet,Delayed Release (Dr/Ec) 324 mg PO DAILY Qty: 90 0RF ondansetron 4 mg tablet,disintegrating 4 mg PO Q8H PRN (Reason: nausea and vomiting) Qty: 30 0RF Continued acetaminophen [Tylenol] 325 mg Tablet 650 mg PO QID PRN (Reason: Pain) (DME) cane Device Qty: 1 0RF Rx Instructions: As Directed morphine 60 mg Tablet Extended Release 60 mg PO Q8H Qty: 45 0RF Rx Instructions: Partial Fill upon patient request. oxycodone 20 mg Tablet 20 mg PO Q8H PRN (Reason: Severe Pain (Scale Score 7-10)) Qty: 60 0RF Rx Instructions: Partial Fill upon patient request. <Myles Jordan MD - Last Filed: 02/16/25 08:25> Discharge Orders: Discharge Order (Routine); Ordered 02/17/25 Ordered By: Santi Espinosa <Myles Jordan MD - Last Filed: 02/16/25 08:25> Diet: Advance to usual diet <Myles Jordan MD - Last Filed: 02/16/25 08:25> Advance to usual diet <Santi Espinosa MD - Last Filed: 02/17/25 12:50> Activity on Discharge: As tolerated <Myles Jordan MD - Last Filed: 02/16/25 08:25> As tolerated <Santi Espinosa MD - Last Filed: 02/17/25 12:50> Stand Alone Forms: Patient Portal Discharge page <Myles Jordan MD - Last Filed: 02/16/25 08:25> Print Language: Bruneian <Myles Jordan MD - Last Filed: 02/16/25 08:25> Care Plan Goals: recovery from metastatic rectal Iron supplement pain medications Increase diet intake Follow with Dr Balderas as outpatient <Myles Jordan MD - Last Filed: 02/16/25 08:25> Health Concerns: Rectal cancer Blood loss anemia <Myles Jordan MD - Last Filed: 02/16/25 08:25> Plan of Treatment: Iron supplement pain medications Follow with Dr Balderas as outpatient <Myles Jordan MD - Last Filed: 02/16/25 08:25> Assessment: as above <Myles Jordan MD - Last Filed: 02/16/25 08:25>
[2025-02-17] MEDS: Heparin Sodium,Porcine 1,000 UNIT/ML VIAL 500 UNIT IV (13:12)
[2025-02-17 14:43] VITALS: BP 131/63; PULSE 86; RESP 14; TEMP 36.8; O2SAT 98
--- NOTE | 2025-02-24 09:54 | P.CDIM_ITS ---
PROVIDER RESPONSE TEXT: To clarify, the appropriate diagnosis supported by the clinical indicators: Acute blood loss anemia QUERY TEXT: PHYSICIAN'S DOCUMENTATION REQUEST Date of Query: 02/15/2025 08:20 AM EDT Patient Name: EDVIN HEARN Admit Date: 02/11/2025 Dear Myles Jordan MD, A review of the medical record indicates additional documentation may be needed. Please review below and update the documentation accordingly. Clinical Indicators: diarrhea, + norovirus, metastatic rectal cancer H&H: 7.0/22.9 Per Hematology Oncology consultation 02/12/25: probable iron deficiency anemia secondary to rectal bleeding Acute on chronic anemia related to chronic disease, malignancy Transfuse 2 units PRBC Based on the above, could you clarify which of the following is the most likely type of anemia you are evaluating, treating, and/or monitoring? Acute blood loss anemia Acute blood loss anemia with baseline chronic anemia (specify type) Anemia of chronic disease indicate if neoplastic disease, CKD, or other Chronic iron deficiency anemia due to blood loss Vitamin B12 deficiency anemia indicate etiology, such as intrinsic factor deficiency, malabsorption, transcobalamin II deficiency, dietary, etc Folate deficiency anemia indicate etiology, such as dietary, drug-induced, etc Protein deficiency anemia Other (explain) Clinically unable to determine (explain) Thank you, Maryellen Sofia RN Use of terms such as suspected, likely, concern for, or probable (associated with a specific diagnosis that is being evaluated, monitored, or treated as if it exists) are acceptable and can be coded in the inpatient setting, when documented at the time of discharge. Please use your independent medical judgment in providing your response. THIS QUERY IS PART OF THE PERMANENT MEDICAL RECORD
== END 2025-02-17 15:00 | disposition skilled nursing facility (03) | DRG 392 ==
LOC: HO.ED 13:56 → HO.EDOVER 16:13 → HO.S3 19:19
PROVIDERS: Family Medicine; Internal Medicine; Admitting Provider Student in an Organized Health Care Education/Training Program; Emergency Provider Emergency Medicine; PCP Internal Medicine; Visit Provider Student in an Organized Health Care Education/Training Program
DX: A08.11 Acute gastroenteropathy due to Norwalk agent (principal); D62 Acute posthemorrhagic anemia; C20 Malignant neoplasm of rectum; C78.7 Secondary malignant neoplasm of liver and intrahepatic bile duct; C78.02 Secondary malignant neoplasm of left lung; C78.01 Secondary malignant neoplasm of right lung; K62.5 Hemorrhage of anus and rectum; Z68.1 Body mass index [BMI] 19.9 or less, adult; E86.0 Dehydration; D63.0 Anemia in neoplastic disease; G89.3 Neoplasm related pain (acute) (chronic); R62.7 Adult failure to thrive; Z87.891 Personal history of nicotine dependence; Z20.822 Contact with and (suspected) exposure to COVID-19
CPT/HCPCS: 0241U; 36415; 70450; 71260; 74177; 80048; 80053; 81001; 82550; 82728; 82803; 83540; 83605; 83690; 83735; 84484; 85025; 85027; 86850; 86900; 86901; 86923; 87040; 87147; 87205; 87507; 99285; J1308; J1642; J1644; J2250; J2405; J2543; J3370; J7120; P9016; Q9967

== ENCOUNTER → 2025-02-11 12:50 | Outpatient (BNV) | payer MEDICARE, MEDICAID, SELFPAY | PROVIDERS: Emergency Provider Emergency Medicine; PCP Internal Medicine; Visit Provider Radiology Diagnostic Radiology | DX: R91.1 Solitary pulmonary nodule (principal); K62.89 Other specified diseases of anus and rectum; R59.0 Localized enlarged lymph nodes; I67.82 Cerebral ischemia; J43.2 Centrilobular emphysema; Z95.828 Presence of other vascular implants and grafts; K76.89 Other specified diseases of liver; E23.6 Other disorders of pituitary gland | CPT/HCPCS: 71260 ==

== ENCOUNTER → 2025-02-11 16:01 | Outpatient (BNV) | payer MEDICARE, MEDICAID, SELFPAY | PROVIDERS: Admitting Provider Student in an Organized Health Care Education/Training Program; Emergency Provider Emergency Medicine; PCP Internal Medicine; Visit Provider Internal Medicine | DX: C20 Malignant neoplasm of rectum (principal) | CPT/HCPCS: 99222 ==

== ENCOUNTER → 2025-02-11 16:01 | Outpatient (BNV) | payer MEDICARE, MEDICAID, SELFPAY | PROVIDERS: Admitting Provider Student in an Organized Health Care Education/Training Program; Emergency Provider Emergency Medicine; PCP Internal Medicine; Visit Provider Student in an Organized Health Care Education/Training Program | DX: A08.11 Acute gastroenteropathy due to Norwalk agent (principal) | CPT/HCPCS: 99223; 99232 ==